=== PATIENT | male | born 1975 | race Caucasian/White ===

== ENCOUNTER → 2020-03-18 13:57 | Outpatient (CLI) | payer BC, SELFPAY ==
[2020-03-18 14:20] LABS: Basophils # 0.1 K/mm3 (0-0.2); Basophils % 0.8 % (0.1-2.0); Eosinophils # 0.2 K/mm3 (0.0-0.4); Hemoglobin 17.1 g/dL (14.1-18.0); Lymphocytes # 2.3 K/mm3 (0.7-4.5); Lymphocytes % 27.1 % (10-50); Mean Corpuscular HGB Conc 33.6 g/dL (31.8-35.4); Mean Corpuscular Hemoglobin 31.4 pg (27.0-31.2); Mean Corpuscular Volume 93.6 fl (80-94); Mean Platelet Volume 8.9 fl (7.4-10.4); Monocytes # 0.6 K/mm3 (0.1-1.0); Neutrophils # 5.3 K/mm3 (1.8-7.8); Platelet Count 337 K/mm3 (142-424); Red Blood Count 5.46 M/mm3 (4.60-6.20); White Blood Count 8.5 K/mm3 (4.8-10.8)
[2020-03-18 16:07] LABS: Alanine Aminotransferase 49 U/L (12-78); Albumin Level 4.6 g/dl (3.5-5.0); Alkaline Phosphatase 87 U/L (38-126); Anion Gap 9.6 mEq/L (5-15); Aspartate Amino Transferase 33 U/L (17-59); Bilirubin,Direct 0.3 mg/dl (0.0-0.4); Bilirubin,Total 0.3 mg/dl (0.2-1.3); Blood Urea Nitrogen 11 mg/dl (9-20); Calcium 10.4 mg/dl (8.4-10.2); Carbon Dioxide 28 mmol/L (22.0-30.0); Chloride 105 mmol/L (98-107); Estimated Glomerular Filt Rate 73 ml/min (>60); GFR (African American) 88 ML/MIN (>60); Glucose 82 mg/dl (74-100); HDL Cholesterol 38 mg/dl (40-60); Potassium 4.6 mmoL/L (3.5-5.1); Sodium 138 mmol/L (136-145); Total Protein,Serum 7.6 g/dl (6.3-8.2)
[2020-03-18 16:17] LABS: Chol/HDL Ratio 9.5 (1-3.5); Cholesterol 361 mg/dl (140-200); Direct LDL Cholesterol 225.44 mg/dL (100-129); Triglycerides 688 mg/dl (30-150)
[2020-03-18 16:25] LABS: Free T4 (Free Thyroxine) 1.03 ng/dl (0.78-2.19)
[2020-03-18 16:40] LABS: Thyroid Stimulating Hormone 0.62 uIU/mL (0.465-4.68)
== END ==
PROVIDERS: Visit Provider Urology
DX: R07.9 Chest pain, unspecified (principal); R06.00 Dyspnea, unspecified; R06.01 Orthopnea; R55 Syncope and collapse; R61 Generalized hyperhidrosis
CPT/HCPCS: 36415; 80048; 80061; 80076; 84439; 84443; 85025

== ENCOUNTER → 2020-04-04 06:18 | Outpatient (CLI) | payer BC, SELFPAY ==
--- NOTE | 2020-04-04 06:18 | NM_ITS ---
APPROVED REPORT Exam: Nuclear Stress Test Indication: HYPERLIPIDEMIA, TOB USE, FM HX, C.P., SOB, FATIGUE Patient Location: Outpatient Stress Tech: Natasha Lowe [place] Tech:Milady StephensFROYLAN RT(R)(N) Ht: 6 ft 1 in Wt: 245 lbs HR: 76 bpm BP: 126/81 mmHg BSA: 2.35 m2 BMI: 32.3 History: HYPERLIPIDEMIA, TOB USE, FM HX, C.P., SOB, FATIGUE Procedure: Patient received a 0.4 mg of intravenous Lexiscan, resting heart rate 76 bpm, resting blood pressure 126/81 mmHg, with Lexiscan maximum heart rate achived was 106 bpm which is Less than 85 % of the maximum predicted heart rate and blood pressure was 157/91 mmHg. Electrocardiogram Resting electrocardiogram showed sinus rhythm, with Lexiscan there is less than 1.[address] segment depression noted from the baseline EKG. The EKG portion of the Lexiscan is nondiagnostic. Cardiac Stress and Resting SPECT Images: Cardiac Stress and Resting SPECT images were obtained using technetium 99m Myoview 29.9 mCi stress and 10.32 mCi at rest. Gated SPECT for analysis of segmental wall motion and calculation of the ejection fraction also done. Prone images were also obtained. Cardiac stress and rest SPECT images show uniform myocardial activity without segmental perfusion abnormality, computer derived ejection fraction is 58% with no regional wall motion abnormality, right ventricle is normal size and contractility. Conclusion: 1. The EKG portion of Lexiscan is nondiagnostic. 2. No scintigraphic evidence of reversible ischemia seen, computer derived ejection fraction 58% with no regional wall motion abnormality, right ventricle is normal size and contractility. 3. Normal Lexiscan Myoview study. Electronically signed by : Kuldeep Diaz, 04/04/2020 11:18:50
--- NOTE | 2020-04-04 06:18 | CA_ITS ---
APPROVED REPORT Exam: Pharmacologic Technologist: Natasha Lowe Ht: 6 ft 1 in Wt: 244 lbs BSA: 2.34 m2 HR: 76 bpm BP: 126/81 mmHg Indications: Chest pain, Shortness of Breath Medical History Medications: Lorazepam,,,,, Gabapentin,,,,, Zolpidem,,,,, OxYCODONE,,,,, Fluoxetine,,,,, Cyclobenzaprine,,,,, Stress Test Details Test: LEXISCAN HR Resting HR: 83 bpm Max Heart Rate (APMHR): 177 bpm Max HR Achieved: 108 bpm Target HR (85% APMHR): 150 bpm % of APMHR: 61 Recovery HR: 88 bpm BP Resting BP: 126.0/81.0 mmHg Max BP: 157.0/91.0 mmHg Recovery BP: 130.0/89.0 mmHg ECG Resting ECG: NORMAL SINUS RHYTHM Clinical Exercise duration: 04:00 min Highest Stage Achieved: Exercise capacity: 1.0 METs Stress ECG Conclusion Symptoms: No chest pain Arrhythmias/Ectopy: None ST-T Changes: < 1.[address] segment changes Conclusion: Non-Diagnostic Electronically signed by : Kuldeep Diaz, 04/04/2020 11:04:05
--- NOTE | 2020-04-04 06:18 | CA_ITS ---
APPROVED REPORT EXAM: Comprehensive 2D, Doppler, and color-flow Echocardiogram Seat Nailer: Lizabeth Wright RT(R) Ht: 6 ft 1 in Wt: 244lbs BSA: 2.34 BP: 126/77 mmHg Indications: CP, SOB, orthopnea, near syncope, diaphoresis, obesity Echo Enhancing Agent Indication: Endocardial border delineation Agent(s) / Amount(s) Used: Definity 2 cc 2D Dimensions LVOT 2.16 cm (M/F) 1.5-2.5 M-Mode Dimensions RVDd 2.35 cm (0.9-2.6) LA Diam 2.85 cm (1.9-4.0) LVDd 4.10 cm (3.5-5.7) Ao Diam 2.98 cm (2.0-3.7) LVDs 3.04 cm (3.5-5.7) IVSd 0.80 cm (0.6-1.1) PWd 0.80 cm (0.6-1.1) EF (Teich) 51.20% FS 25.90% EDV (Teich) 74.20 mL ESV (Teich) 36.20 mL LV Diastology E Decel Time 220.00 (160-240 msec) E/A Ratio 1.3 MED E' 9.40 (< 7 cm/sec) E'/MED E' Ratio 7.67 (>14) LAT E' 11.00 (<10 cm/sec) E/LAT E' Ratio 6.55 (>14) Mitral Valve MV E Max Faizan. 72.00 (40-130 cm/s) MV A Velocity 57.00 (40-130 cm/s) E/A Ratio 1.26 MV Decel. Time 220.00 (160-240 ms) MV PHT 64.00 ms Left Ventricle Left atrium is normal size, left ventricle is normal size, there is no concentric left ventricular hypertrophy, visually estimated ejection fraction 55% with no regional wall motion abnormality. Diastolic parameters are within normal range. Right Ventricle Right atrium and right ventricle are normal size and contractility. Aortic Valve Aortic valve is grossly normal, there is no aortic stenosis or aortic insufficiency. Mitral Valve Mitral valve is grossly normal. There is trace mitral regurgitation. Tricuspid Valve Tricuspid valve is grossly normal, there is trace tricuspid regurgitation, tricuspid regurgitation jet velocity is inadequate for calculation of the right ventricular systolic pressure. Pulmonic Valve Pulmonic valve is poorly visualized. Great Vessels Aortic root is normal size. Pericardium No significant pericardial effusion noted. Conclusion 1. Normal left ventricular size, preserved left ventricular systolic function, visually estimated ejection fraction 55% with no regional wall motion abnormality, diastolic parameters are within normal range. 2. Trace mitral and tricuspid regurgitation. 3. No significant pericardial effusion noted. Electronically signed by : Kuldeep Diaz, 04/04/2020 10:32:21
== END ==
PROVIDERS: PCP Family Medicine; Visit Provider Urology
DX: R07.9 Chest pain, unspecified (principal); R06.00 Dyspnea, unspecified; R06.01 Orthopnea; R55 Syncope and collapse; R61 Generalized hyperhidrosis
CPT/HCPCS: 78452; 93017; 93306; A9502; J2785

== ENCOUNTER → 2020-05-06 12:27 | Outpatient (CLI) | payer BC, SELFPAY ==
[2020-05-06 13:02] LABS: Alanine Aminotransferase 49 U/L (12-78); Albumin Level 4.4 g/dl (3.5-5.0); Alkaline Phosphatase 85 U/L (38-126); Aspartate Amino Transferase 39 U/L (17-59); Bilirubin,Direct 0.2 mg/dl (0.0-0.4); Bilirubin,Indirect 0.3 mg/dL (0.0-0.9); Bilirubin,Total 0.5 mg/dl (0.2-1.3); Bilirubin,Unconjugated 0.3 mg/dL (0.0-1.1); Chol/HDL Ratio 5.2 (1-3.5); Cholesterol 193 mg/dl (140-200); HDL Cholesterol 37 mg/dl (40-60); Total Protein,Serum 7.3 g/dl (6.3-8.2); Triglycerides 193 mg/dl (30-150); VLDL Cholesterol 39 mg/dL (0-40)
[2020-05-06 13:13] LABS: Direct LDL Cholesterol 111.56 mg/dL (100-129)
== END ==
PROVIDERS: Visit Provider Physician Assistant
DX: I11.9 Hypertensive heart disease without heart failure (principal); E11.9 Type 2 diabetes mellitus without complications
CPT/HCPCS: 36415; 80061; 80076

== ENCOUNTER → 2022-09-28 10:25 | Outpatient (CLI) | payer MEDICARE, MEDICAID, SELFPAY ==
--- NOTE | 2022-09-28 10:26 | CT_ITS ---
FINAL REPORT TECHNIQUE: Pre- and postcontrast images of the abdomen were performed by computed tomography. This study was performed with techniques to keep radiation doses as low as reasonably achievable (ALARA). Individualized dose reduction techniques using automated exposure control or adjustment of mA and/or kV according to the patient's size were employed. CLINICAL HISTORY: Left flank pain FINDINGS: There is mild left base atelectasis or scar. Mild vascular calcification is identified. The liver is normal in size and attenuation. There is nonspecific gallbladder wall thickening. The spleen is unremarkable. The adrenals are normal. The pancreas is unremarkable. The kidneys enhance appropriately. The appendix is normal. There are multiple fluid-filled bowel loops in a nonspecific pattern. IMPRESSION: Mild nonspecific gallbladder wall thickening. No acute inflammatory process. Reviewed, Interpreted and Dictated by Aj Ferrell III, MD Transcribed by Dolores Kuo Authenticated and [facility]
== END ==
LOC: RAD 10:26
PROVIDERS: PCP Family Medicine; Visit Provider Family Medicine
DX: R19.8 Other specified symptoms and signs involving the digestive system and abdomen (principal); R10.9 Unspecified abdominal pain
CPT/HCPCS: 74170; Q9967

== ENCOUNTER 2023-04-13 18:38 | Outpatient (CLI) | payer MEDICARE, MEDICAID, SELFPAY ==
[2023-04-13 18:17] LABS: Basophils % 0.4 % (0.1-2.0); Eosinophils # 0.2 K/mm3 (0.0-0.4); Eosinophils % 2.2 % (0.1-12.0); Hematocrit 45.8 % (42.0-52.0); Hemoglobin 15.3 g/dL (14.1-18.0); Lymphocytes # 2.7 K/mm3 (0.7-4.5); Lymphocytes % 34.5 % (10-50); Mean Corpuscular HGB Conc 33.3 g/dL (31.8-35.4); Mean Corpuscular Hemoglobin 33.9 pg (27.0-31.2); Mean Corpuscular Volume 101.7 fl (80-94); Monocytes # 0.6 K/mm3 (0.1-1.0); Monocytes % 7.8 % (1.7-9.3); Neutrophils # 4.2 K/mm3 (1.8-7.8); Neutrophils % 55.1 % (37.0-80.0); Platelet Count 290 K/mm3 (142-424); Red Blood Count 4.51 M/mm3 (4.60-6.20); Red Cell Distribution Width 13.7 % (11.5-17.5); White Blood Count 7.7 K/mm3 (4.8-10.8)
[2023-04-13 19:01] LABS: Alanine Aminotransferase 46 U/L (12-78); Albumin Level 4.1 g/dl (3.5-5.0); Albumin/Globulin Ratio 1.6 (1.1-1.8); Alkaline Phosphatase 94 U/L (38-126); Anion Gap 11.5 mEq/L (5-15); Aspartate Amino Transferase 38 U/L (17-59); Bilirubin,Total 0.4 mg/dl (0.2-1.3); Blood Urea Nitrogen 15 mg/dl (9-20); Calcium 9.2 mg/dl (8.4-10.2); Carbon Dioxide 27 mmol/L (22.0-30.0); Chloride 105 mmol/L (98-107); Chol/HDL Ratio 6.7 (1-3.5); Cholesterol 214 mg/dl (140-200); Estimated Glomerular Filt Rate 72 ml/min (>60); GFR (African American) 87 ML/MIN (>60); Globulin 2.6 g/dL (1.3-3.2); Glucose 78 mg/dl (74-100); HDL Cholesterol 32 mg/dl (40-60); Potassium 4.5 mmoL/L (3.5-5.1); Sodium 139 mmol/L (136-145); Total Protein,Serum 6.7 g/dl (6.3-8.2); Triglycerides 351 mg/dl (30-150); VLDL Cholesterol 70 mg/dL (0-40)
[2023-04-13 19:12] LABS: Direct LDL Cholesterol 118.38 mg/dL (100-129)
== END 2023-04-13 23:59 ==
LOC: LAB.DROPOF 18:39
PROVIDERS: PCP Family Medicine; Visit Provider Family Medicine
DX: G47.00 Insomnia, unspecified (principal); E78.5 Hyperlipidemia, unspecified; Z83.438 Family history of other disorder of lipoprotein metabolism and other lipidemia; Z76.0 Encounter for issue of repeat prescription; Z79.899 Other long term (current) drug therapy
CPT/HCPCS: 80053; 80061; 85025

== ENCOUNTER 2023-07-12 07:49 | Outpatient (CLI) | payer MEDICARE, SELFPAY ==
--- NOTE | 2023-07-12 07:50 | US_ITS ---
FINAL REPORT CLINICAL HISTORY: ABDOM PAIN, GB THICKENING COMPARISON: None FINDINGS: Sonographic images of the right upper quadrant were obtained. The pancreas is mostly obscured. There is diffuse fatty infiltration of the liver. There is a hypoechoic focus present adjacent to the gallbladder fossa that may represent an area of focal fatty sparing. There is wall thickening of the gallbladder, and the gallbladder appears contracted. A small amount of sludge appears to be present. There is no evidence of biliary ductal dilatation.The common duct measures 3 mm. Limited images of the right kidney are unremarkable. IMPRESSION: Diffuse fatty infiltration of the liver, with a hypoechoic focus adjacent to the gallbladder fossa that may represent an area of focal fatty sparing. Wall thickening is present in the gallbladder, and the gallbladder appears contracted with a small amount of sludge. No biliary ductal dilatation is present. Reviewed, Interpreted and Dictated by Adi Lora MD Transcribed by Cheryl Almanza Authenticated and [facility]
== END 2023-07-12 23:59 | disposition home or self-care (01) ==
LOC: RAD 07:50
PROVIDERS: PCP Family Medicine; Visit Provider Family Medicine
DX: R10.9 Unspecified abdominal pain (principal)
CPT/HCPCS: 76705

== ENCOUNTER 2023-08-03 14:03 | Outpatient (CLI) | payer MEDICARE, SELFPAY ==
--- NOTE | 2023-08-03 14:04 | ECG_ITS ---
APPROVED REPORT Exam: Resting ECG HR:56 bpm ECG Measurements Heart Rate 56 AXES TN 187 P 20 QRSd 97 QRS 76 QT 394 T 30 QTc 385 Conclusion SINUS BRADYCARDIA LOW QRS VOLTAGE IN PRECORDIAL LEADS [QRS DEFLECTION < 1.0 mV IN CHEST LEADS] BORDERLINE ECG UNCONFIRMED REPORT Electronically signed by : Krzysztof Boucher MD 08/05/2023 10:29:18
[2023-08-03 14:43] LABS: Basophils # 0.1 K/mm3 (0-0.2); Basophils % 1.3 % (0.1-2.0); Eosinophils # 0.1 K/mm3 (0.0-0.4); Eosinophils % 2.2 % (0.1-12.0); Hematocrit 48.9 % (42.0-52.0); Hemoglobin 15.9 g/dL (14.1-18.0); Lymphocytes # 2.6 K/mm3 (0.7-4.5); Lymphocytes % 39.8 % (10-50); Mean Corpuscular HGB Conc 32.4 g/dL (31.8-35.4); Mean Corpuscular Hemoglobin 32.4 pg (27.0-31.2); Mean Corpuscular Volume 99.9 fl (80-94); Mean Platelet Volume 9.3 fl (7.4-10.4); Monocytes # 0.4 K/mm3 (0.1-1.0); Monocytes % 6.7 % (1.7-9.3); Neutrophils # 3.2 K/mm3 (1.8-7.8); Platelet Count 270 K/mm3 (142-424); Red Blood Count 4.89 M/mm3 (4.60-6.20); Red Cell Distribution Width 14.4 % (11.5-17.5); White Blood Count 6.5 K/mm3 (4.8-10.8)
[2023-08-03 15:23] LABS: Alanine Aminotransferase 44 U/L (12-78); Albumin Level 4.3 g/dl (3.5-5.0); Albumin/Globulin Ratio 1.5 (1.1-1.8); Alkaline Phosphatase 78 U/L (38-126); Anion Gap 13.5 mEq/L (5-15); Aspartate Amino Transferase 35 U/L (17-59); Bilirubin,Total 0.5 mg/dl (0.2-1.3); Blood Urea Nitrogen 17 mg/dl (9-20); Calcium 9.6 mg/dl (8.4-10.2); Carbon Dioxide 31 mmol/L (22.0-30.0); Chloride 100 mmol/L (98-107); Estimated Glomerular Filt Rate 59 ml/min (>60); GFR (African American) 72 ML/MIN (>60); Globulin 2.8 g/dL (1.3-3.2); Glucose 78 mg/dl (74-100); Potassium 4.5 mmoL/L (3.5-5.1); Sodium 140 mmol/L (136-145); Total Protein,Serum 7.1 g/dl (6.3-8.2)
== END 2023-08-03 23:59 | disposition home or self-care (01) ==
PROVIDERS: PCP Family Medicine; Visit Provider Surgery
DX: K92.1 Melena (principal)
CPT/HCPCS: 36415; 80053; 85025; 93005

== ENCOUNTER 2023-08-05 05:59 | Day surgery (SDC) | payer MEDICARE, SELFPAY ==
[2023-08-04 13:00] VITALS: BMI 32.3
[2023-08-05] VITALS (7 sets, daily range): BP systolic 92–139; BP diastolic 56–95; PULSE 54–61; RESP 18; TEMP 36.1–36.5; O2SAT 95–99; BMI 32.3
[2023-08-05] MEDS: LACTATED RINGERS 1000ML 1,000 ML 25 ML IV (06:33)
--- NOTE | 2023-08-05 06:52 | HMH.SCOPE ---
Procedure: Date: 08/05/23 Patient Date of :: 1975 Procedure Performed:: Esophagogastroduodenoscopy with biopsy Indications:: Melena Note: During recent discussion with regard to biliary disease the patient mentioned significant black stool recently . Performing Provider:: Nixon Mccall MD Referring Provider:: . Sedation:: Monitored anesthesia care Procedure:: After informed consent was obtained the patient was taken to the endoscopy suite. Sedation ensued after the patient was transferred to the left lateral decubitus position. Pulse, blood pressure, and oxygen saturation were monitored throughout the procedure. The endoscope was advanced beyond the duodenal bulb. Retroflexion within the gastric lumen was accomplished. The gastroscope was carefully removed and the patient was transferred to recovery in stable condition. Please see findings and specimens below for detail. Findings:: Gastroesophageal junction at 42 cm Mild patchy gastroduodenitis Specimens:: Antral biopsy Recommendations:: Follow-up pathology Continue with current plans with regard to laparoscopic cholecystectomy Complications:: No immediate Estimated blood obtained (mL): 1 Colonoscopy Component Colonoscopy Component Was a colonoscopy performed during today's procedure?: No
== END 2023-08-05 08:05 | disposition home or self-care (01) ==
PROVIDERS: PCP Family Medicine; Visit Provider Surgery
PROC: 0DJ08ZZ Inspection of Upper Intestinal Tract, Via Natural or Artificial Opening Endoscopic (ICD-10-PCS; CPT 43235; principal; 2023-08-05 07:00)
DX: K92.1 Melena (principal); K29.90 Gastroduodenitis, unspecified, without bleeding; K31.89 Other diseases of stomach and duodenum
CPT/HCPCS: 43239; J7120

== ENCOUNTER 2023-08-25 05:59 | Day surgery (SDC) | payer MEDICARE, SELFPAY ==
[2023-08-23 13:05] VITALS: BMI 31.4
[2023-08-23 13:25] VITALS: BMI 31.4
[2023-08-25] VITALS (13 sets, daily range): BP systolic 131–160; BP diastolic 77–102; PULSE 54–70; RESP 13–18; TEMP 36.2–43; O2SAT 94–98
[2023-08-25] MEDS: LACTATED RINGERS 1000ML 1,000 ML 25 ML IV (06:18)
--- NOTE | 2023-08-25 06:40 | P.PNANES_ITS ---
[facility] Disclaimer: The information contained in this section may have been updated after the patient was seen, as this information can be updated by other users. Medical History Abnormal EKG Sinus tachycardia Dyspnea Surgical History Hx of colonoscopy History of ankle surgery History of right hip replacement Family History Other Family history of cancer Family history of diabetes mellitus type II Social History (Updated 08/23/23 @ 13:16 by Marla Leiva RN) Smoking Status: Current every day smoker alcohol intake: never substance use type: denies use current occupational status: unemployed Travel in the last 8 weeks: None caffeine: Yes [facility] Anesthesia Checklist Patient Identification Patient Identification: Arm Band and Family Structural Data Admitted From: Home Planned Operative Procedure/s: Lap Ya Consent for Planned Operative Procedure(s) Verified: Yes Verified Documents: Surgical Consent and History and Physical NPO Status Verified Time NPO: 00:00 Additional verifications Patient : No Anesthesia Reactions: No Hx Blood Transfusions: No Blood Transfusion Reaction: No Cephalosporin Allergy: No Previous Colonoscopy: Yes Airway Assessment Mallampati Score:: Class II C-Spine Mobility Assessed: Yes TMJ Mobility Assessed: Yes Dentition: Edentulous Neurological Assessment Level of Consciousness: Awake, Alert, Appropriate and Follows Commands Hx Seizures: No Numbness or tingling in extremities: Yes Anesthesia Plan Anesthesia Risk discussed: Yes ASA Class: II Anesthesia Type: General Preoperative Comments Pre-Operative Comments: Hypertension...Metoprolol. Allergy to PCN..Rash. Anxiety. OA. Recent Stress Test.
[2023-08-25] MEDS: CLINDAMYCIN PHOSPHATE/D5W 900 MG/50 ML PIGGYBACK 100 MG IV (07:30)
[2023-08-25] MEDS: LIDOCAINE 1% 20ML MDV 20 ML (07:47)
--- NOTE | 2023-08-25 08:36 | EXP.OP.NOTE ---
Date of procedure: 08/25/23 Pre-op Diagnosis:: Chronic cholecystitis Post-op Diagnosis:: Same Procedure performed:: Laparoscopic cholecystectomy Surgeon:: Nixon Mccall MD CLINICAL ASSESSMENT MANAGER:: Gelacio Weller Anesthesia: GETRamses Estimated blood loss (mL): 15 Operative findings:: Fairly severe pericholecystic fat stranding Profound infundibular thickening Dome down approach utilized secondary to above findings Operative note:: After informed consent was obtained, the patient was taken to the operating room and placed in the supine position. General anesthesia was induced and the abdomen was prepped and draped in a sterile fashion. After infiltration with local anesthetic an supraumbilical incision was made. A Veress needle was placed in position. The abdomen was insufflated. A 5 mm optical trocar was placed in position. Under direct visualization, a 12 mm trocar was placed in the subxiphoid position and 2 additional 5 mm trocars were placed in the right upper quadrant. The gallbladder was elevated up and over the liver margin. Severe pericholecystic fat stranding confirmed. Careful blunt dissection was utilized to free the gallbladder from adhesions to the adjacent omentum, small bowel, and colon. The cystic artery was freed from surrounding tissue and controlled with clips prior to transection distally. Profound infundibular thickening was noted. Careful blunt dissection was utilized to create a window behind the gallbladder at the infundibulum. The decision was made to proceed with a dome down approach . Harmonic sunny were utilized to dissect the gallbladder away from the liver margin. Endoloops (x 2) were placed at the infundibulum. Transection distal to the Endoloops was completed with harmonic sunny. The gallbladder was placed in a retrieval bag and removed through the subxiphoid trocar site. The right upper quadrant was thoroughly irrigated. No active bleeding or bile leak was noted. Fascia at the subxiphoid trocar site was reapproximated utilizing the NeoClose device. The remaining trocars were removed. All wounds were irrigated and skin was closed with 4-0 Monocryl in a mattress fashion to facilitate hemostasis. The patient's anesthetic agents were reversed and extubation was completed prior to transfer to recovery in stable condition. Condition: stable Disposition: PACU Specimens:: Gallbladder and contents Complications:: No immediate
--- NOTE | 2023-08-25 08:46 | EXP.ANES.I ---
[facility] Anesthesia Record Part I Anesthesia Record I Intake, IV Amount: 1,000 Hydration: Adequate Estimated blood loss (mL): 15 Urine output (mL): 0 Blood Pressure: 135/85 SaO2: 94 Pulse Rate: 67 Airway Patency: Patent Respiratory Rate: 13 Temperature: 97.3 F Patient is:: Drowsy and Stable Stable to PACU at:: 08:45
[2023-08-25] MEDS: HYDROMORPHONE 2MG/ML SYRINGE 0.5 MG IV ×3 (09:05→09:15)
--- NOTE | 2023-08-25 10:01 | EXP.ANES.II ---
[facility] Anesthesia Record Part II Anesthesia Record Part II Discharge Time: 09:25 Destination: Surgical Day Care (OP Surgery) PACU nurse assessment reviewed?: Yes Patient Condition:: Good Anesthesia Complications:: None Swallowing reflex intact?: Yes Airway Patency: Patent Cyanosis?: No Blood Pressure: 159/100 SaO2: 94 Respiratory Rate: 18 Pulse Rate: 63 Temperature: 97.3 F Mental Status: Alert & Oriented Pain level:: 6 Nausea and/or vomitting:: None Intake, IV Amount: 0 Hydration: Adequate
--- NOTE | 2023-08-25 12:07 | EXP.ANES.II ---
[facility] Anesthesia Record Part II Anesthesia Record Part II Discharge Time: 09:25 Destination: Surgical Day Care (OP Surgery) PACU nurse assessment reviewed?: Yes Patient Condition:: Good Anesthesia Complications:: None Swallowing reflex intact?: Yes Airway Patency: Patent Cyanosis?: No Blood Pressure: 159/100 SaO2: 94 Respiratory Rate: 18 Pulse Rate: 63 Temperature: 97.3 F Mental Status: Alert & Oriented Pain level:: 6 Nausea and/or vomitting:: None Intake, IV Amount: 0 Hydration: Adequate
== END 2023-08-25 10:07 | disposition home or self-care (01) ==
PROVIDERS: PCP Family Medicine; Visit Provider Surgery
PROC: 0FT44ZZ Resection of Gallbladder, Percutaneous Endoscopic Approach (ICD-10-PCS; CPT 47562; principal; 2023-08-25 07:30)
DX: R10.11 Right upper quadrant pain (principal); R11.2 Nausea with vomiting, unspecified; K81.1 Chronic cholecystitis
CPT/HCPCS: 47562; 96374; J3490; J0131; J1100; J1170; J2250; J2405; J3010; J7120

== ENCOUNTER 2024-03-29 09:37 | Outpatient (CLI) | payer MEDICARE, SELFPAY ==
--- NOTE | 2024-03-29 09:57 | MR_ITS ---
PROCEDURE INFORMATION: Exam: MR Lumbar Spine Without and With Contrast Exam date and time: 03/29/2024 10:34 AM Age: 48 years old Clinical indication: Low back pain; Additional info: Ddd and injury due to trauma TECHNIQUE: Imaging protocol: Magnetic resonance imaging of the lumbar spine without and with contrast. Contrast material: PROHANCE; Contrast volume: 22 ml; Contrast route: IV; COMPARISON: CT ABDOMEN WO/W CON 09/28/2022 10:50 AM FINDINGS: alignment is grossly normal. signal intensity within the bone marrow is normal. conus terminates at the mid aspect of L1. Soft tissues are unremarkable. Partial lumbarization of the 1st sacral segment. Dural calcification posterior to the T12 and L1. Disc degeneration including decreased disc height, hydration and annular disk bulge/protrusion L5-S1 Facet arthropathy most pronounced L4-L5 The neural foramina are widely patent with perineural fat about the exiting nerve roots. No edema L2-L3: Central canal and neural foramina are normal. L3-L4: Central canal and neural foramina are normal. L4-L5: Central canal and neural foramina are normal. L5-S1: Broad-based annular disc bulge with a broad-based central and left paracentral disc protrusion the latter extending into the left anterolateral recess adjacent to the anterior S1 nerve root. Narrowing of the left neural foramina inferiorly. Paucity of fat about the exiting nerve root. IMPRESSION: No fracture. No marrow edema. Mild degenerative disc disease L5-S1. See above. Partial lumbarization of the 1st sacral segment.
[2024-03-29 10:09] LABS: Blood Urea Nitrogen 18 mg/dl (9-20); Estimated Glomerular Filt Rate 90 ml/min (>60); GFR (African American) 109 ML/MIN (>60)
[2024-03-29] MEDS: GADOTERIDOL INJ 20ML SYRINGE 20 ML IV (11:07)
[2024-03-29] MEDS: GADOTERIDOL INJ 10ML SYRINGE 2 ML IV (11:07)
[2024-03-29] MEDS: SODIUM CHLORIDE 0.9% 10ML SYR (RAD ONLY) 10 ML IV (11:07)
== END 2024-03-29 23:59 | disposition home or self-care (01) ==
PROVIDERS: PCP Family Medicine; Visit Provider Family Medicine
DX: G89.21 Chronic pain due to trauma (principal); M54.9 Dorsalgia, unspecified; G89.29 Other chronic pain; Z01.812 Encounter for preprocedural laboratory examination
CPT/HCPCS: 36415; 72158; 82565; 84520; A9576

== ENCOUNTER 2024-04-23 08:42 | Outpatient (POV) | payer MEDICARE, SELFPAY ==
--- NOTE | 2024-04-23 08:49 | A.OFFVIS_ITS ---
HPI Data of Consult Patient: new to practice Consult date: 04/23/24 Requesting Physician: Sonya Stewart APRN Primary Care Provider: Lamin Blank MD Consult Narrative Reason for consult: Low back pain History of present illness: Mr. Ram is a 48 year old male who presents today as a new patient. He is a referral from Dr. Blank. Today he rates his pain a 10 out of 10. Patient states that he has had back pain for years however does state about 10 years ago he had an accident where he fell out of a barn and it progressively has gotten worse. He states he has tried oral medications, heat and ice, topicals and chiropractor therapy however none of this seemed to help. He states that physical therapy makes his symptoms worse however he is currently in physical therapy. He states he has had epidurals in the past and that they did help however they would frequently only give temporary relief. Patient's complaint today is more prominent across his low back and states that it will feel like it radiates up. He states that he is not having any leg issues however states that occasionally he will have times where he has some numbness into his legs but it really varies when this occurs. He does state the pain is worse with with certain movements such as getting up out of bed or bending down. He states that even walking causes significant pain. He states that the cold rainy weather aggravates his pain as well. He states he has trouble keeping his house clean or cooking due to the worsening back pain. Patient does state that he is interested in any help that we may be able to provide. Patient states in the past he did see a surgeon who did state that he had significant findings however was not recommending surgical intervention at that time.Patient is currently managed with [place] 5 mg and gabapentin 600 mg from his PCP. His Cristóbal has been reviewed CC: Sonya Stewart APRN [facility] Disclaimer: The information contained in this section may have been updated after the patient was seen, as this information can be updated by other users. Medical History Abnormal EKG Sinus tachycardia Dyspnea Surgical History History of laparoscopic cholecystectomy Hx of colonoscopy History of ankle surgery History of right hip replacement Family History Other Family history of cancer Family history of diabetes mellitus type II Social History (Updated 04/23/24 @ 09:16 by Amanda Moser RN) Smoking Status: Current every day smoker second hand exposure: Yes alcohol intake: never substance use type: denies use current occupational status: unemployed Travel in the last 8 weeks: None caffeine: Yes Have you lived/traveled outside [place] in past 30 days?: No Contact w/someone who lives/traveled outside US past 30 days?: No Exposure to someone with infectious disease in past 14 days?: No Do you have a fever (greater than 100.4 F or 38 C)?: No Have you tested positive for COVID-19: No Exposed to someone with COVID-19 in past 14 days?: No Do you have a sore throat?: No Do you have a cough?: No Do you have any weakness?: No Are you experiencing any nausea/vomitting?: No Do you have any diarrhea?: No Are you experiencing any unusual bleeding?: No Do you have any muscle aches/pain?: No Do you have any abdominal pain?: No Are you experiencing loss of taste or smell?: No Review of Systems Review of Systems Review of systems:: pertinent systems reviewed and negative unless documented below Review of systems (narrative): Review of Systems: General: No recent weight changes, no fever, no sleep disturbances Respiratory: No cough, no shortness of air, no recurring pulmonary infections Cardiovascular/peripheral vascular: No chest pain, no palpitations, no edema, no shortness of breath Gastrointestinal: No new onset incontinence, normal bowel movements reported Genitourinary: No new onset incontinence Musculoskeletal: Low back pain Psychiatric: [Normal mood/affect] Neurological: [Denies weakness in extremities], [denies balance issues] Meds Home Medications and Allergies Home Medications ?Medication ?Instructions ?Recorded ?Confirmed ?Type blood pressure monitor #1 ea 05/06/20 04/02/24 Rx aspirin 81 mg tablet,delayed 81 mg PO DAILY #100 tabs 03/30/22 04/02/24 Rx release (Adult Low Dose Aspirin) hydroxyzine HCl 50 mg tablet 50 mg PO BID PRN anxiety #60 tabs 03/08/23 04/02/24 Rx amitriptyline 25 mg tablet See Rx Instructions PO HS #30 tabs 05/28/24 02/17/25 Rx albuterol sulfate 90 mcg/actuation 2 puff inhalation QID PRN 11/23/23 04/02/24 Rx aerosol inhaler shortness of breath or wheezing #8.5 grams atorvastatin 80 mg tablet See Rx Instructions .Route 11/23/23 04/02/24 Rx .COMPLEX #90 tabs clonidine HCl 0.2 mg tablet See Rx Instructions .Route 11/23/23 04/02/24 Rx .COMPLEX #90 tabs fluoxetine 20 mg capsule See Rx Instructions .Route 11/23/23 04/02/24 Rx .COMPLEX #90 caps gabapentin 600 mg tablet 600 mg PO TID #90 tabs 11/23/23 04/02/24 Rx metoprolol succinate 25 mg 25 mg PO DAILY #90 tabs 11/23/23 04/02/24 Rx tablet,extended release 24 hr (Toprol XL) zolpidem 10 mg tablet (Ambien) 10 mg PO QHS PRN insomnia #30 tabs 11/23/23 04/02/24 Rx tizanidine 4 mg tablet (Zanaflex) 4 mg PO HS #90 tabs 03/07/24 04/02/24 Rx cyclobenzaprine 10 mg tablet mg PO 03/22/24 04/02/24 History naproxen 500 mg tablet mg PO 03/22/24 04/02/24 History buspirone 15 mg tablet See Rx Instructions .Route 03/29/24 04/02/24 Rx .COMPLEX #30 tabs hydrocodone 5 mg-acetaminophen 325 1 tab PO BID #20 tabs 04/13/24 Rx mg tablet New Prescriptions to Start Prescriptions: Allergies Allergy/AdvReac Type Severity Reaction Status Date / Time Penicillins Allergy hives Verified 04/02/24 13:20 Objective Narrative: Physical Exam: General: Alert and oriented x3, no acute distress, pleasant and cooperative Lungs: Respirations even and unlabored, symmetrical chest expansion Eyes: PERRL Musculoskeletal: Flexion and extension of lumbar [spine] somewhat guarded secondary to pain, [antalgic gait noted] positive Kemps test point tenderness along roughly L3-L4 L4-L5 levels Neurological: Speech clear, no gross sensory deficit Additional findings Additional findings: FINDINGS: alignment is grossly normal. signal intensity within the bone marrow is normal. conus terminates at the mid aspect of L1. Soft tissues are unremarkable. Partial lumbarization of the 1st sacral segment. Dural calcification posterior to the T12 and L1. Disc degeneration including decreased disc height, hydration and annular disk bulge/protrusion L5-S1 Facet arthropathy most pronounced L4-L5 The neural foramina are widely patent with perineural fat about the exiting nerve roots. No edema L2-L3: Central canal and neural foramina are normal. L3-L4: Central canal and neural foramina are normal. L4-L5: Central canal and neural foramina are normal. L5-S1: Broad-based annular disc bulge with a broad-based central and left paracentral disc protrusion the latter extending into the left anterolateral recess adjacent to the anterior S1 nerve root. Narrowing of the left neural foramina inferiorly. Paucity of fat about the exiting nerve root. IMPRESSION: No fracture. No marrow edema. Mild degenerative disc disease L5-S1. See above. Partial lumbarization of the 1st sacral segment. Assessment and Plan *Assessment and plan (1) Degenerative disc disease: Status: Acute Category: Medical (2) Lumbar nerve root impingement: Status: Acute Category: Medical Code(s): M54.16 - Radiculopathy, lumbar region (3) Chronic back pain greater than 3 months duration: Status: Acute Category: Medical Code(s): M54.9 - Dorsalgia, unspecified; G89.29 - Other chronic pain (4) Lumbar facet arthropathy: Status: Acute Category: Medical Code(s): M47.816 - Spondylosis without myelopathy or radiculopathy, lumbar region Plan Patient is experiencing significant pain in his low back that is worse with bending, twisting or lifting. Patient did have limited range of motion of his lumbar spine with a positive Kemps test during today's visit. I did discuss with the patient that I do believe he would benefit from a lumbar medial branch block. Risk and benefits were discussed with the patient and [he] would like to proceed forward with this plan of care. Patient has tried and failed conservative therapy including oral medications, heat and ice, topicals, chiropractor therapy and physical therapy as well as has at home stretching exer cise for longer than 12 weeks. Patient is currently in physical therapy. Patient has been experiencing chronic low back pain for years. Patient was counseled that if he does get significant relief with his first lumbar medial branch block that we will plan on repeating it with the plan to progress forward to a lumbar RFA at a later date. Patient agrees with this plan of care. Patient will be scheduled for his first diagnostic lumbar medial branch block bilaterally L3-L4 L4-L5 under fluoroscopy. Patient has been instructed to contact the clinic with any concerns before the next appointment. Dr. Rondon has reviewed this note and agrees with this plan of care. This note was dictated using voice recognition software and make contain errors or omissions. All injections are used with Lidocaine, Bupivacaine and Depo Medrol. Occasionally urine drug screen is needed to verify patient's compliance with our office pain contract. This is ordered based off specific treatments related to chronic pain with the potential to abuse certain medications. Patient has been instructed to contact the clinic with any concerns before the next appointment. Dr. Rondon has reviewed this note and agrees with this plan of care. This note was dictated using voice recognition software and make contain errors or omissions. All injections are used with Lidocaine, Bupivacaine and Depo Medrol. Occasionally urine drug screen is needed to verify patient's compliance with our office pain contract. This is ordered based off specific treatments related to chronic pain with the potential to abuse certain medications.
[2024-04-23 09:15] VITALS: BP 92/67; PULSE 66; RESP 18; O2SAT 96; BMI 30.9
== END 2024-04-23 23:59 | disposition home or self-care (01) ==
LOC: SC.PAIN 08:43
PROVIDERS: PCP Family Medicine; Visit Provider Nurse Practitioner Family
DX: M51.16 Intervertebral disc disorders with radiculopathy, lumbar region (principal); M54.9 Dorsalgia, unspecified; G89.29 Other chronic pain; M47.26 Other spondylosis with radiculopathy, lumbar region; Z73.89 Other problems related to life management difficulty; Z96.641 Presence of right artificial hip joint; F17.210 Nicotine dependence, cigarettes, uncomplicated
CPT/HCPCS: 99202; G0463

== ENCOUNTER 2024-05-08 10:00 | Outpatient (RCR) | payer MEDICARE, SELFPAY ==
--- NOTE | 2024-04-23 12:04 | HMH.PTOPEV ---
PT Outpatient Evaluation Rehab PT Outpatient Evaluation Start: 04/23/24 10:59 Freq: Status: Active Protocol: Document 04/23/24 11:00 MICHELLEDesiree (Rec: 04/23/24 12:04 LALI [id number]) E-signed By Sonya Combs, PT Outpatient Therapy Subjective History Subjective History Pt is a 48 y/o male who reports chronic LBP with worsening of symptoms 10 years ago after falling out of a tobacco barn. Pt reports current left-sided low back pain that radiates up to the middle part of his back. Pt also reports intermittent numbness of bilateral legs and feet which mostly occurs with prolonged sitting. Pt reports left-sided low back pain is aggravated by laying in bed, riding in a vehicle, sitting, standing, walking, cold weather and bending forward. Pt had a lumbar spine MRI on 03/29/24 with impression of No fracture. No marrow edema. Mild degenerative disc disease L5-S1. See above. Partial lumbarization of the 1st sacral segment. Pt reports he is taking prescribed Hydrocodone mostly at night to assist with sleep; however, is still only sleeping 2-4 hours at a time due to pain. Pt reports he had an initial appointment with pain management earlier this date and was scheduled to get a steroid injection on 05/22/24. Pt reports history of having an epidural injection with only short-term improvement in symptoms. Medical History: Hypertension, Hyperlipidemia, hx R AVA 5-6 years ago, R ankle surgery 10 years New diagnosis of cancer in past 12 No months? Chief Complaint Pain Symptom Type Sharp,Numbness,Tingling Symptoms Relieved By Nothing Symptoms Aggravated By Supine,Sitting,Standing, Bending/Stooping,Physical Activity,Twisting,Walking, Lifting Current Functional Limitations Lifting,Housework,Sleeping, Standing,Sitting,Squatting, Walking,Stairs,Bending/ Stooping Symptom Description Constant but Variable Level of pain today (0-10) 10 Pain scale - at its best (0-10) 6 Lumbopelvic Eval Posture Lumbar Spine Posture Standing Position Flattened,Decreased Lordosis Assistive device Assistive Devices None / NA Gait Observation General Gait Pattern Observation Antalgic Gait,Decrease Weight Bear (R) Palapation tenderness bilateral lumbar spinal tenderness Yes: L1-L5, S1 paraspinal tenderness Yes: L thoracolumbar PS Lumbar/Sacral Palpation Overall Comment 4/4 TTP Accessory Movement L-spine Vertebrae Accessory Movements Central P/A Veyo that Elicit Symptoms L2 bilateral L3 bilateral L4 bilateral L5 bilateral S1 bilateral Range of Motion Lumbar Spine Active Flexion Range of 30 Motion (degrees) Lumbar Spine Active Extension Range of 5 Motion (degrees) Left Lumbar Spine Lateral Flexion Active 5 Range of Motion (degrees) Right Lumbar Spine Lateral Flexion 5 Active Range of Motion (degrees) Manual Muscle Test Bilateral Knee Extension Strength Grade 5 Normal Knee Flexion Strength Grade 5 Normal Hip Flexion Strength Grade 4- Good- Hip Abduction Strength Grade 4- Good- Hip Adduction Strength Grade 4- Good- Hip Extension Strength Grade 3+ Fair+ Ankle Dorsiflexion Strength Grade 5 Normal DTR Rt Patellar 1+ Lt Patellar 1+ Rt Gastroc/Soleus 1+ Lt Gastroc/Soleus 1+ Altered Sensation Bilateral LE Dermatome Level S1 Comment Decreased light touch left compared to right Special Tests Hip Delano (AVINASH) Test Positive Left Sciatic Nerve Tension Test Negative Left,Negative Right Unilateral Straight Leg Raise (Lasegue) Negative Left,Negative Right Test Oswestry Index Section 1 Pain Intensity The pain is severe and does not vary much Section 2 Personal Care (Washing,Dresing) unable to do some washing and dressing without help Section 3 Lifting I can only lift very light weights at most Section 4 Walking I cannot walk at all without increasing pain Section 5 Sitting Pain prevents me from sitting for more than 1/2 hour Section 6 Standing I cannot stand more than 1/2 hour without increasing pain Section 7 Sleeping Because of my pain, my normal night's sleep is less than 4 hours Section 8 Social Life I hardly have any social life because of pain Section 9 Traveling Pain restricts me to short necessary journeys under 30 minutes Section 10 Changing Degreee of Pain My pain is rapidly getting worse Score and Risk Level Oswestry Sc 42 Oswestry Risk Level Completely Disabled Outpatient Therapy Assessment Impairments Problems/Impairmments Palpation Tenderness,Impaired Range of Motion,Impaired Strength,Impaired Walking, Impaired Standing,Impaired Sitting,Impaired Lifting, Impaired Household Care, Impaired Stair Climbing, Impaired Squatting,Impaired Bending,Subjective C/O Pain, Impaired Self Care/Self Management Prognosis Rehab Potential Good Comment Barriers to progress include chronic pain Clinical Impression Consistent with Diagnosis Yes Short Term Goals Number of Weeks 3 Increase Range of Motion Yes: Improve lumbar AROM flex to 40, ext to 10 Improve Oswestry Score Yes: Improve score to 37 or less to improve overall QOL Decrease Subjective C/O Pain Yes: Improve pain at worst to 8/10 to improve overall QOL Improve Self Care/Self Management Yes Patient to be Ind w/ HEP Yes Detention Goals Number of Weeks 6 Decreased Palpation Tenderness Yes: 2/4 TTP of L thoracolumbar PS and L1-S1 Increase Range of Motion Yes: Improve lumbar AROM flex to 50-60, ext to 15 Increase Strength Yes: Improve BLE MMT to 4-4+/5 grossly to assist with function Improve Oswestry Score Yes: Improve score to 32 or less to improve overall QOL Decrease Subjective C/O Pain Yes: Improve pain at worst to 8/10 to improve overall QOL Outpatient Therapy Plan of Care Treatment Plan May Include Therapeutic Exercise Including Home Yes Exercise Program Manual Therapy Techniques Yes Neuromuscular Re-education Yes Therapeutic Activities to Return to Yes Previous Functional/Work Level ADL/Self Care Education Yes Mechanical Traction Yes Dry Needling Yes Thermal Modalities Yes Electrical Stimulation Yes Ultrasound/Phonophoresis Yes Iontophoresis Yes Massage Yes Group Therapy for Medicare Yes Eval/Re-Eval Yes Frequency Times per week 2 Duration Number of Weeks 4-6 Addendums This patient is a candidate for social No or vocational rehab? Patient/Guardian verbally acknowledges Yes understanding of treatment program and consents to further treatment? Patient/Guardian verbally acknowledges Yes understanding of diagnosis, prognosis and goals for treatment? Eval Complexity PT Charges 75687 - Low Complexity Shoulder/Elbow Eval Shoulder Objective Measurements Elbow Objective Measurements PHYSICIAN CERTIFICATION: I certify the specified therapy services for Dejuan Ram are required, authorized, and reviewed every 30 days.
== END 2024-05-08 23:59 | disposition home or self-care (01) ==
LOC: PT 10:00
PROVIDERS: Visit Provider Family Medicine
DX: M54.9 Dorsalgia, unspecified (principal)
CPT/HCPCS: 97014; 97110; 97163; G0283

== ENCOUNTER 2024-08-09 14:21 | Outpatient (POV) | payer MEDICARE, SELFPAY ==
--- OUTSIDE RECORDS SUMMARY | 2019-10-26 13:32 | XMS_ITS | Encounter Summary ---
Author Organization [place] [address] Care Team Providers Care Sewing Machine Operator Semiautomatic Name Role Phone Laimn Blank MD Primary Care Provider [phone] Encounter Details Date Type Department Care Team (Late st Contact Info) Description 10/26/2019 1:32 PM EDT Hospital Encounter [facility] Referral Lab 1 [place] [address] Nilo Spear MD [address] [place], [place] [id number] Effusion, right knee Social History Tobacco Use Types Packs/Day Years Used Date Smoking Tobacco: Every Day Cigarettes 1 34 Started: 08/25/1990 Smokeless Tobacco: Never Comments:Patient states, [...] 02/01/2022 11:34 AM Lizabeth Birch RN * [place] Suicide Severity Rating Scale (Q shift for [...] Lafleur CCMA Stay Tobacco Free Lifestyle No Uebel, Shannan Stephenie, CCMA documented as of this encounter Results * (ABNORMAL) SEDIMENTATION RATE AUTOMATED (10/31/2019 1:21 PM EDT) Sed Rate 41(H) 0 - 15 mm/hr 10/31/2019 4:50 PM EDT PREFERRED [employer] Blood Venipuncture / Unknown 10/31/2019 1:21 PM EDT 10/31/2019 1:22 PM EDT Nilo Spear MD HEMATOLOGY ORDERABLE S Final Result Performing Organization Address [facility] Co de Phone Number [employer] [address] [place] [address] , [place] [address] * (ABNORMAL) C-REACTIVE PROTEIN (10/31/2019 1:21 PM EDT) CRP 16.15(H) <=5.00 mg/L 10/31/2019 4:56 PM EDT [employer] Blood Venipuncture / Unknown 10/31/2019 1:21 PM EDT 10/31/2019 1:22 PM EDT Nilo Spear MD CHEMISTRY ORDERABLES Final Result Performing Organization Address [facility] Co de Phone Number [employer] [facility] [address] [facility] , [place] [address] documented in this encounter Visit Diagnoses Diagnosis Effusion, right knee documented in this encounter Care Teams Sewing Machine Operator Semiautomatic Relationship Specialty Start Date End Date Lamin Blank MD PCP - General 12/08/09 documented as of this encounter
--- OUTSIDE RECORDS SUMMARY | 2019-11-13 10:02 | XMS_ITS | Encounter Summary ---
Author Organization [place] [address] Care Team Providers Care Product Engineer Name Role Phone Lamin Blank MD Primary Care Provider [phone] Encounter Details Date Type Department Care Team (Late st Contact Info) Description 11/13/2019 10:02 AM EDT Hospital Encounter [facility] Ref[facility] 1 [place], [place] [id number] Nilo Spear MD [address] [place], [place] [id number] Pain in right hip Social History Tobacco [...] Author No Risk 02/01/2022 11:34 AM Lizabeth iBrch RN * [place] Suicide Severity Rating Scale (Q shift for [...] thigh documented in this encounter Care Teams Product Engineer Relationship Specialty Start Date End Date Lamin Blank MD PCP - General 12/08/09 documented as of this encounter
--- OUTSIDE RECORDS SUMMARY | 2020-01-14 10:52 | XMS_ITS | Encounter Summary ---
Author Organization [place] [address] Care Team Providers Care Director Security Management Name Role Phone Lamin Blank MD Primary Care Provider [phone] Encounter Details Date Type Department Care Team (Latest Contact Info) Description 01/14/2020 9:52 AM EST Hospital Encounter [facility] Referral Lab [address] [id number] Radha Landrum APRN Pain in right hip; [...] 02/01/2022 11:34 AM Lizabeth Birch RN * [place] Suicide Severity Rating Scale (Q shift for [...] mm/hr 02/18/2020 9:53 PM EST PREFERRED LAB [employer] Blood Venipuncture / Unknown 02/18/2020 1:31 PM EST 02/18/2020 1:31 PM EST Radha Landrum [employer] HEMATOLOGY ORDERABLES F inal Result Performing Organization Address [facility] Co de Phone Number [employer] [address] [place] [address] , [place] [address] * (ABNORMAL) C-REACTIVE PROTEIN (02/18/2020 1:31 PM EST) Pathologist [facility] CRP 12.98(H) <=5.00 mg/L 02/18/2020 11:30 PM EST PREFERRED [employer] Blood Venipuncture / Unknown 02/18/2020 1:31 PM EST 02/18/2020 1:31 PM EST us Radha Landrum [employer] CHEMISTRY ORDERABLES Fi nal Result Performing Organization Address [facility] Co de Phone Number [employer] [address] , [place] [address] documented in this encounter Visit Diagnoses Diagnosis Pain in right hip Pain in joint, pelvic region and thigh Presence of right artificial hip joint Hip joint replacement by other means documented in this encounter Care Teams Director Security Management Relationship Specialty Start Date End Date Lamin Blank MD PCP - General 12/08/09 documented as of this encounter
--- OUTSIDE RECORDS SUMMARY | 2024-08-09 14:26 | XMS_ITS | Data Portability ---
Author Organization [place] - [facility], [facility] Address [address] [place] [address] Care Team Providers Care Bilingual Manager Name Role Phone ANGELICA LAMIN Primary Care Provider [phone] Assessment No assessment recorded. Plan of Treatment Reminders Order Date Submit Date Provider Last Modified By Organization Details Last Modified Time Details Appointments None recorded. Lab CBC w/ auto diff 2022 023 HILARY Echols (Centralized Scheduling), [address], [place], [address], 3 11:42:20 C-reactive protein, quantitati ve, serum or plasma 2022 023 HILARY Echols (Centralized Scheduling), [address], [place], [address], 3 11:30:22 Referral interventi onal pain medicine specialist referral 2022 023 [email or web address] Not available 3 13:15:53 interventi onal pain medicine specialist referral 2022 023 [email or web address] Not available 12:42:23 Procedures None recorded. Surgeries None recorded. Imaging CT, abdomen + pelvis, w/wo contrast 2022 023 HILARY Echols (Centralized Scheduling), [place] [place], [address], 3 10:25:01 Medication Orders Linzess 145 mcg capsule 2022 023 [email or web address] Not available 3 14:50:41 Cipro 500 mg tablet 2022 023 [email or web address] Not available 3 09:53:05 Flagyl 500 mg tablet 2022 023 [email or web address] Not available 3 09:50:48 Patient TargetsNo targets recorded. Patient InstructionsNo instructions recorded. Reason for Referral Interventional Pain Medicine Specialist Referral for Myofascial trigger point Referring Physician: Chauncey Antoine, Gastroenterology, Encounter Date: 09/20/2022 Interventional Pain Medicine Specialist Referral for Myofascial trigger point Referring Physician: Chauncey Antoine, Gastroenterology, Encounter Date: 10/28/2022 Results Created Date Observation Date Name Description Value Unit Range Abnormal Flag Note LastModifiedBy Organization Detail LastModifiedTime 07/31/1907/30/2022 C-JO CTIVE PROTE IN note SEE NOTE Order ing Provi kat: Lenny ramirez MD Not Available [address] , [place], [address], 07/30/2022 11:30:21 07/31/19 23 07/30/2022 C-JO CTIVE PROTE IN C-reactive protein 5.5 mg/L 0.0-9. 0 normal Not Available [address] , [place], [address], 07/30/2022 11:30:21 07/31/19 23 07/30/2022 C-JO CTIVE PROTE IN performing lab SEE NOTE ML - [facility] R [address] [place] [id number] Not Available [address] , [place], [address], 07/30/2022 11:30:21 07/31/19 23 07/30/2022 CBC W/AUT O DIFFE RENTI AL note SEE NOTE Order ing Provi kat: Lenny ramirez MD Not Available [address] , [place], [address], 07/30/2022 11:42:20 07/31/19 23 07/30/2022 CBC W/AUT O DIFFE RENTI AL white blood cell 7.0 10e3/ uL 4.5-13 .0 normal Not Available [address] Maria Elena Gonzalez, [place], [address], 07/30/2022 11:42:20 07/31/19 23 07/30/2022 CBC W/AUT O DIFFE RENTI AL red blood cell 4.67 10e6/ uL 4.10-5 .70 normal Not Available [address] Maria Elena Gonzalez, [place], [address], 07/30/2022 11:42:20 07/31/19 23 07/30/2022 CBC W/AUT O DIFFE RENTI AL hemoglobin 14.7 g/dL 12.0-1 6.9 normal Not Available [address] Maria Elena Gonzalez, [place], [address], 07/30/2022 11:42:20 07/31/19 23 07/30/2022 CBC W/AUT O DIFFE RENTI AL hematocrit 43.9 % 36.0-4 9.0 normal Not Available [address] Maria Elena Gonzalez, [place], [address], 07/30/2022 11:42:20 07/31/19 23 07/30/2022 CBC W/AUT O DIFFE RENTI AL mean cell volume 94 fL 78.0-9 8.0 normal Not Available [address] Maria Elena Gonzalez, [place], [address], 07/30/2022 11:42:20 07/31/19 23 07/30/2022 CBC W/AUT O DIFFE RENTI AL mean cell HGB 31.5 pg 25.0-3 5.0 normal Not Available [address] Maria Elena Gonzalez, [place], [address], 07/30/2022 11:42:20 07/31/19 23 07/30/2022 CBC W/AUT O DIFFE RENTI AL mean cell HGB concentratio n 33.5 g/dL 31.0-3 6.0 normal Not Available [address] Maria Elena Gonzalez, [place], [address], 07/30/2022 11:42:20 07/31/19 23 07/30/2022 CBC W/AUT O DIFFE RENTI AL red cell distribution width 13.9 % 11.0-1 5.0 normal Not Available [address] , [place], [address], 07/30/2022 11:42:20 07/31/19 23 07/30/2022 CBC W/AUT O DIFFE RENTI AL platelet count 281 10e3/ uL 150-40 0 normal Not Available [address] Maria Elena Gonzalez, [place], [address], 07/30/2022 11:42:20 07/31/19 23 07/30/2022 CBC W/AUT O DIFFE RENTI AL immature granulocyte % 0 0-1 normal Not Available [address] Maria Elena Gonzalez, [place], [address], 07/30/2022 11:42:20 07/31/19 23 07/30/2022 CBC W/AUT O DIFFE RENTI AL neutrophil % 49 % 35-75 normal Not Available [address] Maria Elena Gonzalez, [place], [address], 07/30/2022 11:42:20 07/31/19 23 07/30/2022 CBC W/AUT O DIFFE RENTI AL lymphocyte % 38 % 10-50 normal Not Available [address] , [place], [address], 07/30/2022 11:42:20 07/31/19 23 07/30/2022 CBC W/AUT O DIFFE RENTI AL monocyte % 10 % 0-15 normal Not Available [address] Maria Elena Gonzalez, [place], [address], 07/30/2022 11:42:20 07/31/19 23 07/30/2022 CBC W/AUT O DIFFE RENTI AL eosinophil % 2 % 0-5 normal Not Available [address] , [place], [address], 07/30/2022 11:42:20 07/31/19 23 07/30/2022 CBC W/AUT O DIFFE RENTI AL basophil % 1 % 0-5 normal Not Available [address] Maria Elena Gonzalez, [place], [address], 07/30/2022 11:42:20 07/31/19 23 07/30/2022 CBC W/AUT O DIFFE RENTI AL immature granulocyte # 0.02 x1000 /uL 0-0.05 normal Not Available [address] Maria Elena Gonzalez, [place], [address], 07/30/2022 11:42:20 07/31/19 23 07/30/2022 CBC W/AUT O DIFFE RENTI AL neutrophil # 3.43 x1000 /uL 1.50-8 .00 normal Not Available [address] [place], [address], 07/30/2022 11:42:20 07/31/19 23 07/30/2022 CBC W/AUT O DIFFE RENTI AL lymphocyte # 2.66 x1000 /uL 1.20-5 .20 normal Not Available [address] Maria Elena Gonzalez, [place], [address], 07/30/2022 11:42:20 07/31/19 23 07/30/2022 CBC W/AUT O DIFFE RENTI AL monocyte # 0.68 x1000 /uL 0.30-0 .90 normal Not Available [address] , [place], [address], 07/30/2022 11:42:20 07/31/19 23 07/30/2022 CBC W/AUT O DIFFE RENTI AL eosinophil # 0.16 x1000 /uL 0.00-0 .50 normal Not Available [address] , [place], [address], 07/30/2022 11:42:20 07/31/19 23 07/30/2022 CBC W/AUT O DIFFE RENTI AL basophil # 0.06 x1000 /uL 0.00-0 .30 normal Not Available [address] , [place], [address], 07/30/2022 11:42:20 07/31/19 23 07/30/2022 CBC W/AUT O DIFFE RENTI AL NRBC automated 0.0 /100_ WBC Not Available [address] , [place], [address], 07/30/2022 11:42:20 07/31/19 23 07/30/2022 CBC W/AUT O DIFFE RENTI AL performing lab SEE NOTE ML - [facility] [address] [facility] [address] [facility] [address] Not Available [address] , [place], [address], 07/30/2022 11:42:20 07/31/19 23 07/07/2022 XR, kidne y + urete r + bladd er No observ ation record ed. [email or web address] [facility] - [address], [address], 07/30/2022 08:30:46 08/12/19 23 08/11/2022 CT, abdom en + pelvi s, w/wo contr ast [facility] Name: CHIP LINDA 989 Medica l MD-IT Phys: Elina KAY, Chauncey Cramer [place] [address] : 1975 Age: 47 Sex: M Acct: [id number] Loc: G.CT PHONE #: Exam Date: 2022 Status : REG CLI FAX #: Rad# [id number] Unit# [id number] Admit Date: 2022 EXAMS: CPT CODE: [id number] CT ABD/PE L WO/[place] [address] CLINIC AL INFORM ATION: Left lower quadra nt abdomi nal pain for 2 months . Histor y of consti pation . COMPAR PRAVEEN: No compar praveen availa ble. [address] studie s/nucl ear cardia c studie s, in the last 12 months . TECHNI QUE: Multis lice axial pre-an d postco ntrast imagin g of the abdome n was perfor med as well as enhanc ed imagin g of the pelvis , 2-D recons tructi ons in the ortiz l plane and delaye d imagin g throug h the kidney s. Enteri c contra st was admini stered , if ordere d/clin ically indica cuauhtemoc. Automa cuauhtemoc exposu re contro l was employ ed for dose reduct ion. FINDIN GS: Lower chest: Mild atelec tasis in the left lung base. Liver: No signif icant abnorm ality or biliar y ductal dilata tion. Gallbl adder: Grossl y unrema rkable . Adrena l glands : No signif icant abnorm ality . Spleen : No signif icant abnorm ality. Stomac h: Grossl y unrema rkable . Pancre as: No signif icant abnorm ality. Kidney s, ureter s, and bladde r: No signif icant abnorm ality. No eviden ce of obstru ctive uropat hy. Pelvic viscer a: No signif icant abnorm ality. Large and small bowel: Mild coloni c divert iculos is. Fecal loadin g genera lly within normal limits but there is a modera te amount of stool disten ding the rectal vault. Append ix and termin al ileum within normal limits . Lympha denopa thy: None signif icant Abdomi nal/pe lvic vascul ature: No signif icant abnorm alitie s. Body wall: Mild fatty dilata tion of the bilate ral inguin al rings withou t scarlett hernia . PAGE 1 Signed Report (RASHMI NUED) [facility] Name: CHIP LINDA [facility] Medica MD-IT Phys: Elina KAY, [place] [address] : 1975 Age: 47 Sex: M Acct: [id number] Loc: G.CT PHONE #: Exam Date: 2022 Status : REG CLI FAX #: [phone] Rad# [id number] Unit# [id number] Admit Date: 2022 EXAMS: CPT CODE: [id number] CT ABD/PE L WO/[place] [address] Skelet on: No signif icant osseou s abnorm alitie s. IMPRES LASHAUN: 1.No acute intra- abdomi nal/pe lvic abnorm ality. Commun icatio n: Per this writte n report . NOTE: Any incide ntally noted liver lesion s equal to or less than 5 mm, cystic lesion s in the kidney s less than 1 cm, and/or adrena l lesion s equal to or less than 1 cm, genera lly are consid ered highly likely to be benign and no additi onal evalua tion is recomm ended, unless specif ically mentio fernando in the impres lashaun. *Manag ement/ follow -up of any incid ental pulmo nary nodule s will be based on the Fleisc [employer]ner [employer] y criter ia. This report is genera cuauhtemoc using voice recogn ition comput er softwa re. Inadve rtent errors may have occurr ed while dictat ing report . Common sense approa ch is apprec iated and do not hesita te to call for clarif icatio n when necess harrison. Electr onical ly Signed by Jewell Neely on 2022 at 1001 Report ed and signed by: LEVY Neely M.D. CC: Lamin Blank MD; Chauncey Antoine Dictat ed Date/T ayala: 2022 (1001) Techno logist : DARRION MOROCHO, RT(R)( CT)(MR ) Transc ribed Date/T ayala: 2022 (1001) Transc riptio nist: DR.HAR KATIA Ram onic Signat ure Date/T ayala: 2022 (1001) Printe d Date/T ayala: 2022 (1023) BATCH NO: N/A PAGE 2 Signed Report CC'ed Logic: Orderi ng Provid er: ELINA TELLO Attend ing Provid er: ELINA TELLO Referr ing Provid er: ELINA TELLO Consul ting Provid er: ANGELICA ROSA [email or web address] [address], [place], [address], 08/11/2022 16:12:39 Result Notes Documentation Provider Name and Address Organization Details Recorded Time Ct, Abdomen + Pelvis, W/wo Contrast : [facility] Ce Name: DEJUAN QUINTERO [address] [place] [address] Phys: Elina KAY, [place] [address] : 1975 Age: 47 Sex: M Acct: [id number] Loc: G.CT PHONE #: Exam Date: 08/11/2022 Status: REG CLI FAX #: Rad# [id number] Unit# [id number] Admit Date: 08/11/2022 EXAMS: CPT CODE: [id number] CT ABD/PEL WO/W CONTRAST 93427 CLINICAL INFORMATION: Left lower quadrant abdominal pain for 2 months. History of constipation. COMPARISON: No comparison available. [address] studies/nuclear cardiac studies, in the last 12 months. TECHNIQUE: Multislice axial pre-and postcontrast imaging of the abdomen was performed as well as enhanced imaging of the pelvis, 2-D reconstructions in the coronal plane and delayed imaging through the kidneys. Enteric contrast was administered, if ordered/clinically indicated. Automated exposure control was employed for dose reduction. FINDINGS: Lower chest: Mild atelectasis in the left lung base. Liver: No significant abnormality or biliary ductal dilatation. Gallbladder: Grossly unremarkable. Adrenal glands: No significant abnormality . Spleen: No significant abnormality. Stomach: Grossly unremarkable. Pancreas: No significant abnormality. Kidneys, ureters, and bladder: No significant abnormality. No evidence of obstructive uropathy. Pelvic viscera: No significant abnormality. Large and small bowel: Mild colonic diverticulosis. Fecal loading generally within normal limits but there is a moderate amount of stool distending the rectal vault. Appendix and terminal ileum within normal limits. Lymphadenopathy: None significant Abdominal/pelvic vasculature: No significant abnormalities. Body wall: Mild fatty dilatation of the bilateral inguinal rings without scarlett hernia. PAGE 1 Signed Report (CONTINUED) [facility] Ce Name: DEJUAN QUINTERO [facility] Phys: [place] [address] : 1975 Age: 47 Sex: M Acct: [id number] Loc: Earl.CT PHONE #: Exam Date: 08/11/2022 Status: REG CLI FAX #: Rad# [id number] Unit# [id number] Admit Date: 08/11/2022 EXAMS: CPT CODE: [id number] CT ABD/PEL WO/W CONTRAST 11320 Skeleton: No significant osseous abnormalities. IMPRESSION: 1.No acute intra-abdominal/pelvic abnormality. Communication: Per this written report. NOTE: Any incidentally noted liver lesions equal to or less than 5 mm, cystic lesions in the kidneys less than 1 cm, and/or adrenal lesions equal to or less than 1 cm, generally are considered highly likely to be benign and no additional evaluation is recommended, unless specifically mentioned in the impression. *Management/follow-up of any incidental pulmonary nodules will be based on the Fleischner Society criteria. This report is generated using voice recognition computer software. Inadvertent errors may have occurred while dictating report. Common sense approach is appreciated and do not hesitate to call for clarification when necessary. at 1001 Reported and signed by: RONDA LOCKE M.D. CC: Lamin Blank MD; Chauncey Antoine Dictated Date/Time: 08/11/2022 (1001) Technologist: DARRION MOROCHO RT(R)(CT)(MR) Transcribed Date/Time: 08/11/2022 (1001) Control Operator: Electronic Signature Date/Time: 08/11/2022 (1001) Printed Date/Time: 08/11/2022 (1023) BATCH NO: N/A PAGE 2 Signed Report CC'ed Logic: Ordering Provider: ELINA TELLO Attending Provider: ELINA TELLO Referring Provider: ELINA TELLO Consulting Provider: ANGELICA Lr [facility] & [place] 08/11/2022 16:12:39 Problems Name Problem SNOMED Code Status Onset Date Resolution Date Notes Provider Name and Address Organization Details Recorded Time Left lower quadrant pain 523695815 Active 2022 Not Available [facility] 3 01:44:26 Myofascial trigger point 4873073228288 08 Active 2022 Chauncey Antoine MD [address] [place] [address],[address], [place], [address] , [facility] & [place] 3 16:01:13 Chronic constipati on 134040507 Active 2022 Chauncey Antoine MD [address] [place] [address],[address], [place], [address] , [facility] & [place] 3 16:04:34 Diverticul osis of colon 561063408 Active 2022 Chauncey Antoine MD [address] [place] [address],[address], [place], [address] , [facility] & [place] 3 16:04:55 Problem Notes None recorded. Procedures Surgical History Date Name Laterality Status Provider Name and Address Organization Details Recorded Time 2022 Colonoscopy completed Yennifer BREWER [facility] [place] 3 14:22:52 2018 Hip Surgery completed Yennifer BREWER [facility] [place] 3 14:17:45 2004 Joint Replacement completed Yennifer BREWER [facility] [place] 3 14:17:45 1999 Colonoscopy completed Yennifer BREWER [facility] [place] 3 14:17:45 operation on hip joint completed yanci BREWER [facility] [place] 3 08:41:46 arthroplasty of right ankle complete d alex BREWER [facility] [place] 3 08:42:14 esophagogastroduodenoscopy completed Adeline Rivas AGUILA BREWER [facility] & [place] 3 14:52:59 Imaging Results None recorded. Procedure Notes None recorded. Medical Equipment None Reported. Allergies Allergen ID Allergen Name Allergen Category Reaction Reaction Severity Criticality Documentation Date Start Date Code Code System Note Provider Name and Address Organization Details Recorded Time 59027 Product containin g penicilli n (product) medicatio n Not available Not available Not available 07/30/2022 16174 8001 SNOMED AGUILA mujica [facility] & [place] 3 08:35:43 Medications Name Sig Start Date Stop Date Status Note LastModified by Organization Details LastModified Time carisopro dol 350 mg tablet TAKE 1 TABLET BY MOUTH TWICE DAILY NEEDED FOR MUSCLE PAIN 07/30 completed Not Available Not Available Not Available cyclobenz aprine 10 mg tablet 09/20 completed Not Available Not Available Not Available atorvasta tin 80 mg tablet Take 1 tablet every day by oral route for 90 days. active Not Available Not Available No t Available gabapenti n 600 mg tablet Take 1 tablet 3 times a day by oral route for 30 days. active Not Available Not Available No t Available tizanidin e 4 mg tablet Take 1 tablet every day by oral route for 30 days. active Not Available Not Available No t Available metronida zole 500 mg tablet Take 1 tablet every 8 hours by oral route for 10 days. 09/20 completed Not Available Not Available Not Available hydroxyzi ne HCl 50 mg tablet Take 1 tablet twice a day by oral route as needed for 30 days. active Not Available Not Available No t Available ciproflox acin 500 mg tablet Take 1 tablet every 12 hours by oral route for 10 days. 09/20 completed Not Available Not Available Not Available sulfameth oxazole 800 mg-trimet hoprim 160 mg tablet 07/30 completed Not Available Not Available Not Available ondansetr on 8 mg disintegr ating tablet Place 1 tablet every 8 hours by oral route as needed for 10 days. active Not Available Not Available No t Available clonidine HCl 0.2 mg tablet Take 1 tablet every day by oral route as needed for 30 days. active Not Available Not Available No t Available methocarb brie 750 mg tablet 07/30 completed Not Available Not Available Not Available doxycycli ne monohydra te 100 mg capsule 07/30 completed Not Available Not Available Not Available diclofena c sodium 75 mg tablet,de layed release 07/30 completed Not Available Not Available Not Available metoprolo l succinate ER 25 mg tablet,ex tended release 24 hr Take 0.5 tablets every day by oral route for 90 days. active Not Available Not Available No t Available ibuprofen 600 mg tablet 07/30 completed Not Available Not Available Not Available zolpidem 10 mg tablet Take 1 tablet every day by oral route as needed for 30 days. active Not Available Not Available No t Available methylpre dnisolone 4 mg tablets in a dose pack 07/30 completed Not Available Not Available Not Available cefdinir 300 mg capsule 07/30 completed Not Available Not Available Not Available fluoxetin e 20 mg capsule Take 1 capsule every day by oral route for 90 days. active Not Available Not Available No t Available dicyclomi ne 10 mg capsule TAKE ONE CAPSULE BY MOUTH FOUR TIMES DAILY active Not Available Not Available No t Available Ventolin HFA 90 mcg/actua tion aerosol inhaler 07/30 completed Not Available Not Available Not Available buspirone 15 mg tablet 09/20 completed Not Available Not Available Not Available aspirin 81 mg qd active Not Available Not Sobeida ilable Not Available Golytely 236 gram-22.7 4 gram-6.74 gram-5.86 gram oral solution Take as directed in Dr Antoine's office 09/20 completed Not Available Not Available Not Available Gavilyte- C 240 gram-22.7 2 gram-6.72 gram-5.84 gram oral solution 09/20 completed Not Available Not Available Not Available Linzess 145 mcg capsule Take 1 capsule every day by oral route for 30 days. active patient is taking every other day to every two days Not Available Not Available Not Available Linzess 290 mcg capsule Take 1 capsule every day by oral route for 30 days. 10/28 completed Not Available Not Available Not Available baclofen 5 mg tablet 07/30 completed Not Available Not Available Not Available Vitals Date Recorded Body height Body mass index (BMI) Body weight Body temperature Heart rate Systolic blood pressure Diastolic blood pressure Provider Name and Address Organization Details Last Updated DateTime 3 185.42 cm 31.2 kg/m2 242435. 24 g 98.2 [degF] 57 /min 118 mm[Hg] 71 mm[Hg] alex peña [facility] [place] 3 08:35:09 Date Recorded Body height Body mass index (BMI) Body weight Heart rate Respiratory rate Systolic blood pressure Diastolic blood pressure Provider Name and Address Organization Details Last Updated DateTime 3 185.42 cm 30.8 kg/m2 048200. 74 g 58 /min 18 /min 128 mm[Hg] 84 mm[Hg] Yennifer Winter [facility] [place] 3 14:17:10 Date Recorded Body height Body mass index (BMI) Body weight Body temperature Oxygen saturation Oxygen saturation in Arterial blood by Pulse oximetry Heart rate Respiratory rate Systolic blood pressure Diastolic blood pressure Provider Name and Address Organization Details Last Updated DateTime 3 185.42 cm 31.2 kg/m2 880958. 95 g 98.1 [degF] 98 % 98 % 52 /min 16 /min 104 mm[Hg] 68 mm[Hg] Adeline Rivas [facility] [place] 3 14:49:05 Social History Question Answer Notes LastModified by [employer] Details LastModified Time Tobacco Smoking Status Current Every Day Smoker alex peña [facility], [place] - [facility] & [place] 07/30/2022 08:40:26 Do You Have An Advance Directive? No [email or web address] Information not available 09/20/2022 Are You Blind Or Do You Have Difficulty Seeing? No [email or web address] Information not available 09/20/2022 What Is Your Level Of Caffeine Consumption? Moderate [email or web address] Information not available 09/20/2022 What Type Of Diet Are You Following? REGULAR [email or web address] Information not available 09/20/2022 What Was The Date Of Your Most Recent Tobacco Screening? 09/20/2022 [email or web address] Information not available 09/20/2022 Are You Passively Exposed To Smoke? Yes [email or web address] Information not available 09/20/2022 How Much Tobacco Do You Smoke? 1 PPD [email or web address] Information not available 09/20/2022 How Many Years Have You Smoked Tobacco? 25 [email or web address] Information not available 09/20/2022 Sex: Unknown Functional Status Question Answer Note LastModified by [employer] Details LastModified Time Do you use any illicit or recreational drugs? No [email or web address] Information not available 07/29/2022 Do you or have you ever used any other forms of tobacco or nicotine? No [email or web address] Information not available 10/28/2022 What is your level of alcohol consumption? None [email or web address] Information not available 09/20/2022 Do you or have you ever used smokeless tobacco? Never used smokeless tobacco [email or web address] Information not available 10/28/2022 What is your exercise level? None [email or web address] Information not available 09/20/2022 Mental Status Question Answer Note LastModified by Organization D etails LastModified Time Do you feel stressed (tense, restless, nervous, or anxious, or unable to sleep at night)? [id number] [email or web address] Information not available 09/20/2022 Family History Relationship Description Onset Age of this Age Resolved Age Notes LastModified by Organization Details LastModified Time Father Chronic obstructive pulmonary disease pt. added direct ly (07/27) [email or web address] Not available 07/27/2022 15:40:55 Father Disorder of endocrine system pt. added direct ly (07/27) [email or web address] Not available 07/27/2022 15:41:09 Father Hearing loss pt. added direct ly (07/27) [email or web address] Not available 07/27/2022 15:41:22 Father Hypercholest erolemia pt. added direct ly (07/27) [email or web address] Not available 07/27/2022 15:41:48 Father Hypertensive disorder pt. added direct ly (07/27) [email or web address] Not available 07/27/2022 15:42:06 Father Rheumatoid arthritis pt. added direct ly (07/27) API-13 Not available 07/27/2022 15:42:26 Medical History Condition Response Coronary Artery Disease N Gout N None N Colon Cancer N Kidney Stones Y Hyperthyroidism N Depression Y COPD N Hypothyroidism N Diverticulitis/Diverticulosis Y Spine Problems Y Anxiety Disorder Y Vision or Eye Problems Y Arthritis Y Cancer N Stroke N High Cholesterol Y Liver Disease Y Kidney Disease N GI Problems Y Osteoporosis/Osteopenia N Colon Polyps Y Diabetes N Bleeding Disorder N Seizures/Epilepsy N Tuberculosis N Hyperlipidemia Y Back Problems Y Asthma N Sleep Apnea N GERD/Reflux Y Hepatitis N Cirrhosis N Heart Disease N Hypertension Y Past Encounters Encounter ID Performer Location Encounter Start Date Encounter Closed Date Diagnosis/Indication Diagnosis SNOMED-CT Code Diagnosis ICD10 Code Diagnosis Note [id number] Chauncey Antoine MD [facility] erology [address] [place] [phone] 07/30/2022 08:13:29 07/30/2022 09:38:40 Left lower quadrant pain 225384483 R10.32 Patient has rather significan t tenderness on examinatio n, and given the significan t symptoms, possibilit y of diverticul itis must be entertaine d. While would proceed with a CT scan to further evaluate begin the patient on ciprofloxa ofelia and Flagyl see below. The patient will have a repeat CBC in will check a C reactive protein at this time. The patient may come to need a colonoscop y, however this will need to wait until after imaging has been obtained. We also have contacted his referring provider to see what stool studies were done. [id number] Chauncey Antoine MD [facility] [address] [place] [address],[address] [phone] 09/20/2022 13:39:41 09/20/2022 16:09:34 Myofascial trigger point [id number] 23414 M79.18 the patient's examinatio n today demonstrat es reproducib le pain consistent with a myofascial trigger point involving the abdominal wall. Refer to pain clinic for considerat ion of injection. Chronic constipation [id number] K59.09 current Linzess dose resulting in some diarrhea, reduced dose from 290 mcg 245 mcg follow-up in 6 weeks. Diverticul osis of colon 128116533 K57.30 no evidence of diverticul itis, recommend ongoing fiber supplement ation. [id number] Chauncey Antoine MD [facility] [address] [place] [address],[address] [phone] 10/28/2022 14:34:42 10/28/2022 15:28:02 Chronic constipation [id number] K59.09 Linzess even lower dose continues results in diarrhea, at this time discontinu e Linzess, if Consta patient should recur patient is to call Left lower quadrant pain [id number] R10.32 Myofascial trigger point [id number] 87163 M79.18 the patient's examinatio n today Continues to demonstrat es reproducib le pain consistent with a myofascial trigger point involving the abdominal wall. Refer to pain clinic for considerat ion of injection, was made when we saw the patient last unfortunat fab this never was accomplish ed. A new referral is been ordered, my office staff has been made aware of this order in its importance . Diverticul osis of colon [id number] K57.30 no evidence of diverticul itis, recommend ongoing fiber supplement ation. Health Concerns Section Related Observation LastModified by Organization Detai ls LastModified Time None Recorded Concern Status LastModified by Organization Details LastModified Time None Recorded Advance Directives Directive N: Payers Insurance Date Sequence Insurance Name Policy Number Policy Duncan Covered Member ID Duncan Member ID Guarantor Name 09/20/2022 2 [place] [facility] [place]ICA[place] (HMO) [id number] Dejuan Quintero [id number] Dejuan Fowler Daveylinden 08/03/2022 1 [place] Dejuan Quintero [id number] Dejuan Fowler Daveylinden 12/25/[address] [facility] - DUAL ELIGIBLE (MEDICARE REPLACEMENT/A DVANTAGE - HMO) [id number] Dejuan Quintero [id number] Dejuan Fowler Daveylinden Notes Date Note Type Note Provider Name and Address Organization Details Recorded Time 07/30/2022 text/html this is a 47-year-old male who presents today referred for evaluation of left lower quadrant pain. Patient reports that this started in June, describes this as a deep severe pain, categorized as both sharp and crampy. It is worsened by certain movements but also by food intake. The patient's prior evaluation included a renal ultrasound that was unremarkable, a KUB that demonstrated moderate fecal stasis but otherwise unremarkable and the patient had lab work that included a comprehensive metabolic panel CBC, H pylori serologies, and celiac antibody panel that were unremarkable. Patient reports he did have stool studies there are non that accompany his records today. Amylase lipase were done were normal. Patient also had a urinalysis that was normal patient notes that his this continued somewhat worsening the patient notes his stools are regular, no change in stool caliber no melena or bright red blood per rectum the patient has a history of a colonoscopy probably 20 years ago that demonstrated right sided diverticulosis, as well as a hyperplastic polyp. Otherwise unremarkable. Chauncey Antoine MD [address] [place] [address],[address], [place], [address], [place] - [place] - [place] & [place] 07/30/2022 09:32:34 09/20/2022 text/html this 47-year-old male presents in follow-up. The patient was seen initially for left-sided abdominal pain, treated empirically for possible diverticular disease, CT scan demonstrated no specific pathology other than diverticular disease but no diverticulitis. Colonoscopy subsequently followed that demonstrated diverticulosis without evidence of diverticulitis, and several polyps. The patient presents back today after management of associated constipation reporting that he continues with the same pain. It is sharp in nature, and when asked to point to where the pain is he points to 1 spot in the abdominal wall. The patient has no specific precipitating or alleviating factors. No fevers or chills no melena or bright red blood per rectum. Chauncey Antoine MD [address] [place] [address],[address], [place], [address], [facility] & [place] 09/20/2022 16:13:28 10/28/2022 text/html This is a 47-year-old male who presents today in follow-up. The patient when seen last was felt to demonstrate myofascial trigger point, and was referred to Interventional pain specialist for injection. The patient reports that unfortunately he is never been scheduled for this. It is not clear at this time where the problem arose we will look into it the patient continues with pain in the left lower abdomen. Does note that the constipation he was having in the past is thing over the past, currently is actually having diarrhea, we cut his Linzess last time because of diarrhea, at this time he reports he is still having diarrhea when he takes it. He skips days. He denies any melena no bright red blood per rectum. Chauncey Antoine MD [address] [place] [address],[address], [place], [address], [place] - [facility] & [place] 10/28/2022 15:34:26
--- OUTSIDE RECORDS SUMMARY | 2024-08-09 14:26 | XMS_ITS | Data Portability ---
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 44-year-old male new patient referral for chronic low back and bilateral leg pain. After some questioning he finally reports that the pain has been present for about 20 years. He denies any type of specific injury. It started and has been slowly progressive over the years. He reports that he has seen numerous physicians for his back over the years. States that he has undergone all of the injections without relief. In fact they only have made his symptoms worse. States that he stopped going to these physicians because the only thing they ever want to do was injections and he does not want to do any further injections. States that he also had his right hip replaced last year. States that he was recently seen by [facility] and underwent x-ray. They did not recommend surgery. He is asking for pain medication so he was referred to our office for further evaluation management of his symptoms. CURRENT SYMPTOMS: He reports pain across low back with radiation down the back and sides of both legs into the feet. States the pain is a constant aching, burning, gnawing, stabbing, throbbing, sharp that is aggravated with activity including standing, bending, pushing, pulling, weightbearing, going from sitting standing, upstairs, downstairs. Pain is worse at night. He reports numbness weakness tingling bilateral lower extremities along with bilateral lower extremity swelling. States that he has to walk with a cane because of the pain and occasionally his legs will give out. Denies any bowel or bladder incontinence. PRIOR TREATMENTS: CONSERVATIVE: He reports prior failure to physical therapy though cannot be specific to wear and when he did this. INTERVENTIONAL: Reports that he has failed all the injections . SURGICAL: Right THR 09/26/19 Dr. Spear IMAGING/LABS: MRI LUMBAR SPINE WITHOUT CONTRAST, 10/03/2018 L1/L2: Unremarkable. L2/L3: Unremarkable. L3/L4: Unremarkable. L4/L5: Mild diffuse disc bulging with mild indentation of the thecal sac in the left paracentral location. Mild facet arthropathy and ligamentum flavum hypertrophy. Mild to moderate left and mild right L4 foraminal narrowing. L5/S1: Mild discogenic disease with mild to moderate narrowing of the right L5 neural foramen RISK FACTORS: Smoker: YES Employed: NO Diabetic: YES Anticoagulated: YES RX: Tramadol 50 mg 2 pills twice a day as needed for breakthrough pain. Gabapentin 600 mg 1 3 times a day SCREENING: SONIA/OARS/INSPECT was reviewed and is appropriate Preliminary UDS today is as expected I will send this for LCMS confirmation for a baseline since the patient is new to the practice. Based on above screening, co-morbidities, MED, and my clinical judgement: I consider this patient to be high risk for abuse/diversion. ORT: 2 PHQ-9:4 RED FLAGS: Drug-seeking behavior at today's appointment specifically asking for oxycodone. States that he has failed all the other medications. DISCUSSION: I reviewed imaging with the patient. Discussed with him that he has minimal findings on his MRI. He has multiple nonorganic signs on exam today with otherwise benign exam. I will not place him on long-term oxycodone for the minimal amount of pathology present on his MRI. Especially in the light that he is refusing interventional and other alternative measures of pain control. I will send him back for physical therapy. I am going to give him tramadol and gabapentin for symptom control. My prognosis for this patient been compliant with above treatment plan is very guarded. PLAN: 1. Medications as above. 2. Referral for physical therapy Discussed new orders/changes with patient. Patient expressed agreement and full understanding of above plan. All questions answered in full. Follow-up in 30 days. Much of this encounter is an electronic long term care phlebotomist/translati on of spoken language to printed text. The electronic translation of spoken language may permit erroneous or at times nonsensical words of phrases to be inadvertently transcribed; Although I have reviewed the note for such errors, some may still exist. [email or web address] Not available 05/12/2020 11:05:37 06/09/2020 06/09/2020 INYTERVAL HX: The patient is a 45-year-old male who comes for his first follow-up visit for chronic low back pain and bilateral leg pain. He continues to state bilateral paraspinal pain radiating down to the bilateral lower extremities laterally right > left. Overuse makes it worse. The pain and other symptoms are qualified as an aching burning type of pain with occasional weakness. He states to me that occasionally his legs give out on him. He does have trouble with most activities of daily living and uses a cane for support. He denies any bowel or bladder issues. I once again reviewed the MRI results lumbar spine without contrast 10/03/2018 with him. HX: Low back and bilateral leg pain Patient is a difficult historian. 44-year-old male new patient referral for chronic low back and bilateral leg pain. After some questioning he finally reports that the pain has been present for about 20 years. He denies any type of specific injury. It started and has been slowly progressive over the years. He reports that he has seen numerous physicians for his back over the years. States that he has undergone all of the injections without relief. In fact they only have made his symptoms worse. States that he stopped going to these physicians because the only thing they ever want to do was injections and he does not want to do any further injections. States that he also had his right hip replaced last year. States that he was recently [facility]. They did not recommend surgery. He is asking for pain medication so he was referred to our office for further evaluation management of his symptoms. PRIOR TREATMENTS: CONSERVATIVE: He reports prior failure to physical therapy though cannot be specific to wear and when he did this. INTERVENTIONAL: Reports that he has failed all the injections . SURGICAL: Right THR 09/26/19 Dr. Spear IMAGING/LABS: MRI LUMBAR SPINE WITHOUT CONTRAST, 10/03/2018 L1/L2: Unremarkable. L2/L3: Unremarkable. L3/L4: Unremarkable. L4/L5: Mild diffuse disc bulging with mild indentation of the thecal sac in the left paracentral location. Mild facet arthropathy and ligamentum flavum hypertrophy. Mild to moderate left and mild right L4 foraminal narrowing. L5/S1: Mild discogenic disease with mild to moderate narrowing of the right L5 neural foramen RISK FACTORS: Smoker: YES Employed: NO Diabetic: YES Anticoagulated: YES RX: Tramadol 50 mg 2 pills twice a day as needed for breakthrough pain. Gabapentin 600 mg 1 3 times a day SCREENING: SONIA/OARS/INSPECT was reviewed and is appropriate UDS was performed today was negative for all substances this is expected as we prescribe a synthetic opioid. This will be sent for confirmation Last confirmation 05/12 2020 was appropriate Based on above screening, co-morbidities, MED, and my clinical judgement: I consider this patient to be high risk for abuse/diversion. ORT: 2 PHQ-9:4 RED FLAGS: Drug-seeking behavior at today's appointment specifically asking for oxycodone. States that he has failed all the other medications. DISCUSSION: After reviewing imaging with the patient along with his physical examination I suggested to him the followin. Continue strengthening exercises through PT/HEP 2. Consider an interlaminar L4-L5 epidural injection. 3. If these were to fail then I would suggest consultation with neurosurgery for potential microdiscectomy. The patient is stating that the tramadol is not effective. Is asking for stronger narcotic medication. I have very politely told him that we are not going to do this. My prognosis for this patient been compliant with above treatment plan is very guarded. He states to me that if the tramadol continues to be ineffective then he will stop taking it and consider self discharge. PLAN: 1. Medications will continue with no change to dose or frequency 2. Continue formal PT/HEP 3. Consider interlaminar L4-L5 injection. 4. Consider neurosurgical consult. Discussed new orders/changes with patient. Patient expressed agreement and full understanding of above plan. All questions answered in full. Follow-up in 30 days. [email or web address] Not available 06/09/2020 10:51:27 Plan of Treatment Reminders Order Date Submit Date Provider Last Modified By Organization Details Last Modified Time Details Appointments None recorded. Lab drug screen, urine 2020 021 [email or web address] [place], [address], [address], [place], [address], 13:02:59 unlisted lab - confirm synthetic opioids 2020 [email or web address] 6 [facility], [facility], [address] [place] [address], [address], 09:32:36 drug screen, urine 2020 021 [email or web address] [place], [address], [address], [place], [address], 10:56:43 unlisted lab - confirm new patient 2020 [facility], [facility], [address] [place] [address], [address], 13:47:01 Referral physical therapist referral 2020 [facility], [address] [place] [address] , [place], [address], 12:28:40 Procedures None recorded. Surgeries None recorded. Imaging None recorded. Medication Orders tramadol 50 mg tablet 2020 HILARY Not available 10:36:41 tramadol 50 mg tablet 2020 HILARY Not available 10:56:49 gabapentin 600 mg tablet 2020 HILARY Not available 10:56:49 Patient TargetsNo targets recorded. Patient Instructions Encounter Date Encounter Id Patient Instructions Last Modified By Organization Details Last Modified Time 05/12/2020 [id number] medical record request* - ALL LUMBAR IMAGING [email or web address] Not available 05/12/2020 14:24:48 Reason for Referral Physical Therapist Referral for Degeneration of lumbar intervertebral disc Referring Physician: Benjamin Tesfaye, Pain Management, Encounter Date: 05/12/2020 Results Created Date Observation Date Name Description Value Unit Range Abnormal Flag Note LastModifiedBy Organization Detail LastModifiedTime 06/10/19 21 06/09/2020 drug scree n, urine THC: negati ve Not Available [place] [address], [place], [address], 06/09/2020 09:58:13 06/10/19 21 06/09/2020 drug scree n, urine Buprenorphin e: negati ve Not Available [place] [address], [place], [address], 06/09/2020 09:58:13 06/10/19 21 06/09/2020 drug scree n, urine TCA: positi ve Not Available [place] [address], [place], [address], 06/09/2020 09:58:13 06/10/19 21 06/09/2020 drug scree n, urine Barbiturates : negati ve Not Available [place] [address], [place], [address], 06/09/2020 09:58:13 06/10/19 21 06/09/2020 drug scree n, urine Benzodiazepi hali: negati ve Not Available [place] [address], [place], [address], 06/09/2020 09:58:13 06/10/19 21 06/09/2020 drug scree n, urine Methadone: negati ve Not Available [place] [address], [place], [address], 06/09/2020 09:58:13 06/10/19 21 06/09/2020 drug scree n, urine Amphetamines : negati ve Not Available [place] [address], [place], [address], 06/09/2020 09:58:13 06/10/19 21 06/09/2020 drug scree n, urine Morphine/Opi ates: negati ve Not Available [place] [address], [place], [address], 06/09/2020 09:58:13 06/10/19 21 06/09/2020 drug scree n, urine Oxycodone: negati ve Not Available [place] [address], [place], [address], 06/09/2020 09:58:13 06/10/19 21 06/09/2020 drug scree n, urine MDMA: negati ve Not Available [place] [address], [place], [address], 06/09/2020 09:58:13 06/10/19 21 06/09/2020 drug scree n, urine Cocaine: negati ve Not Available [place] [address], [place], [address], 06/09/2020 09:58:13 06/10/19 21 06/09/2020 drug scree n, urine Methamphetam ine: negati ve Not Available [place] [address], [place], [address], 06/09/2020 09:58:13 05/13/19 21 05/12/2020 drug scree n, urine THC: negati ve Not Available [place] [address], [place], [address], 05/12/2020 10:31:47 05/13/19 21 05/12/2020 drug scree n, urine Buprenorphin e: negati ve Not Available [place] [address], [place], [address], 05/12/2020 10:31:47 05/13/19 21 05/12/2020 drug scree n, urine TCA: negati ve Not Available [place] [address], [place], [address], 05/12/2020 10:31:47 05/13/19 21 05/12/2020 drug scree n, urine Barbiturates : negati ve Not Available [place] [address], [place], [address], 05/12/2020 10:31:47 05/13/19 21 05/12/2020 drug scree n, urine Benzodiazepi hali: negati ve Not Available [place] [address], [place], [address], 05/12/2020 10:31:47 05/13/19 21 05/12/2020 drug scree n, urine Methadone: negati ve Not Available [place] [address], [place], [address], 05/12/2020 10:31:47 05/13/19 21 05/12/2020 drug scree n, urine Amphetamines : negati ve Not Available [place] [address], [place], [address], 05/12/2020 10:31:47 05/13/19 21 05/12/2020 drug scree n, urine Morphine/Opi ates: negati ve Not Available [place] [address], [place], [address], 05/12/2020 10:31:47 05/13/19 21 05/12/2020 drug scree n, urine Oxycodone: negati ve Not Available [place] [address], [place], [address], 05/12/2020 10:31:47 05/13/19 21 05/12/2020 drug scree n, urine MDMA: negati ve Not Available [place] [address], [place], [address], 05/12/2020 10:31:47 05/13/19 21 05/12/2020 drug scree n, urine Cocaine: negati ve Not Available [place] [address], [place], [address], 05/12/2020 10:31:47 05/13/19 21 05/12/2020 drug scree n, urine Methamphetam ine: negati ve Not Available [place] [address], [place], [address], 05/12/2020 10:31:47 05/13/19 21 04/28/2020 medic al recor d reque st* No observ ation record ed. [email or web address] Not Available 2020 14:24:48 05/13/19 21 04/28/2020 MRI, hip, w/o contr ast No observ ation record ed. [email or web address] Not Available 2020 14:24:48 Result Notes None recorded. Problems Name Problem SNOMED Code Status Onset Date Resolution Date Notes Provider Name and Address Organization Details Recorded Time Degeneration of lumbar intervertebral disc 85953834 Active 2020 Lisadee HensonAGUILA roldan [facility] 10:45:55 Problem Notes None recorded. Procedures Surgical History Date Name Laterality Status Provider Name and Address Organization Details Recorded Time Foot/Ankle Surgery completed Lisadee Hensonyuan SHEEHAN [facility] 05/12/2020 10:24:05 Hip Surgery completed Lisa Hensonyuan SHEEHAN [facility] 05/12/2020 10:24:05 Imaging Results None recorded. Procedure Notes None recorded. Medical Equipment None Reported. Allergies Allergen ID Allergen Name Allergen Category Reaction Reaction Severity Criticality Documentation Date Start Date Code Code System Note Provider Name and Address Organization Details Recorded Time 275896 Product containin g penicilli n (product) medicatio n rash Not available Not available 05/12/2020 [id number] SNTANNER Lisa Nida mahajan [facility] 10:23:43 Medications Name Sig Start Date Stop Date Status Note LastModified by Organization Details LastModified Time cyclobenzap rine 10 mg tablet active Not Available Not Available Not Available atorvastati n 80 mg tablet active Not Available Not Available Not Available gabapentin 600 mg tablet TAKE 1 TABLET 3 TIMES A DAY BY ORAL ROUTE FOR 30 DAYS. DO NOT FILL UNTIL ON OR AFTER active Not Available Not Available No t Available ibuprofen 800 mg tablet active Not Available Not Available Not Available meloxicam 15 mg tablet 05/12 completed Not Available Not Available Not Available prednisone 20 mg tablet active Not Available Not Available Not Available clobetasol 0.05 % topical cream active Not Available Not Available Not Available tramadol 50 mg tablet Take 2 tablets twice a day by oral route for 30 days. 2020 active Not Available Not Available Not Avai lable doxycycline monohydrate 100 mg capsule TAKE 1 CAPSULE BY MOUTH TWICE DAILY 05/12 completed Not Available Not Available Not Available dexamethaso ne 4 mg tablet 05/12 completed Not Available Not Available Not Available buspirone 10 mg tablet 05/12 completed Not Available Not Available Not Available gabapentin 300 mg capsule 05/12 completed Not Available Not Available Not Available diclofenac sodium 75 mg tablet,angelo yed release 05/12 completed Not Available Not Available Not Available metoprolol succinate ER 25 mg tablet,exte nded release 24 hr active Not Available Not Available Not Available lorazepam 1 mg tablet active Not Available Not Available No t Available zolpidem 10 mg tablet active Not Available Not Available No t Available ondansetron 4 mg disintegrat ing tablet DISSOLVE 1 TABLET IN MOUTH THREE TIMES DAILY 05/12 completed Not Available Not Available Not Available fluoxetine 20 mg capsule active Not Available Not Available Not Available oxycodone 5 mg tablet 05/12 completed Not Available Not Available Not Available Adult Low Dose Aspirin 81 mg tablet,angelo yed release Take 1 tablet every day by oral route. active Not Available Not Available No t Available Vitals Date Recorded Body height Body mass index (BMI) Body weight Provider Name and Address Organization Details Last Updated DateTime 05/12/2020 185.42 cm 31.7 kg/m2 013391.17 g Lisa Alva [facility] 05/12/2020 10:23:34 Social History Question Answer Notes LastModified by Organizat ion Details LastModified Time Tobacco Smoking Status Current Every Day Smoker Lisa mahajan [facility] 05/12/2020 10:24:00 What Is Your Level Of Caffeine Consumption? Occasional [email or web address] Information not available 05/12/2020 How Much Tobacco Do You Chew? None [email or web address] Information not available 05/12/2020 Are You Deaf Or Do You Have Serious Difficulty Hearing? No [email or web address] Information not available 05/12/2020 Which Illicit Or Recreational Drugs Have You Used? DENIES [email or web address] Information not available 05/12/2020 Education 12 [email or web address] Information no t available 05/12/2020 Hard Of Hearing Or Deaf In One Or Both Ears? No [email or web address] Information not available 05/12/2020 Prescription Drug Abuse No [email or web address] Information not available 05/12/2020 Disability Yes [email or web address] Information no t available 05/12/2020 History Of Sexual Abuse No [email or web address] Information not available 05/12/2020 Marital Status Single [email or web address] Informatio n not available 05/12/2020 What Was The Date Of Your Most Recent Tobacco Screening? 06/09/2020 [email or web address] Information not available 06/09/2020 At What Age Did You Start Smoking Tobacco? 19 [email or web address] Information not available 05/12/2020 How Much Tobacco Do You Smoke? 1 PPD [email or web address] Information not available 05/12/2020 General Stress Level Medium [email or web address] Information not available 05/12/2020 On What Date Was Tobacco Cessation Counseling Provided? 06/09/2020 [email or web address] Information not available 06/09/2020 How Many Years Have You Smoked Tobacco? 25 [email or web address] Information not available 05/12/2020 Do You Have Difficulty Walking Or Climbing Stairs? Yes [email or web address] Information not available 05/12/2020 Sex: Unknown Functional Status Question Answer Note LastModified by Organizat ion Details LastModified Time What is your level of alcohol consumption? None [email or web address] Information not available 05/12/2020 Do you or have you ever used smokeless tobacco? Never used smokeless tobacco [email or web address] Information not available 05/12/2020 Are you able to walk? YESASSIST [email or web address] Information not available 05/12/2020 Do you have difficulty doing errands alone? 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 Yes [email or web address] Information not available 05/12/2020 Do you or have you ever used e-cigarettes or vape? Never used electronic cigarettes [email or web address] Information not available 05/12/2020 What is your exercise level? None [email or web address] Information not available 05/12/2020 Mental Status Question Answer Note LastModified by Organization D etails LastModified Time Do you have difficulty concentrating, remembering or making decisions? Yes [email or web address] Information no t available 05/12/2020 Family History Relationship Description Onset Age of this Age Resolved Age Notes LastModified by Organization Details LastModified Time Father Rheumatoid arthritis [email or web address] Not available 05/12 10:23:47 Father Diabetes mellitus [email or web address] Not available 05/12 10:23:47 Medical History Condition Response Bipolar Disease N Coronary Artery Disease N Gout N Seizure Disorder N Atrial Fibrillation N Thyroid Disease N Head Trauma/Injury N Hernia N Depression Y COPD N Anxiety Disorder Y Acid Reflux (GERD) N Cancer N Stroke N Skin Disorder N High Cholesterol Y Liver Disease N Rheumatoid Arthritis N Headaches N Fibromyalgia N Kidney Disease N Autoimmune Disease N Osteoarthritis Y Neurosurgery N DVT N Peptic Ulcer Disease N Anemia N Heart Attack (DC) N Diabetes N Cardiomyopathy N Bleeding Disorder N CHF N AIDS/HIV N Inflammatory Bowel Disease N Dementia N Asthma N Substance Abuse N Sleep Apnea N Hepatitis N Heart Disease N Pulmonary Embolism N Chronic Low Back Pain Y Hypertension Y Osteoporosis N Past Encounters Encounter ID Performer Location Encounter Start Date Encounter Closed Date Diagnosis/Indication Diagnosis SNOMED-CT Code Diagnosis ICD10 Code Diagnosis Note [id number] Benjamin Tesfaye MD [place] [address] [place] [address] 05/12/2020 10:19:44 05/12/2020 10:50:52 Long-term drug therapy [id number] Z79.899 The urine sample is being sent for quantitati ve LCMS analysis of illicit drugs (Cocaine, Methamphet amine, Heroin, Fentanyl, THC, Synthetic Cannabinoi ds, Kratom, MDMA, PCP, and Synthetic Stimulants , Opiates (Codeine, Hydrocodon e, Hydromorph one, and Morphine), Oxycodone, Oxymorphon e, Methadone, Synthetic Opioids (Tramadol, Tapentadol , and Buprenorph ine), Benzodiaze pines (Alprazola m, Clonazepam , Lorazepam, Diazepam, Nordazepam , Oxazepam, and Temazepam) , Gabapentin , Pregabalin , Muscle Relaxants (Carisopro dol, Cyclobenza juan m, and Meprobamat e), Ketamine, Nalaxone, and Amphetamin e, as this patient is being prescribed opioid medication s for the first time at this practice. The purpose of this analysis is to confirm the patients stated medication usage and to establish baseline medication and metabolite quantities , and to evaluate for use of medication s that are not prescribed or reported by the patient. Degenerati on of lumbar intervertebral disc 58831128 M51.36 [id number] Benjamin Tesfaye MD [place] [address] [place] [address] 06/09/2020 09:56:22 06/09/2020 10:45:29 Long-term drug therapy [id number] Z79.899 Send for LCMS confirmati on of Synthetic Opioids (Fentanyl, Tramadol, Tapentadol , Methadone, and Buprenorph ine) confirm the quantitati ve levels of these drugs as they will not be detected in [place] testing and the patient is currently prescribed a Synthetic Opioid.n Degenerati on of lumbar intervertebral disc 79064169 M51.36 Health Concerns Section Related Observation LastModified by Organization Detai ls LastModified Time None Recorded Concern Status LastModified by Organization Details LastModified Time None Recorded Advance Directives Directive None Recorded Payers Insurance Date Sequence Insurance Name Policy Number Policy Duncan Covered Member ID Duncan Member ID Guarantor Name 07/18/2020 1 [place] Dejuan Ram [id number] Dejuan Ram 07/26/2020 2 [place] [id number] Dejuan Ram [id number] Dejuan Ram Notes Date Note Type Note Provider Name and Address Organization Details Recorded Time 05/12/2020 text/html Low back painReported bypatient.Onset:jeannie e of onset: (15 YEARS AGO) Location:bilateral paraspinal; radiating down the bilateral lower extremities to the feet (LATERALLY. R>L) Context:overuse Quality:aching; burning; gnawing; stabbing; throbbing; sharp Severity:current pain level: 10/10; average pain level: 9/10; worst pain level: 10/10 Alleviating Factors:nothing helps Aggravating Factors:standing; bending/squatting; pushing/pulling; weightbearing; getting out of bed; going from sit to stand; upstairs; downstairs; nighttime Timing:constant; worse at nighttime Associated Symptoms:no pain radiating down lower extremities; no popping/clicking; no bowel incontinence; no urinary retention; no urinary incontinence; no perineal paresthesia/anesthe rene;weakness;numbne ss(VANESSA FEET);tingling(VANESSA FEET);swelling(VANESSA LEGS AND FEET) Prior Imaging:x-ray ([facility]) Previous Lumbar Surgery:none Previous Injections:lumbar ESIs: no relief Previous physical therapy:Facility: ([facility]); currently in PT:; completed all recommended PT visits; more than 6weeks of PT completed; dates: (2017); response to therapy: made pain/symptoms worse Daily Activities:Living independently.;Diff iculty bathing/grooming secondary to pain.;Difficulty completing top screw secondary to pain.;Significant difficulty walking secondary to pain, requires assistive device(s).(USES CANE);Unable to work secondary to chronic pain and or physical disability.;Unable to exercise on a regular basis secondary to pain.;Difficulty participating in recreation on a regular basis secondary to pain. Medications History:NSAIDs: (TYLENOL-NOT HELPFUL.); Muscle relaxants: (FLEXERIL-NOT HELPFUL.); Neuropathics: (GABAPENTIN-NOT HELPFUL.) Prior Pain Management:yes: Benjamin Tesfaye MD [address] [place] [address], [phone], [facility] 05/12/2020 11:05:57 06/09/2020 text/html Follow-up (meds & injections)Reported bypatient.Improveme nt:Pain is the same as compared to last visit.; Currently taking Prednisone due to Eczema flare Reports no relief with Tramadol and minimal relief with Gabapentin Currently attending PT at [facility] 3 to 4 visits . However, he has had to reschedule a few Current Analgesics:Opioids- tramadol; Other adjunct medications- gabapentin; Reported pain relief- 0% for hours; Tramadol and Gabapentin taken this morning Pain Scores:Average pain- 9/10; Current pain- 9/10; Worst pain- 10/10 Activities of Daily Living (ADL):Living independently.; Able to bathe/groom without assistance.; Able to complete top screw.; Walking without assistance.; Working.; Exercising. Adverse Reactions:No nausea.; No vomiting.; No constipation.; No itching.; No sedation.; No respiratory depression.; No sexual dysfunction. Physical Therapy:Currently attending- yes; Completed course in the past- Recent Injections:Pain relief from injections- % lasting for ; Improvement in ADLs-Low back painReported bypatient.Onset:jeannie e of onset: (15 YEARS AGO) Location:bilateral paraspinal; radiating down the bilateral lower extremities to the feet (LATERALLY. R>L) Context:overuse Quality:aching; burning; gnawing; stabbing; throbbing; sharp Severity:current pain level: 9/10; average pain level: 9/10; worst pain level: 10/10 Alleviating Factors:nothing helps Aggravating Factors:standing; bending/squatting; pushing/pulling; weightbearing; getting out of bed; going from sit to stand; upstairs; downstairs; nighttime Timing:constant; worse at nighttime Associated Symptoms:no pain radiating down lower extremities; no popping/clicking; no bowel incontinence; no urinary retention; no urinary incontinence; no perineal paresthesia/anesthe rene;weakness;numbne ss(VANESSA FEET);tingling(VANESSA FEET);swelling(VANESSA LEGS AND FEET) Prior Imaging:x-ray ([facility]) Previous Lumbar Surgery:none Previous Injections:lumbar ESIs: no relief Previous physical therapy:Facility: ([facility]); currently in PT:; completed all recommended PT visits; 2weeks of PT completed; dates: (2017,2020); response to therapy: made pain/symptoms worse Daily Activities:Living independently.;Diff iculty bathing/grooming secondary to pain.;Difficulty completing top screw secondary to pain.;Significant difficulty walking secondary to pain, requires assistive device(s).(USES CANE);Unable to work secondary to chronic pain and or physical disability.;Unable to exercise on a regular basis secondary to pain.;Difficulty participating in recreation on a regular basis secondary to pain. Medications History:NSAIDs: (TYLENOL-NOT HELPFUL.); Muscle relaxants: (FLEXERIL-NOT HELPFUL.); Neuropathics: (GABAPENTIN-NOT HELPFUL.) Prior Pain Management:yes: ALLI LOWE [address] [place] [address], [phone], [facility] 06/09/2020 13:03:03
--- OUTSIDE RECORDS SUMMARY | 2024-08-09 14:26 | XMS_ITS | Clinical Summary ---
Author Organization Healthcare Address [address] [place] [address] Care Team Providers Care Roll Operator Name Role Phone Lamin Blank MD Primary Care Provider [phone] Family History Medical History Relation Name Comments Suicide Attempts Cousin Alcohol abuse Father Osteoarthritis Father Diabetes Paternal Great-Grandmother 1 Other cancer Paternal Great-Grandmother 2 Relation Name Status Comments Cousin Father Paternal Great-Grandmother 1 Paternal Great-Grandmother 2 Social History Tobacco Use Types Packs/Day Years Used Date Smoking Tobacco: Every Day Sex and Gender Information Value Date Recorded Sex Assigned at Not on file Legal Sex Male 6:33 PM EDT Gender Identity Not on file Sexual Orientation Not on file Last Filed Vital Signs Vital Sign Reading Time Taken Comments Blood Pressure - - Pulse - - Temperature - - Respiratory Rate - - Oxygen Saturation - - Inhaled Oxygen Concentration - - Weight 90.3 kg (199 lb 0.2 oz) 02/25/2015 10:32 AM EST Height 185.4 cm (6' 1 ) 02/25/2015 10:32 AM EST Body Mass Index 26.26 02/25/2015 10:32 AM EST Plan of Treatment Not on file Care Teams Roll Operator Relationship Specialty Start Date End Date Lamin Blank MD PCP - General 06/27/20
--- OUTSIDE RECORDS SUMMARY | 2024-08-09 14:26 | XMS_ITS | Clinical Summary ---
Author Organization [facility] Address [address] [place] [address] Phone Care Team Providers Care Dolly Pusher Name Role Phone Jorge GARDUNO Mirna Christie [phone] Conditions or Problems Problem Name Problem Code Onset Date Status Entry Date Provider Comment Standard Description Annotate DDD [id number] (SNOMED CT) 03/06 Active 03/06 Cesilia Miranda MA Degeneration of intervertebral disc LUMBAR RADICULOPATHY [id number] (SNOMED CT) 03/06 Active 03/06 Cesilia Miranda MA Lumbar radiculopathy Medications Medication Instructions Start Date Stop Date Generic Name ND Provider METHOCARBAMOL 750 MG TABS Take 1 tablet by mouth three times a day 03/07 methocarbamol [id number] Cesilia Miranda MA BACLOFEN 5 MG TABS Take 1 tablet by mouth three times a day baclofen [id number] Mirna GARDUNO METHOCARBAMOL 750 MG TABS Take 1 tablet by mouth three times a day 03/07 methocarbamol 63033035125 Mirna GARDUNO CYCLOBENZAPRINE HCL 10 MG TABS cyclobenzaprine [id number] Joey Miranda MA FLUOXETINE HCL 20 MG CAPS fluoxetine 73026624492 Cesilia Miranda MA BUSPIRONE HCL 15 MG TABS buspirone 88581393888 Cesilia Miranda MA CARISOPRODOL 350 MG TABS TAKE 1 TABLET BY MOUTH TWICE DAILY NEEDED FOR MUSCLE PAIN carisoprodol 71543810080 Cesilia Miranda MA ZOLPIDEM TARTRATE 10 MG TABS zolpidem 17805285497 Cesilia Miranda MA METOPROLOL SUCCINATE ER 25 MG IC26G-SAC metoprolol succinate 90388789028 Cesilia Miranda MA ATORVASTATIN CALCIUM 80 MG TABS atorvastatin 49014697149 Cailin Miranda MA GABAPENTIN 600 MG TABS gabapentin 40092553560 Cesilia Miranda MA Medications Administered No information available. Allergies, Adverse Reactions, Alerts Allergy Name Reaction Description Start Date Severity Statu s Provider PENICILLIN Critical Cesilia aguirre MA Results No information available. Plan of Care Type Date Detail Referral Pain Management Referral Mikhail Jimenezroughs, [address] [place] [address], [phone] Pending order MRI Lumbar witho ut Contrast Pending order MRI Lumbar witho ut Contrast Procedures No information available. Vital Signs Date Name Value Unit Description BMI (Body Mass Index) 32.41 kg/m2 Bod y Mass Index (Ratio) Height 72 [in_us] height E&M Weight Measured 239 [lb_av] weight E& M Weight Measured 239 [lb_av] weight E& M Immunizations No information available. Advance Directives No information available.
--- OUTSIDE RECORDS SUMMARY | 2024-08-09 14:27 | XMS_ITS | Clinical Summary ---
Author Organization [facility] Address [address] [place] [address] Phone Care Team Providers Care Plumber'S Assistant Name Role Phone Lamin Blank MD Primary Care Provider Allergies Active Allergy Reactions Criticality Noted Date Comments Penicillins Hives,Itching,Rash High 12/22/2016 Medications gabapentin (NEURONTIN) 400 mg Oral CapsuleIndicati ons:ankle and back pain Take 400 mg by mouth 3 times daily. Active cyclobenzaprine (FLEXERIL) 10 mg Oral TabletIndicatio ns:rt ankle and low back pain Take 10 mg by mouth 2 times daily. Active naproxen (NAPROSYN) 500 mg Oral Tablet Take 1 Tab by mouth 2 times daily (with meals). 60 Tab 2 9 Active Additional Information Patient not taking.Reason: Pt electing to not take the medication, Reported on 09/14/2019 busPIRone (BUSPAR) 10 mg Oral Tablet Take by mouth 2 times daily. Active LORazepam (ATIVAN) 1 mg Oral Tablet Take 1 mg by mouth daily as needed for Anxiety. Active predniSONE (DELTASONE) 20 mg Oral Tablet Take by mouth daily. Active FLUoxetine (PROZAC) 20 mg Oral Capsule Take 20 mg by mouth daily. Active docusate sodium (COLACE) 100 mg Oral Capsule Take 1 Cap by mouth 2 times daily as needed for Constipation. 30 Cap 09/26/2019 2:26 PM EDT 0 Active oxyCODONE (ROXICODONE) 5 mg Oral Tablet Take 1-2 Tabs by mouth every 4 hours as needed for Major Surgery/Trauma (G89.18). 40 Tab 09/26/2019 2:26 PM EDT 0 Active Additional Information Patient not taking.Reason: Therapy Completed, Reported on 02/01/2022 baclofen (LIORESAL) 10 mg Oral Tablet Take by mouth 3 times daily. Active lidocaine (LIDODERM) 5 % Top Adhesive Patch, Medicated Place 1 Patch onto the skin daily. Apply for 12 hours, remove for 12 hours, then apply new patch 30 Patch 2 Active Active Problems Problem Noted Date Diagnosed Date Right hip impingement syndrome 03/02/2018 Right hip pain 02/16/2018 Right hip tendonitis 12/16/2017 Meralgia paresthetica of right side 12/16/2017 Entrapment of right iliohypogastric nerve 2017 Cellulitis of left leg 08/26/2017 Smoking greater than 20 pack years 08/26/2017 Surgical History Surgery Date Site/Laterality Comments FRACTURE SURGERY 10/08/2014 Right ankle DENTAL SURGERY COLONOSCOPY UPPER GASTROINTESTINAL ENDOSCOPY HIP ARTHROSCOPY 04/28/2018 Right right hip arthroscopy labral debridement, pincer and cam resection; Surgeon: Keyon Bill MD; Location: [facility]; Service: Orthopedics ANKLE SURGERY Medical History Medical History Date Comments Diverticulitis Degenerative disc disease, lumbar Borderline hypertension not on any medications MD is watching Sleep apnea lost weight and doesnt have anymore Pneumonia Depression Family History Medical History Relation Name Comments Arthritis Father Diabetes Father Heart Disease Father High Blood Pressure Father Arthritis Mother Anesth Problems Neg Hx Relation Name Status Comments Father Alive Mother Alive Social History Tobacco Use Types Packs/Day Years Used Date Smoking Tobacco: Every Day Cigarettes 1 34 Started: 08/25/1990 Smokeless Tobacco: Never Tobacco Cessation:Ready to Q uit: No Comments:Patient states, I did smoke 2 PPD [...] on file Sexual Orientation Not on file Obstetrics History Last Filed Vital Signs Vital Sign Reading Time Taken Comments Blood Pressure 134/74 02/01/2022 11:34 AM EST Pulse 65 02/01/2022 11:33 AM EST Temperature 36.6 C (97.8 F) 02/01/2022 11:36 AM EST Respiratory Rate 18 02/01/2022 11:33 AM EST Oxygen Saturation 100% 02/01/2022 11:36 AM EST Inhaled Oxygen Concentration - - Weight 104.3 kg (230 lb) 02/01/2022 11:36 AM EST Height 185.4 cm (6' 1 ) 07/01/2020 10:38 AM EDT Body Mass Index 30.34 07/01/2020 10:38 AM EDT Plan of Treatment Health Maintenance Due Date Last Done Comments Wellness Exam Medicare 05/14/1979 Hepatitis B Vaccine (1 of 3 - 19+ 3-dose series) 05/14/1995 Pneumococcal Vaccine 0-49 (1 of 2 - PCV) 05/14/1995 Cologuard 2021 Colon Cancer Screening 2021 Colonoscopy 2021 FIT 2021 Sigmoidoscopy 2021 Virtual Colonography 2021 COVID-19 Vaccine ( - 2023-2 5 season) 2023 11/18/2021, 12/24/2020 Influenza Vaccine (Season Ended) 2024 12/30/2021 DTaP/TDaP/Td (2 - Td or Tdap) 03/23/2028, 04/20/1996 Meningococcal B Vaccine Aged Out No l onger eligible based on patient's age to complete this topic Goals Goal Patient Goal Type Associated Problems Recent Progress Patient-Stated? Author Maintain a healthy diet, exercise regularly and maintain an ideal body weight General No Shannan Lafleur CCMA Stay Tobacco Free Lifestyle No Shannan Lafleur CCMA Medical Devices Implanted Type Area Plastic Worker Device Identifier Shelf Expiration Date Model / Serial / Lot Ankle Hardware R3 3 Hole Acet Shell 54mm - [id number] Implanted:Qty : 1 on 09/26/2019 by Nilo Spear MD at [facility] Right: Hip [employer] [id number] 04/25/2029 [id number] / / [id number] R3 0 Deg +4 Xlpe Acet Lnr 36mm X 54mm - [id number] Implanted:Qty : 1 on 09/26/2019 by Nilo Spear MD at [facility] Right: Hip [employer] [id number] 03/17/2029 [id number] / / [id number] Polarstem Collar Std. Ti/Ken 2 - [id number] Implanted:Qty : 1 on 09/26/2019 by Nilo Spear MD at [facility] Right: Hip [employer] [id number] 04/04/2026 [id number] / / [id number] Oxinium Fem Hd 01/27 36 Mm +0 - [id number] Implanted:Qty : 1 on 09/26/2019 by Nilo Spear MD at [facility] Right: Hip [employer] [id number] 07/10/2029 [id number] / / [id number] Insurance [facility] MEDICAID MEDICARE [place] PART A AND B [facility] MEDICAID Member Subscriber Plan / Payer (Ef fective 2019-Present) Name:Dejuan Ram Relation to Subscriber:Self Name:Dejuan Ram Payer ID:Not on file Type:Not on file Address: [address] [place] [id number] MEDICARE [place] PART A AND B [facility] MEDICAID Advance Directives For more information, please contact: [phone] * Full Code (Latest Code Status on File) Date Activated Date Inactivated Comments 08/25/2017 11:18 PM 08/29/2017 4:29 PM Care Teams Plumber'S Assistant Relationship Specialty Start Date End Date Lamin Blank MD PCP - General 12/08/09
--- OUTSIDE RECORDS SUMMARY | 2024-08-09 14:27 | XMS_ITS | Data Portability ---
Author Organization [facility] Address [address] [place] [address] Assessment No assessment recorded. Plan of Treatment Reminders Order Date Submit Date Provider Last Modified By Organization Details Last Modified Time Details Appointments None recorded. Lab vitamin D, 25-hydroxy, total, serum 2022 023 HILARY [facility], [address], [address], [place], [address], 3 16:36:56 thyroid panel, serum 2022 023 HILARY [facility], [address], [address], [place], [address], 3 16:36:54 celiac disease comprehensi ve panel, serum 2022 023 HILARY [facility], [address], [address], [place], [address], 3 16:36:51 gastrointes tinal pathogens panel, culture, stool 2022 023 [email or web address] [facility], [address], [address], [place], [address], 3 07:44:05 O&P (ova & parasites), stool 2022 023 [email or web address] [facility], [address], [address], [place], [address], 3 07:44:05 C diff toxin A+B, qual IA, stool 2022 023 [email or web address] [facility], [address], [address], [place], [address], 3 07:44:05 salmonella sp + shigella sp, culture, stool 2022 023 [email or web address] [facility], [address], [address], [place], [address], 3 07:44:06 giardia + cryptospori dium Ag, stool 2022 023 [email or web address] [facility], [address], [address], [place], [address], 3 07:44:06 CBC w/ auto diff 2022 023 HILARY [facility], [address], [address], [place], [address], 3 16:36:52 CMP, serum or plasma 2022 023 HILARY [facility], [address], [address], [place], [address], 3 16:36:53 amylase + lipase, serum 2022 023 HILARY [facility], [address], [address], [place], [address], 3 16:36:56 urinalysis, dipstick 2022 023 [facility], [address] [place], [address], 3 14:40:29 helicobacte r pylori Ab panel, serum 2022 023 HILARY [facility], [address], [address], [place], [address], 3 16:36:55 rapid strep group A, throat [address], [address] [place], [address], 3 15:48:02 rapid flu (A+B) [address], [address] [place], [address], 3 15:48:02 rapid SARS CoV + SARS CoV 2 Ag, QL IA, respiratory specimen [address], [address] [place], [address], 3 15:48:02 CMP, serum or plasma 2017 018 HILARY [facility], [address], [address], [place], [address], 8 08:47:38 CBC 2017 018 HILARY [facility], [address], [address], [place], [address], 8 08:47:39 vitamin B12 + folate, serum or blood 2017 018 HILARY [facility], [address], [address], [place], [address], 8 08:47:40 TSH, ultra-sensi tive, serum 2017 018 HILARY [facility], [address], [address], [place], [address], 8 08:47:40 magnesium, serum or plasma 2017 018 HILARY [facility], [address], [address], [place], [address], 8 08:47:42 vitamin D, 25-hydroxy, total, serum 2017 018 HILARY [facility], [address], [address], [place], [address], 8 08:47:41 urinalysis, dipstick [address], [address] [place], [address], 8 12:03:56 HbA1c (hemoglobin A1c), blood [address], [address] [place], [address], 8 12:03:56 glucose, fingerstick , blood [address], [address] [place], [address], 8 12:03:56 Referral gastroenter ologist referral - LQ pain constipatio n bowel changes has seen Dr. Antoine before 2022 023 HILARY Antoine MD, [address] [facility] , [place] [address], [place], [address], 3 07:54:16 neurologist referral 2017 018 [email or web address] [facility], [address] [place] [address], [place], [address], 9 11:40:39 Procedures None recorded. Surgeries None recorded. Imaging XR, kidney + ureter + bladder 2022 023 HILARY Echols (Centralized Scheduling), [address], [place], [address], 3 13:10:26 XR, abdomen, complete 2022 023 [email or web address] [facility] (Centralized Scheduling), [address], [place], [address], 3 07:44:53 US, kidney - LLQ pain 2022 023 [facility], [address] [place], [address], 3 15:47:49 US, thyroid 2022 023 HILARY Not available 3 11:07:46 XR, lumbosacral spine 2017 018 HILARY Echols (Centralized Scheduling), [facility] [address], [place], [address], 8 12:16:28 Medication Orders Miralax 17 gram/dose oral powder 2022 023 HILARY Not available 3 10:14:05 Lincocin 300 mg/mL injection solution 2022 023 [email or web address] Not available 3 14:00:06 Medrol (Fabien) 4 mg tablets in a dose pack 2022 023 [email or web address] Not available 3 13:59:54 doxycycline monohydrate 100 mg capsule 2022 023 HILARY Not available 3 16:32:51 ketorolac 60 mg/2 mL intramuscul ar solution 2017 018 [email or web address] Not available 3 14:00:11 Depo-Medrol 80 mg/mL suspension for injection 2017 018 [email or web address] Not available 3 13:59:36 Patient TargetsNo targets recorded. Patient Instructions Encounter Date Encounter Id Patient Instructions Last Modified By Organization Details Last Modified Time 11/17/2017 [id number] gentle stretchin g exercises, RTC prn Not available 11/17/2017 11:34:43 02/24/2022 [id number] chronic sinusitis: care instructions Not available 02/24/2022 15:59:16 keep well hydrated, take medication as prescribed, medications discussed with pt and side effects and adverse effects were discussed, RTC in one week for follow up and fasting labs prn Not available 02/24/2022 16:05:24 07/05/2022 [id number] gas and bloating : care instructions Not available 07/05/2022 14:40:29 abdominal pain: care instructions Not available 07/05/2022 14:40:29 awaiting lab results for further diagnostic decision making keep well hydrated, get 6 to 8 hours of sleep a night; eat healthy ; exercise, RTC prn Not available 07/05/2022 14:40:52 07/07/2022 [id number] constipation: care instructions Not available 07/07/2022 10:14:02 learning about healthy weight Not available 07/07/2022 10:01:13 body mass index: care instructions Not available 07/07/2022 10:01:13 abdominal pain: care instructions Not available 07/07/2022 09:55:25 Reason for Referral Neurologist Referral for Par esthesia of lower extremity Referring Physician: Cayt Galdamez [facility], Encounter Date: 11/17/2017 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 Antoine before Referring Physician: Caty Galdamez [facility], Encounter Date: 07/07/2022 Results Created Date Observation Date Name Description Value Unit Range Abnormal Flag Note LastModifiedBy Organization Detail LastModifiedTime 11/18/19 18 11/18/2017 CMP, serum or plasm a glucose 65 mg/dL 65-99 Not Available [facility] ([facility]) [address] [facility], [place], [address], 11/18/2017 08:47:38 11/18/19 18 11/18/2017 CMP, serum or plasm a BUN 10 mg/dL 6-24 Not Available [facility] ([facility]) [address] [place], [address], 11/18/2017 08:47:38 11/18/19 18 11/18/2017 CMP, serum or plasm a creatinine 0.98 mg/dL 0.76-1 .27 Not Available [facility] ([facility]) [address] [facility] [place], [address], 11/18/2017 08:47:38 11/18/19 18 11/18/2017 CMP, serum or plasm a eGFR if nonafricn AM 95 mL/mi n/1.7 3 >59 Not Available [facility] ([facility]) [address] [facility] [place], [address], 11/18/2017 08:47:38 11/18/19 18 11/18/2017 CMP, serum or plasm a eGFR if africn AM 110 mL/mi n/1.7 3 >59 Not Available [facility] ([facility]) [address] [facility] [place], [address], 11/18/2017 08:47:38 11/18/19 18 11/18/2017 CMP, serum or plasm a BUN/creatini ne ratio 10 9-20 Not Available [facility] ([facility]) [address] [facility] [place], [address], 11/18/2017 08:47:38 11/18/19 18 11/18/2017 CMP, serum or plasm a sodium 145 mmol/ L 134-14 4 above high normal Not Available [facility] ([facility]) [address] [facility] [place], [address], 11/18/2017 08:47:38 11/18/19 18 11/18/2017 CMP, serum or plasm a potassium 4.5 mmol/ L 3.5-5. 2 Not Available [facility] ([facility]) [address] [place], [address], 11/18/2017 08:47:38 11/18/19 18 11/18/2017 CMP, serum or plasm a chloride 104 mmol/ L 96-106 Not Available [facility] ([facility]) [address] [facility] [place], [address], 11/18/2017 08:47:38 11/18/19 18 11/18/2017 CMP, serum or plasm a carbon dioxide, total 22 mmol/ L 20-29 Not Available [facility] ([facility]) [address] [facility] [place], [address], 11/18/2017 08:47:38 11/18/19 18 11/18/2017 CMP, serum or plasm a calcium 9.8 mg/dL 8.7-10 .2 Not Available [facility] ([facility]) [address] [place], [address], 11/18/2017 08:47:38 11/18/19 18 11/18/2017 CMP, serum or plasm a protein, total 7.5 g/dL 6.0-8. 5 Not Available [facility] ([facility]) [address] [place], [address], 11/18/2017 08:47:38 11/18/19 18 11/18/2017 CMP, serum or plasm a albumin 4.4 g/dL 3.5-5. 5 Not Available [facility] ([facility]) [address] [place], [address], 11/18/2017 08:47:38 11/18/19 18 11/18/2017 CMP, serum or plasm a globulin, total 3.1 g/dL 1.5-4. 5 Not Available [facility] ([facility]) [address] [place] [address], [address], 11/18/2017 08:47:38 11/18/19 18 11/18/2017 CMP, serum or plasm a A/G ratio 1.4 1.2-2. 2 Not Available [facility] ([facility]) [address] [place], [address], 11/18/2017 08:47:38 11/18/19 18 11/18/2017 CMP, serum or plasm a bilirubin, total <0.2 mg/dL 0.0-1. 2 Not Available [facility] ([facility]) [address] [place], [address], 11/18/2017 08:47:38 11/18/19 18 11/18/2017 CMP, serum or plasm a alkaline phosphatase 69 IU/L 39-117 Not Available [facility] ([facility]) [address] [place], [address], 11/18/2017 08:47:38 11/18/19 18 11/18/2017 CMP, serum or plasm a AST (SGOT) 34 IU/L 0-40 Not Available [facility] ([facility]) [address] [place], [address], 11/18/2017 08:47:38 11/18/1911/18/2017 CMP, serum or plasm a ALT (SGPT) 53 IU/L 0-44 above high normal Not Available [facility] ([facility]) [address] [place], [address], 11/18/2017 08:47:38 11/18/19 18 11/18/2017 CBC WBC 7.3 x10e3 /uL 3.4-10 .8 Not Available [facility] ([facility] [address] [facility] [place], [address], 11/18/2017 08:47:39 11/18/1911/18/2017 CBC RBC 4.99 x10e6 /uL 4.14-5 .80 Not Available [facility] ([facility]) [address] [facility] [place], [address], 11/18/2017 08:47:39 11/18/19 11/18/2017 CBC hemoglobin 15.9 g/dL 13.0-1 7.7 Not Available [facility] ([facility]) [address] [facility], [place], [address], 11/18/2017 08:47:39 11/18/19 18 11/18/2017 CBC hematocrit 46.1 % 37.5-5 1.0 Not Available [facility] ([facility]) [address] [facility], [place], [address], 11/18/2017 08:47:39 11/18/19 18 11/18/2017 CBC MCV 92 fL 79-97 Not Available [facility] ([facility]) [address] [facility], [place], [address], 11/18/2017 08:47:39 11/18/19 18 11/18/2017 CBC MCH 31.9 pg 26.6-3 3.0 Not Available [facility] ([facility]) [address] [facility], [place], [address], 11/18/2017 08:47:39 11/18/19 18 11/18/2017 CBC MCHC 34.5 g/dL 31.5-3 5.7 Not Available [facility] ([facility]) [address] [facility], [place], [address], 11/18/2017 08:47:39 11/18/19 18 11/18/2017 CBC RDW 14.2 % 12.3-1 5.4 Not Available [facility] ([facility]) [address] [facility], [place], [address], 11/18/2017 08:47:39 11/18/19 18 11/18/2017 CBC platelets 289 x10e3 /uL 150-37 9 Not Available [facility] ([facility]) [address] [facility], [place], [address], 11/18/2017 08:47:39 11/18/19 18 11/18/2017 CBC NRBC EVENT PLANNER Not Available [facility] ([facility]) [address] [facility], [place], [address], 11/18/2017 08:47:39 11/18/19 18 11/18/2017 vitam in B12 + folat e, serum or blood vitamin B12 827 pg/mL 232-12 45 Not Available [facility] ([facility]) [address] [facility], [place], [address], 11/18/2017 08:47:40 11/18/19 18 11/18/2017 vitam in B12 + folat e, serum or blood folate (folic acid), serum 3.7 NG/mL >3.0 A serum folat e valarie ntrat ion of less than 3.1 ng/mL is consi dered to repre sent clini lisa defic iency . Not Available [facility] ([facility]) [address] [facility], [place], [address], 11/18/2017 08:47:40 11/18/19 18 11/18/2017 TSH, ultra -sens itive , serum TSH 1.850 uIU/m L 0.450- 4.500 Not Available [facility] ([facility]) [address] [facility], [place], [address], 11/18/2017 08:47:40 11/18/19 18 11/18/2017 vitam in D, 25-hy droxy , total , serum vitamin D, 25-hydroxy 18.4 NG/mL 30.0-1 00.0 below low normal Vitam in D defic iency has been defin ed by the Insti tute of Medic ine and an Endoc rine Socie ty pract ice guide line as a level of serum 25-OH vitam in D less than 20 ng/mL (1,2) . The Endoc rine Socie ty went on to furth er defin e vitam in D insuf ficie ncy as a level betwe en 21 and 29 ng/mL (2). 1. IOM (Inst itute of Medic ine). 2010. Dieta ry refer ence intak es for calci um and D. Washi ng[place]: The [facility] Press . 2. Roma naranjo MF, Althea moscoso [place], Adriana off-F errar i FISHMAN, et al. Evalu ation , treat ment, and preve ntion of vitam in D defic iency : an Endoc rine Socie ty clini lisa pract ice guide line. JCEM. 2010; 96(7) :1911 -30. Not Available [facility] ([facility]) [address] [facility], [place], [address], 11/18/2017 08:47:41 11/18/19 18 11/18/2017 magne sium, serum or plasm a magnesium 2.3 mg/dL 1.6-2. 3 Not Available [facility] ([facility]) [address] [facility], [place], [address], 11/18/2017 08:47:42 11/18/19 18 11/17/2017 gluco se, finge rstic k, blood Blood Glucose: mg/dl 88 Not Available [address] [place], [address], 11/17/2017 10:59:52 11/18/19 18 11/17/2017 HbA1c (hemo globi n A1c), blood HbA1c 5.5 Not Available [address] [place], [address], 11/17/2017 10:59:36 11/18/19 18 11/17/2017 urina lysis , dipst ick Leukocytes Negati ve Not Available [place] [address] [place], [address], 11/17/2017 10:58:08 11/18/19 18 11/17/2017 urina lysis , dipst ick Nitrite negati ve Not Available [address] [place], [address], 11/17/2017 10:58:08 11/18/19 18 11/17/2017 urina lysis , dipst ick Urobilinogen .2 Not Available [address] [place], [address], 11/17/2017 10:58:08 11/18/19 18 11/17/2017 urina lysis , dipst ick Protein Negati ve Not Available [address] [place], [address], 11/17/2017 10:58:08 11/18/19 18 11/17/2017 urina lysis , dipst ick pH 7.0 Not Available [address] [place], [address], 11/17/2017 10:58:08 11/18/19 18 11/17/2017 urina lysis , dipst ick Blood Negati ve Not Available [address] [place], [address], 11/17/2017 10:58:08 11/18/19 18 11/17/2017 urina lysis , dipst ick Specific Orbisonia 1.025 Not Available [address] [place], [address], 11/17/2017 10:58:08 11/18/19 18 11/17/2017 urina lysis , dipst ick Ketone Negati ve Not Available [address] [place], [address], 11/17/2017 10:58:08 11/18/19 18 11/17/2017 urina lysis , dipst ick Bilirubin Negati ve Not Available [address] [place], [address], 11/17/2017 10:58:08 11/18/19 18 11/17/2017 urina lysis , dipst ick Glucose Negati ve Not Available [address] [place], [address], 11/17/2017 10:58:08 02/24/19 23 02/24/2022 rapid flu (A+B) Flu negati ve Not Available [address] [place], [address], 02/24/2022 15:42:04 02/24/19 23 02/24/2022 rapid flu (A+B) Type B Not Available [address] [place], [address], 02/24/2022 15:42:04 02/24/19 23 02/24/2022 rapid strep group A, throa t Strep negati ve Not Available [address] [place], [address], 02/24/2022 15:37:31 02/24/19 23 02/24/2022 rapid SARS CoV + SARS CoV 2 Ag, QL IA, respi rator y speci men SARS CoV antigen Negati ve Not Available [address] [place], [address], 02/24/2022 15:42:15 07/06/19 23 07/06/2022 TANVIR C DISEA SE PANEL endomysial antibody IgA Negati ve negati ve Not Available [facility] ([facility]) [address] [facility], [place], [address], 07/06/2022 16:36:51 07/06/19 23 07/06/2022 TANVIR C DISEA SE PANEL T-transgluta minase (ttg) IgA <2 U/mL 0-3 Negat zoe 0 - 3 Weak Posit zoe 4 - 10 Posit zoe >10 Tissu e Trans gluta josette e (tTG) has been ident ified as the endom ysial antig en. Studi es have demon str- ated that endom ysial IgA antib odies have over 99% speci ficit y for glute n sensi tive enter opath y. Not Available [facility] ([facility]) [address] [facility], [place], [address], 07/06/2022 16:36:51 07/06/1907/06/2022 TANVIR C DISEA SE PANEL immunoglobul in A, qn, serum 213 mg/dL 90-386 Not Available [facility] ([facility]) [address] [place], [address], 07/06/2022 16:36:51 07/06/19 23 07/06/2022 CBC WITH DIFFE RENTI AL/PL ATELE T WBC 8.0 x10e3 /uL 3.4-10 .8 Not Available [facility] ([facility]) [address] [place], [address], 07/06/2022 16:36:52 07/06/19 23 07/06/2022 CBC WITH DIFFE RENTI AL/PL ATELE T RBC 4.86 x10e6 /uL 4.14-5 .80 Not Available [facility] ([facility]) [address] [place], [address], 07/06/2022 16:36:52 07/06/1907/06/2022 CBC WITH DIFFE RENTI AL/PL ATELE T hemoglobin 15.3 g/dL 13.0-1 7.7 Not Available [facility] ([facility]) [address] [place], [address], 07/06/2022 16:36:52 07/06/19 23 07/06/2022 CBC WITH DIFFE RENTI AL/PL ATELE T hematocrit 44.8 % 37.5-5 1.0 Not Available [facility] ([facility]) [address] [facility], [place], [address], 07/06/2022 16:36:52 07/06/19 23 07/06/2022 CBC WITH DIFFE RENTI AL/PL ATELE T MCV 92 fL 79-97 Not Available [facility] ([facility]) [address] [facility], [place], [address], 07/06/2022 16:36:52 07/06/1907/06/2022 CBC WITH DIFFE RENTI AL/PL ATELE T MCH 31.5 pg 26.6-3 3.0 Not Available [facility] ([facility]) [address] [facility], [place], [address], 07/06/2022 16:36:52 07/06/19 23 07/06/2022 CBC WITH DIFFE RENTI AL/PL ATELE T MCHC 34.2 g/dL 31.5-3 5.7 Not Available [facility] ([facility]) [address] [facility], [place], [address], 07/06/2022 16:36:52 07/06/19 23 07/06/2022 CBC WITH DIFFE RENTI AL/PL ATELE T RDW 13.0 % 11.6-1 5.4 Not Available [facility] ([facility]) [address] [place], [address], 07/06/2022 16:36:52 07/06/19 23 07/06/2022 CBC WITH DIFFE RENTI AL/PL ATELE T platelets 263 x10e3 /uL 150-45 0 Not Available [facility] ([facility]) [address] [place], [address], 07/06/2022 16:36:52 07/06/19 23 07/06/2022 CBC WITH DIFFE RENTI AL/PL ATELE T neutrophils 53 % not estab. Not Available [facility] ([facility]) [address] [facility], [place], [address], 07/06/2022 16:36:52 07/06/19 23 07/06/2022 CBC WITH DIFFE RENTI AL/PL ATELE T lymphs 34 % not estab. Not Available [facility] ([facility]) [address] [facility], [place], [address], 07/06/2022 16:36:52 07/06/19 23 07/06/2022 CBC WITH DIFFE RENTI AL/PL ATELE T monocytes 10 % not estab. Not Available [facility] ([facility]) [address] [facility], [place], [address], 07/06/2022 16:36:52 07/06/19 23 07/06/2022 CBC WITH DIFFE RENTI AL/PL ATELE T eos 2 % not estab. Not Available [facility] ([facility]) [address] [facility], [place], [address], 07/06/2022 16:36:52 07/06/19 23 07/06/2022 CBC WITH DIFFE RENTI AL/PL ATELE T basos 1 % not estab. Not Available [facility] ([facility]) [address] [facility], [place], [address], 07/06/2022 16:36:52 07/06/19 23 07/06/2022 CBC WITH DIFFE RENTI AL/PL ATELE T immature cells EVENT PLANNER Not Available [facility] ([facility]) [address] [place], [address], 07/06/2022 16:36:52 07/06/19 23 07/06/2022 CBC WITH DIFFE RENTI AL/PL ATELE T neutrophils (absolute) 4.2 x10e3 /uL 1.4-7. 0 Not Available [facility] ([facility]) [address] [facility], [place], [address], 07/06/2022 16:36:52 07/06/19 23 07/06/2022 CBC WITH DIFFE RENTI AL/PL ATELE T lymphs (absolute) 2.7 x10e3 /uL 0.7-3. 1 Not Available [facility] ([facility]) [address] [facility], [place], [address], 07/06/2022 16:36:52 07/06/19 23 07/06/2022 CBC WITH DIFFE RENTI AL/PL ATELE T monocytes(ab solute) 0.8 x10e3 /uL 0.1-0. 9 Not Available [facility] ([facility]) [address] [facility], [place], [address], 07/06/2022 16:36:52 07/06/19 23 07/06/2022 CBC WITH DIFFE RENTI AL/PL ATELE T eos (absolute) 0.2 x10e3 /uL 0.0-0. 4 Not Available [facility] ([facility]) [address] [facility], [place], [address], 07/06/2022 16:36:52 07/06/19 23 07/06/2022 CBC WITH DIFFE RENTI AL/PL ATELE T baso (absolute) 0.1 x10e3 /uL 0.0-0. 2 Not Available [facility] ([facility]) [address] [facility], [place], [address], 07/06/2022 16:36:52 07/06/19 23 07/06/2022 CBC WITH DIFFE RENTI AL/PL ATELE T immature granulocytes 0 % not estab. Not Available [facility] ([facility]) [address] [facility], [place], [address], 07/06/2022 16:36:52 07/06/19 23 07/06/2022 CBC WITH DIFFE RENTI AL/PL ATELE T immature grans (abs) 0.0 x10e3 /uL 0.0-0. 1 Not Available [facility] ([facility]) [address], [place], [address], 07/06/2022 16:36:52 07/06/19 23 07/06/2022 CBC WITH DIFFE RENTI AL/PL ATELE T NRBC EVENT PLANNER Not Available [facility] ([facility]) [address], [place], [address], 07/06/2022 16:36:52 07/06/19 23 07/06/2022 CBC WITH DIFFE RENTI AL/PL ATELE T hematology comments: EVENT PLANNER Not Available [facility] ([facility]) [address], [place], [address], 07/06/2022 16:36:52 07/06/19 23 07/06/2022 COMP. METAB OLIC PANEL (14) glucose 77 mg/dL 70-99 Not Available [facility] ([facility]) [address] [place], [address], 07/06/2022 16:36:53 07/06/19 23 07/06/2022 COMP. METAB OLIC PANEL (14) BUN 15 mg/dL 6-24 Not Available [facility] ([facility]) [address] [facility] [place], [address], 07/06/2022 16:36:53 07/06/19 23 07/06/2022 COMP. METAB OLIC PANEL (14) creatinine 1.27 mg/dL 0.76-1 .27 Not Available [facility] ([facility]) [address] [place], [address], 07/06/2022 16:36:53 07/06/19 23 07/06/2022 COMP. METAB OLIC PANEL (14) eGFR 71 mL/mi n/1.7 3 >59 Not Available [facility] ([facility]) [address] [place], [address], 07/06/2022 16:36:53 07/06/19 23 07/06/2022 COMP. METAB OLIC PANEL (14) BUN/creatini ne ratio 12 9-20 Not Available [facility] ([facility]) [address] [facility], [place], [address], 07/06/2022 16:36:53 07/06/19 23 07/06/2022 COMP. METAB OLIC PANEL (14) sodium 140 mmol/ L 134-14 4 Not Available [facility] ([facility]) [address] [facility] [place], [address], 07/06/2022 16:36:53 07/06/19 23 07/06/2022 COMP. METAB OLIC PANEL (14) potassium 4.9 mmol/ L 3.5-5. 2 Not Available [facility] ([facility]) [address] [facility], [place], [address], 07/06/2022 16:36:53 07/06/19 23 07/06/2022 COMP. METAB OLIC PANEL (14) chloride 102 mmol/ L 96-106 Not Available [facility] ([facility]) [address] [place], [address], 07/06/2022 16:36:53 07/06/19 23 07/06/2022 COMP. METAB OLIC PANEL (14) carbon dioxide, total 26 mmol/ L 20-29 Not Available [facility] ([facility]) [address] [place], [address], 07/06/2022 16:36:53 07/06/19 23 07/06/2022 COMP. METAB OLIC PANEL (14) calcium 9.9 mg/dL 8.7-10 .2 Not Available [facility] ([facility]) [address] [place], [address], 07/06/2022 16:36:53 07/06/19 23 07/06/2022 COMP. METAB OLIC PANEL (14) protein, total 6.7 g/dL 6.0-8. 5 Not Available [facility] [facility] [address] [place], [address], 07/06/2022 16:36:53 07/06/19 23 07/06/2022 COMP. METAB OLIC PANEL (14) albumin 4.5 g/dL 4.0-5. 0 Not Available [facility] ([facility]) [address] [place], [address], 07/06/2022 16:36:53 07/06/19 23 07/06/2022 COMP. METAB OLIC PANEL (14) globulin, total 2.2 g/dL 1.5-4. 5 Not Available [facility] ([facility]) [address] [place], [address], 07/06/2022 16:36:53 07/06/19 23 07/06/2022 COMP. METAB OLIC PANEL (14) A/G ratio 2.0 1.2-2. 2 Not Available [facility] ([facility]) [address] [place], [address], 07/06/2022 16:36:53 07/06/19 23 07/06/2022 COMP. METAB OLIC PANEL (14) bilirubin, total 0.3 mg/dL 0.0-1. 2 Not Available [facility] ([facility]) [address] [place], [address], 07/06/2022 16:36:53 07/06/19 23 07/06/2022 COMP. METAB OLIC PANEL (14) alkaline phosphatase 102 IU/L 44-121 Not Available [facility] [address] [place], [address], 07/06/2022 16:36:53 07/06/19 23 07/06/2022 COMP. METAB OLIC PANEL (14) AST (SGOT) 26 IU/L 0-40 Not Available [facility] ([facility]) [address] [facility] [place], [address], 07/06/2022 16:36:53 07/06/19 23 07/06/2022 COMP. METAB OLIC PANEL (14) ALT (SGPT) 33 IU/L 0-44 Not Available [facility] ([facility]) [address] [facility] [place], [address], 07/06/2022 16:36:53 07/06/19 23 07/06/2022 THYRO ID PANEL WITH TSH TSH 1.610 uIU/m L 0.450- 4.500 Not Available [facility] ([facility]) [address] [facility] [place], [address], 07/06/2022 16:36:54 07/06/19 23 07/06/2022 THYRO ID PANEL WITH TSH thyroxine (T4) 6.2 ug/dL 4.5-12 .0 Not Available [facility] ([facility]) [address] [place], [address], 07/06/2022 16:36:54 07/06/19 23 07/06/2022 THYRO ID PANEL WITH TSH T3 uptake 27 % 24-39 Not Available [facility] ([facility]) [address] [place], [address], 07/06/2022 16:36:54 07/06/19 23 07/06/2022 THYRO ID PANEL WITH TSH free thyroxine index 1.7 1.2-4. 9 Not Available [facility] ([facility]) [address] [place], [address], 07/06/2022 16:36:54 07/06/1907/06/2022 H PYLOR I, IGM, IGG, IGA AB H. pylori, IgG abs 0.08 index _valu e 0.00-0 .79 Negat zoe <0.80 Equiv ocal 0.80 - 0.89 Posit zoe >0.89 Not Available [facility] ([facility]) [address] [place], [address], 07/06/2022 16:36:55 07/06/19 23 07/06/2022 H PYLOR I, IGM, IGG, IGA AB H. pylori, IgA abs <9.0 units 0.0-8. 9 Negat zoe <9.0 Equiv ocal 9.0 - 11.0 Posit zoe >11.0 Not Available [facility] ([facility]) [address] [place], [address], 07/06/2022 16:36:55 07/06/19 23 07/06/2022 H PYLOR I, IGM, IGG, IGA AB H pylori, IgM abs <9.0 units 0.0-8. 9 Negat oze <9.0 Equiv ocal 9.0 - 11.0 Posit zoe >11.0 This test was uriel melvin and its perfo rmanc e ezekiel cteri stics deter mined by [facility]. It has not been clear ed or appro tulio by the Food and Drug Admin istra tion. Not Available [facility] ([facility]) [address] [place], [address], 07/06/2022 16:36:55 07/06/19 23 07/06/2022 GABRIELLA+L IPASE amylase 67 U/L 31-110 Not Available [facility] ([facility]) [address] [place], [address], 07/06/2022 16:36:56 07/06/19 23 07/06/2022 GABRIELLA+L IPASE lipase 45 U/L 13-78 Not Available [facility] ([facility]) [address] [place], [address], 07/06/2022 16:36:56 07/06/19 23 07/06/2022 VITAM IN D, 25-HY DROXY vitamin D, 25-hydroxy 18.1 NG/mL 30.0-1 00.0 below low normal Vitam in D defic iency has been defin ed by the Insti tute of Medic ine and an Endoc rine Socie ty pract ice guide line as a level of serum 25-OH vitam in D less than 20 ng/mL (1,2) . The Endoc rine Socie ty went on to fur er defin e vitam in D insuf ficie ncy as a level betwe en 21 and 29 ng/mL (2). 1. IOM (Inst itute of Medic ine). 2010. Dieta ry refer ence intak es for calci um and D. Rola farias [place]: [facility] . 2. Roma naranjo MF, Althea moscoso [place], Adriana off-F arnold i FISHMAN, et al. Evalu ation , treat ment, and preve ntion of vitam in D defic iency : an Endoc rine Socie ty clini lisa pract ice guide line. JCEM. 2010; 96(7) :1911 -30. Not Available [facility] ([facility]) [address] [facility], [place], [address], 07/06/2022 16:36:56 07/06/19 23 07/05/2022 urina lysis , dipst ick Leukocytes Negati ve Not Available [facility] [address] [place], [address], 07/05/2022 14:10:29 07/06/19 23 07/05/2022 urina lysis , dipst ick Nitrite negati ve Not Available [facility] [address] [place], [address], 07/05/2022 14:10:29 07/06/19 23 07/05/2022 urina lysis , dipst ick Urobilinogen 1 Not Available Counts include 234 beds at the [facility] [address] [place], [address], 07/05/2022 14:10:29 07/06/19 23 07/05/2022 urina lysis , dipst ick Protein Negati ve Not Available [address] [place], [address], 07/05/2022 14:10:29 07/06/19 23 07/05/2022 urina lysis , dipst ick pH 5.5 Not Available [address] [place], [address], 07/05/2022 14:10:29 07/06/19 23 07/05/2022 urina lysis , dipst ick Blood Negati ve Not Available [address] [place], [address], 07/05/2022 14:10:29 07/06/19 23 07/05/2022 urina lysis , dipst ick Specific Orb[place] 1.030 Not Available [address] [place], [address], 07/05/2022 14:10:29 07/06/19 23 07/05/2022 urina lysis , dipst ick Ketone Negati ve Not Available [address] [place], [address], 07/05/2022 14:10:29 07/06/19 23 07/05/2022 urina lysis , dipst ick Bilirubin Negati ve Not Available [address] [place], [address], 07/05/2022 14:10:29 07/06/19 23 07/05/2022 urina lysis , dipst ick Glucose Negati ve Not Available [address] [place], [address], 07/05/2022 14:10:29 07/06/19 23 07/05/2022 urina lysis , dipst ick Appearance Clear Not Available [facility] [address] [place], [address], 07/05/2022 14:10:29 07/06/19 23 07/05/2022 urina lysis , dipst ick Color Dark Yellow Not Available [facility] [address] [place], [address], 07/05/2022 14:10:29 07/07/19 23 07/08/2022 STOOL CULTU RE salmonella/s higella screen Final report Not Available [facility] ([facility]) [address] [place], [address], 07/13/2022 18:35:47 07/07/19 23 07/08/2022 STOOL CULTU RE result 1 COMMEN T No Salmo david or Shige lla recov ered. Not Available [facility] ([facility]) [address] [place], [address], 07/13/2022 18:35:47 07/07/19 23 07/08/2022 STOOL CULTU RE E coli shiga toxin EIA Negati ve negati ve Not Available [facility] ([facility]) [address] [place], [address], 07/13/2022 18:35:47 07/07/19 23 07/10/2022 STOOL CULTU RE campylobacte r culture Final report Not Available [facility] ([facility]) [address] [place], [address], 07/13/2022 18:35:47 07/07/19 23 07/10/2022 STOOL CULTU RE result 1 COMMEN T No Campy lobac ter speci es isola cuauhtemoc. Not Available [facility] ([facility]) [address] [place], [address], 07/13/2022 18:35:47 07/07/1907/07/2022 GIARD IA/CR YPTOS PORID IUM EIA giardia lamblia Ag, EIA Negati ve negati ve Not Available [facility] ([facility]) [address] [place], [address], 07/13/2022 18:35:48 07/07/19 23 07/07/2022 GIARD IA/CR YPTOS PORID IUM EIA cryptosporid ium EIA Negati ve negati ve Not Available [facility] ([facility]) [address] [place], [address], 07/13/2022 18:35:48 07/07/1907/07/2022 C DIFFI CILE TOXIN S A+B, EIA C difficile toxins A+B, EIA Negati ve negati ve Not Available [facility] ([facility]) [address] [place], [address], 07/13/2022 18:35:49 07/07/1907/13/2022 OVA + ELISABETH ITE EXAM ova + parasite exam Final report These resul ts were obtai fernando using wet prepa ratio n(s) and trich megan stain ed smear . This test does not inclu de testi ng for Crypt ospor idium parvu m, Cyclo spora , or Micro spori tamra. Not Available [facility] ([facility]) [address] [place], [address], 07/13/2022 18:35:50 07/07/1907/13/2022 OVA + ELISABETH ITE EXAM result 1 COMMEN T No ova, cysts , or elisabeth ites seen. One negat zoe speci men does not rule out the possi bilit y of a elisabeth itic infec tion. Not Available [facility] ([facility]) [address] [facility] [place], [address], 07/13/2022 18:35:50 11/18/19 18 11/17/2017 XR, lumbo sacra l spine No observ ation record ed. [facility] (Centralized Scheduling) [address] [place] [address] , [place], [address], 11/17/2017 12:25:04 02/16/19 19 02/16/2018 XR, hip + pelvi s, unila teral , 2 or 3 view No observ ation record ed. [address] , [place], [address], 02/20/2018 14:28:45 02/22/19 19 02/22/2018 MRI, hip, w/ contr ast No observ ation record ed. [address] , [place], [address], 02/28/2018 09:20:19 04/29/19 21 04/28/2020 MRI, hip, w/o contr ast No observ ation record ed. Not Available 2020 16:09:12 02/25/19 23 US, thyro id No observ ation record ed. [email or web address] Not Available 2022 11:57:34 07/06/19 23 US, kidne y No observ ation record ed. [facility] [address] [place], [address], 07/05/2022 15:50:00 07/08/19 23 07/07/2022 XR, kidne y + urete r + bladd er No observ ation record ed. [email or web address] [facility] ([facility] [address] [place] [address] [place], [address], 07/07/2022 15:28:24 Result Notes None recorded. Problems Name Problem SNOMED Code Status Onset Date Resolution Date Notes Provider Name and Address Organization Details Recorded Time Cellulitis 354751435 Active 2017 Nadege Dave null, [place] - [facility] 13:21:53 Asthma 721880828 Active 2015 Nadege Fitzpatrick RN [address], [place], [address], [place] - [facility] 8 14:22:57 Depressive disorder 27257381 Active 2015 Nadege Fitzpatrick RN [address], [place], [address], [place] - [facility] 8 14:22:56 Hyperlipidemia 71751650 Active 2015 Nadege Fitzpatrick RN [address], [place], [address], [place] - [facility] 8 14:22:56 Pain in limb 37188694 Active 2015 Nadege Fitzpatrick RN [address], [place], [address], [place] - [facility] 8 14:22:57 Low back pain 773219402 Active 2015 Nadege Fitzpatrick RN [address], [place], [address], [place] - [facility] 8 14:22:57 Narcolepsy 23474426 Active 2015 Nadege Fitzpatrick RN [address], [place], [address], [place] - [facility] 8 14:22:57 Osteoarthritis 281841891 Active 2015 Nadege Fitzpatrick RN [address], [place], [address], [place] - [facility] 8 14:22:56 Thyroid nodule 335983288 Active [address] [facility] [facility], [place] - [facility] 3 11:53:11 Problem Notes None recorded. Medical Equipment None Reported. Allergies Allergen ID Allergen Name Allergen Category Reaction Reaction Severity Criticality Documentation Date Start Date Code Code System Note Provider Name and Address Organization Details Recorded Time 353689 Keflex medicatio n Not available Not available Not available 09/06/201782142 7 RxNorm Mavis Gallenste in [place], [place] - [facility] 8 08:56:32 440487 Product containin g penicilli n (product) medicatio n hives mild low 07/07/2022 29505 8001 SNOMED Yana Mart null, [place] - [facility] 09:36:15 Medications Name Sig Start Date Stop Date Status Note LastModified by Organization Details LastModified Time carisopro dol 350 mg tablet TAKE 1 TABLET BY MOUTH TWICE DAILY NEEDED FOR MUSCLE PAIN active Not Available Not Available No t Available cyclobenz aprine 10 mg tablet Take 1 tablet 3 times a day by oral route as needed for 30 days. active Not Available Not Available No t Available amoxicill in 500 mg capsule take 1 capsule by oral route 3 times a day for 10 days 02/01 completed amoxicil urban 500 mg oral capsule; Recorded Status: Recorded on: 02/21/19 16 11:48AM; User: [email or web address] Not Available Not Available Not Available cefazolin 1 gram solution for injection Take 1 g by injectio n route. 09/12 completed Not Available Not Available Not Available Miralax 17 gram/dose oral powder take a dose bid until bowels start moving and then back down to once a say 2022 active Not Available Not Available Not Avai lable Augmentin 875 mg-125 mg tablet take 1 tablet by oral route 2 times a day for 10 days 12/02 completed Augmenti n 875-125 mg oral tablet;P rescribe Status: Prescrib ed on: 07/20/19 13 4:21PM;D iscontin ued Status: Disconti nued on: 12/03/19 13 8:51AM;U ser: neuss;Es t. Completi on: 07/30/19 13;Indic ation: Severe Pharyngi tis, Acute - (462);Ph armacyVe rified: 07/20/19 13 4:21PM Not Available Not Available Not Available promethaz ine-DM 6.25 mg-15 mg/5 mL oral syrup Take 5 mL every 4 hours by oral route as needed for 7 days. 07/05 completed Not Available Not Available Not Available atorvasta tin 80 mg tablet active Not Available Not Available Not Available gabapenti n 600 mg tablet active Not Available Not Available Not Available clindamyc in HCl 300 mg capsule 09/06 completed Not Available Not Available Not Available Drisdol 1,250 mcg (50,000 unit) capsule Take 1 capsule twice a week by oral route as directed for 30 days. 07/05 completed Not Available Not Available Not Available ibuprofen 800 mg tablet Take 1 tablet 3 times a day by oral route as directed for 30 days. 2017 active Not Available Not Available Not Avai lable tizanidin e 4 mg tablet active Not Available Not Available Not Available benzonata te 200 mg capsule Take 1 capsule 3 times a day by oral route as needed for 10 days. 2022 active Not Available Not Available Not Avai lable hydrocodo ne 5 mg-acetam inophen 325 mg tablet 08/24 completed Not Available Not Available Not Available Keflex 500 mg capsule take 1 capsule by oral route 3 times a day for 10 days 11/17 completed Not Available Not Available Not Available prednison e 20 mg tablet take 2 tablets by oral route QD x 7 days 06/14 completed Not Available Not Available Not Available gabapenti n 400 mg capsule Take 1 capsule twice a day by oral route. 2017 active Not Available Not Available Not Avai lable prednison e 5 mg tablet take 1 tablet by oral route QID x 2 days, then 1 tablet TID x 2 days, then 1 tablet BID x 2 days, then 1 tablet QD x 2 days 07/19 completed predniso ne 5 mg oral tablet;R ecorded Status: Recorded on: 02/22/19 13 11:58AM; Disconti nued Status: Disconti nued on: 07/20/19 13 2:47PM;U ser: kindlea; Printed: 02/22/19 13 Not Available Not Available Not Available Zithromax 250 mg tablet take 2 tablets (500 mg) by oral route once daily for 3 days 10/23 completed Zithroma x 250 mg oral tablet;R ecorded Status: Recorded on: 05/30/19 15 12:28PM; Disconti nued Status: Disconti nued on: 10/24/19 15 1:39PM;U ser: neuss;Es t. Completi on: 06/02/19 15;Indic ation: Symptoms Involvin g Respirat ory System And Chest - (786.9); Printed: 05/30/19 15 Not Available Not Available Not Available clindamyc in HCl 150 mg capsule take 1 capsule (150 mg) by oral route 2 times per day 12/02 completed clindamy ofelia HCl 150 mg oral capsule; Prescrib e Status: Prescrib ed on: 07/20/19 13 4:21PM;D iscontin ued Status: Disconti nued on: 12/03/19 13 8:51AM;U ser: neuss;Es t. Completi on: 08/29/19 13;Indic ation: Severe Pharyngi tis, Acute - (462);Ph armacyVe rified: 07/20/19 13 4:21PM Not Available Not Available Not Available promethaz ine 6.25 mg-codein e 10 mg/5 mL syrup take 5 millilit ers by oral route every 6 hours as needed, not to exceed 30 mL in 24 hours for 10 days 10/27 completed prometha zine-cod eine 6.25-10 mg/5 mL oral syrup;Re corded Status: Recorded on: 12/15/19 11 4:31PM;D iscontin ued Status: Disconti nued on: 10/28/19 12 1:00PM;U ser: bishopk; Est. Completi on: 12/25/19 11;Indic ation: Cough - (16.7862 00) Not Available Not Available Not Available Biaxin 500 mg tablet take 1 tablet (500 mg) by oral route 2 times per day for 10 days 12/14 completed Biaxin 500 mg oral tablet;R ecorded Status: Recorded on: 02/11/20 10 12:56PM; Disconti nued Status: Disconti nued on: 12/15/19 11 3:24PM;U ser: neuss;Es t. Completi on: 02/14/19 11 Not Available Not Available Not Available sulfameth oxazole 800 mg-trimet hoprim 160 mg tablet Take 1 tablet every 12 hours by oral route for 10 days. active Not Available Not Available No t Available tramadol 50 mg tablet one po qid prn for pain 07/23 completed tramadol 50 mg oral tablet;R ecorded Status: Recorded on: 03/27/19 14 9:37AM;D iscontin ued Status: Disconti nued on: 07/24/19 14 11:31AM; User: kelly;Kayla t. Completi on: 04/06/19 14 Not Available Not Available Not Available amoxicill in 500 mg tablet take 1 tablet (500 mg) by oral route 3 times per day for 10 days 03/27 completed amoxicil urban 500 mg oral tablet;P rescribe Status: Prescrib ed on: 12/22/19 13 3:02PM;D iscontin ued Status: Disconti nued on: 03/27/19 14 8:56AM;U ser: bakerc;E st. Completi on: 01/01/20 13;Pharm acyVerif ied: 12/22/19 13 3:02PM Not Available Not Available Not Available Lipitor 20 mg tablet take 1 tablet (20 mg) by oral route once daily for 30 days 10/23 completed Lipitor 20 mg oral tablet;R ecorded Status: Recorded on: 02/10/20 13 8:41PM;D iscontin ued Status: Disconti nued on: 10/24/19 15 1:39PM;U ser: neuss;Es t. Completi on: 08/09/19 14;Indic ation: Hypercho lesterol emia - (272) Not Available Not Available Not Available Depo-Medr ol 80 mg/mL suspensio n for injection give 80 mg depomedr ol IM please 07/05 completed Not Available Not Available Not Available Mobic 15 mg tablet take 1 tablet (15 mg) by oral route once daily for 30 days 10/23 completed Mobic 15 mg oral tablet;R ecorded Status: Recorded on: 07/24/19 14 11:31AM; Disconti nued Status: Disconti nued on: 10/24/19 15 1:39PM;U ser: neuss;Es t. Completi on: 11/21/19 14 Not Available Not Available Not Available oxycodone -acetamin ophen 5 mg-325 mg tablet take 1 tablet by oral route every 6 hours as needed for 10 days 02/21 completed oxycodon e-acetam inophen 5-325 mg oral tablet;R ecorded Status: Recorded on: 10/24/19 15 1:40PM;D iscontin ued Status: Disconti nued on: 02/21/19 16 5:02PM;U ser: neuss;In dication : Pain - (16.7809 00) Not Available Not Available Not Available clonidine HCl 0.2 mg tablet active Not Available Not Available No t Available methocarb brie 750 mg tablet active Not Available Not Available No t Available Questran 4 gram powder for susp in a packet dissolve as directed 1 packet and take by oral route 2 times a day as needed for 30 days 10/23 completed Questran 4 gram oral powder in packet;R ecorded Status: Recorded on: 08/22/19 14 10:22AM; Disconti nued Status: Disconti nued on: 10/24/19 15 1:39PM;U ser: neuss;Es t. Completi on: 12/20/19 14;Indic ation: Diarrhea - (787.91) ;Printed : 08/23/19 14 Not Available Not Available Not Available Flagyl 500 mg tablet take 1 tablet by oral route 2 times a day for 10 days 10/16 completed Flagyl 500 mg oral tablet;R ecorded Status: Recorded on: 08/22/19 14 10:29AM; Disconti nued Status: Disconti nued on: 10/17/19 14 4:47PM;U ser: neuss;Es t. Completi on: 09/01/19 14;Indic ation: Diarrhea - (787.91) ;Printed : 08/23/19 14 Not Available Not Available Not Available doxycycli ne monohydra te 100 mg capsule Take 1 capsule twice a day by oral route for 7 days. active Not Available Not Available No t Available hydrocodo ne 7.5 mg-acetam inophen 325 mg tablet take 1 tablet by oral route every 6 hours for 10 days 07/23 completed hydrocod one-acet aminophe n 7.5-325 mg oral tablet;R ecorded Status: Recorded on: 05/10/19 14 3:03PM;D iscontin ued Status: Disconti nued on: 07/24/19 14 11:31AM; User: neuss;Kayla madera. Completi on: 05/20/19 14 Not Available Not Available Not Available Cipro 500 mg tablet Take 1 tablet every 12 hours by oral route for 10 days. 03/16 completed Not Available Not Available Not Available Lincocin 300 mg/mL injection solution give 300 mg IM please 07/05 completed Not Available Not Available Not Available hydrocodo ne 7.5 mg-acetam inophen 750 mg tablet take 1 tablet by oral route Q12-24 PRN for 10 days 03/27 completed hydrocod one-acet aminophe n 7.5-750 mg oral tablet;R ecorded Status: Recorded on: 12/30/19 13 12:02PM; Disconti nued Status: Disconti nued on: 03/27/19 14 8:56AM;U ser: neuss;Es t. Completi on: 01/09/20 13;Indic ation: Pain - (16.7809 00) Not Available Not Available Not Available Syringe 3cc 22 gauge x 3/4 use as directed for 75 days 10/23 completed Syringe 3cc/22Gx 3/4 3 mL 22 gauge x 3/4 miscella neous syringe; Recorded Status: Recorded on: 08/22/19 14 10:23AM; Disconti nued Status: Disconti nued on: 10/24/19 15 1:39PM;U ser: neuss;Es t. Completi on: 01/19/20 14;Indic ation: Other testicul ar hypofunc tion - (257.2) Not Available Not Available Not Available indometha ofelia 50 mg capsule take 1 capsule by oral route 3 times a day as needed 02/09 completed indometh acin 50 mg oral capsule; Recorded Status: Recorded on: 12/05/19 13 1:36PM;D iscontin ued Status: Disconti nued on: 02/10/20 13 8:41PM;U ser: neuss;Es t. Completi on: 01/02/20 13 Not Available Not Available Not Available nicotine 21 mg/24 hr daily transderm al patch 09/06 completed Not Available Not Available Not Available ibuprofen 200 mg tablet take 1 tablet (200 mg) by oral route every 6 hours as needed with food 10/23 completed ibuprofe n 200 mg oral tablet;R ecorded Status: Recorded on: 12/05/19 13 1:36PM;D iscontin ued Status: Disconti nued on: 10/24/19 15 1:39PM;U ser: neuss;In dication : Pain - (16.7809 00) Not Available Not Available Not Available diclofena c sodium 75 mg tablet,de layed release active Not Available Not Available Not Available aspirin 81 mg tablet take 1 tablet (81 mg) by oral route once daily 01/12 completed aspirin 81 mg oral tablet;R ecorded Status: Recorded on: 12/14/19 09 2:58PM;U ser: bishopk; Est. Completi on: 01/13/20 09;Indic ation: Platelet Aggregat ion Inhibiti on - () Not Available Not Available Not Available Levaquin 500 mg tablet Take 1 tablet every 24 hours by oral route for 10 days. 11/17 completed Not Available Not Available Not Available metoprolo l succinate ER 25 mg tablet,ex tended release 24 hr active Not Available Not Available Not Available Viagra 100 mg tablet take 1 tablet (100 mg) by oral route once daily as needed approxim ately 1 hour before sexual activity for 30 days 12/14 completed Viagra 100 mg oral tablet;R ecorded Status: Recorded on: 10/16/19 09 4:30PM;D iscontin ued Status: Disconti nued on: 12/15/19 11 3:24PM;U ser: neuss;Es t. Completi on: 04/13/19 10;Indic ation: Erectile Dysfunct ion - (6078 40) Not Available Not Available Not Available Tylenol-C odeine #3 300 mg-30 mg tablet take 1 tablet by oral route every 6 hours as needed 11/17 completed Not Available Not Available Not Available testoster one cypionate 200 mg/mL intramusc ular oil inject 1 millilit er by intramus cular route every other week 10/23 completed testoste boyd cypionat e 200 mg/mL intramus cular oil;Fercho rded Status: Recorded on: 08/23/19 14 1:12PM;D iscontin ued Status: Disconti nued on: 10/24/19 15 1:39PM;U ser: neuss;Es t. Completi on: 01/20/20 14;Indic ation: Male Hypogona dism - (1752 ) Not Available Not Available Not Available ibuprofen 600 mg tablet 07/05 completed Not Available Not Available Not Available zolpidem 10 mg tablet take 1 tablet by oral route Q hs prn active Not Available Not Available No t Available methylpre dnisolone 4 mg tablets in a dose pack As directed 07/05 completed Not Available Not Available Not Available ketorolac 60 mg/2 mL intramusc ular solution give Toradol 60 mg IM 07/05 completed Not Available Not Available Not Available Naprosyn 500 mg tablet Take 1 tablet twice a day by oral route as needed. 11/17 completed Not Available Not Available Not Available Tussionex [place] ic ER 10 mg-8 mg/5 mL suspensio n,extende d release take 5 millilit ers by oral route every 12 hours for 6 days 10/27 completed Tussione x [place] tic ER 10-8 mg/5 mL oral suspensi on,exten ded rel 12 hr;Recor ded Status: Recorded on: 02/11/20 11 5:39PM;D iscontin ued Status: Disconti nued on: 10/28/19 12 1:00PM;U ser: bishopk; Est. Completi on: 02/16/19 12;Indic ation: Cough - (167046 ) Not Available Not Available Not Available cefdinir 300 mg capsule active Not Available Not Available Not Available fluoxetin e 20 mg capsule take 1 capsule (20 mg) by oral route once daily for 30 days active Not Available Not Available No t Available Augmentin 500 mg-125 mg tablet take 1 tablet by oral route every 12 hours for 10 days 2017 active Not Available Not Available Not Avai lable Ventolin HFA 90 mcg/actua tion aerosol inhaler inhale 2 puffs by inhalati on route every 4 hours as needed active Not Available Not Available No t Available buspirone 15 mg tablet active Not Available Not Available Not Available Skelaxin 800 mg tablet take 1 tablet (800 mg) by oral route 3-4 times daily as needed 07/22 completed Skelaxin 800 mg oral tablet;c omment: too expensiv e;Record ed Status: Recorded on: 07/23/19 11 7:01PM;D iscontin ued Status: Disconti nued on: 07/23/19 11 7:01PM;U ser: [email or web address]; Est. Completi on: 08/17/19 11;Indic ation: Muscle Spasm - (13.7288 50) Not Available Not Available Not Available cyclobenz aprine 5 mg tablet take 1 tablet (5 mg) by oral route 3 times per day for 30 days 02/01 completed cycloben zaprine 5 mg oral tablet;R ecorded Status: Recorded on: 10/24/19 15 1:40PM;U ser: [email or web address];In dication : Muscle Spasm - (13.7288 50) Not Available Not Available Not Available Saccharom yces boulardii 250 mg capsule 08/31 completed Not Available Not Available Not Available AndroGel 1 % 12.5 mg/1.25 gram per pump actuation transderm al gel apply 5 gram by topical route once daily to clean dry skin of shoulder and upper arm and/or abdomen 12/19 completed AndroGel 1.25 gram/ actuatio n (1 %) transder mal gel in metered- dose pump;Rec orded Status: Recorded on: 12/26/19 09 2:17PM;D iscontin ued Status: Disconti nued on: 12/20/19 10 9:03AM;U ser: [email or web address]; Est. Completi on: 03/25/19 10;Indic ation: Male Hypogona dism - () Not Available Not Available Not Available Cymbalta 30 mg capsule,d elayed release take one capsule daily 09/06 completed Cymbalta 30 mg oral capsule, delayed release( /EC);R ecorded Status: Recorded on: 07/16/19 11 3:56PM;D iscontin ued Status: Disconti nued on: 12/15/19 11 3:24PM;U ser: [email or web address];Es t. Completi on: 07/30/19 11 Not Available Not Available Not Available Zanaflex 4 mg capsule take 1 capsule (4 mg) by oral route 3 times per day prn for muscle spasms 07/23 completed Zanaflex 4 mg oral capsule; Prescrib e Status: Prescrib ed on: 03/27/19 14 9:39AM;D iscontin ued Status: Disconti nued on: 07/24/19 14 11:31AM; User: [email or web address];Es t. Completi on: 04/06/19 14;Pharm acyVerif ied: 03/27/19 14 9:39AM;P rinted: 03/27/19 14 Not Available Not Available Not Available doxycycli ne hyclate 100 mg tablet,de layed release take 1 tablet (100 mg) by oral route 2 times per day for 7 days 10/27 completed doxycycl ine hyclate 100 mg oral tablet,d elayed release (/EC); Recorded Status: Recorded on: 04/09/19 12 9:37AM;D iscontin ued Status: Disconti nued on: 10/28/19 12 1:00PM;U ser: [email or web address]; Est. Completi on: 04/16/19 12 Not Available Not Available Not Available promethaz ine-DM one tsp q 4 hrs prn 07/19 completed phenerga n exp. one tsp q 4 hrs prn;Fercho rded Status: Recorded on: 02/19/19 13 9:29PM;D iscontin ued Status: Disconti nued on: 07/20/19 13 2:47PM;U ser: [email or web address]; Est. Completi on: 02/26/19 13;Indic ation: cough - (-5) Not Available Not Available Not Available Diflucan one daily 03/27 completed diflucan 100 mg.;Fercho rded Status: Recorded on: 03/05/19 14 9:36AM;D iscontin ued Status: Disconti nued on: 03/27/19 14 8:56AM;U ser: [email or web address]; Est. Completi on: 03/09/19 14;Indic ation: mon - (-5) Not Available Not Available Not Available Lomotil one q 4 hrs prn 07/19 completed lomotile 2.5 mg;Recor ded Status: Recorded on: 02/19/19 13 9:29PM;D iscontin ued Status: Disconti nued on: 07/20/19 13 2:47PM;U ser: [email or web address]; Est. Completi on: 02/23/19 13;Indic ation: diarrhea - (-5) Not Available Not Available Not Available Neurontin one hs 10/23 completed neuronti n 300 mg.;Fercho rded Status: Recorded on: 01/22/20 13 8:20PM;D iscontin ued Status: Disconti nued on: 10/24/19 15 1:39PM;U ser: [email or web address]; Est. Completi on: 03/22/19 14;Indic ation: nerve - (-5) Not Available Not Available Not Available Zithromax Z-Fabien as directed 07/19 completed z-pkg. 250 mg.;Fercho rded Status: Recorded on: 10/28/19 12 1:40PM;D iscontin ued Status: Disconti nued on: 07/20/19 13 2:47PM;U ser: [email or web address]; Est. Completi on: 11/03/19 12;Indic ation: sinus - (-5) Not Available Not Available Not Available Dulera 200 mcg-5 mcg/actua tion HFA aerosol inhaler inhale 2 puffs by inhalati on route 2 times per day in the morning and evening for 30 days 10/23 completed Dulera 200-5 mcg/actu ation inhalati on HFA aerosol inhaler; Recorded Status: Recorded on: 12/30/19 13 11:56AM; Disconti nued Status: Disconti nued on: 10/24/19 15 1:39PM;U ser: [email or web address];Es t. Completi on: 06/28/19 14;Indic ation: Bronchia l Asthma - ([phone]) Not Available Not Available Not Available Aline-D one bid 07/19 completed aline d 12 hr.;Fercho rded Status: Recorded on: 10/28/19 12 1:40PM;D iscontin ued Status: Disconti nued on: 07/20/19 13 2:47PM;U ser: [email or web address]; Est. Completi on: 11/07/19 12;Indic ation: sinus - (-5) Not Available Not Available Not Available baclofen 5 mg tablet 07/05 completed Not Available Not Available Not Available Vitals Date Recorded Body height Body mass index (BMI) Body weight Body temperature Heart rate Oxygen saturation Oxygen saturation in Arterial blood by Pulse oximetry Systolic blood pressure Diastolic blood pressure Provider Name and Address Organization Details Last Updated DateTime 3 187.96 cm 31.3 kg/m2 863443. 54 g 98.3 [degF] 78 /min 98 % 98 % 130 mm[Hg] 80 mm[Hg] [facility] [place] - [facility] 3 15:38:12 Date Recorded Body height Body mass index (BMI) Body weight Heart rate Oxygen saturation Oxygen saturation in Arterial blood by Pulse oximetry Respiratory rate Systolic blood pressure Diastolic blood pressure Provider Name and Address Organization Details Last Updated DateTime 3 187.96 cm 30.4 kg/m2 599090. 39 g 90 /min 97 % 97 % 18 /min 138 mm[Hg] 80 mm[Hg] Nadege Amin [place] - [facility] 3 13:58:21 Date Recorded Body height Body mass index (BMI) Body weight Body temperature Heart rate Oxygen saturation Oxygen saturation in Arterial blood by Pulse oximetry Systolic blood pressure Diastolic blood pressure Provider Name and Address Organization Details Last Updated DateTime 3 187.96 cm 30.5 kg/m2 846351. 19 g 97.9 [degF] 76 /min 97 % 97 % 128 mm[Hg] 70 mm[Hg] Yana Mart [place] - [facility] 3 09:34:55 Date Recorded Body height Body mass index (BMI) Body weight Body temperature Respiratory rate Heart rate Oxygen saturation Oxygen saturation in Arterial blood by Pulse oximetry Systolic blood pressure Diastolic blood pressure Provider Name and Address Organization Details Last Updated DateTime 8 187.96 cm 29.3 kg/m2 918480. 06 g 98.2 [degF] 18 /min 86 /min 98 % 98 % 130 mm[Hg] 82 mm[Hg] Grace Romero [place] - [facility] 8 10:41:00 Social History Question Answer Notes LastModified by Organizat ion Details LastModified Time Tobacco Smoking Status Current Every Day Smoker Nadege mahajan [place] - [facility] 02/02/2016 13:09:34 Able To Swim? Yes Information not available 02/02/2016 Do You Wear A Helmet When Biking? No Information not available 02/02/2016 Are You Blind Or Do You Have Difficulty Seeing? No Information not available 02/02/2016 What Is Your Level Of Caffeine Consumption? Occasional Information not available 02/02/2016 How Much Tobacco Do You Chew? None Information not available 02/02/2016 Are You Deaf Or Do You Have Serious Difficulty Hearing? No Information not available 02/02/2016 Swimming/diving No Informati on not available 02/02/2016 Hard Of Hearing Or Deaf In One Or Both Ears? No Information not available 02/02/2016 Legally Blind In One Or Both Eyes? No Information no t available 02/02/2016 Live Alone Or With Others? With Others Information not available 11/17/2017 What Was The Date Of Your Most Recent Tobacco Screening? 07/07/2022 Information not available 07/07/2022 What Is Your Current Pack Years? 10-packyears [email or web address] Information not available 02/24/2022 What Is Your Relationship Status? Information not available 02/02/2016 Seat Belts Used Routinely No Information not available 02/02/2016 Are You Sexually Active? Yes Information not available 02/02/2016 At What Age Did You Start Smoking Tobacco? 19 [email or web address] Information not available 02/24/2022 How Much Tobacco Do You Smoke? 1 PPD [email or web address] Information not available 11/17/2017 Do You Use Sunscreen Routinely? No Information not available 02/02/2016 Has Tobacco Cessation Counseling Been Provided? Yes [email or web address] Information not available 02/24/2022 On What Date Was Tobacco Cessation Counseling Provided? 07/07/2022 [email or web address] Information not available 07/07/2022 Do You Have Difficulty Walking Or Climbing Stairs? No Information not available 02/02/2016 Sex: Male Functional Status Question Answer Note LastModified by Organizat ion Details LastModified Time What is your level of alcohol consumption? None former Information not available 02/02/2016 Do you have difficulty doing errands alone? No Information not available 02/02/2016 Are you able to care for yourself? Yes Information not available 02/02/2016 Do you have difficulty dressing or bathing? No Information not available 02/02/2016 What is your exercise level? Occasional Information not available 02/02/2016 Mental Status Question Answer Note LastModified by Organization D etails LastModified Time Do you have difficulty concentrating, remembering or making decisions? No Information no t available 02/02/2016 Family History Relationship Description Onset Age of this Age Resolved Age Notes LastModified by Organization Details LastModified Time Paternal Uncle Harmful pattern of use of alcohol Not available 2015 13:07:27 Paternal Uncle Malignant neoplastic disease Not available 2015 13:08:14 Paternal Grandmother Type 2 diabetes mellitus Not available 2015 13:07:42 Paternal Grandmother Malignant neoplastic disease Not available 2015 13:08:14 Paternal Aunt Malignant neoplastic disease Not available 2015 13:08:14 Paternal Grandfather Malignant neoplastic disease Not available 2015 13:08:14 Unspecified Relation Osteoarthrit is dads side Not available 02/02/2016 13:08:35 Unspecified Relation Suicide cousin , tried severa l times Not available 02/02/2016 13:09:25 Medical History Condition Response Osteoarthritis Y Sleep Apnea Y Lumbago Y Hyperlipidemia Y Depression Y Asthma Y Immunizations Vaccine Type Date Status Note Provider Nam e and Address Organization Details Recorded Time Influenza, split virus, quadrivalent, PF 2 completed Radha Mccarty, RAQUEL [address], [place], [address], [place] - [facility] 01/05/2022 23:08:41 COVID-19, mRNA, LNP-S, PF, 100 mcg/0.5mL dose or 50 mcg/0.25mL dose 1 completed Yana Mart null, [place] - [facility] 07/07/2022 09:35:28 COVID-19 vaccine, vector-nr, rS-Ad26, PF, 0.5 mL 1 completed Yana Mart null, [place] - [facility] 07/07/2022 09:35:28 COVID-19, mRNA, LNP-S, bivalent, PF, 30 mcg/0.3 mL dose 2 completed Yana Mart null, [place] - [facility] 07/07/2022 09:35:28 Tdap 9 completed Yana Mart null, [facility] 07/07/2022 09:35:28 Td (adult), 2 Lf tetanus toxoid, preservative free, adsorbed 7 completed Yana Mart null, [place] - [facility] 07/07/2022 09:35:28 Hep A, adult 9 completed Yana Mart null, [place] - [facility] 07/07/2022 09:35:28 Past Encounters Encounter ID Performer Location Encounter Start Date Encounter Closed Date Diagnosis/Indication Diagnosis SNOMED-CT Code Diagnosis ICD10 Code Diagnosis Note [id number] Caty Galdamez, SURGICAL SERVICES ASSISTANT Formerly [facility] [address] [place] [place] [address] 02/02/2016 12:54:16 02/02/2016 13:55:43 Otitis media 25805126 H66.92 Depressive disorder 3548 9007 F33.1 pt denies SI or HI, wants to be back on meds Increased frequency of urination 011684416 R35.0 [id number] Lamin Blank MD [address] [place] [address] 03/16/2017 16:12:57 03/17/2017 12:43:29 Pain in right foot 2251190160 43526 M79.671 Ankle pain 628410340 M25 .571 Depressive disorder 3548 9007 F33.1 Body mass index 25-29 - overweight 864440059 Z68.25 [id number] Lamin Blank MD [address] [place] [address] 06/14/2017 14:08:58 06/14/2017 15:40:58 Fatigue 55994461 R53.83 Body mass index 30+ - obesity 786630455 Z68.39 Ankle pain 929421368 M25 .142 [id number] Lamin Blank MD [address] [place] [address] 06/20/2017 12:39:23 06/20/2017 15:26:59 Upper respiratory infection 76946668 J06.9 Cough 59027445 R05 Otitis media 48734299 H6 6.93 [id number] Lamin Blank MD [address] [place] [address] 08/31/2017 12:59:22 08/31/2017 16:20:12 Deep venous thrombosis of lower extremity 135719225 I82.409 Cellulitis 589097331 L03 .90 [id number] Lamin Blank MD [address] [place] [address] 09/06/2017 07:54:34 09/06/2017 09:04:01 Cellulitis 205889813 L03.90 [id number] Lamin Blank MD [address] [place] [address] 09/13/2017 09:27:00 09/13/2017 11:26:54 Cellulitis 718021234 L03.90 Nicotine dependence 5629 4008 F17.428 [id number] Caty Galdamez [address] [place] [address] 11/17/2017 10:07:11 11/17/2017 11:30:52 Diabetes mellitus screening 385157476 Z13.1 Paresthesi a of lower extremity 256258111 R20.2 [id number] Radha L[address] [place] [address] 12/30/2021 10:43:30 12/30/2021 10:51:53 Influenza vaccine needed 4537569418 106 Z23 [id number] Caty Galdame[address] [place] [address] 4 02/24/2022 15:24:48 02/24/2022 16:01:26 Pharyngitis 804003538 J02.9 Disorder o f thyroid gland 58656842 E07.9 right lobe feels enlarged Sinusitis 96602591 J32.9 [id number] Caty Galdamez[address] [place] [address] 07/05/2022 13:45:05 07/05/2022 14:41:23 Left lower quadrant pain 228189865 R10.32 xray not available here todaypt didn't want to go to [place] today Flatulence symptom 07747 8004 R14.3 Lower abdominal pain 545 40719 R10.30 Vitamin D deficiency 347 17199 E55.9 Altered noah wel function 63801251 R19.4 [id number] Caty Galdamez [address] [place] [address] 07/07/2022 09:24:31 07/07/2022 10:17:51 Body mass index 30+ - obesity 994652657 Z68.30 Obesity 059666989 E66.9 Left lower quadrant pain 578283966 R10.32 xray not available here todaypt didn't want to go to [place] today Constipation 28036880 K5 9.00 Health Concerns Section Related Observation LastModified by Organization Detai ls LastModified Time None Recorded Concern Status LastModified by Organization Details LastModified Time None Recorded Advance Directives Directive None Recorded Payers Insurance Date Sequence Insurance Name Policy Number Policy Duncan Covered Member ID Duncan Member ID Guarantor Name 07/05/2022 [place] [facility] WRAP BILLING (MEDICAID) Dejuan Ram [id number] Dejuan Ram 02/24/2022 1 [facility] (MEDICAID O) Dejuan Ram [id number] Dejuan Ram 02/24/2022 1 [facility] [id number] Dejuan Ram [id number] Dejuan Ram 07/08/2022 [facility] (MEDICARE REPLACEMENT/A DVANTAGE - HMO) SOLONP Dejuan Ram [id number] Dejuan Ram 04/10/2016 1 UNSPECIFIED REMIT PAYOR Dejuan Ram 07/07/2022 1 [place] Dejuan Ram [id number] Dejuan Ram 02/24/2022 2 MEDICAID-[facility] HEALTH CHOICES - FFS/TRADITION AL Dejuan Ram [id number] Dejuan Ram 07/05/2022 [employer] [place] [facility] (MEDICARE) Dejuan Ram [id number] Dejuan Ram 07/05/2022 2 [place] [id number] Dejuan Ram [id number] Dejuan Ram 07/07/2022 1 [facility] - DUAL ELIGIBLE (MEDICARE REPLACEMENT/A DVANTAGE - HMO) [id number] Dejuan Ram [id number] Dejuan Ram Notes Date Note Type Note Provider Name and Address Organization Details Recorded Time 8 text/html leg pain (right) pt states burning pain started in his right thigh 2 days ago AGUILA Verdugo - [facility] 11/17/2017 11:37:37 3 text/html sore throatfatigueweakness AGUILA Verdugo - [facility] 02/24/2022 16:05:42 05/22/202 3 text/html pt c/o lower left side abdominal pain x 2 weeks and states that he is nauseousand has excessive flatulence that smells like slip cover sewer he has not tried any fiber or OTC medications for excessive gashis stool is not diarrhea he states but he is not constipatedhe drinks coffee or tea, coke but not much waterhe states nothing he does makes the pain bettereverything makes it worse, eating, movementstates he has had diverticulitis in the past and had a colonoscopy done with polyps removed previously by Dr. Antoine he states he has eaten some food from a restaurant that his friend had got some disease from and he is worried about that but he doesn't know what it washe states he just knows something is going on in his lower abdomin on left and he would like to figure out what it is AGUILA Verdugo [facility] 07/05/2022 14:41:08 3 text/html Patient presents to office with complaints of left side abdominal pain. Patient rates pain10/10, states pain radiates to lower back and is beginning to radiate to right abdomen. Patient states pain has been ongoing x2 weeks. Patient states bowel movements have been normal. Patient states he does have excessive flatulance with foul odor. Patient denies using any OTC medications AGUILA Verdugo 07/07/2022 10:14:35
--- NOTE | 2024-08-09 14:55 | EXP.PAIN.SOA ---
[facility] Disclaimer: The information contained in this section may have been updated after the patient was seen, as this information can be updated by other users. Medical History Abnormal EKG Sinus tachycardia Dyspnea Surgical History History of laparoscopic cholecystectomy Hx of colonoscopy History of ankle surgery History of right hip replacement Family History Other Family history of cancer Family history of diabetes mellitus type II Social History Smoking Status: Current every day smoker second hand exposure: Yes alcohol intake: never substance use type: denies use current occupational status: disabled Travel in the last 8 weeks?: None caffeine: Yes PM Subjective & Objective Subjective Subjective:: Patient is a pleasant 49-year-old male who presents today for follow-up.Patient does state it is still the same pain that he previously saw is for back in April. Patient was scheduled for a diagnostic lumbar medial branch block however was having some insurance issues and was unable to get this done. He does state today that he would like to see about getting back on her schedule for injections. He states the pain is just constant and does interfere with his ability to perform activities of daily living such as cooking and cleaning. Patient has continued conservative treatment including oral medications, heat and ice, topicals, chiropractor therapy and physical therapy. Patient states the pain is only in his back and that it is worse with certain movements such as bending, twisting or lifting. Patient has had all of this pain related to an injury where he fell out of a barn 10 years ago. Patient is prescribed [place] and gabapentin from an outside provider. Review of Systems: General: No recent weight changes, no fever, no sleep disturbances Respiratory: No cough, no shortness of air, no recurring pulmonary infections Cardiovascular/peripheral vascular: No chest pain, no palpitations, no edema, no shortness of breath Gastrointestinal: No new onset incontinence, normal bowel movements reported Genitourinary: No new onset incontinence Musculoskeletal: Chronic back pain Psychiatric: [Normal mood/affect] Neurological: [Denies weakness in extremities], [denies balance issues] Pain at rest (0-10 scale): 8 Objective Objective:: Physical Exam: General: Alert and oriented x3, no acute distress, pleasant and cooperative Lungs: Respirations even and unlabored, symmetrical chest expansion Eyes: PERRL Musculoskeletal: Flexion and extension of lumbar [spine] somewhat guarded secondary to pain, [antalgic gait noted] positive Kemps test Neurological: Speech clear, no gross sensory deficit Has patient had previous pain injection?: No Conservative treatment options previously tried: Home exercise plan Length of treatment: Longer than 12 weeks Meds Home Medications and Allergies Home Medications ?Medication ?Instructions ?Recorded ?Confirmed ?Type blood pressure monitor #1 ea 05/06/20 07/26/24 Rx aspirin 81 mg tablet,delayed 81 mg PO DAILY #100 tabs 03/30/22 07/26/24 Rx release (Adult Low Dose Aspirin) hydroxyzine HCl 50 mg tablet 50 mg PO BID PRN anxiety #60 tabs 03/08/23 07/26/24 Rx albuterol sulfate 90 mcg/actuation 2 puff inhalation QID PRN 11/23/23 07/26/24 Rx aerosol inhaler shortness of breath or wheezing #8.5 grams atorvastatin 80 mg tablet See Rx Instructions .Route 11/23/23 07/26/24 Rx .COMPLEX #90 tabs clonidine HCl 0.2 mg tablet See Rx Instructions .Route 11/23/23 07/26/24 Rx .COMPLEX #90 tabs fluoxetine 20 mg capsule See Rx Instructions .Route 11/23/23 07/26/24 Rx .COMPLEX #90 caps metoprolol succinate 25 mg 25 mg PO DAILY #90 tabs 11/23/23 07/26/24 Rx tablet,extended release 24 hr (Toprol XL) tizanidine 4 mg tablet (Zanaflex) 4 mg PO HS #90 tabs 03/07/24 07/26/24 Rx cyclobenzaprine 10 mg tablet 10 mg PO DIRECTED Pain 03/22/24 07/26/24 History naproxen 500 mg tablet 500 mg PO DIRECTED Pain 03/22/24 07/26/24 History buspirone 15 mg tablet See Rx Instructions .Route 03/29/24 07/26/24 Rx .COMPLEX #30 tabs hydrocodone 5 mg-acetaminophen 325 1 tab PO BID #20 tabs 04/13/24 07/26/24 Rx mg tablet zolpidem 10 mg tablet (Ambien) 10 mg PO QHS PRN insomnia #30 tabs 05/16/24 07/26/24 Rx gabapentin 600 mg tablet 600 mg PO TID #90 tabs 06/07/24 07/26/24 Rx amitriptyline 25 mg tablet See Rx Instructions PO HS #30 tabs 07/17/24 07/26/24 Rx New Prescriptions to Start Prescriptions: Allergies Allergy/AdvReac Type Severity Reaction Status Date / Time Penicillins Allergy hives Verified 07/26/24 13:11 Assessment and Plan *Assessment and plan (1) Lumbar facet arthropathy: Status: Acute Category: Medical Code(s): M47.816 - Spondylosis without myelopathy or radiculopathy, lumbar region (2) Degenerative disc disease: Status: Acute Category: Medical Plan Patient is experiencing significant pain in his low back that is worse with bending, twisting or lifting. Patient did have limited range of motion of his lumbar spine with a positive Kemps test during today's visit. I did discuss with the patient that I do believe he would benefit from a lumbar medial branch block. Risk and benefits were discussed with the patient and he would like to proceed forward with this plan of care. Patient has tried and failed conservative therapy including oral medications, heat and ice, topicals, chiropractor therapy and physical therapy as well as has at home stretching exercise for longer than 12 weeks. patient has been experiencing chronic low back pain for years. Patient was counseled that if he does get significant relief with his first lumbar medial branch block that we will plan on repeating it with the plan to progress forward to a lumbar RFA at a later date. Patient agrees with this plan of care. Patient will be scheduled for his first diagnostic lumbar medial branch block bilaterally L3-L4 L4-L5 under fluoroscopy. Patient has been instructed to contact the clinic with any concerns before the next appointment. Dr. Rondon has reviewed this note and agrees with this plan of care. This note was dictated using voice recognition software and make contain errors or omissions. All injections are used with Lidocaine, Bupivacaine and Depo Medrol. Occasionally urine drug screen is needed to verify patient's compliance with our office pain contract. This is ordered based off specific treatments related to chronic pain with the potential to abuse certain medications.
[2024-08-09 15:19] VITALS: BP 102/67; PULSE 67; RESP 18; O2SAT 96; BMI 30.3
== END 2024-08-09 23:59 | disposition home or self-care (01) ==
LOC: SC.PAIN 14:23
PROVIDERS: PCP Family Medicine; Visit Provider Nurse Practitioner Family
DX: M47.816 Spondylosis without myelopathy or radiculopathy, lumbar region (principal); Z79.899 Other long term (current) drug therapy; Z79.891 Long term (current) use of opiate analgesic
CPT/HCPCS: 99212; G0463

== ENCOUNTER 2024-09-04 10:18 | Day surgery (SDC) | payer MEDICARE, SELFPAY ==
[2024-09-04 10:22] VITALS: BP 126/74; PULSE 63; RESP 18; O2SAT 99; BMI 30.9
[2024-09-04 10:34] VITALS: BP 146/83; PULSE 61; RESP 18; O2SAT 98
[2024-09-04] MEDS: BUPIVACAINE 0.25% 10ML INJ 25 MG IJ (10:34)
[2024-09-04] MEDS: LIDOCAINE 1% 5ML PF VIAL 5 ML (10:34)
[2024-09-04 10:36] VITALS: BP 146/83; PULSE 61; RESP 18; O2SAT 98
--- NOTE | 2024-09-04 10:46 | EXP.PAIN.PRO ---
Procedure Date: 09/04/24 Time: 10:40 Anesthesiologist:: Delano Ordonez CRNA Complications:: None Pre-procedure Diagnosis:: Degenerative disc lumbar spine multilevels. Lumbar radiculopathy. Lumbar spondylosis. Multilevel lumbar facet arthropathy. Post-procedure Diagnosis:: Same. Indications for Procedure:: Patient is a very pleasant 49-year-old male that comes our clinic today for round 1 of diagnostic lumbar medial branch blocks/facet injections of the bilateral lumbar L3-4, L4-5 level. Patient describes low lumbar back pain is constant, dull, aching. Patient describes having difficulty with lumbar flexion, extension, left and right rotation. Difficulty with ambulation. Difficulty with sitting. He rates his pain 8/10. Procedure Details:: Informed consent was obtained and the risk and benefits of the procedure was explained to the patient. Patient was taken to the procedure room where noninvasive monitors were placed, including noninvasive blood pressure cuff as well as pulse oximeter. The area over the lumbar spine was cleansed using chlorhexidine as a cleansing solution. I anesthetized the skin and subcutaneous tissues with 1% Lidocaine. I placed 22-gauge spinal needles into the facet joint/ medial branches of L3-4, L4-5 bilaterally. Needle placement was confirmed with fluoroscopy. After confirmation of needle placement, each site was injected with 1 mL of 1% lidocaine and 0.25 % Marcaine 1 mL. Patient tolerated the procedure without difficulty. There were no complications. Plan and Disposition:: Patient was discharged without incident.
[2024-09-04 10:50] VITALS: BP 114/73; PULSE 61; RESP 18; O2SAT 99
== END 2024-09-04 10:50 | disposition home or self-care (01) ==
PROVIDERS: PCP Family Medicine; Visit Provider Nurse Anesthetist, Certified Registered
DX: M51.16 Intervertebral disc disorders with radiculopathy, lumbar region (principal); M47.26 Other spondylosis with radiculopathy, lumbar region; R00.0 Tachycardia, unspecified; F17.200 Nicotine dependence, unspecified, uncomplicated; Z88.0 Allergy status to penicillin; Z79.82 Long term (current) use of aspirin; Z79.899 Other long term (current) drug therapy
CPT/HCPCS: 64493; 64494; J0665; J2003

== ENCOUNTER 2024-09-19 13:07 | Outpatient (POV) | payer MEDICARE, SELFPAY ==
--- OUTSIDE RECORDS SUMMARY | 2019-10-26 13:32 | XMS_ITS | Encounter Summary ---
Author Organization [place] [address] Care Team Providers Care Heart Doctor Name Role Phone Lamin Blank MD Primary Care Provider [phone] Encounter Details Date Type Department Care Team (Late st Contact Info) Description 10/26/2019 1:32 PM EDT Hospital Encounter [facility] Referral Lab 1 [place], [place] [id number] Nilo Spear MD [address] [place] [address] Effusion, right knee Social History Tobacco Use Types Packs/Day Years Used Date Smoking Tobacco: Every Day Cigarettes 1 34.1 Started: 08/25/1990 Smokeless Tobacco: Never Comments:Patient states, [...] Answer Date of Assessment Author No Risk 02/01/2022 11:34 AM Lizabeth Birch RN * [place] Suicide Severity Rating Scale (Q shift for moderate and high) Question Answer Date of Assessment Author 1. In the past month, have you wished you were or wished you could go to sleep and not wake up? 0 02/01/2022 11:34 AM Sheila Birch RN 2. In the past month, have you actually had any thoughts of killing yourself? (If no, skip to question 6) 0 02/01/2022 11:34 AM Lizabeth Birch RN 6. Have you ever done anything, started to do anything, or prepared to do anything to end your life? 0 02/01/2022 11:34 AM Ira Birch RN documented as of this encounter Mental [...] 15 mm/hr 10/31/2019 4:50 PM EDT PREF[facility]ED [employer] Blood Venipuncture / Unknown 10/31/2019 1:21 PM EDT 10/31/2019 1:22 PM EDT Nilo Spear MD HEMATOLOGY ORDERABLE S Final Result Performing Organization Address [facility] Co de Phone Number [employer] [address] [facility] , [place] [address] * (ABNORMAL) C-REACTIVE PROTEIN (10/31/2019 1:21 PM EDT) Pathologist [facility] CRP 16.15(H) <=5.00 mg/L 10/31/2019 4:56 PM EDT [employer] Blood Venipuncture / Unknown 10/31/2019 1:21 PM EDT 10/31/2019 1:22 PM EDT Nilo Spear MD CHEMISTRY ORDERABLES Final Result Performing Organization Address [facility] Co de Phone Number [employer] [facility] [address] [facility] , [place] [address] documented in this encounter Visit Diagnoses Diagnosis Effusion, right knee documented in this encounter Care Teams Heart Doctor Relationship Specialty Start Date End Date Lamin Blank MD PCP - General 12/08/09 documented as of this encounter
--- OUTSIDE RECORDS SUMMARY | 2019-11-13 10:02 | XMS_ITS | Encounter Summary ---
Author Organization [place] [address] Care Team Providers Care Manager Recruiting Name Role Phone Lamin Blank MD Primary Care Provider [phone] Encounter Details Date Type Department Care Team (Late st Contact Info) Description 11/13/2019 10:02 AM EDT Hospital Encounter [facility] Referral [facility] 1 [place], [place] [id number] Nilo Spear MD [address] [place] [address] Pain in right hip Social History Tobacco [...] 02/01/2022 11:34 AM Lizabeth Birch RN * [place] Suicide Severity Rating Scale (Q shift for [...] thigh documented in this encounter Care Teams Manager Recruiting Relationship Specialty Start Date End Date Lamin Blank MD PCP - General 12/08/09 documented as of this encounter
--- OUTSIDE RECORDS SUMMARY | 2020-01-14 10:52 | XMS_ITS | Encounter Summary ---
Author Organization [place] [address] Care Team Providers Care Production Manufacturing Worker Name Role Phone Lamin Blank MD Primary Care Provider [phone] Encounter Details Date Type Department Care Team (Latest Contact Info) Description 01/14/2020 9:52 AM EST Hospital Encounter [facility] Referral Lab [address] [id number] Radha Landrum APRN Pain in right hip; [...] 02/01/2022 11:34 AM Lizabeth Birch RN * [place] Suicide Severity Rating Scale (Q shift for [...] mm/hr 02/18/2020 9:53 PM EST PREFERRED LAB [facility] Blood Venipuncture / Unknown 02/18/2020 1:31 PM EST 02/18/2020 1:31 PM EST us Radha Landrum FINANCIAL PLANNING ASSISTANT HEMATOLOGY ORDERABLES F inal Result Performing Organization Address [facility] Co de Phone Number [employer] [address] [place] [address] , [place] [address] * (ABNORMAL) C-REACTIVE PROTEIN (02/18/2020 1:31 PM EST) Pathologist [facility] CRP 12.98(H) <=5.00 mg/L 02/18/2020 11:30 PM EST [employer] Blood Venipuncture / Unknown 02/18/2020 1:31 PM EST 02/18/2020 1:31 PM EST us Radha Landrum FINANCIAL PLANNING ASSISTANT CHEMISTRY ORDERABLES Fi nal Result Performing Organization Address [facility] Co de Phone Number [employer] [address] , [place] [address] documented in this encounter Visit Diagnoses Diagnosis Pain in right hip Pain in joint, pelvic region and thigh Presence of right artificial hip joint Hip joint replacement by other means documented in this encounter Care Teams Production Manufacturing Worker Relationship Specialty Start Date End Date Lamin Blank MD PCP - General 12/08/09 documented as of this encounter
--- OUTSIDE RECORDS SUMMARY | 2024-09-19 13:09 | XMS_ITS | Clinical Summary ---
Author Organization [facility] Address [address] [place] [address] Phone Care Team Providers Care Resident Assistant Name Role Phone Lamin Blank MD Primary Care Provider [phone] Allergies Active Allergy Reactions Criticality Noted Date [...] cam resection; Surgeon: Keyon Bill MD; Location: [facility]; Service: Orthopedics ANKLE SURGERY Medical History [...] 1 34.1 Started: 08/25/1990 Smokeless Tobacco: Never Tobacco Cessation:Ready [...] Sigmoidoscopy 2021 Virtual Colonography 2021 COVID-19 Vaccine (3 - 2023-2 5 season) 2023 11/18/2021, 12/24/2020 Influenza Vaccine (#1) 2024 12/30/2021 DTaP/TDaP/Td (2 - Td or [...] [employer] Medical Devices Implanted Type Area Relationship Advisor Device Identifier Shelf Expiration Date Model / Serial / Lot Ankle Hardware R3 3 Hole Acet Shell 54mm - [id number] Implanted:Qty : 1 on 09/26/2019 by Nilo Spear MD at [facility] Right: Hip [employer]TH[employer] [id number] 04/25/2029 [id number] / / [id number] R3 0 Deg +4 Xlpe Acet Lnr 36mm X 54mm - [id number] Implanted:Qty : 1 on 09/26/2019 by Nilo Spear MD at [facility] Right: Hip [employer] [id number] 03/17/2029 [id number] / / [id number] Polarstem Collar Std. Ti/Ken 2 - [id number] Implanted:Qty : 1 on 09/26/2019 by Nilo Spear MD at [facility] Right: Hip [employer] [id number] 04/04/2026 [id number] / / [id number] Oxinium Fem Hd 01/27 36 Mm +0 - [id number] Implanted:Qty : 1 on 09/26/2019 by Nilo Spear MD at [facility] Right: Hip [employer] [id number] 07/10/2029 [id number] / / [id number] Insurance [facility] MEDICAID Member Subscriber Plan / Payer (Ef fective 2019-Present) Name:Dejuan Ram Relation to Subscriber:Self Name:Dejuan Ram Payer ID:Not on file Type:Not on file Address: [address] [address] [place] [address] [facility] MEDICAID [place] [address] [facility] MEDICAID Advance Directives For more information, please contact: [phone] * Full Code (Latest Code Status on File) Date Activated Date Inactivated Comments 08/25/2017 11:18 PM 08/29/2017 4:29 PM Care Teams Resident Assistant Relationship Specialty Start Date End Date Lamin Blank MD PCP - General 12/08/09
--- OUTSIDE RECORDS SUMMARY | 2024-09-19 13:09 | XMS_ITS | Clinical Summary ---
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 Name Role Phone Jorge GARDUNO Mirna Christie [phone] Conditions or Problems Problem Name Problem Code Onset Date Status Entry Date Provider Comment Standard Description Annotate DDD [id number] (SNOMED CT) 03/06 Active 03/06 Cesilia Miranda MA Degeneration of intervertebral disc LUMBAR RADICULOPATHY 843841284 (SNOMED CT) 03/06 Active 03/06 Cesilia Miranda MA Lumbar radiculopathy Medications Medication Instructions Start Date Stop Date Generic Name ND Provider METHOCARBAMOL 750 MG TABS Take 1 tablet by mouth three times a day 03/07 methocarbamol 05668821435 Cesilia Miranda MA BACLOFEN 5 MG TABS Take 1 tablet by mouth three times a day baclofen 91994187661 Mirna GARDUNO METHOCARBAMOL 750 MG TABS Take 1 tablet by mouth three times a day 03/07 methocarbamol 03715063775 Mirna GARDUNO CYCLOBENZAPRINE HCL 10 MG TABS cyclobenzaprine 71904553606 Joey Miranda MA FLUOXETINE HCL 20 MG CAPS fluoxetine 25550798532 Cesilia Miranda MA BUSPIRONE HCL 15 MG TABS buspirone 95518232577 Cesilia Miranda MA CARISOPRODOL 350 MG TABS TAKE 1 TABLET BY MOUTH TWICE DAILY NEEDED FOR MUSCLE PAIN carisoprodol 60030815635 Cesilia Miranda MA ZOLPIDEM TARTRATE 10 MG TABS zolpidem 24187182186 Cesilia Miranda MA METOPROLOL SUCCINATE ER 25 MG [id number] metoprolol succinate 18555041069 Cesilia Miranda MA ATORVASTATIN CALCIUM 80 MG TABS atorvastatin 32966416302 Cailin Miranda MA GABAPENTIN 600 MG TABS gabapentin 74285506895 Cesilia Miranda MA Medications Administered No information available. Allergies, Adverse Reactions, Alerts Allergy Name Reaction Description Start Date Severity Statu s Provider PENICILLIN Critical Cesilia aguirre MA Results No information available. Plan of Care Type Date Detail Referral Pain Management Referral Mikhail Jimenezroughs, [address] [place] [address], [phone] Pending order MRI Lumbar witho ut Contrast [...]
--- OUTSIDE RECORDS SUMMARY | 2024-09-19 13:09 | XMS_ITS | Clinical Summary ---
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
--- NOTE | 2024-09-19 13:17 | EXP.PAIN.SOA ---
[facility] Disclaimer: The information contained in this section may have been updated after the patient was seen, as this information can be updated by other users. Medical History Abnormal EKG Sinus tachycardia Dyspnea Surgical History History of laparoscopic cholecystectomy Hx of colonoscopy History of ankle surgery History of right hip replacement Family History Other Family history of cancer Family history of diabetes mellitus type II Social History Smoking Status: Current every day smoker second hand exposure: Yes alcohol intake: never substance use type: denies use current occupational status: disabled Travel in the last 8 weeks?: None caffeine: Yes PM Subjective & Objective Subjective Subjective:: Patient is a pleasant 49-year-old male who presents today for follow-up of his first diagnostic lumbar medial branch block bilaterally L3-L4 and L4-L5 on 09/04/2024. Today he rates his pain a 3 out of 10. He states that he had pretty much immediate relief and rating 95% improvement. He states the pain is still nothing like what it was and feels much more functional. Patient does state that he is able to sleep better even now. He denies any other changes. His Cristóbal has been reviewed and is appropriate. Review of Systems: General: No recent weight changes, no fever, no sleep disturbances Respiratory: No cough, no shortness of air, no recurring pulmonary infections Cardiovascular/peripheral vascular: No chest pain, no palpitations, no edema, no shortness of breath Gastrointestinal: No new onset incontinence, normal bowel movements reported Genitourinary: No new onset incontinence Musculoskeletal: Low back pain Psychiatric: [Normal mood/affect] Neurological: [Denies weakness in extremities], [denies balance issues] Pain at rest (0-10 scale): 3 Objective Objective:: Physical Exam: General: Alert and oriented x3, no acute distress, pleasant and cooperative Lungs: Respirations even and unlabored, symmetrical chest expansion Eyes: PERRL Musculoskeletal: Flexion and extension of lumbar [spine] somewhat guarded secondary to pain, [antalgic gait noted] Neurological: Speech clear, no gross sensory deficit Has patient had previous pain injection?: Yes Percent improvement in pain since last injection: 95% Conservative treatment options previously tried: Home exercise plan Length of treatment: Longer than 12 weeks Meds Home Medications and Allergies Home Medications ?Medication ?Instructions ?Recorded ?Confirmed ?Type blood pressure monitor #1 ea 05/06/20 09/04/24 Rx aspirin 81 mg tablet,delayed 81 mg PO DAILY #100 tabs 03/30/22 09/04/24 Rx release (Adult Low Dose Aspirin) hydroxyzine HCl 50 mg tablet 50 mg PO BID PRN anxiety #60 tabs 03/08/23 09/04/24 Rx albuterol sulfate 90 mcg/actuation 2 puff inhalation QID PRN 11/23/23 09/04/24 Rx aerosol inhaler shortness of breath or wheezing #8.5 grams atorvastatin 80 mg tablet See Rx Instructions .Route 11/23/23 09/04/24 Rx .COMPLEX #90 tabs clonidine HCl 0.2 mg tablet See Rx Instructions .Route 11/23/23 09/04/24 Rx .COMPLEX #90 tabs fluoxetine 20 mg capsule See Rx Instructions .Route 11/23/23 09/04/24 Rx .COMPLEX #90 caps metoprolol succinate 25 mg 25 mg PO DAILY #90 tabs 11/23/23 09/04/24 Rx tablet,extended release 24 hr (Toprol XL) tizanidine 4 mg tablet (Zanaflex) 4 mg PO HS #90 tabs 03/07/24 09/04/24 Rx cyclobenzaprine 10 mg tablet 10 mg PO DIRECTED Pain 03/22/24 09/04/24 History naproxen 500 mg tablet 500 mg PO DIRECTED Pain 03/22/24 09/04/24 History buspirone 15 mg tablet See Rx Instructions .Route 03/29/24 09/04/24 Rx .COMPLEX #30 tabs hydrocodone 5 mg-acetaminophen 325 1 tab PO BID #20 tabs 04/13/24 09/04/24 Rx mg tablet zolpidem 10 mg tablet (Ambien) 10 mg PO QHS PRN insomnia #30 tabs 05/16/24 09/04/24 Rx gabapentin 600 mg tablet 600 mg PO TID #90 tabs 06/07/24 09/04/24 Rx amitriptyline 25 mg tablet See Rx Instructions PO HS #30 tabs 07/17/24 09/04/24 Rx New Prescriptions to Start Prescriptions: Allergies Allergy/AdvReac Type Severity Reaction Status Date / Time Penicillins Allergy hives Verified 07/26/24 13:11 Assessment and Plan *Assessment and plan (1) Lumbar facet arthropathy: Status: Acute Category: Medical Code(s): M47.816 - Spondylosis without myelopathy or radiculopathy, lumbar region Plan Patient has had significant improvement following his lumbar medial branch block with 95% relief and still feels like it is providing additional improvement. He does not require any additional injections at this time. We will follow-up with him in 1 month. Patient has been instructed to contact the clinic with any concerns before the next appointment. Dr. Rondon has reviewed this note and agrees with this plan of care. This note was dictated using voice recognition software and make contain errors or omissions. All injections are used with Lidocaine, Bupivacaine and dexamethasone. Occasionally urine drug screen is needed to verify patient's compliance with our office pain contract. This is ordered based off specific treatments related to chronic pain with the potential to abuse certain medications.
[2024-09-19 13:18] VITALS: BP 105/66; PULSE 63; RESP 14; O2SAT 96; BMI 30.3
== END 2024-09-19 23:59 | disposition home or self-care (01) ==
LOC: SC.PAIN 13:08
PROVIDERS: PCP Family Medicine; Visit Provider Nurse Practitioner Family
DX: M47.816 Spondylosis without myelopathy or radiculopathy, lumbar region (principal)
CPT/HCPCS: 99212; G0463

== ENCOUNTER 2024-12-26 12:59 | Emergency (ER) | payer MEDICARE, SELFPAY ==
--- OUTSIDE RECORDS SUMMARY | 2019-10-26 12:32 | XMS_ITS | Encounter Summary ---
Author Organization [place] [address] Care Team Providers Care Survey Interviewer Name Role Phone Lamin Blank MD Primary Care Provider [phone] Encounter Details Date Type Department Care Team (Late st Contact Info) Description 10/26/2019 1:32 PM EDT Hospital Encounter [facility] Referral Lab 1 [place] [address] Nilo Spear MD [address] [place] [address] Effusion, right knee Social History Tobacco Use Types Packs/Day Years Used Date Smoking Tobacco: Every Day Cigarettes 1 34.3 Started: 08/25/1990 Smokeless Tobacco: Never Comments:Patient states, [...] 08/29/2017 11:23 AM Mary Muñoz RN * Suicide Severity Rating Answer Date of Assessment Author No Risk 12/24/2024 3:28 PM Janeth Ibarra RN * [place] Suicide Severity Rating Scale (Q shift for moderate and high) Question Answer Date of Assessment Author 1. In the past month, have y ou wished you were or wished you could go to sleep and not wake up? 0 12/24/2024 3:28 PM Marguerite Pace RN 2. In the past month, have y ou actually had any thoughts of killing yourself? (If no, skip to question 6) 0 12/24/2024 3:28 PM Marguerite Ibarra RN 6. Have you ever done anythi ng, started to do anything, or prepared to do anything to end your life? 0 12/24/2024 3:28 PM Marguerite Barahona RN documented as of this encounter Mental [...] and maintain an ideal body weight General No Shannan Lafleur CCMA Stay Tobacco Free Lifestyle No Shannan Lafleur CCMA documented as of this encounter Results * (ABNORMAL) SEDIMENTATION RATE AUTOMATED (10/31/2019 1:21 PM EDT) Sed Rate 41(H) 0 - 15 mm/hr 10/31/2019 4:50 PM EDT [employer] [employer] Blood Venipuncture / Unknown 10/31/2019 1:21 PM EDT 10/31/2019 1:22 PM EDT Nilo Spear MD HEMATOLOGY ORDERABLE S Final Result Performing Organization Address [facility] Co de Phone Number [employer] [address] [place] [address] , [place] [address] * (ABNORMAL) C-REACTIVE PROTEIN (10/31/2019 1:21 PM EDT) Pathologist [facility] CRP 16.15(H) <=5.00 mg/L 10/31/2019 4:56 PM EDT [employer] Blood Venipuncture / Unknown 10/31/2019 1:21 PM EDT 10/31/2019 1:22 PM EDT Nilo Spear MD CHEMISTRY ORDERABLES Final Result Performing Organization Address [facility] de Phone Number [facility] [address] [facility] , [place] [address] documented in this encounter Visit Diagnoses Diagnosis Effusion, right knee documented in this encounter Care Teams Survey Interviewer Relationship Specialty Start Date End Date Lamin Blank MD PCP - General 12/08/09 documented as of this encounter
--- OUTSIDE RECORDS SUMMARY | 2019-11-13 09:02 | XMS_ITS | Encounter Summary ---
Author Organization [place] [address] Care Team Providers Care Associate Curator Name Role Phone Lamin Blank MD Primary Care Provider [phone] Encounter Details Date Type Department Care Team (Late st Contact Info) Description 11/13/2019 10:02 AM EDT Hospital Encounter [facility] Ref[facility] 1 [place] [address] Nilo Spear MD [address] [place] [address] Pain in right hip Social [...] 12/24/2024 3:28 PM Janeth Ibarra RN * [place] Suicide Severity Rating Scale (Q shift for [...] Shannan Gimenez CCMA Stay Tobacco Free Lifestyle No Shannan Lafleur CCMA documented as of this encounter Visit Diagnoses Diagnosis Pain in right hip Pain in joint, pelvic region and thigh documented in this encounter Care Teams Associate Curator Relationship Specialty Start Date End Date Lamin Blank MD PCP - General 12/08/09 documented as of this encounter
--- OUTSIDE RECORDS SUMMARY | 2020-01-14 09:52 | XMS_ITS | Encounter Summary ---
Author Organization [place] [address] Care Team Providers Care Clinical Staff Anesthesiologist Name Role Phone Lamin Blank MD Primary Care Provider [phone] Encounter Details Date Type Department Care Team (Latest Contact Info) Description 01/14/2020 9:52 AM EST Hospital Encounter [facility] Referral Lab 1 [place] [id number] Radha Landrum APRN Pain in right hip; [...] Assessment Author No 08/29/2017 11:23 AM Mary Muñoz, CHRISTINA * Does this person have serious difficulty walking or climbing stairs? Answer Date of Assessment Author No 08/29/2017 11:23 AM Mary Muñoz RN * Does this person have difficulty dressing or bathing? Answer Date of Assessment Author No 08/29/2017 11:23 AM Mary Muñoz, CHRISTINA * Because of a physical, mental or emotional condition, does this person have difficulty doing errands alone such as visiting a doctor's office or shopping? Answer Date of Assessment Author No 08/29/2017 11:23 AM Mary Muñoz RN * Suicide Severity Rating Answer Date of Assessment Author No Risk 12/24/2024 3:28 PM Janeth Ibarra RN * [place] Suicide Severity Rating Scale (Q shift for [...] SEDIMENTATION RATE AUTOMATED (02/18/2020 1:31 PM EST) Sed Rate 36(H) 0 - 15 mm/hr 02/18/2020 9:53 PM EST PREFERRED LAB [employer] Blood Venipuncture / Unknown 02/18/2020 1:31 PM EST 02/18/2020 1:31 PM EST us Radha Landrum MANAGER EMS HEMATOLOGY ORDERABLES F inal Result Performing Organization Address [facility] Co de Phone Number [employer] [address] [place] [address] , [place] [address] * (ABNORMAL) C-REACTIVE PROTEIN (02/18/2020 1:31 PM EST) Pathologist [facility] CRP 12.98(H) <=5.00 mg/L 02/18/2020 11:30 PM EST PREFERRED [employer] Blood Venipuncture / Unknown 02/18/2020 1:31 PM EST 02/18/2020 1:31 PM EST us Radha Landrum MANAGER EMS CHEMISTRY ORDERABLES Fi nal Result Performing Organization Address [facility] Co de Phone Number [employer] [address] [place] [address] , [place] [address] documented in this encounter Visit Diagnoses Diagnosis Pain in right hip Pain in joint, pelvic region and thigh Presence of right artificial hip joint Hip joint replacement by other means documented in this encounter Care Teams Clinical Staff Anesthesiologist Relationship Specialty Start Date End Date Lamin Blank MD PCP - General 12/08/09 documented as of this encounter
--- OUTSIDE RECORDS SUMMARY | 2024-11-19 12:22 | XMS_ITS | Encounter Summary ---
Author Organization [facility] Address [facility] [place] [address] Care Team Providers Care Chain Hooker Name Role Phone Lamin Blank MD Primary Care Provider [phone] Source Comments This information has been disclosed [...] release of HIV test results or diagnoses. [id number] Health Encounter Details Date Type Department Care Team (Latest Contact Info) Description 11/19/2024 1:22 PM EDT - 11/19/2024 11:59 PM EDT Hospital Encounter [facility] Radiology at [facility] [address] [place] [address] Keyon Pearce MD [address] [facility] [address] [place] [address] Other closed intra-articular fracture of [...] hr tablet 10/16/2024 naloxone (NARCAN) 4 mg/actuation [place] Apply 1 spray in one nostril if [...] encounter documented in this encounter Care Teams Chain Hooker Relationship Specialty Start Date End Date Lamin Blank MD [address] [place] [address] PCP - General Family Medicine 11/12/24 documented as of this encounter
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
--- OUTSIDE RECORDS SUMMARY | 2024-12-05 08:32 | XMS_ITS | Encounter Summary ---
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 HISTORY: ORIF Left Wrist COMPARISON: November 19, 2024 FINDINGS : Fluoroscopy was carried out, without a radiologist in attendance, to provide patient care necessary for a specific diagnostic or therapeutic procedure performed by a nonradiologist. A report by the performing physician should be available in the medical record. 5 fluoroscopic spot images obtained of the left wrist. Fluoroscopy time: 1 minute 56 seconds Procedure Note Meme Funez MD - 12/05/2024 EXAM: FL FLUORO UP TO 1 HOUR EXAM: XR WRIST LEFT 2-VIEWS CLINICAL HISTORY: ORIF Left Wrist COMPARISON: November 19, 2024 FINDINGS : Fluoroscopy was carried out, without a radiologist in attendance, toprovide patient care necessary for a specific diagnostic or therapeuticprocedure performed by a nonradiologist. A report by the performingphysician should be available in the medical record. 5 fluoroscopic spot images obtained of the left wrist. Fluoroscopy time: 1 minute 56 seconds IMPRESSION: Fluoroscopic guidance provided during fracture fixation. For furtherdetails please refer to images and procedure report. Report Verified by: Meme Funez MD at 12/05/2024 4:45 PM EDT Keyon Pearce MD IMG DIAGNOSTIC IM AGING ORDERABLES Final Result * (ABNORMAL) POC Glucose Monitoring Device (12/05/2024 10:17 AM EDT) POC Glucose Monitoring Device 103(H) 70 - 100 mg/dL 12/05/2024 10:18 AM EDT [facility] Blood 12/05/2024 10:1 7 AM EDT 12/05/2024 10:17 AM EDT Keyon Pearce MD POINT OF CARE MARK T ORDERABLES Final Result Performing Organization Address City/State/[facility] Co de Phone Number [facility] [address] documented in this encounter Visit Diagnoses Diagnosis Other closed fracture of distal end of left radius, initial encounter documented in this encounter Administered Medications Inactive Administered Medications - up to 3 most recent administrations Medication Order MAR Action Action Date Dose Rate Site acetaminophen (TYLENOL) tablet 975 mg 975 mg, Oral, lace inspector to O.R., Give 1 hour pre-op, Starting on Tue12/05/24 at 0938, For 1 dose, Give 1 hour pre-op. Do NOT give if patient has received acetaminophen in the past 6 hours OR if this dose will cause the patient to exceed 4 grams acetaminophen in the past 24 hours. Do NOT give if patient consumes 3 or more alcoholic beverages per day., Pre-op Given 12/05/2024 10:48 AM EDT 975 mg dextrose 10%-water (D10W) IV soln 12.5 g, Intravenous, Every 15 min PRN, Low blood sugar, for glucose < 70 and alert but can not be corrected, orally or via feeding tube, Starting on Tue12/05/24 at 0938, Recheck blood sugar in 15 minutes and repeat treatment if glucose still < 70. For Smart Pump: Set volume to be infused; 125 ml for 12.5 grams or 250 mL for 25 grams., Pre-op dextrose 10%-water (D10W) IV soln 25 g, Intravenous, Every 15 min PRN, Low blood sugar, for glucose < 70 and not alert, Starting on Tue12/05/24 at 0938, Recheck glucose in 15 minutes and repeat treatment if glucose still < 70. For Smart Pump: Set volume to be infused; 125 ml for 12.5 grams or 250 mL for 25 grams., Pre-op famotidine (PF) (PEPCID) injection 20 mg 20 mg, Intravenous, Once, On Tue12/05/24 at 1000, For 1 dose Given 12/05/2024 10:23 AM EDT 20 mg fentaNYL (SUBLIMAZE) injection 12.5 mcg 12.5 mcg, Intravenous, Every 5 min PRN, moderate pain (NRS 4-6) or if patient is non-communicative (CPOT 3-5), and POSS score of 1 to 2, Starting on Tue12/05/24 at 1207, For 48 hours, If on IV and PO pain meds, use IV only if patient is unable to take oral medications. May alternate Fentanyl with HYDROmorphone or MORPHine (if ordered) as needed for uncontrolled pain. If POSS score is 4, call physician. May administer in PACU or prior to discharge. HIGH ALERT MEDICATION, PACU fentaNYL (SUBLIMAZE) injection 12.5 mcg 12.5 mcg, Intravenous, Every 5 min PRN, severe pain (NRS 7-10) or if patient is non-communicative (CPOT 6-8), and POSS score EQUAL to 3, Starting on Tue12/05/24 at 1207, For 48 hours, If on IV and PO pain meds, use IV only if patient is unable to take oral medications. May alternate Fentanyl with HYDROmorphone or MORPHine (if ordered) as needed for uncontrolled pain. If POSS score is 4, call physician. May administer in PACU or prior to discharge. HIGH ALERT MEDICATION, PACU fentaNYL (SUBLIMAZE) injection 25 mcg 25 mcg, Intravenous, Every 5 min PRN, severe pain (NRS 7-10) or if patient is non-communicative (CPOT 6-8), and POSS score 1 OR 2, Starting on Tue12/05/24 at 1207, For 48 hours, If on IV and PO pain meds, use IV only if patient is unable to take oral medications. May alternate Fentanyl with HYDROmorphone or MORPHine (if ordered) as needed for uncontrolled pain. If POSS score is 4, call physician. May administer in PACU or prior to discharge. HIGH ALERT MEDICATION, PACU gabapentin (NEURONTIN) capsule 600 mg 600 mg, Oral, lace inspector to O.R., give 1 hour pre-op, Starting on Tue12/05/24 at 0938, For 1 dose, Pre-op Given 12/05/2024 10:48 AM EDT 600 mg glucose chewable tablet 12 g 12 g, Oral, Every 15 min PRN, Low blood sugar, see admin instructions, Starting on Tue12/05/24 at 0938, TAKING PO: Patient has blood glucose between 50-70 mg/dL. o Give 15 grams of fast-acting carbohydrate (4 oz. fruit juice or 4 oz. non-diet soda or 3 glucose tablets). o Recheck blood sugar in 15 minutes and repeat if blood sugar is still between 50-70 mg/dL. Repeat as needed. Patient has blood glucose less than 50 mg/dL o Give 30 grams fast-acting carbohydrate (8 oz. fruit juice or 8 oz. of non-diet soda or 6 glucose tablets) on first attempt. o Recheck blood sugar in 15 minutes and repeat if blood sugar is still less than 50mg/dL. o If further attempts necessary, revert to 15 grams of carbohydrate. Repeat as needed. FEEDING TUBE: Patient has blood glucose between 50-70 mg/dL. o Give 15 grams of fast-acting carbohydrate (4 oz. fruit juice or 4 oz.non-diet soda). o Recheck blood sugar in 15 minutes and repeat if blood sugar is still between 50-70 mg/dL. Repeat as needed. Patient has blood glucose less than 50 mg/dL o Give 30 grams fast-acting carbohydrate (8 oz. fruit juice or 8 oz. of non-diet soda). o Recheck blood sugar in 15 minutes and repeat if blood sugar is still less than 50mg/dL. o If further attempts necessary, revert to 15 grams of carbohydrate. Repeat as needed. Labeled tablet strength may vary by wire coiner (may be expressed as grams of carbohydrates) per tablet. Each tablet = 4 grams of glucose. Do not give chewable tablets via feeding tube, Pre-op HYDROmorphone (DILAUDID) injection 0.2 mg 0.2 mg, Intravenous, Every 5 min PRN, moderate pain (NRS 4-6) or if patient is non-communicative (CPOT 3-5), and POSS score of 1 to 2, Starting on Tue12/05/24 at 1207, For 48 hours, If on IV and PO pain meds, use IV only if patient is unable to take oral medications. May alternate HYDROmorphone with Fentanyl (if ordered) as needed for uncontrolled pain. If POSS score is 4, call physician. May administer in PACU or prior to discharge., PACU HYDROmorphone (DILAUDID) injection 0.2 mg 0.2 mg, Intravenous, Every 5 min PRN, severe pain (NRS 7-10) or if patient is non-communicative (CPOT 6-8), and POSS score EQUAL to 3, Starting on Tue12/05/24 at 1207, For 48 hours, If on IV and PO pain meds, use IV only if patient is unable to take oral medications. May alternate HYDROmorphone with Fentanyl (if ordered) as needed for uncontrolled pain. If POSS score is 4, call physician. May administer in PACU or prior to discharge., PACU HYDROmorphone (DILAUDID) injection 0.5 mg 0.5 mg, Intravenous, Every 5 min PRN, severe pain (NRS 7-10) or if patient is non-communicative (CPOT 6-8), and POSS score 1 OR 2, Starting on Tue12/05/24 at 1207, For 48 hours, If on IV and PO pain meds, use IV only if patient is unable to take oral medications. May alternate HYDROmorphone with Fentanyl (if ordered) as needed for uncontrolled pain. If POSS score is 4, call physician. May administer in PACU or prior to discharge., PACU lactated Ringers IV infusion 20 mL/hr, Intravenous, Continuous, Starting on Tue12/05/24 at 1000, Pre-opIndications:Other closed fracture of distal end of left radius, initial encounter Restarted 12/05/2024 12:07 PM EDT New Bag 12/05/2024 10:24 AM EDT 20 mL/hr 20 mL/hr New Bag 12/05/2024 10:21 AM EDT 20 mL/hr 20 mL/hr ondansetron (ZOFRAN) injection 4 mg 4 mg, Intravenous, Once, On Tue12/05/24 at 1000, For 1 dose Given 12/05/2024 10:23 AM EDT 4 mg oxyCODONE (ROXICODONE) immediate release tablet 2.5 mg 2.5 mg, Oral, x 1 dose as needed, moderate pain (NRS 4-6) or if patient is non-communicative (CPOT 3-5), Starting on Tue12/05/24 at 1207, For 1 day, If on IV and PO pain meds, use IV only if patient is unable to take oral medications. For moderate pain (NRS 4-6). May administer in PACU or Prior to Discharge., PACU oxyCODONE (ROXICODONE) immediate release tablet 5 mg 5 mg, Oral, x 1 dose as needed, severe pain (NRS 7-10) or if patient is non-communicative (CPOT 6-8), Starting on Tue12/05/24 at 1207, For 1 day, If on IV and PO pain meds, use IV only if patient is unable to take oral medications. For severe pain (NRS 7-10). May administer in PACU or Prior to Discharge., PACU documented in this encounter Active and Recently Administered Medications Times are shown in EDT. Scheduled Medication Order 12/03/2024 12/04/2024 12/05/2024 famotidine (PF) (PEPCID) injection 20 mg (COMPLETED) 20 mg, Intravenous, Once, On Tue12/05/24 at 1000, For 1 dose 1023 (Given - Provid er: Stella Galaviz RN) ondansetron (ZOFRAN) injection 4 mg (COMPLETED) 4 mg, Intravenous, Once, On Tue12/05/24 at 1000, For 1 dose 1023 (Given - Provid er: Stella Galaviz RN) Continuous Medication Order 12/03/2024 12/04/2024 12/05/2024 lactated Ringers IV infusion 20 mL/hr, Intravenous, Continuous, Starting on Tue12/05/24 at 1000, Pre-op 1021 (New Bag - Prov ider: Marilee Calvo RN)1024 (New Bag - Provider: Stella Galaviz RN)1206 (Paused - Provider: Ca Montelongo RN - Comment: Switch to gravity)1207 (Restarted - Provider: Ca Montelongo RN)1405 (Stopped - Provider: Ca Montelongo RN) PRN Medication Order 12/03/2024 12/04/2024 12/05/2024 acetaminophen (TYLENOL) tablet 975 mg (COMPLETED) 975 mg, Oral, lace inspector to O.R., Give 1 hour pre-op, Starting on Tue12/05/24 at 0938, For 1 dose, Give 1 hour pre-op. Do NOT give if patient has received acetaminophen in the past 6 hours OR if this dose will cause the patient to exceed 4 grams acetaminophen in the past 24 hours. Do NOT give if patient consumes 3 or more alcoholic beverages per day., Pre-op 1048 (Given - Provid er: Stella Galaviz RN) ceFAZolin (ANCEF) 2 g in sodium chloride 0.9 % 100 mL [id number] (COMPLETED) Intravenous, at 200 mL/hr, lace inspector to O.R., lace inspector to O.R., Starting on Tue12/05/24 at 0938, For 1 dose, Begin infusion 20-60 minutes prior to incision. For Patient Weight Greater 81-119 kg Use [id number] Adapter - Mix Thoroughly Before Administration, Pre-op, Indication? Prophylaxis-Surgical, Site of diagnosed infections (select all that apply): Skin/Soft Tissue 1209 (New Bag - Prov ider: Ca Montelongo RN) dextrose 10%-water (D10W) IV soln(Linked Group 1) 12.5 g, Intravenous, Every 15 min PRN, Low blood sugar, for glucose < 70 and alert but can not be corrected, orally or via feeding tube, Starting on Tue12/05/24 at 0938, Recheck blood sugar in 15 minutes and repeat treatment if glucose still < 70. For Smart Pump: Set volume to be infused; 125 ml for 12.5 grams or 250 mL for 25 grams., Pre-op dextrose 10%-water (D10W) IV soln(Linked Group 1) 25 g, Intravenous, Every 15 min PRN, Low blood sugar, for glucose < 70 and not alert, Starting on Tue12/05/24 at 0938, Recheck glucose in 15 minutes and repeat treatment if glucose still < 70. For Smart Pump: Set volume to be infused; 125 ml for 12.5 grams or 250 mL for 25 grams., Pre-op fentaNYL (SUBLIMAZE) injection 12.5 mcg(Linked Group 2) 12.5 mcg, Intravenous, Every 5 min PRN, moderate pain (NRS 4-6) or if patient is non-communicative (CPOT 3-5), and POSS score of 1 to 2, Starting on Tue12/05/24 at 1207, For 48 hours, If on IV and PO pain meds, use IV only if patient is unable to take oral medications. May alternate Fentanyl with HYDROmorphone or MORPHine (if ordered) as needed for uncontrolled pain. If POSS score is 4, call physician. May administer in PACU or prior to discharge. HIGH ALERT MEDICATION, PACU fentaNYL (SUBLIMAZE) injection 12.5 mcg(Linked Group 2) 12.5 mcg, Intravenous, Every 5 min PRN, severe pain (NRS 7-10) or if patient is non-communicative (CPOT 6-8), and POSS score EQUAL to 3, Starting on Tue12/05/24 at 1207, For 48 hours, If on IV and PO pain meds, use IV only if patient is unable to take oral medications. May alternate Fentanyl with HYDROmorphone or MORPHine (if ordered) as needed for uncontrolled pain. If POSS score is 4, call physician. May administer in PACU or prior to discharge. HIGH ALERT MEDICATION, PACU fentaNYL (SUBLIMAZE) injection 25 mcg(Linked Group 2) 25 mcg, Intravenous, Every 5 min PRN, severe pain (NRS 7-10) or if patient is non-communicative (CPOT 6-8), and POSS score 1 OR 2, Starting on Tue12/05/24 at 1207, For 48 hours, If on IV and PO pain meds, use IV only if patient is unable to take oral medications. May alternate Fentanyl with HYDROmorphone or MORPHine (if ordered) as needed for uncontrolled pain. If POSS score is 4, call physician. May administer in PACU or prior to discharge. HIGH ALERT MEDICATION, PACU gabapentin (NEURONTIN) capsule 600 mg (COMPLETED) 600 mg, Oral, lace inspector to O.R., give 1 hour pre-op, Starting on Tue12/05/24 at 0938, For 1 dose, Pre-op 1048 (Given - Provid er: Stella Galaviz RN) glucose chewable tablet 12 g 12 g, Oral, Every 15 min PRN, Low blood sugar, see admin instructions, Starting on Tue12/05/24 at 0938, TAKING PO: Patient has blood glucose between 50-70 mg/dL. o Give 15 grams of fast-acting carbohydrate (4 oz. fruit juice or 4 oz. non-diet soda or 3 glucose tablets). o Recheck blood sugar in 15 minutes and repeat if blood sugar is still between 50-70 mg/dL. Repeat as needed. Patient has blood glucose less than 50 mg/dL o Give 30 grams fast-acting carbohydrate (8 oz. fruit juice or 8 oz. of non-diet soda or 6 glucose tablets) on first attempt. o Recheck blood sugar in 15 minutes and repeat if blood sugar is still less than 50mg/dL. o If further attempts necessary, revert to 15 grams of carbohydrate. Repeat as needed. FEEDING TUBE: Patient has blood glucose between 50-70 mg/dL. o Give 15 grams of fast-acting carbohydrate (4 oz. fruit juice or 4 oz.non-diet soda). o Recheck blood sugar in 15 minutes and repeat if blood sugar is still between 50-70 mg/dL. Repeat as needed. Patient has blood glucose less than 50 mg/dL o Give 30 grams fast-acting carbohydrate (8 oz. fruit juice or 8 oz. of non-diet soda). o Recheck blood sugar in 15 minutes and repeat if blood sugar is still less than 50mg/dL. o If further attempts necessary, revert to 15 grams of carbohydrate. Repeat as needed. Labeled tablet strength may vary by wire coiner (may be expressed as grams of carbohydrates) per tablet. Each tablet = 4 grams of glucose. Do not give chewable tablets via feeding tube, Pre-op HYDROmorphone (DILAUDID) injection 0.2 mg(Linked Group 3) 0.2 mg, Intravenous, Every 5 min PRN, moderate pain (NRS 4-6) or if patient is non-communicative (CPOT 3-5), and POSS score of 1 to 2, Starting on Tue12/05/24 at 1207, For 48 hours, If on IV and PO pain meds, use IV only if patient is unable to take oral medications. May alternate HYDROmorphone with Fentanyl (if ordered) as needed for uncontrolled pain. If POSS score is 4, call physician. May administer in PACU or prior to discharge., PACU HYDROmorphone (DILAUDID) injection 0.2 mg(Linked Group 3) 0.2 mg, Intravenous, Every 5 min PRN, severe pain (NRS 7-10) or if patient is non-communicative (CPOT 6-8), and POSS score EQUAL to 3, Starting on Tue12/05/24 at 1207, For 48 hours, If on IV and PO pain meds, use IV only if patient is unable to take oral medications. May alternate HYDROmorphone with Fentanyl (if ordered) as needed for uncontrolled pain. If POSS score is 4, call physician. May administer in PACU or prior to discharge., PACU HYDROmorphone (DILAUDID) injection 0.5 mg(Linked Group 3) 0.5 mg, Intravenous, Every 5 min PRN, severe pain (NRS 7-10) or if patient is non-communicative (CPOT 6-8), and POSS score 1 OR 2, Starting on Tue12/05/24 at 1207, For 48 hours, If on IV and PO pain meds, use IV only if patient is unable to take oral medications. May alternate HYDROmorphone with Fentanyl (if ordered) as needed for uncontrolled pain. If POSS score is 4, call physician. May administer in PACU or prior to discharge., PACU naloxone (NARCAN) injection 0.04 mg 0.04 mg, Intravenous, Every 15 min PRN, Opioid Reversal, Starting on Tue12/05/24 at 1207, for RR Less than 8/min or patient is unarousable. May administer in PACU or Prior to Discharge., PACU ondansetron (ZOFRAN) injection 4 mg 4 mg, Intravenous, Once as needed, Nausea and/or Vomiting, Starting on Tue12/05/24 at 1207, For 1 dose, May administer in PACU or Prior to Discharge., PACU oxyCODONE (ROXICODONE) immediate release tablet 2.5 mg(Linked Group 4) 2.5 mg, Oral, x 1 dose as needed, moderate pain (NRS 4-6) or if patient is non-communicative (CPOT 3-5), Starting on Tue12/05/24 at 1207, For 1 day, If on IV and PO pain meds, use IV only if patient is unable to take oral medications. For moderate pain (NRS 4-6). May administer in PACU or Prior to Discharge., PACU oxyCODONE (ROXICODONE) immediate release tablet 5 mg(Linked Group 4) 5 mg, Oral, x 1 dose as needed, severe pain (NRS 7-10) or if patient is non-communicative (CPOT 6-8), Starting on Tue12/05/24 at 1207, For 1 day, If on IV and PO pain meds, use IV only if patient is unable to take oral medications. For severe pain (NRS 7-10). May administer in PACU or Prior to Discharge., PACU proCHLORPERazine (COMPAZINE) injection 5 mg 5 mg, Intravenous, Once as needed, Nausea and/or Vomiting, Starting on Tue12/05/24 at 1207, For 1 dose, May administer in PACU or Prior to Discharge. , PACU sodium chloride 0.9 % irrigation (CANCELED) As needed, Starting on Tue12/05/24 at 1258, Intra-op 1258 (Given - Provid er: Keyon Pearce MD) Linked Groups Order Group 1: dextrose 10%-water (D10W) IV solnJump to med 12.5 g, Intravenous, Every 15 min PRN, Low blood sugar, for glucose < 70 and alert but can not be corrected, orally or via feeding tube, Starting on Tue12/05/24 at 0938, Recheck blood sugar in 15 minutes and repeat treatment if glucose still < 70. For Smart Pump: Set volume to be infused; 125 ml for 12.5 grams or 250 mL for 25 grams., Pre-op Or dextrose 10%-water (D10W) IV solnJump to med 25 g, Intravenous, Every 15 min PRN, Low blood sugar, for glucose < 70 and not alert, Starting on Tue12/05/24 at 0938, Recheck glucose in 15 minutes and repeat treatment if glucose still < 70. For Smart Pump: Set volume to be infused; 125 ml for 12.5 grams or 250 mL for 25 grams., Pre-op Group 2: fentaNYL (SUBLIMAZE) injection 12.5 mcgJump to med 12.5 mcg, Intravenous, Every 5 min PRN, moderate pain (NRS 4-6) or if patient is non-communicative (CPOT 3-5), and POSS score of 1 to 2, Starting on Tue12/05/24 at 1207, For 48 hours, If on IV and PO pain meds, use IV only if patient is unable to take oral medications. May alternate Fentanyl with HYDROmorphone or MORPHine (if ordered) as needed for uncontrolled pain. If POSS score is 4, call physician. May administer in PACU or prior to discharge. HIGH ALERT MEDICATION, PACU Or fentaNYL (SUBLIMAZE) injection 12.5 mcgJump to med 12.5 mcg, Intravenous, Every 5 min PRN, severe pain (NRS 7-10) or if patient is non-communicative (CPOT 6-8), and POSS score EQUAL to 3, Starting on Tue12/05/24 at 1207, For 48 hours, If on IV and PO pain meds, use IV only if patient is unable to take oral medications. May alternate Fentanyl with HYDROmorphone or MORPHine (if ordered) as needed for uncontrolled pain. If POSS score is 4, call physician. May administer in PACU or prior to discharge. HIGH ALERT MEDICATION, PACU Or fentaNYL (SUBLIMAZE) injection 25 mcgJump to med 25 mcg, Intravenous, Every 5 min PRN, severe pain (NRS 7-10) or if patient is non-communicative (CPOT 6-8), and POSS score 1 OR 2, Starting on Tue12/05/24 at 1207, For 48 hours, If on IV and PO pain meds, use IV only if patient is unable to take oral medications. May alternate Fentanyl with HYDROmorphone or MORPHine (if ordered) as needed for uncontrolled pain. If POSS score is 4, call physician. May administer in PACU or prior to discharge. HIGH ALERT MEDICATION, PACU Group 3: HYDROmorphone (DILAUDID) injection 0.2 mgJump to med 0.2 mg, Intravenous, Every 5 min PRN, moderate pain (NRS 4-6) or if patient is non-communicative (CPOT 3-5), and POSS score of 1 to 2, Starting on Tue12/05/24 at 1207, For 48 hours, If on IV and PO pain meds, use IV only if patient is unable to take oral medications. May alternate HYDROmorphone with Fentanyl (if ordered) as needed for uncontrolled pain. If POSS score is 4, call physician. May administer in PACU or prior to discharge., PACU Or HYDROmorphone (DILAUDID) injection 0.2 mgJump to med 0.2 mg, Intravenous, Every 5 min PRN, severe pain (NRS 7-10) or if patient is non-communicative (CPOT 6-8), and POSS score EQUAL to 3, Starting on Tue12/05/24 at 1207, For 48 hours, If on IV and PO pain meds, use IV only if patient is unable to take oral medications. May alternate HYDROmorphone with Fentanyl (if ordered) as needed for uncontrolled pain. If POSS score is 4, call physician. May administer in PACU or prior to discharge., PACU Or HYDROmorphone (DILAUDID) injection 0.5 mgJump to med 0.5 mg, Intravenous, Every 5 min PRN, severe pain (NRS 7-10) or if patient is non-communicative (CPOT 6-8), and POSS score 1 OR 2, Starting on Tue12/05/24 at 1207, For 48 hours, If on IV and PO pain meds, use IV only if patient is unable to take oral medications. May alternate HYDROmorphone with Fentanyl (if ordered) as needed for uncontrolled pain. If POSS score is 4, call physician. May administer in PACU or prior to discharge., PACU Group 4: oxyCODONE (ROXICODONE) immediate release tablet 2.5 mgJump to med 2.5 mg, Oral, x 1 dose as needed, moderate pain (NRS 4-6) or if patient is non-communicative (CPOT 3-5), Starting on Tue12/05/24 at 1207, For 1 day, If on IV and PO pain meds, use IV only if patient is unable to take oral medications. For moderate pain (NRS 4-6). May administer in PACU or Prior to Discharge., PACU Or oxyCODONE (ROXICODONE) immediate release tablet 5 mgJump to med 5 mg, Oral, x 1 dose as needed, severe pain (NRS 7-10) or if patient is non-communicative (CPOT 6-8), Starting on Tue12/05/24 at 1207, For 1 day, If on IV and PO pain meds, use IV only if patient is unable to take oral medications. For severe pain (NRS 7-10). May administer in PACU or Prior to Discharge., PACU documented in this encounter Care Teams Coach Relationship Specialty Start Date End Date Lamin Blank MD [address] [place] [address] PCP - General Family Medicine 11/12/24 documented as of this encounter
--- OUTSIDE RECORDS SUMMARY | 2024-12-05 11:00 | XMS_ITS | Encounter Summary ---
Author Organization [facility] Address [address] [place] [address] Care Team Providers Care Floor Broker Name Role Phone Lamin Blank MD Primary Care Provider [phone] Source Comments This information has been disclosed [...] release of HIV test results or diagnoses. [id number] Health Reason for Visit * Auth/Cert (Routine) Specialty Diagnoses / Procedures Referred By Soraida t Referred To Contact Diagnoses Other fractures of lower end of left radius, initial encounter for closed fracture Other closed fracture of distal end of left radius, initial encounter [S52.592A] Procedures [place] OPTX DSTL RDL X-ARTIC FX/EPIPHYSL SEPARATION LEFT DISTAL RADIUS OPEN REDUCTION AND INTERNAL FIXATION [facility] [address] [place] [address] Phone: tel: Referral ID Status Reason Start Date Expiration Date Visits Re quested Visits Authorized [id number] 1 1 Encounter Details Date Type Department Care Team (Late st Contact Info) Description 12/05/2024 12:00 PM EDT - 12/05/2024 2:30 PM EDT Surgery [facility] [address] [place] [address] Keyon Pearce MD [address] [place] [address] [phone] LEFT DISTAL RADIUS OPEN REDUCTION AND INTERNAL FIXATION Surgery Details Date/Time Status Location OR Service Patient Class Case Class Case Type Trauma Case? 12/05/2024 12:00 PM Posted [facility] ASC 29 Orthopedics Hosp OP Surg/Ambula tory Non Trauma Panel 1 Procedure LRB Anes Op Region Wound Class Comments LEFT DISTAL RADIUS OPEN REDU CTION AND INTERNAL FIXATION Left Regional Clean Surgeon Surgeon Role Service Panel Keyon Pearce MD Primary Orthoped ics 1 Special Needs SUPINE, HAND TABLE, ACUMED DISTAL RADIUS--NOTIFIED BRAXTON W/ACUMED 11/27 GM--SPD; ACUMED IMPLANT SET WILL BE BROUGHT IN documented in this encounter Social History Tobacco Use Types Packs/Day [...] Sign Reading Time Taken Comments Blood Pressure 139/99 12/05/2024 2:20 PM EDT Pulse 62 12/05/2024 2:20 PM EDT Temperature 35.9 C (96.6 F) 12/05/2024 2:12 PM EDT Respiratory Rate 18 12/05/2024 2:20 PM EDT Oxygen Saturation 98% 12/05/2024 2:20 PM EDT Inhaled Oxygen Concentration 98% 12/05/2024 2 :20 PM EDT Weight 108.4 kg (239 lb) [...] as directed for post-operative pain control. Take umxj-gdz-yjneksf Senna, 17.2 mg by mouth before sleep [...] visit or contact office for assistance at [phone]. Our fax number is [phone]. SCAR: Please DO NOT apply any lotions [...] stress relief exercise can be found at: [email or web address] (Note that it is .co , [employer] .com .) CONCERNS: If your discomfort or swelling increases, after initially getting better in the first few days, infection may be a concern. Normal time for infection is the fourth or fifth day. If you experience symptoms that you are concerned about, please contact our office at [phone]. You may need to be seen by Dr. Pearce or another provider. For after hour EMERGENCIES please call [phone] and ask for the Orthopaedic Physician cushion former. FOLLOW-UP APPOINTMENT: Your follow up appointment is [...] hr tablet 10/16/2024 naloxone (NARCAN) 4 mg/actuation [place] Apply 1 spray in one nostril if [...] Time Verified (1100) Surgery Location Verified Yes ([facility]) Remind patient to bring picture ID and insurance card Yes Medical History Reviewed Yes NPO Status Reinforced Yes Ride and Caregiver Arranged Yes Ride Caregiver Provider bruna Brenner Phone Number for Ride/Caregiver [phone] Reviewed Pre-Op instructions with patient. No hx [...] fracture, 3 or more articular fragments (CPT 18016) SURGEONS: Keyon Pearce MD STAFF: Android Ios Developer: Melonie Petersen RN Relief Android Ios Developer: Tan You RN; Melonie Petersen RN Relief [...] A regional block was administered by the Inspector Shells. The patient was taken to the operating [...] Keyon Pearce MD, MS, FRCS(C) Hand Surgeon Tie Carrier Department of Orthopaedic Surgery and Sports Medicine Please note that some or all of this record was generated using voice recognition software.If thereare any questions about the content of this document, please contact me as some errors in forestry fire aid may have occurred. documented in this encounter [...] OF CARE MARK T ORDERABLES Final Result [facility] [address] [id number], [facility] * Fluoro up to 1 hour [...] MD at 12/05/2024 4:45 PM EDT Keyon Pearec MD IMG DIAGNOSTIC IM AGING ORDERABLES Final Result * (ABNORMAL) POC Glucose Monitoring Device (12/05/2024 10:17 AM EDT) POC Glucose Monitoring Device 103(H) 70 - 100 mg/dL 12/05/2024 10:18 AM EDT Fwd: Power LAB Blood 12/05/2024 10:1 7 AM EDT 12/05/2024 10:17 AM EDT Keyon Pearce MD POINT OF CARE MARK T ORDERABLES Final Result [facility] [address] documented in this encounter Visit Diagnoses Diagnosis Other closed fracture of distal end of left radius, initial encounter Other closed fracture of distal end of left radius, initial encounter documented in this encounter Administered Medications Inactive Administered Medications - up to 3 most recent administrations Medication Order MAR Action Action Date Dose Rate Site acetaminophen (TYLENOL) tablet 975 mg 975 mg, Oral, call center agent to O.R., Give 1 hour pre-op, Starting [...] (NEURONTIN) capsule 600 mg 600 mg, Oral, call center agent to O.R., give 1 hour pre-op, Starting [...] needed. Labeled tablet strength may vary by trapper bird (may be expressed as grams of carbohydrates) [...] in PACU or Prior to Discharge., PACU sodium chloride 0.9 % irrigation As needed, Starting on Tue12/05/24 at 1258, Intra-op Given 12/05/2024 12:58 PM EDT 1,000 mLs documented in this encounter Active and Recently Administered Medications Times are shown in EDT. Scheduled Medication Order 12/03/2024 12/04/2024 12/05/2024 famotidine (PF) (PEPCID) injection 20 mg (COMPLETED) 20 mg, Intravenous, Once, On Tue12/05/24 at 1000, For 1 dose 1023 (Given - Provid er: Stella Galaviz, CHRISTINA) ondansetron (ZOFRAN) injection 4 mg (COMPLETED) 4 [...] Switch to gravity)1207 (Restarted - Provider: Ca Montelongo, RN)1405 (Stopped - Provider: Ca Montelongo RN) PRN Medication Order 12/03/2024 12/04/2024 12/05/2024 acetaminophen (TYLENOL) tablet 975 mg (COMPLETED) 975 mg, Oral, call center agent to O.R., Give 1 hour pre-op, Starting [...] in sodium chloride 0.9 % 100 mL [id number] (COMPLETED) Intravenous, at 200 mL/hr, call center agent to O.R., call center agent to O.R., Starting on Tue12/05/24 at 0938, For 1 dose, Begin infusion 20-60 minutes prior to incision. For Patient Weight Greater 81-119 kg Use [id number] Adapter - Mix Thoroughly Before Administration, Pre-op, [...] capsule 600 mg (COMPLETED) 600 mg, Oral, call center agent to O.R., give 1 hour pre-op, Starting [...] needed. Labeled tablet strength may vary by trapper bird (may be expressed as grams of carbohydrates) [...] PACU documented in this encounter Care Teams Floor Broker Relationship Specialty Start Date End Date Lamin Blank MD [address] [place] [address] PCP - General Family Medicine 11/12/24 documented as of this encounter
--- OUTSIDE RECORDS SUMMARY | 2024-12-05 11:07 | XMS_ITS | Encounter Summary ---
Author Organization [facility] Address [address] [place] [address] Care Team Providers Care Horse Farm Manager Name Role Phone Lamin Blank MD Primary Care Provider [phone] Source Comments This information has been disclosed [...] release of HIV test results or diagnoses. [id number] Health Reason for Visit * Auth/Cert (Routine) Specialty Diagnoses / Procedures Referred By Soraida t Referred To Contact Diagnoses Other fractures of lower end of left radius, initial encounter for closed fracture Other closed fracture of distal end of left radius, initial encounter [S52.592A] Procedures [place] OPTX DSTL RDL X-ARTIC FX/EPIPHYSL SEPARATION LEFT DISTAL RADIUS OPEN REDUCTION AND INTERNAL FIXATION [facility] [address] [place] [address] Phone: tel: Referral ID Status Reason Start Date Expiration Date Visits Re quested Visits Authorized [id number] 1 1 Encounter Details Date Type Department Care Team (Late st Contact Info) Description 12/05/2024 12:07 PM EDT Anesthesia Event [facility] [address] [place] [phone] Kris Willard MD [address] [place] [address] [place] [phone] (work) Anesthesia Record Procedure Summary Procedure [...] in sodium chloride 0.9 % 100 mL [id number] 2 g phenylephrine (ANETA-SYNEPHRINE) injection 10 mg/ml [...] Torres MD - 12/05/2024 9:54 AM EDT [facility] DEPARTMENT OF ANESTHESIOLOGY PRE-PROCEDURAL EVALUATION Dejuan Ram [...] pre-operative evaluation. Cardiovascular: Hypertension is. (-) past CT, CAD, CABG/stent, angina, CHF. Neuro/Muscoloskeletal/Psych: (+) anxiety. [...] than a month naloxone (NARCAN) 4 mg/actuation [place] Apply 1 spray in one nostril if [...] detail. Questions answered. Plan discussed with attending, INSPECTOR WIRE PRODUCTS and resident. [1] Allergies Allergen Reactions Penicillins [...] M.D. Department of Anesthesiology & Pain Medicine [facility] documented in this encounter Plan of Treatment Not on file documented as of this encounter Procedures Procedure Name Priority Date/Time Associated Diagnosis Comments [place] ANESTHESIA ULTRASOUND Routine 12/05/2024 10:30 AM EDT [place] ANESTHESIA BLOCK PROCEDURE Routine 12/05/2024 10:30 AM EDT documented in this encounter Results * [place] ANESTHESIA BLOCK PROCEDURE, [place] ANESTHESIA ULTRASOUND (12/05/2024 10:30 AM EDT) Narrative [...] 100% Complications: No notable events documented. Date 12/04/24 07 - 12/05/24 0659(Not Admitted) 12/05/24 0700 - 12/06/24 0659 Shift [id number] 2846-7166 [id number] 24 Hour Total [id number] 4520-9651 1089-6075 24 Hour Total INTAKE I.V.(mL/kg) 750(6.9) 750(6.9) Volume (mL) (lactated Ringers IV infusion) 750 750 IV Piggyback 100 100 Volume (mL) (ceFAZolin (ANCEF) 2 g in sodium chloride 0.9 % 100 mL [id number]) 100 100 Shift Total(mL/kg) 850(7.8) 850(7.8) OUTPUT [...] in sodium chloride 0.9 % 100 mL [id number] Intravenous, at 200 mL/hr, call center support consultant to O.R., call center support consultant to O.R., Starting on Tue12/05/24 at 0938, For 1 dose, Begin infusion 20-60 minutes prior to incision. For Patient Weight Greater 81-119 kg Use [id number] Adapter - Mix Thoroughly Before Administration, Pre-op, [...] mL/hr documented in this encounter Care Teams Horse Farm Manager Relationship Specialty Start Date End Date Lamin Blank MD [address] [place] [address] PCP - General Family Medicine 11/12/24 documented as of this encounter
--- OUTSIDE RECORDS SUMMARY | 2024-12-17 12:47 | XMS_ITS | Encounter Summary ---
Author Organization [facility] Address [address] [place] [address] Care Team Providers Care Fine Patcher Name Role Phone Lamin Blank MD Primary Care Provider [phone] Source Comments This information has been disclosed [...] release of HIV test results or diagnoses. [id number] Reason for Visit * Auth/Cert (Routine) Specialty Diagnoses / Procedures Referred By Soraida madera Referred To Contact Orthopedic Surgery [facility] Sports Medicine at [facility] [address] [address] Phone: tel: fax: Referral ID Status Reason Start Date Expiration Date Visits Re quested Visits Authorized [id number] 1 1 Encounter Details Date Type Department Care Team (Latest Contact Info) Description 12/17/2024 12:47 PM EST - 12/17/2024 11:59 PM EST Hospital Encounter [facility] Radiology at [facility] [address] [place] [address] Keyon Pearce MD [address] [facility] [address] [place] [address] Other closed intra-articular fracture of distal end of left radius with routine healing, subsequent encounter Discharge Disposition: Home or Self Care WITHOUT Home Care Services Social History Tobacco Use Types Packs/Day Years Used Date Smoking Tobacco: Every Day Cigarettes 1 30 Smokeless Tobacco: Never Alcohol Use Standard Drinks/Week Comments Never 0 (1 standard drink = 0.6 oz [...] hr tablet 10/16/2024 naloxone (NARCAN) 4 mg/actuation [place] Apply 1 spray in one nostril if [...] 5 MG immediate release tabletIndication s:Other closed intra-articular fracture of distal end of left radius with routine healing, subsequent encounter Take 1 tablet (5 mg total) by mouth every 6 hours as needed for Pain for up to 7 days. 20 tablet 12/17/2024 5 documented as of this encounter Plan of Treatment Not on file documented as of this encounter Procedures Procedure Name Priority Date/Time Associated Diagnosis Comments XR WRIST LEFT MINIMUM 3-VIEWS Routine 12/17/2024 12:56 PM EST Other closed intra-articular fracture of distal end of left radius with routine healing, subsequent encounter documented in this encounter Results * X-ray Wrist Left min 3-views (12/17/2024 12:56 PM EST) Anatomical Region Laterality Modality Forearm, Wrist, Hand Radiographi c Imaging 12/17/2024 12:5 6 PM EST Impressions 12/20/2024 7:39 AM EST IMPRESSION: ORIF distal left radial fracture without hardware complications or acute findings. Report Verified by: Bassem Abarca MD at 12/20/2024 7:39 AM EST Narrative 12/20/2024 7:39 AM EST EXAM: XR WRIST LEFT MINIMUM 3-VIEWS INDICATION: Other closed intra-articular fracture of distal end of left radius with routine healing, subsequent encounter COMPARISON: 11/19/2024. TECHNIQUE: 3 views left wrist. FINDINGS: Postsurgical changes ORIF intra-articular distal left radial fracture. Ossific density adjacent the ulnar styloid is unchanged. Soft tissue swelling persists. No hardware complications. Procedure Note Bassem Abarca MD - 12/20/2024 EXAM: XR WRIST LEFT MINIMUM 3-VIEWS INDICATION: Other closed intra-articular fracture of distal end of leftradius with routine healing, subsequent encounter COMPARISON: 11/19/2024. TECHNIQUE: 3 views left wrist. FINDINGS: Postsurgical changes ORIF intra-articular distal left radial fracture.Ossific density adjacent the ulnar styloid is unchanged. Soft tissueswelling persists. No hardware complications. IMPRESSION: ORIF distal left radial fracture without hardware complications or acutefindings. Report Verified by: Bassem Abarca MD at 12/20/2024 7:39 AM EST us Keyon Pearce MD IMG DIAGNOSTIC IM AGING ORDERABLES Final Result documented in this encounter Visit Diagnoses Diagnosis Other closed intra-articular fracture of distal end of left radius with routine healing, subsequent encounter documented in this encounter Care Teams Fine Patcher Relationship Specialty Start Date End Date Lamin Blank MD [address] [place] [address] PCP - General Family Medicine 11/12/24 documented as of this encounter
--- OUTSIDE RECORDS SUMMARY | 2024-12-17 13:30 | XMS_ITS | Encounter Summary ---
Author Organization [facility] Address [address] [place] [address] Care Team Providers Care Outreach Team Member Name Role Phone Lamin Blank MD Primary Care Provider [phone] Source Comments This information has been disclosed [...] release of HIV test results or diagnoses. [id number] Reason for Visit * Reason Comments Post-op Evaluation LEFT DISTAL RADIUS O RIF * Auth/Cert (Routine) Specialty Diagnoses / Procedures Referred By Soraida madera Referred To Contact Orthopedic Surgery [facility] Sports [facility] [address] [address] Phone: tel: fax: Referral ID Status Reason Start Date Expiration Date Visits Re quested Visits Authorized [id number] 1 1 Encounter Details Date Type Department Care Team (Late st Contact Info) Description 12/17/2024 1:30 PM EST Office Visit [facility] Sports Medicine [facility] [address] [address] Keyon Pearce MD [address] [address] Other closed intra-articular fracture of [...] I also discussed the importance of doing mwctj-vq-zdffti exercises, particularly for the fingers, to prevent [...] Keyon Pearce MD, MS, FR(C) Hand Surgeon Vp Care Management Department of Orthopaedic Surgery and Sports Medicine Please note that some or all of this record was generated using voice recognition and artificial intelligence software. If there are any questions about the content of this document, please contact me as some errors in ceramic engineering professor may have occurred. documented in this encounter [...] encounter documented in this encounter Care Teams Outreach Team Member Relationship Specialty Start Date End Date Lamin Blank MD [address] [place] [address] PCP - General Family Medicine 11/12/24 documented as of this encounter
--- OUTSIDE RECORDS SUMMARY | 2024-12-24 15:27 | XMS_ITS | Encounter Summary ---
Author Organization [place] [address] Care Team Providers Care Medical Massage Therapist Name Role Phone Lamin Blank MD Primary Care Provider [phone] Reason for Visit * Reason Comments Chest Pain Chest pain on and of f for the past month, SOB, and hypertension. CPTA- 243 aspirin Encounter Details Date Type Department Care Team (Late Contact Info) Description 12/24/2024 3:27 PM EST - 12/24/2024 5:59 PM EST Emergency [facility] Emergency [address] [place] [address] Karolina Castellon MD [address] [place] [id number] Atypical chest pain (Primary Dx) Discharge [...] 12/24/2024 3:28 PM Janeth Ibarra RN * Sac Suicide Severity Rating Scale (Q shift for [...] Entry Date Author No 08/29/2017 11:23 AM EDT Mary Vo RN documented in this encounter Discharge Instructions * Discharge Instructions* Maty John PA-C - 12/24/2024 5:46 PM EST At onset of pain, try acid systems security analyst such as Tums or Pepcid. Follow-up with [...] Creatinine 0.88 0.67 - 1.30 mg/dL eGFR (CKD-EPIcr 2021) 106 >=60 mL/min/1.73 m2 TROPONIN-T HIGH SENSITIVITY BASELINE W/ REFLEX Result Value Ref Range oi-rAladwhub-G 9 <22 ng/L Narrative Ingestion of lin [...] Gran% 0.1 % Lymph Percent 34.6 % Braxton Percent 6.9 % Eos Percent 1.7 % Baso Percent 0.9 % Neut # 4.2 1.6 - 6.1 x10(3)/mcL IMMGRAN# 0.0 0.0 - 0.1 x10(3)/mcL Lymph # 2.6 1.2 - 3.9 x10(3)/mcL Braxton # 0.5 0.3 - 0.9 x10(3)/mcL Eos# 0.1 0.0 - 0.5 x10(3)/mcL Baso # 0.1 0.0 - 0.1 x10(3)/mcL EK EKG 12 LEAD Narrative NOTICE: Preliminary tracing available for review; Final Interpretation by physician to follow. Impression [place] [facility] Test Date: 2024-12-24 Pat Name: DEJUAN QUINTERO Department: DEPID Room: [facility] Gender: Male 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: [employer] : 1975 Requested By: [facility] Order Number: [id number] Reading MD: Measurements Intervals Deering Rate: 70 P: 12 UT: 150 QRS: 80 QRSD: 81 T: 39 QT: 370 QTc: 399 Interpretive Statements SINUS RHYTHM Scoring Tools: HEART Score Row Name 12/24/24 1719 History Slightly suspicious ECG Normal Age 45-64 [...] from the patient. Medical records reviewed via [employer]. This is a 49 y.o. male who [...] Housing Stability: High Risk (11/02/2023) Received from [facility] SDOH Screening What is your living situation today?: I have a place to live today, but i am worried about losing it in the future [4] Past Surgical History: Procedure Laterality Date ANKLE SURGERY COLONOSCOPY DENTAL SURGERY FRACTURE SURGERY 10/08/2014 Right ankle HIP ARTHROSCOPY Right 04/28/2018 right hip arthroscopy labral debridement, pincer and cam resection; Surgeon: Keyon Bill MD; Location: [facility]; Service: Orthopedics UPPER GASTROINTESTINAL ENDOSCOPY [5] [...] Gimenez CCMA documented as of this encounter Procedures [...] chest using iodinated IVcontrast as recorded in EPIC. 2-D multiplanar reconstructions and 3-D MIPreconstructions reviewed. [...] of the ordering clinician. Maty John PA-C [facility] ORDERABLES Final Result * CBC WITH DIFF (12/24/2024 3:59 PM EST) WBC 7.5 3.7 - 10.3 x10(3)/mcL 12/24/2024 4:04 PM EST [facility] RBC 4.96 4.60 - 6.10 x10(6)/mcL 12/24/2024 4:04 PM EST [facility] Hgb 16.3 13.7 - 17.5 g/dL 12/24/2024 4:04 PM EST [facility] Hct 47.1 40.0 - 51.0 % 12/24/2024 4:04 PM EST [facility] MCV 95.0 80.0 - 100.0 fL 12/24/2024 4:04 PM [facility] MCH 32.9 26.0 - 34.0 pg 12/24/2024 4:04 PM [facility] MCHC 34.6 30.7 - 35.5 g/dL 12/24/2024 4:04 PM [facility] RDW 13.4 <=14.9 % 12/24/2024 4:04 PM [facility] Platelet 297 155 - 369 x10(3)/mcL 12/24/2024 4:04 PM [facility] MPV 10.3 8.8 - 12.5 fL 12/24/2024 4:04 PM [facility] Neut Percent 55.8 % 12/24/2024 4:04 PM [facility] Comment:Neutrophils equals s egs plus bands Imm Gran% 0.1 % 12/24/2024 4:04 PM [facility] Comment:Automated count of m etamyelocytes, myelocytes and promyelocytes. Lymph Percent 34.6 % 12/24/2024 4:04 PM [facility] Braxton Percent 6.9 % 12/24/2024 4:04 PM [facility] Eos Percent 1.7 % 12/24/2024 4:04 PM [facility] Baso Percent 0.9 % 12/24/2024 4:04 PM [facility] Neut # 4.2 1.6 - 6.1 x10(3)/mcL 12/24/2024 4:04 PM [facility] Comment:Neutrophils equals s egs plus bands IMMGRAN# 0.0 0.0 - 0.1 x10(3)/mcL 12/24/2024 4:04 PM [facility] Comment:Automated count of m etamyelocytes, myelocytes and promyelocytes. An absolute IG <0.1 is reported as 0.0. Lymph # 2.6 1.2 - 3.9 x10(3)/mcL 12/24/2024 4:04 PM [facility] Braxton # 0.5 0.3 - 0.9 x10(3)/mcL 12/24/2024 4:04 PM EST [facility] Eos# 0.1 0.0 - 0.5 x10(3)/mcL 12/24/2024 4:04 PM EST [facility] Baso # 0.1 0.0 - 0.1 x10(3)/mcL 12/24/2024 4:04 PM EST [facility] Blood VENOUS BLOOD / Unknown Venipuncture / Unknown 12/24/2024 3:59 PM EST 12/24/2024 4:02 PM EST us Maty John PA-C HEMATOLOGY ORDERABLES Final Re sult Performing Organization Address [facility] Co de Phone Number [facility] [address] [place] [address] * (ABNORMAL) D-DIMER (12/24/2024 3:59 PM EST) Pathologist [facility] D-Dimer 552(H) <=500 ng/mL FEU 12/24/2024 4:13 PM EST [facility] Comment:D dimer may be eleva [...] ORDERABLES Final Re sult Performing Organization Address [facility] Co de Phone Number [facility] [address] [place] [address] * TROPONIN-T HIGH SENSITIVITY BASELINE W/ REFLEX (12/24/2024 3:59 PM EST) Pathologist [facility] [id number]-P 9 <22 ng/L 12/24/2024 4:18 PM EST [facility] Blood VENOUS BLOOD / Unknown Venipuncture / Unknown 12/24/2024 3:59 PM EST 12/24/2024 4:01 PM EST Narrative [facility] - 12/24/2024 4:18 PM EST Ingestion of lin doses of biotin (>5 mg/day) taken within 8 hours of drawing blood sample can interfere with this immunoassay test. us Maty John PA-C CHEMISTRY ORDERABLES Final Res ult [facility] [address] [facility] [place] [address] * (ABNORMAL) BASIC METABOLIC PANEL (12/24/2024 3:59 PM EST) Sodium 140 136 - 145 mmol/L 12/24/2024 4:18 PM EST [facility] Potassium 4.1 3.5 - 5.0 mmol/L 12/24/2024 4:18 PM EST [facility] Chloride 102 98 - 107 mmol/L 12/24/2024 4:18 PM EST [facility] Total CO2 26 22 - 29 mmol/L 12/24/2024 4:18 PM EST [facility] Anion Gap 12 7 - 16 mmol/L 12/24/2024 4:18 PM EST [facility] Calcium 9.5 8.6 - 10.4 mg/dL 12/24/2024 4:18 PM EST [facility] Glucose Lvl 120(H) 70 - 99 mg/dL 12/24/2024 4:18 PM EST [facility] BUN 12 6 - 20 mg/dL 12/24/2024 4:18 PM [facility] Creatinine 0.88 0.67 - 1.30 mg/dL 12/24/2024 4:18 PM [facility] eGFR (CKD-EPIcr 2020) 106 >=60 mL/min/1.7 3 m2 12/24/2024 4:18 PM EST [facility] Comment:Estimated GFR was ca lculated using the CKD-EPIcr (2020) equation refit without race. The equation is recommended by the National Kid[employer] - [place] [employer] Neph[employer] Task Force. Blood VENOUS BLOOD / Unknown Venipuncture / Unknown 12/24/2024 3:59 PM EST 12/24/2024 4:01 PM EST us Maty John PA-C CHEMISTRY ORDERABLES Final Res ult [facility] [address] [place] [address] * EK EKG 12 LEAD (12/24/2024 3:29 PM EST) Anatomical Region Laterality Modality Electrocardiogra phy 12/24/2024 3:34 PM EST Impressions 12/25/2024 8:04 AM EST [place] 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: [facility] : 1975 Requested By: [facility] Order Number: [id number] Reading MD: Jack Neumann MD Measurements Intervals Deering Rate: 70 P: 12 UT: 150 QRS: 80 QRSD: 81 T: 39 QT: 370 QTc: 399 Interpretive Statements SINUS RHYTHM Electronically Signed On 12-25-2024 08:04:15 EST by Jack Neumann MD Narrative Procedure Note Jack Neumann MD - 12/25/2024 [facility]: [facility]24-[facility]24 Pat Name: DEJUAN DONOVANLAMBERT Department: DEPID Room: [facility] Gender: Male [employer]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: [facility] : 1975 Requested By: [facility] Order Number: [id number] Reading : Jack Neumann MD Measurements Intervals Deering Rate: 70 P: 12 UT: 150 QRS: 80 QRSD: 81 T: 39 [...] Radiography/Imaging, Radiology Procedure, VESICANT , CT (Contrasts) 1657 (Given - Provid er: Benjamin Whalen, RT) [...] hours, and after IV medication, CT (Contrasts) 1657 (Given - Provid er: Benjamin Whalen, RT) documented in this encounter Orders Medications Ordered That Aryan ht Not Have Been Administered Count Last Ordered Date First Ordered Date sodium chloride 0.9% IV line flush 50 mL 12/24/2024 sodium chloride 0.9% syringe 5 mL 025 Nursing Count Last Ordered Date First Orde red Date CARDIAC MONITORING 12/24/2024 NURSING COMMUNICATION 1 12/24/2024 IV Count Last Ordered Date First Orde red Date SALINE LOCK IV 1 12/24/2024 documented in this encounter Care Teams Medical Massage Therapist Relationship Specialty Start Date End Date Lamin Blank MD PCP - General 12/08/09 documented as of this encounter
[2024-12-26 13:15] VITALS: BP 130/77; PULSE 75; RESP 18; TEMP 36.6; O2SAT 98; BMI 33.9
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
[2024-12-26 13:35] VITALS: PULSE 75
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
[2024-12-26 13:46] LABS: Coronavirus 19, PCR Not Detected (NotDetected); Influenza A, PCR Not Detected (NotDetected); Influenza B, PCR Not Detected (NotDetected)
--- OUTSIDE RECORDS SUMMARY | 2024-12-26 13:52 | XMS_ITS | Clinical Summary ---
Author Organization Healthcare Address [address] [place] [address] Care Team Providers Care Environmental Associate Name Role Phone Lamin Blank MD Primary Care Provider Family History Medical History Relation Name Comments [...] of Treatment Not on file Care Teams Environmental Associate Relationship Specialty Start Date End Date Lamin Blank MD PCP - General 06/27/20
--- OUTSIDE RECORDS SUMMARY | 2024-12-26 13:52 | XMS_ITS | Encounter Summary ---
Author Organization [facility] Address [address] [place] [address] Care Team Providers Care Animal Care Provider Name Role Phone Lamin Blank MD Primary Care Provider [phone] Source Comments This information has been disclosed [...] release of HIV test results or diagnoses. [id number] Reason for Referral * Support Services (Routine) - No Authorization Required Specialty Diagnoses / Procedures Referred By Contact Referred To Contact Pre-Admission Testing Diagnoses Other closed fracture of distal end of left radius, initial encounter Keyon Pearce MD [address] [place] [address] [address] [place] [address] Phone: tel: fax: [facility] at [address] [address] Phone: tel: fax: Referral ID Status Reason Start Date Expiration Date Visits Requested Visits Authorized [id number] No Authorization Required 11/20/2024 05/19/2025 1 1 * Surgical (Routine) - Pending Review Specialty Diagnoses / Procedures Referred By Contac t Referred To Contact Surgery Diagnoses Other closed fracture of distal end of left radius, initial encounter Procedures Case request operating room: LEFT DISTAL RADIUS OPEN REDUCTION AND INTERNAL FIXATION Keyon Pearce MD [address] [place] [phone] Phone: tel: fax: Referral ID Status Reason Start Date Expiration Date V isits Requested Visits Authorized [id number] Pending Review 11/20/2024 05/19/2025 1 1 Encounter Details Date Type Department Care Team (Late st Contact Info) Description 11/20/2024 Orders Only [facility] [address] [facility] [address] [place] [id number] Keyon Pearce MD [address] [facility] [address] [place] [phone] Other closed fracture of distal end of left radius, initial encounter (Primary Dx) Social History Tobacco Use Types Packs/Day Years Used Date Smoking Tobacco: Never Assessed Sex and Gender Information Value Date Recorded Sex Assigned at Not on file Legal Sex Male 3:19 PM EDT Gender Identity Not on file Sexual Orientation Not on file documented as of this encounter Plan of Treatment Scheduled Referrals Name Type Priority Associated Diagnoses Orde r Schedule [facility] Phone Screen Outpatient Referral Routine Other closed fracture of distal end of left radius, initial encounter Ordered: 11/20/2024 documented as of this encounter Visit Diagnoses Diagnosis Other closed fracture of distal end of left radius, initial encounter- Primary documented in this encounter Care Teams Animal Care Provider Relationship Specialty Start Date End Date Lamin Blank MD [address] [place] [id number] PCP - General Family Medicine 11/12/24 documented as of this encounter
--- OUTSIDE RECORDS SUMMARY | 2024-12-26 13:52 | XMS_ITS | Encounter Summary ---
Author Organization [facility] [place] [address] Care Team Providers Care Check Processor Name Role Phone Lamin Blank MD Primary Care Provider [phone] Encounter Details Date Type Department Care Team (Latest Contact Info) Description 12/24/2024 Travel Social History Tobacco Use Types Packs/Day Years [...] 12/24/2024 3:28 PM Janeth Ibarra RN * [place] Suicide Severity Rating Scale (Q shift for [...] documented as of this encounter Visit Diagnoses Not on filedocumented in this encounter Care Teams Check Processor Relationship Specialty Start Date End Date Lamin Blank MD PCP - General 12/08/09 documented as of this encounter
--- OUTSIDE RECORDS SUMMARY | 2024-12-26 13:52 | XMS_ITS | Clinical Summary ---
Author Organization [facility] Address [address] [place] [address] Phone Care Team Providers Care Cable Television Program Director Name Role Phone Jorge GARDUNO Mirna Christie Conditions or Problems Problem Name Problem Code Onset Date Status Entry Date Provider Comment Standard Description Annotate DDD 59336880 (SNOMED CT) 03/06 Active 03/06 Cesilia Miranda MA Degeneration of intervertebral disc LUMBAR RADICULOPATHY 583489680 (SNOMED CT) 03/06 Active 03/06 Cesilia Miranda MA Lumbar radiculopathy Medications Medication Instructions Start Date Stop Date Generic Name ND Provider METHOCARBAMOL 750 MG TABS Take 1 tablet by mouth three times a day 03/07 methocarbamol 11990834175 Cesilia Miranda MA BACLOFEN 5 MG TABS Take 1 tablet by mouth three times a day baclofen [id number] Mirna GARDUNO METHOCARBAMOL 750 MG TABS Take 1 tablet by mouth three times a day 03/07 methocarbamol [id number] Mirna GARDUNO CYCLOBENZAPRINE HCL 10 MG TABS cyclobenzaprine [id number] Joey Miranda MA FLUOXETINE HCL 20 MG CAPS fluoxetine 80684349205 Cesilia Miranda MA BUSPIRONE HCL 15 MG TABS buspirone 44834469450 Cesilia Miranda MA CARISOPRODOL 350 MG TABS TAKE 1 TABLET BY MOUTH TWICE DAILY NEEDED FOR MUSCLE PAIN carisoprodol 07660899649 Cesilia Miranda MA ZOLPIDEM TARTRATE 10 MG TABS zolpidem 20147049450 Cesilia Miranda MA METOPROLOL SUCCINATE ER 25 MG [id number] metoprolol succinate 12396408686 Cesilia Miranda MA ATORVASTATIN CALCIUM 80 MG TABS atorvastatin 01373813587 Cailin Miranda MA GABAPENTIN 600 MG TABS gabapentin 94085966461 Cesilia Miranda MA Medications Administered No information available. Allergies, Adverse Reactions, Alerts Allergy Name Reaction Description Start Date Severity Statu s Provider PENICILLIN Critical Cesilia aguirre MA Results No information available. Plan of Care Type Date Detail Referral Pain Management Referral Mikhail Jimenezroughs, [address] [place] [address], [phone] Pending order MRI Lumbar witho ut Contrast [...]
--- OUTSIDE RECORDS SUMMARY | 2024-12-26 13:52 | XMS_ITS | Clinical Summary ---
Author Organization [facility] Address [address] [place] [address] Phone Care Team Providers Care It Applications Developer Name Role Phone Lamin Blank MD Primary Care Provider [phone] Allergies Active Allergy Reactions Criticality Noted Date [...] Smoking greater than 20 pack years 08/26/2017 Encounters Date Type Department Care Team Description 12/24/2024 3:27 PM EST - 12/24/2024 5:59 PM EST Emergency [facility] Emergency [address] [place] [address] Karolina Castellon MD Atypical chest pain (Primary Dx) Discharge Disposition: Home or Self Care 12/24/2024 Travel from Last 3 Months Surgical History Surgery Date Site/Laterality Comments FRACTURE SURGERY 10/08/2014 Right ankle DENTAL SURGERY COLONOSCOPY UPPER GASTROINTESTINAL ENDOSCOPY HIP ARTHROSCOPY 04/28/2018 Right right hip arthroscopy labral debridement, pincer and cam resection; Surgeon: Keyon Bill MD; Location: [facility]; Service: Orthopedics ANKLE SURGERY Medical History [...] 1 34.3 Started: 08/25/1990 Smokeless Tobacco: Never Tobacco Cessation:Ready [...] Virtual Colonography 2021 COVID-19 Vaccine (3 - 2024-2 6 season) 2024 11/18/2021, 12/24/2020 Influenza Vaccine (#1) 2024 , 12/31/2022, 12/30/2021 DTaP/TDaP/Td (2 - Td or Tdap) [...] [employer] Medical Devices Implanted Type Area Health Promotion Specialist Device Identifier Shelf Expiration Date Model / Serial / Lot Ankle Hardware R3 3 Hole Acet Shell 54mm - [id number] Implanted:Qty : 1 on 09/26/2019 by Nilo Spear MD at [facility] Right: Hip [employer] [id number] 04/25/2029 [id number] / / [id number] R3 0 Deg +4 Xlpe Acet Lnr 36mm X 54mm - [id number] Implanted:Qty : 1 on 09/26/2019 by Nilo Spear MD at [facility] Right: Hip [employer] [id number] 03/17/2029 [id number] / / [id number] Polarstem Collar Std. Ti/Ken 2 - [id number] Implanted:Qty : 1 on 09/26/2019 by Nilo Spear MD at [facility] Right: Hip [employer] [id number] 04/04/2026 [id number] / / [id number] Oxinium Fem Hd 01/27 36 Mm +0 - [id number] Implanted:Qty : 1 on 09/26/2019 by iNlo Spear MD at [facility] Right: Hip [employer] [id number] 07/10/2029 [id number] / / [id number] Procedures Procedure Name Priority Date/Time Associated Diagnosis Comments SCANNED EKG 12/25/2024 9:[address] ANGIOGRAM PULMONARY W CONTRAST STAT 12/24/2024 4:58 PM EST CBC WITH DIFF STAT 12/24/2024 3:59 PM EST D-DIMER STAT 12/24/2024 3:59 PM EST TROPONIN-T HIGH SENSITIVITY BASELINE W/ REFLEX STAT 12/24/2024 3:59 PM EST BASIC METABOLIC PANEL STAT 12/24/2024 3:59 PM EST SALINE LOCK IV STAT 12/24/2024 3:57 PM EST EK EKG 12 LEAD STAT 12/24/2024 3:29 PM EST from Last 3 Months Results * SCANNED EKG (12/25/2024 9:13 AM [...] of the ordering clinician. Maty John PA-C IMG CT ORDERABLES Final Result * TROPONIN-T HIGH SENSITIVITY BASELINE W/ REFLEX (12/24/2024 3:59 PM EST) Pathologist [facility] tv-hZfeiemli-J 9 <22 ng/L 12/24/2024 4:18 PM EST [facility] Blood VENOUS BLOOD / Unknown Venipuncture / Unknown 12/24/2024 3:59 PM EST 12/24/2024 4:01 PM EST Narrative [facility] - 12/24/2024 4:18 PM EST Ingestion of lin doses of biotin (>5 mg/day) taken within 8 hours of drawing blood sample can interfere with this immunoassay test. Maty John PA-C CHEMISTRY ORDERABLES Final Res ult [facility] [address] [place] [address] * (ABNORMAL) D-DIMER (12/24/2024 3:59 PM EST) Pathologist [facility] D-Dimer 552(H) <=500 ng/mL FEU 12/24/2024 4:13 PM EST [facility] Comment:D dimer may be eleva cuauhtemoc [...] John PA-C HEMATOLOGY ORDERABLES Final Re sult [facility] [address] [place] [address] * CBC WITH DIFF (12/24/2024 3:59 PM EST) WBC 7.5 3.7 - 10.3 x10(3)/mcL 12/24/2024 4:04 PM EST [facility] RBC 4.96 4.60 - 6.10 x10(6)/mcL 12/24/2024 4:04 PM EST [facility] Hgb 16.3 13.7 - 17.5 g/dL 12/24/2024 4:04 PM EST [facility] Hct 47.1 40.0 - 51.0 % 12/24/2024 4:04 PM EST [facility] MCV 95.0 80.0 - 100.0 fL 12/24/2024 4:04 PM EST [facility] MCH 32.9 26.0 - 34.0 pg 12/24/2024 4:04 PM EST [facility] MCHC 34.6 30.7 - 35.5 g/dL 12/24/2024 4:04 PM EST [facility] RDW 13.4 <=14.9 % 12/24/2024 4:04 PM EST [facility] Platelet 297 155 - 369 x10(3)/mcL 12/24/2024 4:04 PM EST [facility] MPV 10.3 8.8 - 12.5 fL 12/24/2024 4:04 PM EST [facility] Neut Percent 55.8 % 12/24/2024 4:04 PM EST [facility] Comment:Neutrophils equals s egs plus bands Imm Gran% 0.1 % 12/24/2024 4:04 PM EST [facility] Comment:Automated count of m etamyelocytes, myelocytes and promyelocytes. Lymph Percent 34.6 % 12/24/2024 4:04 PM EST [facility] Stearns Percent 6.9 % 12/24/2024 4:04 PM EST [facility] Eos Percent 1.7 % 12/24/2024 4:04 PM EST [facility] Baso Percent 0.9 % 12/24/2024 4:04 PM EST [facility] Neut # 4.2 1.6 - 6.1 x10(3)/mcL 12/24/2024 4:04 PM EST [facility] Comment:Neutrophils equals s egs plus bands IMMGRAN# 0.0 0.0 - 0.1 x10(3)/mcL 12/24/2024 4:04 PM EST [facility] Comment:Automated count of m etamyelocytes, myelocytes and promyelocytes. An absolute IG <0.1 is reported as 0.0. Lymph # 2.6 1.2 - 3.9 x10(3)/mcL 12/24/2024 4:04 PM EST [facility] Stearns # 0.5 0.3 - 0.9 x10(3)/mcL 12/24/2024 4:04 PM EST [facility] Eos# 0.1 0.0 - 0.5 x10(3)/mcL 12/24/2024 4:04 PM EST [facility] Baso # 0.1 0.0 - 0.1 x10(3)/mcL 12/24/2024 4:04 PM EST [facility] Blood VENOUS BLOOD / Unknown Venipuncture / Unknown 12/24/2024 3:59 PM EST 12/24/2024 4:02 PM EST us Maty John PA-C HEMATOLOGY ORDERABLES Final Re sult [facility] [address] [facility] [place] [address] * (ABNORMAL) BASIC METABOLIC PANEL (12/24/2024 3:59 PM EST) Sodium 140 136 - 145 mmol/L 12/24/2024 4:18 PM EST [facility] Potassium 4.1 3.5 - 5.0 mmol/L 12/24/2024 4:18 PM EST [facility] Chloride 102 98 - 107 mmol/L 12/24/2024 4:18 PM EST [facility] Total CO2 26 22 - 29 mmol/L 12/24/2024 4:18 PM EST [facility] Anion Gap 12 7 - 16 mmol/L 12/24/2024 4:18 PM EST [facility] Calcium 9.5 8.6 - 10.4 mg/dL 12/24/2024 4:18 PM EST [facility] Glucose Lvl 120(H) 70 - 99 mg/dL 12/24/2024 4:18 PM EST [facility] BUN 12 6 - 20 mg/dL 12/24/2024 4:18 PM EST [facility] Creatinine 0.88 0.67 - 1.30 mg/dL 12/24/2024 4:18 PM EST [facility] eGFR (CKD-EPIcr 2020) 106 >=60 mL/min/1.7 3 m2 12/24/2024 4:18 PM EST [facility] Comment:Estimated GFR was ca lculated using the CKD-EPIcr (2020) equation refit without race. The equation is recommended by the National Kid[employer] - [place] [employer] Neph[employer] Task Force. Blood VENOUS BLOOD / Unknown Venipuncture / Unknown 12/24/2024 3:59 PM EST 12/24/2024 4:01 PM EST us Maty John PA-C CHEMISTRY ORDERABLES Final Res ult [facility] [address] [facility] [address] [place] [address] * EK EKG 12 LEAD (12/24/2024 3:29 PM EST) Anatomical Region Laterality Modality Electrocardiogra phy 12/24/2024 3:34 PM EST Impressions 12/25/2024 8:[address] 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1975 Requested By: [facility] Order Number: [id number] Reading MD: Jack Neumann MD Measurements Intervals [place] Rate: 70 P: 12 OR: 150 QRS: 80 QRSD: 81 T: 39 QT: 370 QTc: 399 Interpretive Statements SINUS RHYTHM Electronically Signed On 12-25-2024 08:04:15 EST by Jack Neumann MD Narrative Procedure Note Jack Neumann MD - 12/25/2024 [facility]: 2024-12-24 Pat Name: DEJUAN QUINTERO Department: DEPID Room: [facility] 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1975 Requested By: [facility] Order Number: [id number] Reading MD: Jack Neumann MD Measurements Intervals [place] Rate: 70 P: 12 OR: 150 QRS: 80 QRSD: 81 T: 39 QT: 370 QTc: 399 Interpretive Statements SINUS RHYTHM Electronically Signed On 12-25-2024 08:04:15 EST by Jack Neumann MD Karolina Castellon MD IMG ECG ORDERABLES Final Result from Last 3 Months Insurance * Guarantor: Dejuan Quintero Account Type Relation to Patient Date of Phone Billing Address Personal/Family Self 1975 [address] [place] [address] [employer] MED[employer]ARE PPO REPLACE MR Advance Directives For more information, please contact: [phone] * Full Code (Latest Code Status on File) Date Activated Date Inactivated Comments 08/25/2017 11:18 PM 08/29/2017 4:29 PM Care Teams It Applications Developer Relationship Specialty Start Date End Date Lamin Blank MD PCP - General 12/08/09
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
--- OUTSIDE RECORDS SUMMARY | 2024-12-26 13:54 | XMS_ITS | Encounter Summary ---
Author Organization [facility] Address [address] [place] [address] Care Team Providers Care Orthotic And Prosthetic Technician Name Role Phone Lamin Blank MD Primary Care Provider [phone] Source Comments This information has been disclosed [...] release of HIV test results or diagnoses. [id number] Health Encounter Details Date Type Department Care Team (Late st Contact Info) Description 12/04/2024 Telephone [facility] at [facility] [address] [address] Elaina [facility] [place] Social History Tobacco Use Types Packs/Day Years [...] on filedocumented in this encounter Care Teams Orthotic And Prosthetic Technician Relationship Specialty Start Date End Date Lamin Blank MD [address] [place] [address] PCP - General Family Medicine 11/12/24 documented as of this encounter
--- NOTE | 2024-12-26 14:03 | ECG_ITS ---
APPROVED REPORT Exam: Resting ECG HR:72 bpm ECG Measurements Heart Rate 72 AXES HI 142 P 31 QRSd 81 QRS 93 QT 369 T 46 QTc 393 Conclusion SINUS RHYTHM BORDERLINE RIGHT AXIS DEVIATION [QRS AXIS > 90] BORDERLINE ECG UNCONFIRMED REPORT Electronically signed by : Francisco J Gilmore, 12/26/2024 16:51:49
[2024-12-26] MEDS: MAGNESIUM SULFATE IN WATER 2 GM/50 ML PIGGYBACK IV (14:08)
[2024-12-26] MEDS: 0.9 % SODIUM CHLORIDE 1000ML 1,000 ML 999 ML IV (14:09)
[2024-12-26] MEDS: ASPIRIN 325MG TABLET 325 MG PO (14:09)
[2024-12-26] MEDS: DEXAMETHASONE 4MG/ML 1ML VIAL 8 MG IV (14:09)
[2024-12-26 14:10] LABS: Hematocrit 45.7 % (42.0-52.0); Hemoglobin 15.5 g/dL (14.1-18.0); Immature Granulocytes % 0.1 %; Mean Corpuscular HGB Conc 33.9 g/dL (31.8-35.4); Mean Corpuscular Hemoglobin 32.8 pg (27.0-31.2); Mean Corpuscular Volume 96.8 fl (80-94); Nucleated Red Blood Cells % 0 %; Platelet Count 328 K/mm3 (142-424); Red Blood Count 4.72 M/mm3 (4.60-6.20); Red Cell Distribution Width-SD 47.8 fL; White Blood Count 8.0 K/mm3 (4.8-10.8)
[2024-12-26 14:14] VITALS: BP 130/76; PULSE 76; RESP 14; O2SAT 95
[2024-12-26 14:24] LABS: Activated Partial Thrombo Time 24.3 seconds (22.8-30.6); INR 0.96 (0.9-1.1); Prothrombin Time 10.7 seconds (10.1-12.5)
[2024-12-26 14:27] LABS: Alanine Aminotransferase 97 U/L (12-78); Albumin Level 4.5 g/dl (3.5-5.0); Albumin/Globulin Ratio 1.5 (1.1-1.8); Alkaline Phosphatase 100 U/L (38-126); Anion Gap 10.0 mEq/L (5-15); Aspartate Amino Transferase 60 U/L (17-59); Bilirubin,Total 0.4 mg/dl (0.2-1.3); Blood Urea Nitrogen 13 mg/dl (9-20); Calcium 9.9 mg/dl (8.4-10.2); Carbon Dioxide 30 mmol/L (22.0-30.0); Chloride 100 mmol/L (98-107); Creatinine Clearance Estimated 145 mL/min (50-200); Creatinine,Serum 1.00 mg/dl (0.66-1.25); Estimated Glomerular Filt Rate 80 ml/min (>60); GFR (African American) 97 ML/MIN (>60); Globulin 3.0 g/dL (1.3-3.2); Glucose 142 mg/dl (74-100); Lipase 143 U/L (23-300); Magnesium 2.2 mg/dl (1.6-2.3); Potassium 4.0 mmoL/L (3.5-5.1); Sodium 136 mmol/L (136-145); Total Protein,Serum 7.5 g/dl (6.3-8.2)
[2024-12-26 14:30] VITALS: BP 136/79; PULSE 72; RESP 25; O2SAT 95
[2024-12-26 14:31] LABS: D-Dimer 0.76 ug/mL (0.0-0.5)
[2024-12-26 14:39] LABS: NT Pro Brain Natriuretic Pep. < 20.0 pg/mL (0-125)
[2024-12-26 15:00] VITALS: BP 125/78; PULSE 70; RESP 24; O2SAT 96
[2024-12-26 15:01] LABS: Troponin I < 0.01 ng/ml (0.00-0.034)
[2024-12-26 16:02] VITALS: BP 125/78; PULSE 70; RESP 24; TEMP 36.6; O2SAT 96
[2024-12-26 16:30] LABS: Hepatitis C Ab Qual. W/ RFX NEGATIVE (Negative)
== END 2024-12-26 16:03 | disposition home or self-care (01) ==
PROVIDERS: Nurse Practitioner; Emergency Provider Emergency Medicine; PCP Family Medicine
DX: R07.89 Other chest pain (principal); E78.5 Hyperlipidemia, unspecified
CPT/HCPCS: 71045; 80053; 83690; 83735; 83880; 84484; 85025; 85378; 85610; 85730; 86803; 87389; 87636; 93005; 96365; 96375; 99285; J1100; J3475; J7030

== ENCOUNTER 2025-01-07 14:20 | Outpatient (CLI) | payer MEDICARE, SELFPAY ==
--- OUTSIDE RECORDS SUMMARY | 2019-10-26 12:32 | XMS_ITS | Encounter Summary ---
Author Organization [place] [address] Care Team Providers Care Programmer Analyst Name Role Phone Lamin Blank MD Primary Care Provider [phone] Encounter Details Date Type Department Care Team (Late st Contact Info) Description 10/26/2019 1:32 PM EDT Hospital Encounter [facility] Referral Lab 1 [place] [address] Nilo Spear MD [address] [place] [address] Effusion, right knee Social History Tobacco Use Types Packs/Day Years Used Date Smoking Tobacco: Every Day Cigarettes 1 34.4 Started: 08/25/1990 Smokeless Tobacco: Never Comments:Patient states, I did smoke 2 PPD but now I am down to a few cigarettes a week, I am vaping now. Alcohol Use Standard Drinks/Week Comments No 0 (1 standard drink = 0.6 oz pur e alcohol) Sex and Gender Information Value Date Recorded Sex Assigned at Not on file Legal Sex Male 12:35 AM EDT Gender Identity Not on file Sexual Orientation Not on file COVID-19 Exposure Response Date Recorded In the last 10 days, have yo u been in contact with someone who was confirmed or suspected to have Coronavirus/COVID-19? No / Unsure 02/01/2022 11:26 AM EST documented as of this encounter Functional Status * Is the person deaf or does he/she have serious difficulty hearing? Answer Date of Assessment Author No 08/29/2017 11:23 AM Mary Muñoz RN * Is the person blind or does he/she have serious difficulty seeing even when wearing glasses? Answer Date of Assessment Author No 08/29/2017 11:23 AM Mary Muñoz RN * Does this person have serious difficulty walking or climbing stairs? Answer Date of Assessment Author No 08/29/2017 11:23 AM Mary Muñoz RN * Does this person have difficulty dressing or bathing? Answer Date of Assessment Author No 08/29/2017 11:23 AM Mary Muñoz RN * Because of a physical, mental or emotional condition, does this person have difficulty doing errands alone such as visiting a doctor's office or shopping? Answer Date of Assessment Author No 08/29/2017 11:23 AM Mary Muñoz RN documented as of this encounter Mental Status * Because of a physical, mental or emotional condition, does this person have serious difficulty concentrating, remembering or making decisions? Answer Entry Date Author No 08/29/2017 11:23 AM Mary Muñoz RN documented in this encounter Plan of Treatment Not on file documented as of this encounter Goals Goal Patient Goal Type Associated Problems Recent Progress Patient-Stated? Author Maintain a healthy diet, exercise regularly and maintain an ideal body weight General Shannan Gimenez CCMA Stay Tobacco Free Lifestyle Shannan Gimenez CCMA documented as of this encounter Results * (ABNORMAL) SEDIMENTATION RATE AUTOMATED (10/31/2019 1:21 PM EDT) [facility] Sed Rate 41(H) 0 - 15 mm/hr 10/31/2019 4:50 PM EDT [facility] [employer] Blood Venipuncture / Unknown 10/31/2019 1:21 PM EDT 10/31/2019 1:22 PM EDT us Nilo Spear MD HEMATOLOGY ORDERABLE S Final Result [employer] 1 [facility] , [place] [address] * (ABNORMAL) C-REACTIVE PROTEIN (10/31/2019 1:21 PM EDT) CRP 16.15(H) <=5.00 mg/L 10/31/2019 4:56 PM EDT [employer] Blood Venipuncture / Unknown 10/31/2019 1:21 PM EDT 10/31/2019 1:22 PM EDT us Nilo Spear MD CHEMISTRY ORDERABLES Final Result [facility] [employer] 1 [facility] , [place] [address] documented in this encounter Visit Diagnoses Diagnosis Effusion, right knee documented in this encounter Care Teams Programmer Analyst Relationship Specialty Start Date End Date Lamin Blank MD PCP - General 12/08/09 documented as of this encounter
--- OUTSIDE RECORDS SUMMARY | 2019-11-13 09:02 | XMS_ITS | Encounter Summary ---
Author Organization [place] [address] Care Team Providers Care Model Artists' Name Role Phone Lamin Blank MD Primary Care Provider [phone] Encounter Details Date Type Department Care Team (Late st Contact Info) Description 11/13/2019 10:02 AM EDT Hospital Encounter [facility] Referral Lab 1 [place] [address] Nilo Spear MD [address] [place] [address] Pain in right hip Social History Tobacco Use Types Packs/Day Years [...] documented in this encounter Plan of Treatment Scheduled Orders Name Type Priority Associated Diagnoses Orde r Schedule JOINT FLUID CELL COUNT Lab Routine Pain in right hip ONCE for 1 Occurrences starting 11/13/2019 until 12/18/2019 JOINT FLUID CRYSTALS Lab Routine Pain in right hip ONCE for 1 Occurrences starting 11/13/2019 until 12/18/2019 ANAEROBIC CULTURE (NO STAIN) Microbiology Routine Pain in right hip ONCE for 1 Occurrences starting 11/13/2019 until 12/18/2019 WOUND CULTURE (STAIN INCLUDED) Microbiology Routine Pain in right hip ONCE for 1 Occurrences starting 11/13/2019 until 12/18/2019 FUNGUS CULTURE (NO STAIN) Microbiology Routine Pain in right hip ONCE for 1 Occurrences starting 11/13/2019 until 12/18/2019 documented as of this encounter Goals Goal Patient Goal Type Associated Problems Recent Progress Patient-Stated? Author Maintain a healthy diet, exercise regularly and maintain an ideal body weight General No Shannan Lafleur CCMA Stay Tobacco Free Lifestyle Shannan Gimenez CCMA documented as of this encounter Visit Diagnoses Diagnosis Pain in right hip Pain in joint, pelvic region and thigh documented in this encounter Care Teams Model Artists' Relationship Specialty Start Date End Date Lamin Blank MD PCP - General 12/08/09 documented as of this encounter
--- OUTSIDE RECORDS SUMMARY | 2020-01-14 09:52 | XMS_ITS | Encounter Summary ---
Author Organization [place] [address] Care Team Providers Care Bearing Inspector Name Role Phone Lamin Blank MD Primary Care Provider [phone] Encounter Details Date Type Department Care Team (Latest Contact Info) Description 01/14/2020 9:52 AM EST Hospital Encounter [facility] Referral Lab 1 [place] [id number] Radha Landrum APRN Pain in right hip; [...] RATE AUTOMATED (02/18/2020 1:31 PM EST) Pathologist [facility] Sed Rate 36(H) 0 - 15 mm/hr 02/18/2020 9:53 PM EST [employer] Blood Venipuncture / Unknown 02/18/2020 1:31 PM EST 02/18/2020 1:31 PM EST Radha Landrum SOLUTION MAKER HEMATOLOGY ORDERABLES F inal Result [employer] [address] [facility] , [place] [address] * (ABNORMAL) C-REACTIVE PROTEIN (02/18/2020 1:31 PM EST) [facility] CRP 12.98(H) <=5.00 mg/L 02/18/2020 11:30 PM EST PREFERRED [employer] Blood Venipuncture / Unknown 02/18/2020 1:31 PM EST 02/18/2020 1:31 PM EST us Radha Landrum SOLUTION MAKER CHEMISTRY ORDERABLES Fi nal Result [employer] [address] [facility] , [place] [address] documented in this encounter Visit Diagnoses Diagnosis Pain in right hip Pain in joint, pelvic region and thigh Presence of right artificial hip joint Hip joint replacement by other means documented in this encounter Care Teams Bearing Inspector Relationship Specialty Start Date End Date Lamin Blank MD PCP - General 12/08/09 documented as of this encounter
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
--- OUTSIDE RECORDS SUMMARY | 2024-12-05 08:32 | XMS_ITS | Encounter Summary ---
Author Organization [facility] Address [address] [place] [address] Care Team Providers Care Electrician Telephone Name Role Phone Lamin Blank MD Primary Care Provider [phone] Source Comments This information has been disclosed [...] release of HIV test results or diagnoses. [id number] Health Reason for Visit * Auth/Cert (Routine) Specialty Diagnoses / Procedures Referred By Soraida t Referred To Contact Diagnoses Other fractures of lower end of left radius, initial encounter for closed fracture Other closed fracture of distal end of left radius, initial encounter [S52.592A] Procedures [place] OPTX DSTL RDL X-ARTIC FX/EPIPHYSL SEPARATION LEFT DISTAL RADIUS OPEN REDUCTION AND INTERNAL FIXATION [facility] [address] [place] [address] Phone: tel: Referral ID Status Reason Start Date Expiration Date Visits Re quested Visits Authorized [id number] 1 1 Encounter Details Date Type Department Care Team (Latest Contact Info) Description 12/05/2024 9:32 AM EDT - 12/05/2024 3:11 PM EDT Hospital Encounter [facility] [address] [place] [address] Keyon Pearce MD [address] [place] [address] [phone] Other closed fracture of distal end of [...] 2:25 PM EDT documented in this encounter Functional Status * Peripheral Vascular Question Answer Date of Assessment Author Compression boots No 12/05/2024 2:12 PM EDT Stella Galaviz RN Peripheral Vascular (WDL) X 12/05/2024 2:12 PM EDT Stella Galaviz RN documented as of this encounter Discharge Instructions * Discharge Instructions* Alton Jaime MD - 12/05/2024 2:14 PM EDT Images from the original note were not included. ORTHOPAEDICS AND SPORTS MEDICINE HAND SURGERY - Keyon Pearce MD POST-OPERATIVE DISCHARGE INSTRUCTIONS PRESCRIPTIONS: You have been given a prescription to be taken as directed for post-operative pain control. Take zdiu-jje-adrifrd Senna, 17.2 mg by mouth before sleep [...] visit or contact office for assistance at [phone]. Our fax number is [phone]. SCAR: Please DO NOT apply any lotions [...] stress relief exercise can be found at: [email or web address] (Note that it is .[employer] , not .com .) CONCERNS: If your discomfort or swelling increases, after initially getting better in the first few days, infection may be a concern. Normal time for infection is the fourth or fifth day. If you experience symptoms that you are concerned about, please contact our office at [phone]. You may need to be seen by Dr. Pearce or another provider. For after hour EMERGENCIES please call [phone] and ask for the Orthopaedic Physician relationship advisor. FOLLOW-UP APPOINTMENT: Your follow up appointment is [...] hr tablet 10/16/2024 naloxone (NARCAN) 4 mg/actuation [place] Apply 1 spray in one nostril if [...] sister awaitingthem at discharge hospitality. * Stella Gaalviz RN - 12/05/2024 11:29 AM EDT Site marking complete, waiting for updated H and P. * Stella Galaviz RN - 12/05/2024 10:50 AM EDT RN tasks complete, waiting for site marking. * Vanessa Yoon RN - 11/27/2024 2:25 PM EDT 11/20/24 0003 Pre-op Phone Call Surgery Time Verified Yes Arrival Time Verified (1100) Surgery Location Verified Yes ([facility]) Remind patient to bring picture ID and insurance card Yes Medical History Reviewed Yes NPO Status Reinforced Yes Ride and Caregiver Arranged Yes Ride Caregiver Provider bruna Brenner Phone Number for Ride/Caregiver [phone] Reviewed Pre-Op instructions with patient. No hx [...] in this encounter H&P Notes * Alton Jaime MD - 12/05/2024 12:00 PM EDT UPDATED BRIEF H&P Patient seen in pre-operative area No changes from prior H&P Patient denies any changes in medical status Site marked and consent obtained/verified Plans discussed and questions answered To OR when ready See previous EPIC notes for full details ALTON JAIME MD, MD Orthopedic Surgery Resident 12/05/2024 12:00 PM Cosigned by Keyon Pearce MD at 12/05/2024 2:59 PM EDT Associated attestation - Keyon Pearce MD - 12/05/2024 2:59 PM EDT I [...] fracture, 3 or more articular fragments (CPT 82112) SURGEONS: Keyon Pearce MD STAFF: Lab Assistant: Melonie Petersen RN Relief Lab Assistant: Tan You RN; Melonie Petersen RN Relief Scrub: Derian Fox Scrub Person: Adeel Ulloa Resident: Alton Jaime MD ANESTHESIA: Regional ESTIMATED BLOOD LOSS: 10 [...] A regional block was administered by the Division Plant Engineer. The patient was taken to the operating [...] Keyon Pearce MD, MS, FRCS(C) Hand Surgeon Cabin Furnishings Installer Department of Orthopaedic Surgery and Sports Medicine Please note that some or all of this record was generated using voice recognition software.If thereare any questions about the content of this document, please contact me as some errors in wood heel flap trimmer may have occurred. documented in this encounter [...] OF CARE MARK T ORDERABLES Final Result [facility] [address] [id number], [facility] * Fluoro up to 1 hour (12/05/2024 [...] - 100 mg/dL 12/05/2024 10:18 AM EDT [facility] Blood 12/05/2024 10:1 7 AM EDT 12/05/2024 10:17 AM EDT Keyon Pearce MD POINT OF CARE MARK T ORDERABLES Final Result [facility] [address] documented in this encounter Visit Diagnoses Diagnosis Other closed fracture of distal end of left radius, initial encounter documented in this encounter Administered Medications Inactive Administered Medications - up to 3 most recent administrations Medication Order MAR Action Action Date Dose Rate Site acetaminophen (TYLENOL) tablet 975 mg 975 mg, Oral, square dance caller to O.R., Give 1 hour pre-op, Starting [...] (NEURONTIN) capsule 600 mg 600 mg, Oral, square dance caller to O.R., give 1 hour pre-op, Starting [...] needed. Labeled tablet strength may vary by machine shop supervisor (may be expressed as grams of carbohydrates) [...] tablet 975 mg (COMPLETED) 975 mg, Oral, square dance caller to O.R., Give 1 hour pre-op, Starting [...] in sodium chloride 0.9 % 100 mL [id number] (COMPLETED) Intravenous, at 200 mL/hr, square dance caller to O.R., square dance caller to O.R., Starting on Tue12/05/24 at 0938, For 1 dose, Begin infusion 20-60 minutes prior to incision. For Patient Weight Greater 81-119 kg Use [id number] Adapter - Mix Thoroughly Before Administration, Pre-op, [...] capsule 600 mg (COMPLETED) 600 mg, Oral, square dance caller to O.R., give 1 hour pre-op, Starting [...] needed. Labeled tablet strength may vary by machine shop supervisor (may be expressed as grams of carbohydrates) [...] PACU documented in this encounter Care Teams Electrician Telephone Relationship Specialty Start Date End Date Lamin Blank MD [address] [place] [address] PCP - General Family Medicine 11/12/24 documented as of this encounter
--- OUTSIDE RECORDS SUMMARY | 2024-12-05 11:00 | XMS_ITS | Encounter Summary ---
Author Organization [facility] Address [address] [place] [address] Care Team Providers Care Superintendent Job Name Role Phone Lamin Blank MD Primary Care Provider [phone] Source Comments This information has been disclosed [...] release of HIV test results or diagnoses. [id number] Health Reason for Visit * Auth/Cert (Routine) Specialty Diagnoses / Procedures Referred By Soraida madera Referred To Contact Diagnoses Other fractures of lower end of left radius, initial encounter for closed fracture Other closed fracture of distal end of left radius, initial encounter [S52.592A] Procedures [place] OPTX DSTL RDL X-ARTIC FX/EPIPHYSL SEPARATION LEFT DISTAL RADIUS OPEN REDUCTION AND INTERNAL FIXATION [facility] [address] [place] [address] Phone: tel: Referral ID Status Reason Start Date Expiration Date Visits Re quested Visits Authorized [id number] 1 1 Encounter Details Date Type Department Care Team (Late st Contact Info) Description 12/05/2024 12:00 PM EDT - 12/05/2024 2:30 PM EDT Surgery [facility] [address] [place] [address] Keyon Pearce MD [address] [place] [phone] LEFT DISTAL RADIUS OPEN REDUCTION AND INTERNAL FIXATION Surgery Details Date/Time Status Location OR Service Patient Class Case Class Case Type Trauma Case? 12/05/2024 12:00 PM Posted [facility] ASC 29 Orthopedics Hosp OP Surg/Ambula [...] as directed for post-operative pain control. Take etrt-acw-repdxwr Senna, 17.2 mg by mouth before sleep [...] visit or contact office for assistance at [phone]. Our fax number is [phone]. SCAR: Please DO NOT apply any lotions [...] stress relief exercise can be found at: [email or web address] (Note that it is .[employer] , [employer] .com .) CONCERNS: If your discomfort or swelling increases, after initially getting better in the first few days, infection may be a concern. Normal time for infection is the fourth or fifth day. If you experience symptoms that you are concerned about, please contact our office at [phone]. You may need to be seen by Dr. Pearce or another provider. For after hour EMERGENCIES please call [phone] and ask for the Orthopaedic Physician carton forming machine adjuster. FOLLOW-UP APPOINTMENT: Your follow up appointment is [...] hr tablet 10/16/2024 naloxone (NARCAN) 4 mg/actuation [place] Apply 1 spray in one nostril if [...] Time Verified (1100) Surgery Location Verified Yes ([facility]) Remind patient to bring picture ID and insurance card Yes Medical History Reviewed Yes NPO Status Reinforced Yes Ride and Caregiver Arranged Yes Ride Caregiver Provider bruna Brenner Phone Number for Ride/Caregiver [phone] Reviewed Pre-Op instructions with patient. No hx [...] distal end of left radius, initial encounter [S52.525P] POST-OPERATIVE DIAGNOSIS: Same PROCEDURES: Open reduction and internal fixation of left intra-articular distal radius fracture, 3 or more articular fragments (CPT 57588) SURGEONS: Keyon Pearce MD STAFF: Fastener Sewing Machine Operator: Melonie Petersen RN Relief Fastener Sewing Machine Operator: Tan You RN; Melonie Petersen RN Relief [...] A regional block was administered by the Flavorings Compounder. The patient was taken to the operating [...] Keyon Pearce MD, MS, FRCS(C) Hand Surgeon Ship'S Engineer Department of Orthopaedic Surgery and Sports Medicine Please note that some or all of this record was generated using voice recognition software.If thereare any questions about the content of this document, please contact me as some errors in tool storage attendant may have occurred. documented in this encounter [...] HAND TABLE, ACUMED DISTAL RADIUS--NOTIFIED BRAXTON W/ACUMED 11/27--SPD; ACUMED IMPLANT SET WILL BE BROUGHT IN [...] OF CARE MARK T ORDERABLES Final Result [facility] [address] [place] [address], [facility] * Fluoro up to 1 hour [...] - 100 mg/dL 12/05/2024 10:18 AM EDT [facility] Blood 12/05/2024 10:1 7 AM EDT 12/05/2024 10:17 AM EDT Keyon Pearce MD POINT OF CARE MARK T ORDERABLES Final Result [facility] [address] [place] [address], [facility] documented in this encounter Visit Diagnoses Diagnosis Other closed fracture of distal end of left radius, initial encounter Other closed fracture of distal end of left radius, initial encounter documented in this encounter Administered Medications Inactive Administered Medications - up to 3 most recent administrations Medication Order MAR Action Action Date Dose Rate Site acetaminophen (TYLENOL) tablet 975 mg 975 mg, Oral, airborne operations superintendent to O.R., Give 1 hour pre-op, Starting [...] (NEURONTIN) capsule 600 mg 600 mg, Oral, airborne operations superintendent to O.R., give 1 hour pre-op, Starting [...] needed. Labeled tablet strength may vary by thermoforming operator (may be expressed as grams of carbohydrates) [...] to gravity)1207 (Restarted - Provider: Ca Montelongo, CHRISTINA)1405 (Stopped - Provider: Ca Montelongo RN) PRN Medication Order 12/03/2024 12/04/2024 12/05/2024 acetaminophen (TYLENOL) tablet 975 mg (COMPLETED) 975 mg, Oral, airborne operations superintendent to O.R., Give 1 hour pre-op, Starting [...] Pre-op 1048 (Given - Provid er: Stella Hodapp, RN) ceFAZolin (ANCEF) 2 g in sodium chloride 0.9 % 100 mL [id number] (COMPLETED) Intravenous, at 200 mL/hr, airborne operations superintendent to O.R., airborne operations superintendent to O.R., Starting on Tue12/05/24 at 0938, For 1 dose, Begin infusion 20-60 minutes prior to incision. For Patient Weight Greater 81-119 kg Use Rxbx0Sfv Adapter - Mix Thoroughly Before Administration, Pre-op, [...] capsule 600 mg (COMPLETED) 600 mg, Oral, airborne operations superintendent to O.R., give 1 hour pre-op, Starting [...] needed. Labeled tablet strength may vary by thermoforming operator (may be expressed as grams of carbohydrates) [...] PACU documented in this encounter Care Teams Superintendent Job Relationship Specialty Start Date End Date Lamin Blank MD [address] [place] [address] PCP - General Family Medicine 11/12/24 documented as of this encounter
--- OUTSIDE RECORDS SUMMARY | 2024-12-05 11:07 | XMS_ITS | Encounter Summary ---
Author Organization [facility] Address [address] [place] [address] Care Team Providers Care Manager Intermediate Name Role Phone Lamin Blank MD Primary Care Provider [phone] Source Comments This information has been disclosed [...] release of HIV test results or diagnoses. [id number] Health Reason for Visit * Auth/Cert (Routine) Specialty Diagnoses / Procedures Referred By Soraida t Referred To Contact Diagnoses Other fractures of lower end of left radius, initial encounter for closed fracture Other closed fracture of distal end of left radius, initial encounter [S52.592A] Procedures [place] OPTX DSTL RDL X-ARTIC FX/EPIPHYSL SEPARATION LEFT DISTAL RADIUS OPEN REDUCTION AND INTERNAL FIXATION [facility] [address] [place] [address] Phone: tel: Referral ID Status Reason Start Date Expiration Date Visits Re quested Visits Authorized [id number] 1 1 Encounter Details Date Type Department Care Team (Late st Contact Info) Description 12/05/2024 12:07 PM EDT Anesthesia Event [facility] [address] [place] [phone] Kris Willard MD [address] [place] [address] [place] [phone] (work) Anesthesia Record Procedure Summary Procedure Name Responsible Anesthesiologist Anesthesia Start Time Anesthesia Stop Time LEFT DISTAL RADIUS OPEN REDUCTION AND INTERNAL FIXATION (Left) Kris Willard MD 12/05/24 1207 12/05/24 1412 Events Date Time Event Comment 12/05/2024 1207 An Start 1207 An Start Data 1209 An Induction 1218 Time Out 1222 An Tourn Inflated 1344 An Tourn Deflated 1355 An Emergence 1404 Remove Airway Device 1404 an stop data 1412 An Stop Meds Name Total lidocaine (XYLOCAINE) 20 mg/mL (2%) inje ction 100 mg propofol (DIPRIVAN) 10 mg/ml infusion - 20ML VIAL SIZE 861.78 mg bupivacaine (PF)(SENSORCAINE/MARCAINE) 0 .5% injection 30 mL midazolam (VERSED) injection 1 mg/ml 2 m g ceFAZolin (ANCEF) 2 g in sodium chloride 0.9 % 100 mL [id number] 2 g phenylephrine (ANETA-SYNEPHRINE) injection 10 mg/ml 50 mcg lactated Ringers IV infusion 750 mL * Agents Name N2O Auxiliary O2 O2 N2O Air * Blood No blood administrations on file. Lines, Drains, and Airways Type Details Placement Removal Incision 12/05/24; 1402; Arm; Left; DSD, PLASTER SPLINT, MANUEL WRAP, SLING 12/05/24 1402 by Melonie Petersen RN Anesthesia Airway Device 12/05/24; 1017; Nasal Cannula [place]; 12/05/24; 1404 12/05/24 1017 by Ca Montelongo RN 12/05/24 1404 by Ca Montelongo RN Peripheral IV 12/05/24; 1020; 20 G ; Left, Posterior; Hand; None; Standard; Tolerated well 12/05/24 1020 by Marilee Calvo RN 12/05/24 1445 by Stella Galaviz RN documented in this encounter Social History Tobacco Use Types Packs/Day Years Used Date Smoking Tobacco: Every Day Cigarettes Smokeless Tobacco: Never Alcohol Use Standard Drinks/Week Comments Not Currently 0 (1 standard drink = 0.6 oz pur e alcohol) Sex and Gender Information Value Date Recorded Sex Assigned at Not on file Legal Sex Male 3:19 PM EDT Gender Identity Not on file Sexual Orientation Not on file documented as of this encounter Functional Status * Peripheral Vascular Question Answer Date of Assessment Author Compression boots No 12/05/2024 2:12 PM EDT Stella Galaviz RN Peripheral Vascular (WDL) X 12/05/2024 2:12 PM EDT Stella Galaviz, CHRISTINA documented as of this encounter Progress Notes * Kris Willard MD - 12/05/2024 3:20 PM EDT Anesthesia Post Note Patient: Dejuan Ram Procedure(s) Performed: Procedure(s): LEFT DISTAL RADIUS OPEN REDUCTION AND INTERNAL FIXATION Anesthesia type: regional Patient location: Same Day Surgery Airway: Patent Post pain: Adequate analgesia Nausea / Vomiting: Absent Post-operative Hydration Status: Adequate Post assessment: no apparent anesthetic complications Last Vitals: Vitals: 12/05/24 1412 12/05/24 1416 12/05/24 1420 12/05/24 1435 BP: (!) 131/95 (!) 128/93 (!) 139/99 124/86 BP Location: Right upper arm Right upper arm Right upper arm Right upper arm Patient Position: Sitting Sitting Sitting Sitting BP Cuff Size: Regular Regular Regular Regular Pulse: 66 61 62 69 Resp: 11 16 18 30 Temp: 96.6 ??F (35.9 ??C) 96.6 ??F (35.9 ??C) TempSrc: Axillary Axillary SpO2: 100% 98% 98% 98% Weight: Height: Last Temperature: 96.6 ??F (35.9 ??C) (12/05/2024 2:35 PM) Post vital signs: stable Level of consciousness: awake and alert Complications: There were no known notable events for this encounter. documented in this encounter H&P Notes * Ambrosio Torres MD - 12/05/2024 9:54 AM EDT [facility] DEPARTMENT OF ANESTHESIOLOGY PRE-PROCEDURAL EVALUATION Dejuan Ram is a 49 y.o. year old male presenting for: Procedure(s): LEFT DISTAL RADIUS OPEN REDUCTION AND INTERNAL FIXATION Surgeon: Keyon Pearce MD Chief Complaint Other closed fracture of distal end of left radius, initial encounter [S52* Review of Systems Anesthesia Evaluation Patient summary reviewed. All other systems reviewed and are negative. No history of anesthetic complications I have reviewed the History and Physical Exam, any relevant changes are noted in the anesthesia pre-operative evaluation. Cardiovascular: Hypertension is. (-) past NE, CAD, CABG/stent, angina, CHF. Neuro/Muscoloskeletal/Psych: (+) anxiety. (-) seizures, neuromuscular disease, TIA. Pulmonary: (+) asthma. (-) no pneumonia, COPD, shortness of breath. GI/Hepatic/Renal: (-) no hiatal hernia, GERD, liver disease, renal disease. Endo/Other: (-) diabetes mellitus, no anemia, no DVT, no clotting disorder. Past Medical History Past Medical History: Diagnosis Date Hypertension Past Surgical History Past Surgical History: Procedure Laterality Date ANKLE SURGERY CHOLECYSTECTOMY JOINT REPLACEMENT HIP Family History History reviewed. No pertinent family history. Social History Social History Socioeconomic History Marital status: Spouse name: Not on file Number of children: Not on file Years of education: Not on file Highest education level: Not on file Occupational History Not on file Tobacco Use Smoking status: Every Day Types: Cigarettes Smokeless tobacco: Never Vaping Use Vaping status: Never Used Substance and Sexual Activity Alcohol use: Not Currently Drug use: Never Sexual activity: Not on file Other Topics Concern Not on file Social Drivers of Health Financial Resource Strain: Not on file Food Insecurity: Not on file Transportation Needs: Not on file Physical Activity: Not on file Stress: Not on file Social Connections: Not on file Intimate Partner Violence: Not on file Medications Allergies: Allergies[1] Home Meds: Home Medications Medication Sig Taking? Last Dose amitriptyline (ELAVIL) 25 MG tablet Yes 11/26/2024 aspirin 81 MG EC tablet Take 1 tablet (81 mg total) by mouth daily. Yes 11/27/2024 atorvastatin (LIPITOR) 80 MG tablet Yes 11/27/2024 baclofen (LIORESAL) 10 MG tablet Take 1 tablet (10 mg total) by mouth 3 times a day. Yes 11/26/2024 busPIRone (BUSPAR) 10 MG tablet Take by mouth. Yes Past Month cloNIDine HCL (CATAPRES) 0.2 MG tablet Yes 11/26/2024 FLUoxetine (PROZAC) 20 MG capsule Take 1 capsule (20 mg total) by mouth daily. Yes 11/27/2024 gabapentin (NEURONTIN) 600 MG tablet 3 times a day. Yes 11/27/2024 metoprolol succinate (TOPROL-XL) 25 MG 24 hr tablet Yes 11/27/2024 oxyCODONE-acetaminophen (PERCOCET) 10-325 mg per tablet TAKE ONE (1) TABLET BY MOUTH EVERY EIGHT (8) HOURS NEEDED FOR PAIN FROM TRAUMATIC INJURY Yes 11/27/2024 zolpidem (AMBIEN) 10 mg tablet Yes 11/26/2024 albuterol 90 mcg/actuation Inhl inhaler More than a month naloxone (NARCAN) 4 mg/actuation [place] Apply 1 spray in one nostril if needed. Call 911. May repeat dose in other nostril if no response in 3 minutes. Inpatient Meds: Scheduled: famotidine (PF) 20 mg Intravenous Once ondansetron 4 mg Intravenous Once Continuous: lactated Ringers PRN: acetaminophen, ceFAZolin (ANCEF) IVPB, dextrose 10% in water OR dextrose 10% in water, gabapentin, glucose Vital Signs Wt Readings from Last 3 Encounters: 11/27/24 (!) 239 lb (108.4 kg) Ht Readings from Last 3 Encounters: 11/27/24 6' 1 (1.854 m) Temp Readings from Last 3 Encounters: 11/12/24 98.7 ??F (37.1 ??C) (Oral) BP Readings from Last 3 Encounters: 11/12/24 (!) 140/91 Pulse Readings from Last 3 Encounters: 11/12/24 67 SpO2 Readings from Last 3 Encounters: 11/12/24 99% Physical Exam Airway: Mallampati: III Mouth Opening: >2 FB TM distance: > = 3 FB Dental: (+) edentulous Pulmonary: - normal exam Breathing: unlabored Cardiovascular: - normal exam Rhythm: regular Rate: normal Neuro/Musculoskeletal/Psych: - normal neurological exam. Mental status: alert and oriented to person, place and time. Abdominal: Obese. Current OB Status: Other Findings: Laboratory Data Lab Results Component Value Date WBC 8.8 11/12/2024 HGB 15.8 11/12/2024 HCT 45.3 11/12/2024 MCV 96.1 11/12/2024 PLT 246 11/12/2024 No results found for: ABORH Lab Results Component Value Date GLUCOSE 122 (H) 11/12/2024 BUN 11 11/12/2024 CO2 26 11/12/2024 CREATININE 0.82 11/12/2024 K 4.5 11/12/2024 NA 136 11/12/2024 CL 103 11/12/2024 CALCIUM 8.5 (L) 11/12/2024 ALBUMIN 4.4 11/12/2024 PROT 6.8 11/12/2024 ALKPHOS 70 11/12/2024 ALT 58 (H) 11/12/2024 AST 46 (H) 11/12/2024 BILITOT 0.3 11/12/2024 No results found for: PTT , INR No results found for: PREGTESTUR , PREGSERUM , HCG , HCGQUANT Anesthesia Plan ASA 2 Anesthesia Type: regional. Induction: Intravenous induction. Anesthetic plan and risks discussed with patient. Plan, alternatives, and risks of anesthesia, including , have been explained to and discussed with the patient/legal guardian. By my assessment, the patient/legal guardian understands and agrees. Scenario presented in detail. Questions answered. Plan discussed with attending, PUBLICITY WRITER and resident. [1] Allergies Allergen Reactions Penicillins Hives documented in this encounter Procedure Notes * Ambrosio Torres MD - 12/05/2024 10:00 AM EDTAssociated Order(s): Block/Epidural Regional Block Block Type -Upper Extremity: brachial plexus, supraclavicular Laterality: left Medications Administered: Pre Sedation / Block Medications bupivacaine (PF)(SENSORCAINE/MARCAINE) 0.5% injection - PERINEURAL 30 mL - 12/05/2024 10:30:00 AM midazolam (VERSED) injection 1 mg/ml - Intravenous 2 mg - 12/05/2024 10:30:00 AM Medication administered at: 12/05/2024 10:30 AM Preanesthetic Checklist Completed: patient identified, IV checked, risks and benefits discussed, pre-op evaluation, timeoutperformed, anesthesia consent, hand hygiene performed, patient being monitored, patient agrees, verbalizes understanding, and wants to proceed and questions answered / anesthesia plan accepted Block Reason: primary anesthetic Diagnosis: pain management Patient Location during procedure: pre-op holding (SDS) Block Timing: preoperatively Timeout verification: correct patient, correct procedure, correct site, allergies reviewed and anticoagulant precautions reviewed PROCEDURE: Block Start Time: 12/05/2024 10:30 AM Patient Position: sitting Prep: Chloraprep Needle: Block needle 21 G 4 in Injection Technique: single shot Continuous ultrasound guidance was utilized for the procedure. Tissue planes, vascular and nerve structures were identified. Relevant anatomy for the intention of the block was noted. Ultrasound image was interpreted, captured, and stored. Complications: blood not aspirated, no injection resistance, no paresthesia and no other event See EMR for periprocedural vitals signs. Stable thoroughout unless otherwise documented Block End Time: 12/05/2024 10:42 AM Staffing: Anesthesiologist: Kris Willard MD Resident/Fellow: Ambrosio Torres MD Performed by: Resident/Fellow Cosigned by Kris Willard MD at 12/05/2024 11:35 AM EDT Associated attestation - Kris Willard MD - 12/05/2024 11:35 AM EDT I saw and discussed the risks and benefits of the procedure with the patient. I was present for theentire procedure. I reviewed the procedure note as entered by the resident and confirm that the note accurately reflects the procedure performed. Kris Willard M.D. Department of Anesthesiology & Pain Medicine [facility] documented in this encounter Plan of Treatment Not on file documented as of this encounter Procedures Procedure Name Priority Date/Time Associated Diagnosis Comments IL ANESTHESIA ULTRASOUND Routine 12/05/2024 10:30 AM EDT IL ANESTHESIA BLOCK PROCEDURE Routine 12/05/2024 10:30 AM EDT documented in this encounter Results * IL ANESTHESIA BLOCK PROCEDURE, IL ANESTHESIA ULTRASOUND (12/05/2024 10:30 AM EDT) Narrative Kris Willard MD - 12/05/2024 10:30 AM EDT Kris Willard MD 12/05/2024 11:35 AM Regional Block Block Type -Upper Extremity: brachial plexus, supraclavicular Laterality: left Medications Administered: Pre Sedation / Block Medications bupivacaine (PF)(SENSORCAINE/MARCAINE) 0.5% injection - PERINEURAL 30 mL - 12/05/2024 10:30:00 AM midazolam (VERSED) injection 1 mg/ml - Intravenous 2 mg - 12/05/2024 10:30:00 AM Medication administered at: 12/05/2024 10:30 AM Preanesthetic Checklist Completed: patient identified, IV checked, risks and benefits discussed, pre-op evaluation, timeout performed, anesthesia consent, hand hygiene performed, patient being monitored, patient agrees, verbalizes understanding, and wants to proceed and questions answered / anesthesia plan accepted Block Reason: primary anesthetic Diagnosis: pain management Patient Location during procedure: pre-op holding (SDS) Block Timing: preoperatively Timeout verification: correct patient, correct procedure, correct site, allergies reviewed and anticoagulant precautions reviewed PROCEDURE: Block Start Time: 12/05/2024 10:30 AM Patient Position: sitting Prep: Chloraprep Needle: Block needle 21 G 4 in Injection Technique: single shot Continuous ultrasound guidance was utilized for the procedure. Tissue planes, vascular and nerve structures were identified. Relevant anatomy for the intention of the block was noted. Ultrasound image was interpreted, captured, and stored. Complications: blood not aspirated, no injection resistance, no paresthesia and no other event See EMR for periprocedural vitals signs. Stable thoroughout unless otherwise documented Block End Time: 12/05/2024 10:42 AM Staffing: Anesthesiologist: Kris Willard MD Resident/Fellow: Ambrosio Torres MD Performed by: Resident/Fellow us Kris Willard MD PROCEDURE/MINOR SURGICAL ORDERAB LES Final Result documented in this encounter Visit Diagnoses * Transfer of Care - Ca Montelongo RN - 12/05/2024 2:12 PM EDT Anesthesia Transfer of Care Note Patient: Dejuan Ram Procedure(s) Performed: Procedure(s): LEFT DISTAL RADIUS OPEN REDUCTION AND INTERNAL FIXATION Patient location: Same Day Surgery Anesthesia type: regional Airway Device on Arrival to PACU/ICU: Nasal Cannula IV Access: Peripheral Monitors Recommended to be Used During PACU/ICU: Standard Monitors Outstanding Issues to Address: None Level of Consciousness: awake and alert Post vital signs: Vitals: 12/05/24 1410 BP: 131/95 Pulse: 68 Resp: 21 Temp: SpO2: 100% Complications: No notable events documented. Date 12/04/24699 - 12/05/24658(Not Admitted) 12/05/24 07 - 12/06/24 0659 Shift 0136-7889 5199-9266 1118-8785 24 Hour Total 4832-0661 3623-4207 2777-8957 24 Hour Total INTAKE I.V.(mL/kg) 750(6.9) 750(6.9) Volume (mL) (lactated Ringers IV infusion) 750 750 IV Piggyback 100 100 Volume (mL) (ceFAZolin (ANCEF) 2 g in sodium chloride 0.9 % 100 mL [id number]) 100 100 Shift Total(mL/kg) 850(7.8) 850(7.8) OUTPUT Shift Total(mL/kg) Weight (kg) 108.4 108.4 108.4 108.4 108.4 108.4 108.4 108.4 documented in this encounter Administered Medications Inactive Administered Medications - up to 3 most recent administrations Medication Order MAR Action Action Date Dose Rate Site bupivacaine (PF)(SENSORCAINE/MARCAINE) 0.5% injection PERINEURAL, Once as needed, Starting on Tue12/05/24 at 1030, For 1 dose, Anesthesia Intra-op Given 12/05/2024 10:30 AM EDT 30 mLs ceFAZolin (ANCEF) 2 g in sodium chloride 0.9 % 100 mL [id number] Intravenous, at 200 mL/hr, ornamental ironworker helper to O.R., ornamental ironworker helper to O.R., Starting on Tue12/05/24 at 0938, For 1 dose, Begin infusion 20-60 minutes prior to incision. For Patient Weight Greater 81-119 kg Use [id number] Adapter - Mix Thoroughly Before Administration, Pre-op, Indication? Prophylaxis-Surgical, Site of diagnosed infections (select all that apply): Skin/Soft TissueIndications:Other closed fracture of distal end of left radius, initial encounter New Bag 12/05/2024 12:09 PM EDT 2 g lactated Ringers IV infusion 20 mL/hr, Intravenous, Continuous, Starting on Tue12/05/24 at 1000, Pre-opIndications:Other closed fracture of distal end of left radius, initial encounter Restarted 12/05/2024 12:07 PM EDT New Bag 12/05/2024 10:24 AM EDT 20 mL/hr 20 mL/hr New Bag 12/05/2024 10:21 AM EDT 20 mL/hr 20 mL/hr lidocaine (PF) 20 mg/mL (2 %) Soln Intravenous, PRN - One Step Medication Only, Starting on Tue12/05/24 at 1209, Anesthesia Intra-op Given 12/05/2024 12:09 PM EDT 100 mg midazolam (PF) (VERSED) injection Intravenous, Once as needed, Starting on Tue12/05/24 at 1030, For 1 dose, Anesthesia Intra-op Given 12/05/2024 10:30 AM EDT 2 mg phenylephrine (ANETA-SYNEPHRINE) injection Intravenous, PRN - One Step Medication Only, Starting on Tue12/05/24 at 1245, Anesthesia Intra-op Given 12/05/2024 12:45 PM EDT 50 mcg propofol 10 mg/ml, 20mL vial (DIPRIVAN) INFUSION Intravenous, Continuous - One Step Medications Only, Starting on Tue12/05/24 at 1209, Anesthesia Intra-op Rate/Dose Change 12/05/2024 1:50 PM EDT 20 mcg/kg/min 13.008 mL/hr Rate/Dose Change 12/05/2024 1:42 PM EDT 60 mcg/kg/min 39.0 24 mL/hr Rate/Dose Change 12/05/2024 1:24 PM EDT 65 mcg/kg/min 42.2 76 mL/hr documented in this encounter Care Teams Manager Intermediate Relationship Specialty Start Date End Date Lamin Blank MD [address] [place] [address] PCP - General Family Medicine 11/12/24 documented as of this encounter
--- OUTSIDE RECORDS SUMMARY | 2024-12-17 12:47 | XMS_ITS | Encounter Summary ---
Author Organization [facility] Address [address] [place] [id number] Care Team Providers Care Supervisor Chemical Name Role Phone Lamin Blank MD Primary Care Provider [phone] Source Comments This information has been disclosed [...] release of HIV test results or diagnoses. [id number] Reason for Visit * Auth/Cert (Routine) Specialty Diagnoses / Procedures Referred By Soraida madera Referred To Contact Orthopedic Surgery [facility] Sports Medicine at [facility] [address] [address] Phone: tel: fax: Referral ID Status Reason Start Date Expiration Date Visits Re quested Visits Authorized [id number] 1 1 Encounter Details Date Type Department Care Team (Latest Contact Info) Description 12/17/2024 12:47 PM EST - 12/17/2024 11:59 PM EST Hospital Encounter [facility] Radiology at [facility] [address] [place] [address] Keyon Pearce MD [address] [facility] [address] [place] [address] Other closed intra-articular fracture of [...] hr tablet 10/16/2024 naloxone (NARCAN) 4 mg/actuation [place] Apply 1 spray in one nostril if [...] encounter documented in this encounter Care Teams Supervisor Chemical Relationship Specialty Start Date End Date Lamin Blank MD [address] [place] [address] [address] PCP - General Family Medicine 11/12/24 documented as of this encounter
--- OUTSIDE RECORDS SUMMARY | 2024-12-17 13:30 | XMS_ITS | Encounter Summary ---
Author Organization [facility] Address [address] [place] [address] Care Team Providers Care Blown Film Extrusion Operator Name Role Phone Lamin Blank MD Primary Care Provider [phone] Source Comments This information has been disclosed [...] release of HIV test results or diagnoses. [id number] Reason for Visit * Reason Comments Post-op Evaluation LEFT DISTAL RADIUS O RIF * Auth/Cert (Routine) Specialty Diagnoses / Procedures Referred By Soraida madera Referred To Contact Orthopedic Surgery [facility] Sports [facility] [address] [address] Phone: tel: fax: Referral ID Status Reason Start Date Expiration Date Visits Re quested Visits Authorized [id number] 1 1 Encounter Details Date Type Department Care Team (Late st Contact Info) Description 12/17/2024 1:30 PM EST Office Visit [facility] Sports Medicine [facility] [address] [address] Keyon Pearce MD [address] [address] Other closed intra-articular fracture of distal end of left radius with routine healing, subsequent encounter (Primary Dx) Social History Tobacco Use Types Packs/Day Years Used Date Smoking Tobacco: Every Day Cigarettes 1 30 Smokeless Tobacco: Never Tobacco Cessation:Ready to Q uit: Yes; Counseling Given: Not Answered Alcohol Use Standard Drinks/Week Comments Never 0 [...] - Inhaled Oxygen Concentration - - Weight 108.4 kg (239 lb) 12/17/2024 12:48 PM EST Height 185.4 cm (6' 1 ) 12/17/2024 12:48 PM EST Body Mass Index 31.53 12/17/2024 12:48 PM EST documented in this encounter Progress Notes * Keyon Pearce MD - 12/17/2024 1:30 PM EST Images from the original note were not included. Orthopaedics and Sports Medicine Hand and Upper Extremity Surgery Keyon Pearce MD, MS, FRCS(C) Dejuan Ram 12/17/2024 The patient is seen at the request of Referral, Self. CHIEF COMPLAINT Dejuan Ram is a 49 y.o. male seen in follow-up regarding a left distal radius open reduction internal fixation that he underwent on 12/05/24 Chief Complaint Patient presents with Post-op Evaluation LEFT DISTAL RADIUS ORIF History of Present Illness History of Present Illness Dejuan Ram experiences severe shooting pain and swelling in his right hand. Elevating the handprovides some relief, but he is not able to do this all of the time. The pain is more intense than previous surgeries, including right ankle reconstruction and right hip replacement. He uses a warm compress for temporary relief, but the pain returns shortly after. He is currently taking prescribed pain medication post-surgery, along with Tylenol and Advil. He isconcerned about the effects of ibuprofen on his kidneys. He reports difficulty sleeping due to the pain. Home Medications Current Outpatient Medications Medication Sig albuterol amitriptyline aspirin Take 1 tablet (81 mg total) by mouth daily. atorvastatin baclofen Take 1 tablet (10 mg total) by mouth 3 times a day. busPIRone Take by mouth. cloNIDine HCL FLUoxetine Take 1 capsule (20 mg total) by mouth daily. gabapentin 3 times a day. metoprolol succinate naloxone Apply 1 spray in one nostril if needed. Call 911. May repeat dose in other nostril if no response in 3 minutes. oxyCODONE-acetaminophen TAKE ONE (1) TABLET BY MOUTH EVERY EIGHT (8) HOURS NEEDED FOR PAIN FROM TRAUMATIC INJURY zolpidem No current facility-administered medications for this visit. Physical Exam Vital Signs: Ht 6' 1 (1.854 m) Wt (!) 239 lb (108.4 kg) BMI 31.53 kg/m?? BMI: Body mass index is 31.53 kg/m??. General appearance: healthy, alert, no distress, appropriate [...] affect normal and appropriate Upper Extremity Exam On examination of the left upper extremity, the surgical incision is well healed. There is a considerable amount of swelling around the wrist, hand, and fingers. He has a lot of discomfort and hyperalgesia to palpation, even light touch around the wrist. He is reluctant to do any range of motion, but he is able to flex his fingers about 25-50% and can extend them fully. The thumb is also quite stiff. He tolerates minimal range of motion of the wrist today. Other Findings: Skin: Normal appearance and texture, [...] Imaging X-rays of the left wrist dated today were reviewed independently and discussed with the patient. The films revealed: Maintain postoperative alignment without any sign of early complication Assessment Dejuan Ram is a 49 y.o. male with a left distal radius fracture that is well aligned 2 weeks after ORIF. He is having quite severe pain, which is somewhat more severe than expected. Plan Diagnosis, prognosis, and treatment options for this acute, complicated injury were reviewed along with their risks and benefits. The fracture is healing properly with good alignment as shown on X-rays. He experiences more pain than usual, but the healing process appears to have been normal so far.I provided reassurance and explained that typically pain will improve considerably over the next few weeks. I also discussed the importance of doing izfhl-yr-kkondf exercises, particularly for the fingers, to prevent stiffness. Full motion may take up to a year to regain, with substantial improvement in the first three months. Continue wearing the brace for four weeks, especially when out of the h ouse. Avoid lifting, pushing, or pulling for four weeks. Encourage finger movement to regain motionand prevent stiffness. Reassess in four weeks. I have provided a refill of oxycodone today, but explained that this would be the last refill of narcotic medication. He can continue taking Tylenol andAdvil as needed. All questions were answered in the office today. Keyon Pearce MD, MS, FR(C) Hand Surgeon Junior Programmer Department of Orthopaedic Surgery and Sports Medicine Please note that some or all of this record was generated using voice recognition and artificial intelligence software. If there are any questions about the content of this document, please contact me as some errors in brim edge trimmer may have occurred. documented in this encounter Plan of Treatment Not on file documented as of this encounter Results * [...] Abarca MD at 12/20/2024 7:39 AM EST Keyon Pearce MD IMG DIAGNOSTIC IM AGING ORDERABLES Final Result documented in this encounter Visit Diagnoses Diagnosis Other closed intra-articular fracture of distal end of left radius with routine healing, subsequent encounter- Primary Other closed intra-articular fracture of distal end of left radius with routine healing, subsequent encounter documented in this encounter Care Teams Blown Film Extrusion Operator Relationship Specialty Start Date End Date Lamin Blank MD [address] [place] [address] PCP - General Family Medicine 11/12/24 documented as of this encounter
--- OUTSIDE RECORDS SUMMARY | 2024-12-24 15:27 | XMS_ITS | Encounter Summary ---
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 saline pre/post IVP, and 5 mL prior to IVPB or blood product administration. Protocol for PERIPHERAL IV saline lock maintenance, flush with 3-5 mL saline syringe every 8 hours., Flush peripheral lines every 12 hours, central lines every 8 hours, and after IV medication sodium chloride 0.9% syringe Intravenous, ONCE PRN, 1 dose, Starting on Tue12/24/24 at 1654, Until Tue12/24/24 at 1658, Line Care, Flush peripheral lines every 12 hours, central lines every 8 hours, and after IV medication, CT (Contrasts) Given 12/24/2024 4:58 PM EST documented in this encounter Active and Recently Administered Medications Times are shown in EST. PRN Medication Order 12/22/2024 12/23/2024 12/24/2024 iopamidoL (ISOVUE-370) 370 mg iodine /mL (76 %) injection (LOW) 75 mL (COMPLETED) 75 mL, Intravenous, ONCE PRN, 1 dose, Starting on Tue12/24/24 at 1654, Until Tue12/24/24 at 1658, Radiography/Imaging, Radiology Procedure, VESICANT , CT (Contrasts) 1658 (Given - Provid er: Benjamin Whalen, RT) sodium chloride 0.9% IV line flush 50 mL 50 mL, Intravenous, at 150-600 mL/hr, PRN, Starting on Tue12/24/24 at 1555, Until Tue12/24/24 at 2204, Line Care, Flush with a minimum of 20 mL after IVPB to insure complete administration of the dose. May use the saline infusion to back flush IVPB tubing as needed., Use this order to document priming and flushing IV line after medication administration. sodium chloride 0.9% syringe 5 mL 5 mL, Intravenous, PRN, Starting on Tue12/24/24 at 1555, Until Tue12/24/24 at 2204, Line Care, Flush with 5 mL saline pre/post IVP, and 5 mL prior to IVPB or blood product administration. Protocol for PERIPHERAL IV saline lock maintenance, flush with 3-5 mL saline syringe every 8 hours., Flush peripheral lines every 12 hours, central lines every 8 hours, and after IV medication sodium chloride 0.9% syringe (COMPLETED) Intravenous, ONCE PRN, 1 dose, Starting on Tue12/24/24 at 1654, Until Tue12/24/24 at 1658, Line Care, Flush peripheral lines every 12 hours, central lines every 8 hours, and after IV medication, CT (Contrasts) 1658 (Given - Provid er: Benjamin Whalen, RT) documented in this encounter Orders Medications Ordered That Aryan ht Not Have Been Administered Count Last Ordered Date First Ordered Date sodium chloride 0.9% IV line flush 50 mL 1 12/24/2024 sodium chloride 0.9% syringe 5 mL 1 025 Nursing Count Last Ordered Date First Orde red Date CARDIAC MONITORING 1 12/24/2024 NURSING COMMUNICATION 1 12/24/2024 IV Count Last Ordered Date First Orde red Date SALINE LOCK IV 1 12/24/2024 documented in this encounter Care Teams Experienced Truck Driver Relationship Specialty Start Date End Date Lamin Blank MD PCP - General 12/08/09 documented as of this encounter
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
--- OUTSIDE RECORDS SUMMARY | 2025-01-07 14:29 | XMS_ITS | Encounter Summary ---
Author Organization [facility] [place] [address] Care Team Providers Care Gluer Machine Setup Operator Name Role Phone Lamin Blank MD Primary Care Provider [phone] Encounter Details Date Type Department Care Team [...] on filedocumented in this encounter Care Teams Gluer Machine Setup Operator Relationship Specialty Start Date End Date Lamin Blank MD PCP - General 12/08/09 documented as of this encounter
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
--- OUTSIDE RECORDS SUMMARY | 2025-01-07 14:29 | XMS_ITS | Clinical Summary ---
Author Organization [facility] Address [address] [place] [address] Care Team Providers Care Assembler Garment Form Name Role Phone Lamin Blank MD Primary Care Provider [phone] Family History Medical History Relation Name Comments [...] of Treatment Not on file Care Teams Assembler Garment Form Relationship Specialty Start Date End Date Lamin Blank MD PCP - General 06/27/20
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
--- OUTSIDE RECORDS SUMMARY | 2025-01-07 14:30 | XMS_ITS | Encounter Summary ---
Author Organization [facility] Address [address] [place] [address] Care Team Providers Care Body Team Member Name Role Phone Lamin Blank [...] release of HIV test results or diagnoses. [id number] Health Encounter Details Date Type Department Care Team (Late st Contact Info) Description 12/04/2024 Telephone [facility] Sports Medicine at [facility] [address] [address] Elaina [facility] [place] Social History Tobacco Use Types Packs/Day Years [...] on filedocumented in this encounter Care Teams Body Team Member Relationship Specialty Start Date End Date Lamin Blank MD [address] [place] [address] PCP - General Family Medicine 11/12/24 documented as of this encounter
--- OUTSIDE RECORDS SUMMARY | 2025-01-07 14:30 | XMS_ITS | Encounter Summary ---
Author Organization [facility] Address [address] [place] [address] Care Team Providers Care Premium Note Interest Calculator Clerk Name Role Phone Lamin Blank MD Primary Care Provider [phone] Source Comments This information has been disclosed [...] release of HIV test results or diagnoses. [id number] Health Encounter Details Date Type Department Care Team (Late st Contact Info) Description 12/04/2024 Telephone [facility] Orthopaedics at [facility] [address] [facility] [address] [place] [address] Marychuy Delaney MA Social History [...] am with Dr. Pearce on 12/05 at [facility]. Patient confirmed documented in this encounter Plan of Treatment Not on file documented as of this encounter Visit Diagnoses Not on filedocumented in this encounter Care Teams Premium Note Interest Calculator Clerk Relationship Specialty Start Date End Date Lamin Blank MD [address] [place] [address] PCP - General Family Medicine 11/12/24 documented as of this encounter
[2025-01-07 15:14] LABS: Hematocrit 46.3 % (42.0-52.0); Hemoglobin 15.2 g/dL (14.1-18.0); Immature Granulocytes % 0.3 %; Mean Corpuscular HGB Conc 32.8 g/dL (31.8-35.4); Mean Corpuscular Hemoglobin 32.0 pg (27.0-31.2); Mean Corpuscular Volume 97.5 fl (80-94); Nucleated Red Blood Cells % 0 %; Platelet Count 259 K/mm3 (142-424); Red Blood Count 4.75 M/mm3 (4.60-6.20); Red Cell Distribution Width-SD 47.8 fL; White Blood Count 9.9 K/mm3 (4.8-10.8)
[2025-01-07 15:54] LABS: Alanine Aminotransferase 89 U/L (12-78); Albumin Level 4.6 g/dl (3.5-5.0); Alkaline Phosphatase 98 U/L (38-126); Anion Gap 10.6 mEq/L (5-15); Aspartate Amino Transferase 72 U/L (17-59); Bilirubin,Direct 0.2 mg/dl (0.0-0.4); Bilirubin,Indirect 0.3 mg/dL (0.0-0.9); Bilirubin,Total 0.5 mg/dl (0.2-1.3); Bilirubin,Unconjugated 0.3 mg/dL (0.0-1.1); Blood Urea Nitrogen 14 mg/dl (9-20); Calcium 10.0 mg/dl (8.4-10.2); Carbon Dioxide 28 mmol/L (22.0-30.0); Chloride 101 mmol/L (98-107); Cholesterol 189 mg/dl (140-200); Creatinine,Serum 0.90 mg/dl (0.66-1.25); Estimated Glomerular Filt Rate 90 ml/min (>60); GFR (African American) 109 ML/MIN (>60); Glucose 119 mg/dl (74-100); HDL Cholesterol 36 mg/dl (40-60); Magnesium 2.2 mg/dl (1.6-2.3); Potassium 4.6 mmoL/L (3.5-5.1); Sodium 135 mmol/L (136-145); Total Protein,Serum 7.3 g/dl (6.3-8.2); Triglycerides 295 mg/dl (30-150)
[2025-01-07 16:09] LABS: Free T4 (Free Thyroxine) 1.07 ng/dl (0.78-2.19)
[2025-01-07 16:25] LABS: Thyroid Stimulating Hormone 0.80 uIU/mL (0.465-4.68)
== END 2025-01-07 23:59 | disposition home or self-care (01) ==
LOC: LAB 14:21
PROVIDERS: PCP Family Medicine; Visit Provider Nurse Practitioner Family
DX: E78.2 Mixed hyperlipidemia (principal); I10 Essential (primary) hypertension
CPT/HCPCS: 36415; 80048; 80061; 80076; 83735; 84439; 84443; 85025

== ENCOUNTER 2025-01-14 06:00 | Outpatient (CLI) | payer MEDICARE, SELFPAY ==
--- NOTE | 2025-01-14 | CA_ITS ---
APPROVED REPORT Exam: Pharmacologic Technologist: Priti Condon Ht: 6 ft 1 in Wt: 234 lbs BSA: 2.30 m2 HR: 67 bpm BP: 116/84 mmHg Rhythm: Sinus rhythm Indications: Chest pain Medical History Cardiac Risk Factors: HTN, Hyperlipidemia, FHX of CAD, Smoking Stress Test Details HR Resting HR: 67 bpm Max Heart Rate (APMHR): 172.982204 bpm Target HR (85% APMHR): 146.630641 bpm Recovery HR: 82 bpm BP Resting BP: 116.0/84.0 mmHg Recovery BP: 134.0/84.0 mmHg ECG Resting ECG: Sinus rhythm Stress ECG Conclusion During lexiscan pt experinced no symptoms. No arrhytmias noted. Less than 0.5mm upsloping ST segment changes. Electronically signed by : Kalyn Naranjo MD 01/14/2025 22:12:35
--- OUTSIDE RECORDS SUMMARY | 2025-01-14 06:05 | XMS_ITS | Data Portability ---
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 The electronic translation of spoken language may permit erroneous or at times nonsensical words of phrases to be inadvertently transcribed; Although I have reviewed the note for such errors, some may still exist. [email or web address] Not available 05/12/2020 11:05:37 06/09/2020 06/09/2020 INYTERVAL [...] Lab drug screen, urine 2020 021 [email or web address] Not available 13:02:59 unlisted lab - confirm synthetic opioids 2020 [email or web address] [facility], [facility], [address] [place] [address], [address], 09:32:36 drug screen, urine 2020 [email or web address] Not available 10:56:43 unlisted lab - confirm new patient 2020 HILARY [facility], [facility], [address] [place] [address], [address], 13:47:01 [facility]erral [facility] [address] [place] [address], [address], 12:28:40 Procedures None recorded. Surgeries None recorded. Imaging None recorded. Medication Orders tramadol 50 mg tablet 2020 HILARY Not available 10:36:41 tramadol 50 mg tablet 2020 HILARY Not available 10:56:49 gabapentin 600 mg tablet 2020 HILARY Not available 10:56:49 Patient TargetsNo targets recorded. Patient Instructions Encounter Date Encounter Id Patient Instructions Last Modified By Organization Details Last Modified Time 05/12/2020 [id number] medical record request* - ALL LUMBAR IMAGING [email or web address] Not available 05/12/2020 14:24:48 Reason for Referral Physical Therapist Referral for Degeneration of lumbar intervertebral disc Referring Physician: Benjamin Tesfaye, Pain Management, Encounter Date: 05/12/2020 Results Created Date Observation Date Name Description Value Unit Range Abnormal Flag Note LastModifiedBy Organization Detail LastModifiedTime 06/10/19 21 06/09/2020 drug scree n, urine THC: negati ve Not Available [place] [address] [place] , [place], [address], 06/09/2020 09:58:13 06/10/19 21 06/09/2020 drug scree n, urine Buprenorphin e: negati ve Not Available [place] [address], [place], [address], 06/09/2020 09:58:13 06/10/19 21 06/09/2020 drug scree n, urine TCA: positi ve Not Available [place] [address], [place], [address], 06/09/2020 09:58:13 06/10/19 21 06/09/2020 drug scree n, urine Barbiturates : negati ve Not Available [place] [address], [place], [address], 06/09/2020 09:58:13 06/10/19 21 06/09/2020 drug scree n, urine Benzodiazepi hali: negati ve Not Available [place] [address], [place], [address], 06/09/2020 09:58:13 06/10/19 21 06/09/2020 drug scree n, urine Methadone: negati ve Not Available [place] [address], [place], [address], 06/09/2020 09:58:13 06/10/19 21 06/09/2020 drug scree n, urine Amphetamines : negati ve Not Available [place] [address], [place], [address], 06/09/2020 09:58:13 06/10/19 21 06/09/2020 drug scree n, urine Morphine/Opi ates: negati ve Not Available [place] [address], [place], [address], 06/09/2020 09:58:13 06/10/19 21 06/09/2020 drug scree n, urine Oxycodone: negati ve Not Available [place] [address], [place], [address], 06/09/2020 09:58:13 06/10/19 21 06/09/2020 drug scree n, urine MDMA: negati ve Not Available [place] [address], [place], [address], 06/09/2020 09:58:13 06/10/19 21 06/09/2020 drug scree n, urine Cocaine: negati ve Not Available [place] [address], [place], [address], 06/09/2020 09:58:13 06/10/19 21 06/09/2020 drug scree n, urine Methamphetam ine: negati ve Not Available [place] [address], [place], [address], 06/09/2020 09:58:13 05/13/19 21 05/12/2020 drug scree n, urine THC: negati ve Not Available [place] [address], [place], [address], 05/12/2020 10:31:47 05/13/19 21 05/12/2020 drug scree n, urine Buprenorphin e: negati ve Not Available [place] [address], [place], [address], 05/12/2020 10:31:47 05/13/19 21 05/12/2020 drug scree n, urine TCA: negati ve Not Available [place] [address], [place], [address], 05/12/2020 10:31:47 05/13/19 21 05/12/2020 drug scree n, urine Barbiturates : negati ve Not Available [place] [address], [place], [address], 05/12/2020 10:31:47 05/13/19 21 05/12/2020 drug scree n, urine Benzodiazepi hali: negati ve Not Available [place] [address], [place], [address], 05/12/2020 10:31:47 05/13/19 21 05/12/2020 drug scree n, urine Methadone: negati ve Not Available [place] [address], [place], [address], 05/12/2020 10:31:47 05/13/19 21 05/12/2020 drug scree n, urine Amphetamines : negati ve Not Available [place] [address], [place], [address], 05/12/2020 10:31:47 05/13/19 21 05/12/2020 drug scree n, urine Morphine/Opi ates: negati ve Not Available [place] [address], [place], [address], 05/12/2020 10:31:47 05/13/19 21 05/12/2020 drug scree n, urine Oxycodone: negati ve Not Available [place] [address], [place], [address], 05/12/2020 10:31:47 05/13/19 21 05/12/2020 drug scree n, urine MDMA: negati ve Not Available [place] [address], [place], [address], 05/12/2020 10:31:47 05/13/19 21 05/12/2020 drug scree n, urine Cocaine: negati ve Not Available [place] [address], [place], [address], 05/12/2020 10:31:47 05/13/19 21 05/12/2020 drug scree n, urine Methamphetam ine: negati ve Not Available [place] [address], [place], [address], 05/12/2020 10:31:47 05/13/19 21 04/28/2020 medic al [...] Recorded Time Degeneration of lumbar intervertebral disc 22352413 Active 2020 Lisadee mahajan [facility] 10:45:55 Problem Notes None recorded. Procedures Surgical History Date Name Laterality Status Provider Name and Address Organization Details Recorded Time Foot/Ankle Surgery completed [facility] 05/12/2020 10:24:05 Hip Surgery completed [facility] 05/12/2020 10:24:05 Imaging Results None recorded. Procedure Notes None recorded. Medical Equipment None Reported. Allergies Allergen ID Allergen Name Allergen Category Reaction Reaction Severity Criticality Documentation Date Start Date Code Code System Note Provider Name and Address Organization Details Recorded Time 678891 Product containin g penicilli n (product) medicatio n rash Not available Not available 05/12/2020 35141 8001 SNOMED [place] Alva keyshawn [facility], [facility] Pain [facility] 10:23:43 Medications Name Sig Start Date Stop [...] height Body mass index (BMI) Body weight Pain severity - 0-10 verbal numeric rating [Score] - Reported Provider Name and Address Organization Details Last Updated DateTime 05/12/2020 185.42 cm 31.7 kg/m2 561437.17 g 10 Lisa SEHEHAN [facility] 05/12/2020 10:23:39 Social History Question Answer Notes LastModified by Organizat ion Details LastModified Time Tobacco Smoking Status Current Every Day Smoker AGUIL[facility] 05/12/2020 10:24:00 What Is Your Level Of Caffeine Consumption? Occasional [email or web address] Information not available 05/12/2020 How Much Tobacco Do You Chew? None [email or web address] Information not available 05/12/2020 Are You Deaf Or Do You Have Serious Difficulty Hearing? No [email or web address] Information not available 05/12/2020 Which Illicit Or Recreational Drugs Have You Used? DENIES [email or web address] Information not available 05/12/2020 Education 12 [email or web address] Information no t available 05/12/2020 Hard Of Hearing Or Deaf In One Or Both Ears? No [email or web address] Information not available 05/12/2020 Prescription Drug Abuse No [email or web address] Information not available 05/12/2020 Disability Yes [email or web address] Information no t available 05/12/2020 History Of Sexual Abuse No Information not available 05/12/2020 Marital Status Single [email or web address] Informatio n not available 05/12/2020 What Was The Date Of Your Most Recent Tobacco Screening? 06/09/2020 [email or web address] Information not available 06/09/2020 At What Age Did You Start Smoking Tobacco? 19 [email or web address] Information not available 05/12/2020 How Much Tobacco Do You Smoke? 1 PPD [email or web address] Information not available 05/12/2020 General Stress Level Medium [email or web address] Information not available 05/12/2020 On What Date Was Tobacco Cessation Counseling Provided? 06/09/2020 [email or web address] Information not available 06/09/2020 How Many Years Have You Smoked Tobacco? 25 Information not available 05/12/2020 Do You Have Difficulty Walking Or Climbing Stairs? Yes [email or web address] Information not available 05/12/2020 Sex: Unknown Functional Status Question Answer Note LastModified by Organizat ion Details LastModified Time What is your level of alcohol consumption? None [email or web address] Information not available 05/12/2020 Do you or have you ever used smokeless tobacco? Never used smokeless tobacco Information not available 05/12/2020 Are you able to walk independently without assistance or assistive devices? YESASSIST [email or web address] Information not available 05/12/2020 Do you have difficulty doing errands alone? 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 Yes [email or web address] Information not available 05/12/2020 Do you or have you ever used e-cigarettes or vape? Never used electronic cigarettes [email or web address] Information not available 05/12/2020 What is your exercise level? None Information not available 05/12/2020 Mental Status Question Answer Note LastModified by Organization D etails LastModified Time Do you have difficulty concentrating, remembering or making decisions? Yes [email or web address] Information no t available 05/12/2020 Family History Relationship Description Onset Age of this Age Resolved Age Notes LastModified by Organization Details LastModified Time Father Rheumatoid arthritis [email or web address] Not available 05/12 10:23:47 Father Diabetes mellitus Not available 05/12 10:23:47 Medical History Condition Response Bipolar Disease N Coronary Artery Disease N Gout N Atrial Fibrillation N Head Trauma/Injury N Depression Y COPD N Anxiety Disorder Y Acid Reflux (GERD) N Cancer N Stroke N Rheumatoid Arthritis N Headaches N Fibromyalgia N Kidney Disease N DVT N Peptic Ulcer Disease N Bleeding Disorder N CHF N AIDS/HIV N Asthma N Substance Abuse N Hepatitis N Pulmonary Embolism N Chronic Low Back Pain Y Seizure Disorder N Thyroid Disease N Hernia N Skin Disorder N High Cholesterol Y Liver Disease N Autoimmune Disease N Osteoarthritis Y Neurosurgery N Anemia N Heart Attack ([place]) N Diabetes N Cardiomyopathy N Inflammatory Bowel Disease N Dementia N Sleep Apnea N Heart Disease N Hypertension Y Osteoporosis N Past Encounters Encounter ID Performer Location Encounter Start Date Encounter Closed Date Diagnosis/Indication Diagnosis SNOMED-CT Code Diagnosis ICD10 Code Diagnosis IMO Codes Diagnosis Note [id number] Benjamin Tesfaye MD [place] [address] [place] [address] 05/12/2020 10:19:44 05/12/2020 10:50:52 Long-term drug therapy 785046584 Z79.899 The urine sample is being sent [...] patient. Degenerati on of lumbar intervertebral disc 31463930 M51.36 [id number] Benjamin Tesfaye MD [address],[facility] [address] [place] [address] 06/09/2020 09:56:22 06/09/2020 10:45:29 Long-term drug therapy 179624775 Z79.899 Send for LCMS confirmati on of Synthetic Opioids (Fentanyl, Tramadol, Tapentadol , Methadone, and Buprenorph ine) confirm the quantitati ve levels of these drugs as they will not be detected in [place] testing and the patient is currently prescribed a Synthetic Opioid.n Degenerati on of lumbar intervertebral disc 99343763 M51.36 Health Concerns Section Related Observation LastModified by Organization Detai ls LastModified Time None Recorded Concern Status LastModified by Organization Details LastModified Time None Recorded Advance Directives Directive None Recorded Payers Insurance Date Sequence Insurance Name Policy Number Policy Duncan Covered Member ID Duncan Member ID Guarantor Name 07/18/2020 1 [place] Dejuan Ram [id number] Dejuan Ram 07/26/2020 2 [place] [id number] Dejuan Ram [id number] Dejuan Ram Notes Date Note Type Note Provider Name and Address Organization Details Recorded Time 1 text/html Low back painReported by PatientHPIFor associated symptoms, patient reportsweakness,numbness (adelfo feet),tingling (adelfo feet), andswelling (adelfo legs and feet)but reportsno popping/clicking,no bowel incontinence,no urinary retention,no urinary incontinence, andno perineal paresthesia/anesthesia. 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 (uses cane),unable to work secondary to chronic pain and or physical disability.,unable to exercise on a regular basis secondary to pain., anddifficulty participating in recreation on a regular basis secondary to pain.but reportsliving independently.. For onset, patient reportsdate of onset: (15 years ago). For location, patient reportsbuttock: __. For duration, patient reportsworse at nighttime. For context, patient reportsoveruse. For quality, patient reportsaching,burning,gnaw ing,stabbing,throbbing, andsharp. For pain intensity, patient reportscurrent pain level: 10/10,average pain level: 9/10, andworst pain level: 10/10. For alleviating factors, patient reportsnothing helps. For aggravating factors, patient reportsstanding,bending/sq uatting,pushing/pulling,ge tting out of bed,standing from a seated position,upstairs, anddownstairs. For prior imaging, patient reportsx-ray (ortho cincy). For lumbar surgery, patient reportsnone. For interventional treatment history, patient reportslumbar esis: no relief. For physical therapy, patient reportscurrently in pt: __,completed all recommended pt visits,facility: ([facility]),complete more than 6weeks,dates: (2017), andresponse to therapy: made pain/symptoms worse. For medications history, patient reportsnsaids: (tylenol-not helpful.),muscle relaxants: (flexeril-not helpful.), andneuropathics: (gabapentin-not helpful.). For prior pain management, patient reportsyes:. Benjamin Tesfaye MD [address] [place] [address], [address], [facility] 05/12/2020 11:05:57 1 text/html Follow-up (meds & injections)Reported by PatientHPIFor improvement, patient reportspain is the same as compared to last visit.(currently taking prednisone due to eczema flarereports no relief with tramadol and minimal relief with gabapentincurrently attending pt at [facility] . however, he has had to reschedule a few). For pain scores, patient reportsaverage pain- 9/10,current pain- 9/10, andworst pain- 10/10. For recent injections, patient reportspain relief from injections- __% lasting for __ __andimprovement in adls-. For current analgesics, patient reportsopioids- tramadol,other adjunct medications- gabapentin, andreported pain relief- 0% for __ hours(tramadol and gabapentin taken this morning). For adverse reactions, patient reportsno nausea.,no vomiting.,no constipation.,no itching.,no sedation.,no respiratory depression., andno sexual dysfunction.. 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 For physical therapy, patient reportscurrently attendingandcompleted course in the past. Low back painReported by PatientHPIFor associated symptoms, patient reportsweakness,numbness (adelfo feet),tingling (adelfo feet), andswelling (adelfo legs and feet)but reportsno popping/clicking,no bowel incontinence,no urinary retention,no urinary incontinence, andno perineal paresthesia/anesthesia. 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 (uses cane),unable to work secondary to chronic pain and or physical disability.,unable to exercise on a regular basis secondary to pain., anddifficulty participating in recreation on a regular basis secondary to pain.but reportsliving independently.. For onset, patient reportsdate of onset: (15 years ago). For location, patient reportsbuttock: __. For duration, patient reportsworse at nighttime. For context, patient reportsoveruse. For quality, patient reportsaching,burning,gnaw ing,stabbing,throbbing, andsharp. For pain intensity, patient reportscurrent pain level: 9/10,average pain level: 9/10, andworst pain level: 10/10. For alleviating factors, patient reportsnothing helps. For aggravating factors, patient reportsstanding,bending/sq uatting,pushing/pulling,ge tting out of bed,standing from a seated position,upstairs, anddownstairs. For prior imaging, patient reportsx-ray (ortho cincy). For lumbar surgery, patient reportsnone. For interventional treatment history, patient reportslumbar esis: no relief. For physical therapy, patient reportscurrently in pt: __,completed all recommended pt visits,facility: ([facility]),complete 2weeks,dates: (2017,2020), andresponse to therapy: made pain/symptoms worse. For medications history, patient reportsnsaids: (tylenol-not helpful.),muscle relaxants: (flexeril-not helpful.), andneuropathics: (gabapentin-not helpful.). For prior pain management, patient reportsyes:. ALLI LOWE [address] [place] [address], [address], [facility] 06/09/2020 13:03:03
--- OUTSIDE RECORDS SUMMARY | 2025-01-14 06:05 | XMS_ITS | Clinical Summary ---
Author Organization [facility] Address [address] [place] [address] Phone Care Team Providers Care Liaison Engineer Name Role Phone Jorge GARDUNO Mirna Christie [phone] Conditions or Problems Problem Name Problem Code Onset Date Status Entry Date Provider Comment Standard Description Annotate DDD 67029666 (SNOMED CT) 03/06 Active 03/06 Cesilia Miranda MA Degeneration of intervertebral disc LUMBAR RADICULOPATHY 707489402 (SNOMED CT) 03/06 Active 03/06 Cesilia Miranda MA Lumbar radiculopathy Medications Medication Instructions Start Date Stop Date Generic Name ND Provider METHOCARBAMOL 750 MG TABS Take 1 tablet by mouth three times a day 03/07 methocarbamol 18828794524 Cesilia Miranda MA BACLOFEN 5 MG TABS Take 1 tablet by mouth three times a day baclofen 95325112574 Mirna GARDUNO METHOCARBAMOL 750 MG TABS Take 1 tablet by mouth three times a day 03/07 methocarbamol 88730821449 Mirna GARDUNO CYCLOBENZAPRINE HCL 10 MG TABS cyclobenzaprine 63091294575 Joey Miranda MA FLUOXETINE HCL 20 MG CAPS fluoxetine 82359093080 Cesilia Miranda MA BUSPIRONE HCL 15 MG TABS buspirone 42605800240 Cesilia Miranda MA CARISOPRODOL 350 MG TABS TAKE 1 TABLET BY MOUTH TWICE DAILY NEEDED FOR MUSCLE PAIN carisoprodol 57141405326 Cesilia Miranda MA ZOLPIDEM TARTRATE 10 MG TABS zolpidem 17808911770 Cesilia Miranda MA METOPROLOL SUCCINATE ER 25 MG [id number] metoprolol succinate 70339001250 Cesilia Miranda MA ATORVASTATIN CALCIUM 80 MG TABS atorvastatin 24559110167 Cailin Miranda MA GABAPENTIN 600 MG TABS gabapentin 60861181189 Cesilia Miranda MA Medications Administered No information available. Allergies, Adverse Reactions, Alerts Allergy Name Reaction Description Start Date Severity Statu s Provider PENICILLIN Critical Cesilia aguirre MA Results No information available. Plan of Care Type Date Detail Referral Pain Management Referral Mikhail Jimenezroughs, [address] [place] [address], [phone] Pending order MRI Lumbar witho ut Contrast [...]
--- OUTSIDE RECORDS SUMMARY | 2025-01-14 06:05 | XMS_ITS | Data Portability ---
Author Organization [facility] Address [address] [place] [address] Assessment No assessment recorded. Plan of Treatment Reminders Order Date Submit Date Provider Last Modified By Organization Details Last Modified Time Details Appointments None recorded. Lab vitamin D, 25-hydroxy, total, serum 2022 023 HILARY [facility], [address], [address], [place], [address], 3 16:36:56 thyroid panel, serum 2022 023 HILARY [facility], [address], [address], [place], [address], 3 16:36:54 celiac disease comprehensi ve panel, serum 2022 023 HILARY [facility], [address], [address], [place], [address], 3 16:36:51 gastrointes tinal pathogens panel, culture, stool 2022 023 [email or web address] [facility], [address], [address], [place], [address], 3 07:44:05 O&P (ova & parasites), stool 2022 023 [email or web address] [facility], [address], [address], [place], [address], 3 07:44:05 C diff toxin A+B, qual IA, stool 2022 023 [email or web address] [facility], [address], [address], [place], [address], 3 07:44:05 salmonella sp + shigella sp, culture, stool 2022 023 [email or web address] [facility], [address], [address] [address], [place], [address], 3 07:44:06 giardia + cryptospori dium Ag, stool 2022 023 [email or web address] [facility], [address], [address], [place], [address], 3 07:44:06 CBC w/ auto diff 2022 023 HILARY [facility], [address], [address], [place], [address], 3 16:36:52 CMP, serum or plasma 2022 023 HILARY [facility], [address], [address] [address], [place], [address], 3 16:36:53 amylase + lipase, serum 2022 023 HILARY [facility], [address], [address] [address], [place], [address], 3 16:36:56 urinalysis, dipstick 2022 023 [facility], [address] [place], [address], 3 14:40:29 helicobacte r pylori Ab panel, serum 2022 023 HILARY [facility], [address], [address], [place], [address], 3 16:36:55 rapid strep group A, throat [address], [address] [place], [address], 3 15:48:02 rapid flu (A+B) [address], [address] [place], [address], 3 15:48:02 rapid SARS CoV + SARS CoV 2 Ag, QL IA, respiratory specimen [address], [address] [place], [address], 3 15:48:02 CMP, serum or plasma 2017 018 HILARY [facility], [address], [address], [place], [address], 8 08:47:38 CBC 2017 018 HILARY [facility], [address], [address], [place], [address], 8 08:47:39 vitamin B12 + folate, serum or blood 2017 018 HILARY [facility], [address], [address], [place], [address], 8 08:47:40 TSH, ultra-sensi tive, serum 2017 018 HILARY [facility], [address], [address], [place], [address], 8 08:47:40 magnesium, serum or plasma 2017 018 HILARY [facility], [address], [address], [place], [address], 8 08:47:42 vitamin D, 25-hydroxy, total, serum 2017 018 HILARY [facility], [address], [address], [place], [address], 8 08:47:41 urinalysis, dipstick [address], [address] [facility] [address] [place], [address], 8 12:03:56 HbA1c (hemoglobin A1c), blood [address], [address] [facility] [address] [place], [address], 8 12:03:56 glucose, fingerstick , blood [address], [address] [facility] [address] [place], [address], 8 12:03:56 Referral gastroenter ologist referral - LQ pain constipatio n bowel changes has seen Dr. Antoine before 2022 023 HILARY Antoine MD, [address] [facility] , [place] [address], [place], [address], 3 07:54:16 neurologist referral 2017 018 [facility], [address] [place] [address], [place], [address], 9 11:40:39 Procedures None recorded. Surgeries None recorded. Imaging XR, kidney + ureter + bladder 2022 023 HILARY [facility] (Centralized Scheduling), [address], [place], [address], 3 13:10:26 XR, abdomen, complete 2022 023 [email or web address] [place] (Centralized Scheduling), [address], [place], [address], 3 07:44:53 US, kidney - LLQ pain 2022 023 [facility], [address] [place], [address], 3 15:47:49 US, thyroid 2022 023 HILARY Not available 3 11:07:46 XR, lumbosacral spine 2017 018 HILARY [facility] (Centralized Scheduling), [facility] [address], [place], [address], 8 12:16:28 Medication Orders Miralax 17 gram/dose [...] By Organization Details Last Modified Time 11/17/2017 [id number] gentle stretchin g exercises, RTC prn Not available 11/17/2017 11:34:43 02/24/2022 [id number] chronic sinusitis: care instructions Not available 02/24/2022 15:59:16 keep well hydrated, take medication as prescribed, medications discussed with pt and side effects and adverse effects were discussed, RTC in one week for follow up and fasting labs prn Not available 02/24/2022 16:05:24 07/05/2022 [id number] gas and bloating : care instructions Not available 07/05/2022 14:40:29 abdominal pain: care instructions Not available 07/05/2022 14:40:29 awaiting lab results for further diagnostic decision making keep well hydrated, get 6 to 8 hours of sleep a night; eat healthy ; exercise, RTC prn Not available 07/05/2022 14:40:52 07/07/2022 [id number] constipation: care instructions Not available 07/07/2022 10:14:02 learning about healthy weight Not available 07/07/2022 10:01:13 body mass index: care instructions Not available 07/07/2022 10:01:13 abdominal pain: care instructions Not available 07/07/2022 09:55:25 Reason for Referral Neurologist Referral for Par esthesia of lower extremity Referring Physician: Caty Galdamez [facility], Encounter Date: 11/17/2017 [employer]ist 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 Antoine before Referring Physician: Caty Galdamez [facility], Encounter Date: 07/07/2022 Results Created Date Observation Date Name Description Value Unit Range Abnormal Flag Note LastModifiedBy Organization Detail LastModifiedTime 11/18/19 18 11/18/2017 CMP, serum or plasm a glucose 65 mg/dL 65-99 Not Available [facility] ([facility]) [address] [facility], [place], [address], 11/18/2017 08:47:38 11/18/19 18 11/18/2017 CMP, serum or plasm a BUN 10 mg/dL 6-24 Not Available [facility] ([facility]) [address] [place], [address], 11/18/2017 08:47:38 11/18/19 18 11/18/2017 CMP, serum or plasm a creatinine 0.98 mg/dL 0.76-1 .27 Not Available [facility] ([facility]) [address] [facility] [place], [address], 11/18/2017 08:47:38 11/18/19 18 11/18/2017 CMP, serum or plasm a eGFR if nonafricn AM 95 mL/mi n/1.7 3 >59 Not Available [facility] ([facility]) [address] [facility] [place], [address], 11/18/2017 08:47:38 11/18/19 18 11/18/2017 CMP, serum or plasm a eGFR if africn AM 110 mL/mi n/1.7 3 >59 Not Available [facility] ([facility]) [address] [facility] [place], [address], 11/18/2017 08:47:38 11/18/19 18 11/18/2017 CMP, serum or plasm a BUN/creatini ne ratio 10 9-20 Not Available [facility] ([facility]) [address] [facility] [place], [address], 11/18/2017 08:47:38 11/18/19 18 11/18/2017 CMP, serum or plasm a sodium 145 mmol/ L 134-14 4 above high normal Not Available [facility] ([facility]) [address] [facility] [place], [address], 11/18/2017 08:47:38 11/18/19 18 11/18/2017 CMP, serum or plasm a potassium 4.5 mmol/ L 3.5-5. 2 Not Available [facility] ([place]) [address] [facility] [place], [address], 11/18/2017 08:47:38 11/18/19 18 11/18/2017 CMP, serum or plasm a chloride 104 mmol/ L 96-106 Not Available [facility] ([facility]) [address] [facility], [address], 11/18/2017 08:47:38 11/18/19 18 11/18/2017 CMP, serum or plasm a carbon dioxide, total 22 mmol/ L 20-29 Not Available [facility] ([facility]) [address] [facility], [address], 11/18/2017 08:47:38 11/18/19 18 11/18/2017 CMP, serum or plasm a calcium 9.8 mg/dL 8.7-10 .2 Not Available [facility] ([facility]) [address] [place], [address], 11/18/2017 08:47:38 11/18/19 18 11/18/2017 CMP, serum or plasm a protein, total 7.5 g/dL 6.0-8. 5 Not Available [facility] ([facility]) [address] [place], [address], 11/18/2017 08:47:38 11/18/19 18 11/18/2017 CMP, serum or plasm a albumin 4.4 g/dL 3.5-5. 5 Not Available [facility] ([facility]) [address] [place], [address], 11/18/2017 08:47:38 11/18/19 18 11/18/2017 CMP, serum or plasm a globulin, total 3.1 g/dL 1.5-4. 5 Not Available [facility] ([facility]) [address] [place] [address], [address], 11/18/2017 08:47:38 11/18/19 18 11/18/2017 CMP, serum or plasm a A/G ratio 1.4 1.2-2. 2 Not Available [facility] ([facility]) [address] [place], [address], 11/18/2017 08:47:38 11/18/19 18 11/18/2017 CMP, serum or plasm a bilirubin, total <0.2 mg/dL 0.0-1. 2 Not Available [facility] ([facility]) [address] [place], [address], 11/18/2017 08:47:38 11/18/19 18 11/18/2017 CMP, serum or plasm a alkaline phosphatase 69 IU/L 39-117 Not Available [facility] ([facility]) [address] [place], [address], 11/18/2017 08:47:38 11/18/19 18 11/18/2017 CMP, serum or plasm a AST (SGOT) 34 IU/L 0-40 Not Available [facility] ([facility]) [address] [place], [address], 11/18/2017 08:47:38 11/18/1911/18/2017 CMP, serum or plasm a ALT (SGPT) 53 IU/L 0-44 above high normal Not Available [facility] ([facility]) [address] [place], [address], 11/18/2017 08:47:38 11/18/19 18 11/18/2017 CBC WBC 7.3 x10e3 /uL 3.4-10 .8 Not Available [facility] ([facility]) [address] [facility] [place], [address], 11/18/2017 08:47:39 11/18/1911/18/2017 CBC RBC 4.99 x10e6 /uL 4.14-5 .80 Not Available [facility] ([facility]) [address] [facility] [place], [address], 11/18/2017 08:47:39 11/18/19 11/18/2017 CBC hemoglobin 15.9 g/dL 13.0-1 7.7 Not Available [facility] ([facility]) [address] [facility], [place], [address], 11/18/2017 08:47:39 11/18/19 18 11/18/2017 CBC hematocrit 46.1 % 37.5-5 1.0 Not Available [facility] ([facility]) [address] [facility], [place], [address], 11/18/2017 08:47:39 11/18/19 18 11/18/2017 CBC MCV 92 fL 79-97 Not Available [facility] ([facility]) [address] [facility], [place], [address], 11/18/2017 08:47:39 11/18/19 18 11/18/2017 CBC MCH 31.9 pg 26.6-3 3.0 Not Available [facility] ([facility]) [address] [facility], [place], [address], 11/18/2017 08:47:39 11/18/19 18 11/18/2017 CBC MCHC 34.5 g/dL 31.5-3 5.7 Not Available [facility] ([facility]) [address] [facility], [place], [address], 11/18/2017 08:47:39 11/18/19 18 11/18/2017 CBC RDW 14.2 % 12.3-1 5.4 Not Available [facility] ([facility]) [address] [facility], [place], [address], 11/18/2017 08:47:39 11/18/19 18 11/18/2017 CBC platelets 289 x10e3 /uL 150-37 9 Not Available [facility] ([facility]) [address] [facility], [place], [address], 11/18/2017 08:47:39 11/18/19 18 11/18/2017 CBC NRBC [employer] Not Available [facility] ([facility]) [address] [facility], [place], [address], 11/18/2017 08:47:39 11/18/19 18 11/18/2017 vitam in B12 + folat e, serum or blood vitamin B12 827 pg/mL 232-12 45 Not Available [facility] ([facility]) [address] [facility], [place], [address], 11/18/2017 08:47:40 11/18/19 18 11/18/2017 vitam in B12 + folat e, serum or blood folate (folic acid), serum 3.7 NG/mL >3.0 A serum folat e valarie ntrat ion of less than 3.1 ng/mL is consi dered to repre sent clini lisa defic iency . Not Available [facility] ([facility]) [address] [facility], [place], [address], 11/18/2017 08:47:40 11/18/19 18 11/18/2017 TSH, ultra -sens itive , serum TSH 1.850 uIU/m L 0.450- 4.500 Not Available [facility] ([facility]) [address] [facility], [place], [address], 11/18/2017 08:47:40 11/18/19 18 11/18/2017 vitam in [...] um and D. Washi [place]: [employer] . 2. Roma naranjo MF, Althea moscoso [place], Adriana off-F errar i FISHMAN, et al. Evalu ation , treat ment, and preve ntion of vitam in D defic iency : an Endoc rine Socie ty clini lisa pract ice guide line. JCEM. 2010; 96(7) :1911 -30. Not Available [facility] ([facility]) [address] [facility], [place], [address], 11/18/2017 08:47:41 11/18/19 18 11/18/2017 magne sium, serum or plasm a magnesium 2.3 mg/dL 1.6-2. 3 Not Available [facility] ([facility]) [address] [facility], [place], [address], 11/18/2017 08:47:42 11/18/19 18 11/17/2017 gluco se, finge rstic k, blood Blood Glucose: mg/dl 88 Not Available [address] [place], [address], 11/17/2017 10:59:52 11/18/19 18 11/17/2017 HbA1c (hemo globi n A1c), blood HbA1c 5.5 Not Available [address] [place], [address], 11/17/2017 10:59:36 11/18/19 18 11/17/2017 urina lysis , dipst ick Leukocytes Negati ve Not Available [address] [place], [address], 11/17/2017 10:58:08 11/18/19 18 11/17/2017 urina lysis , dipst ick Nitrite negati ve Not Available [address] [place], [address], 11/17/2017 10:58:08 11/18/19 18 11/17/2017 urina lysis , dipst ick Urobilinogen .2 Not Available [address] [place], [address], 11/17/2017 10:58:08 11/18/19 18 11/17/2017 urina lysis , dipst ick Protein Negati ve Not Available [address] [place], [address], 11/17/2017 10:58:08 11/18/19 18 11/17/2017 urina lysis , dipst ick pH 7.0 Not Available [address] [place], [address], 11/17/2017 10:58:08 11/18/19 18 11/17/2017 urina lysis , dipst ick Blood Negati ve Not Available [address] [place], [address], 11/17/2017 10:58:08 11/18/19 18 11/17/2017 urina lysis , dipst ick Specific [place] 1.025 Not Available [address] [place], [address], 11/17/2017 10:58:08 11/18/19 18 11/17/2017 urina lysis , dipst ick Ketone Negati ve Not Available [address] [place], [address], 11/17/2017 10:58:08 11/18/19 18 11/17/2017 urina lysis , dipst ick Bilirubin Negati ve Not Available [address] [place], [address], 11/17/2017 10:58:08 11/18/19 18 11/17/2017 urina lysis , dipst ick Glucose Negati ve Not Available [address] [place], [address], 11/17/2017 10:58:08 02/24/19 23 02/24/2022 rapid flu (A+B) Flu negati ve Not Available [address] [place], [address], 02/24/2022 15:42:04 02/24/19 23 02/24/2022 rapid flu (A+B) Type B Not Available [address] [place], [address], 02/24/2022 15:42:04 02/24/19 23 02/24/2022 rapid strep group A, throa t Strep negati ve Not Available [address] [place], [address], 02/24/2022 15:37:31 02/24/19 23 02/24/2022 rapid SARS CoV + SARS CoV 2 Ag, QL IA, respi rator y speci men SARS CoV antigen Negati ve Not Available [address] [place], [address], 02/24/2022 15:42:15 07/06/19 23 07/06/2022 TANVIR C DISEA SE PANEL endomysial antibody IgA Negati ve negati ve Not Available [facility] ([facility]) [address] [facility], [place], [address], 07/06/2022 16:36:51 07/06/19 23 07/06/2022 TANVIR C DISEA SE PANEL T-transgluta minase (ttg) IgA <2 U/mL 0-3 Negat zoe 0 - 3 Weak Posit zoe 4 - 10 Posit zoe >10 Tissu e Trans gluta jostete e (tTG) has been ident ified as the endom ysial antig en. Studi es have demon str- ated that endom ysial IgA antib odies have over 99% speci ficit y for glute n sensi tive enter opath y. Not Available [facility] ([facility]) [address] [facility], [place], [address], 07/06/2022 16:36:51 07/06/1907/06/2022 TANVIR C DISEA SE PANEL immunoglobul in A, qn, serum 213 mg/dL 90-386 Not Available [facility] ([facility]) [address] [place], [address], 07/06/2022 16:36:51 07/06/19 23 07/06/2022 CBC WITH DIFFE RENTI AL/PL ATELE T WBC 8.0 x10e3 /uL 3.4-10 .8 Not Available [facility] ([facility]) [address] [place], [address], 07/06/2022 16:36:52 07/06/19 23 07/06/2022 CBC WITH DIFFE RENTI AL/PL ATELE T RBC 4.86 x10e6 /uL 4.14-5 .80 Not Available [facility] ([facility]) [address] [place], [address], 07/06/2022 16:36:52 07/06/1907/06/2022 CBC WITH DIFFE RENTI AL/PL ATELE T hemoglobin 15.3 g/dL 13.0-1 7.7 Not Available [facility] ([facility]) [address] [place], [address], 07/06/2022 16:36:52 07/06/19 23 07/06/2022 CBC WITH DIFFE RENTI AL/PL ATELE T hematocrit 44.8 % 37.5-5 1.0 Not Available [facility] ([facility]) [address] [facility], [place], [address], 07/06/2022 16:36:52 07/06/19 23 07/06/2022 CBC WITH DIFFE RENTI AL/PL ATELE T MCV 92 fL 79-97 Not Available [facility] ([facility]) [address] [facility], [place], [address], 07/06/2022 16:36:52 07/06/1907/06/2022 CBC WITH DIFFE RENTI AL/PL ATELE T MCH 31.5 pg 26.6-3 3.0 Not Available [facility] ([facility]) [address] [facility], [place], [address], 07/06/2022 16:36:52 07/06/19 23 07/06/2022 CBC WITH DIFFE RENTI AL/PL ATELE T MCHC 34.2 g/dL 31.5-3 5.7 Not Available [facility] ([facility]) [address] [facility], [place], [address], 07/06/2022 16:36:52 07/06/19 23 07/06/2022 CBC WITH DIFFE RENTI AL/PL ATELE T RDW 13.0 % 11.6-1 5.4 Not Available [facility] ([facility]) [address] [place], [address], 07/06/2022 16:36:52 07/06/19 23 07/06/2022 CBC WITH DIFFE RENTI AL/PL ATELE T platelets 263 x10e3 /uL 150-45 0 Not Available [facility] ([facility]) [address] [place], [address], 07/06/2022 16:36:52 07/06/19 23 07/06/2022 CBC WITH DIFFE RENTI AL/PL ATELE T neutrophils 53 % not estab. Not Available [facility] ([facility]) [address] [facility], [place], [address], 07/06/2022 16:36:52 07/06/19 23 07/06/2022 CBC WITH DIFFE RENTI AL/PL ATELE T lymphs 34 % not estab. Not Available [facility] ([facility]) [address] [facility], [place], [address], 07/06/2022 16:36:52 07/06/19 23 07/06/2022 CBC WITH DIFFE RENTI AL/PL ATELE T monocytes 10 % not estab. Not Available [facility] ([facility]) [address] [facility], [place], [address], 07/06/2022 16:36:52 07/06/19 23 07/06/2022 CBC WITH DIFFE RENTI AL/PL ATELE T eos 2 % not estab. Not Available [facility] ([facility]) [address] [facility], [place], [address], 07/06/2022 16:36:52 07/06/19 23 07/06/2022 CBC WITH DIFFE RENTI AL/PL ATELE T basos 1 % not estab. Not Available [facility] ([facility]) [address] [facility], [place], [address], 07/06/2022 16:36:52 07/06/19 23 07/06/2022 CBC WITH DIFFE RENTI AL/PL ATELE T immature cells [employer] Not Available [facility] ([facility]) [address] [place], [address], 07/06/2022 16:36:52 07/06/19 23 07/06/2022 CBC WITH DIFFE RENTI AL/PL ATELE T neutrophils (absolute) 4.2 x10e3 /uL 1.4-7. 0 Not Available [facility] ([facility]) [address] [facility], [place], [address], 07/06/2022 16:36:52 07/06/19 23 07/06/2022 CBC WITH DIFFE RENTI AL/PL ATELE T lymphs (absolute) 2.7 x10e3 /uL 0.7-3. 1 Not Available [facility] ([facility]) [address] [facility], [place], [address], 07/06/2022 16:36:52 07/06/19 23 07/06/2022 CBC WITH DIFFE RENTI AL/PL ATELE T monocytes(ab solute) 0.8 x10e3 /uL 0.1-0. 9 Not Available [facility] ([facility]) [address] [facility], [place], [address], 07/06/2022 16:36:52 07/06/19 23 07/06/2022 CBC WITH DIFFE RENTI AL/PL ATELE T eos (absolute) 0.2 x10e3 /uL 0.0-0. 4 Not Available [facility] ([facility]) [address] [facility], [place], [address], 07/06/2022 16:36:52 07/06/19 23 07/06/2022 CBC WITH DIFFE RENTI AL/PL ATELE T baso (absolute) 0.1 x10e3 /uL 0.0-0. 2 Not Available [facility] ([facility]) [address] [facility], [place], [address], 07/06/2022 16:36:52 07/06/19 23 07/06/2022 CBC WITH DIFFE RENTI AL/PL ATELE T immature granulocytes 0 % not estab. Not Available [facility] ([facility]) [address] [facility], [place], [address], 07/06/2022 16:36:52 07/06/19 23 07/06/2022 CBC WITH DIFFE RENTI AL/PL ATELE T immature grans (abs) 0.0 x10e3 /uL 0.0-0. 1 Not Available [facility] ([facility]) [address], [place], [address], 07/06/2022 16:36:52 07/06/19 23 07/06/2022 CBC WITH DIFFE RENTI AL/PL ATELE T NRBC [employer] Not Available [facility] ([facility]) [address], [place], [address], 07/06/2022 16:36:52 07/06/19 23 07/06/2022 CBC WITH DIFFE RENTI AL/PL ATELE T hematology comments: [employer] Not Available [facility] ([facility]) [address], [place], [address], 07/06/2022 16:36:52 07/06/19 23 07/06/2022 COMP. METAB OLIC PANEL (14) glucose 77 mg/dL 70-99 Not Available [facility] ([facility]) [address] [place], [address], 07/06/2022 16:36:53 07/06/19 23 07/06/2022 COMP. METAB OLIC PANEL (14) BUN 15 mg/dL 6-24 Not Available [facility] ([facility]) [address] [facility] [place], [address], 07/06/2022 16:36:53 07/06/19 23 07/06/2022 COMP. METAB OLIC PANEL (14) creatinine 1.27 mg/dL 0.76-1 .27 Not Available [facility] ([facility]) [address] [place], [address], 07/06/2022 16:36:53 07/06/19 23 07/06/2022 COMP. METAB OLIC PANEL (14) eGFR 71 mL/mi n/1.7 3 >59 Not Available [facility] ([facility]) [address] [place], [address], 07/06/2022 16:36:53 07/06/19 23 07/06/2022 COMP. METAB OLIC PANEL (14) BUN/creatini ne ratio 12 9-20 Not Available [facility] ([facility]) [address] [facility], [place], [address], 07/06/2022 16:36:53 07/06/19 23 07/06/2022 COMP. METAB OLIC PANEL (14) sodium 140 mmol/ L 134-14 4 Not Available [facility] ([facility]) [address] [facility] [place], [address], 07/06/2022 16:36:53 07/06/19 23 07/06/2022 COMP. METAB OLIC PANEL (14) potassium 4.9 mmol/ L 3.5-5. 2 Not Available [facility] ([facility]) [address] [facility], [place], [address], 07/06/2022 16:36:53 07/06/19 23 07/06/2022 COMP. METAB OLIC PANEL (14) chloride 102 mmol/ L 96-106 Not Available [facility] ([facility]) [address] [place], [address], 07/06/2022 16:36:53 07/06/19 23 07/06/2022 COMP. METAB OLIC PANEL (14) carbon dioxide, total 26 mmol/ L 20-29 Not Available [facility] ([facility]) [address] [place], [address], 07/06/2022 16:36:53 07/06/19 23 07/06/2022 COMP. METAB OLIC PANEL (14) calcium 9.9 mg/dL 8.7-10 .2 Not Available [facility] ([facility]) [address] [place], [address], 07/06/2022 16:36:53 07/06/19 23 07/06/2022 COMP. METAB OLIC PANEL (14) protein, total 6.7 g/dL 6.0-8. 5 Not Available [facility] ([facility]) [address] [place], [address], 07/06/2022 16:36:53 07/06/19 23 07/06/2022 COMP. METAB OLIC PANEL (14) albumin 4.5 g/dL 4.0-5. 0 Not Available [facility] ([facility]) [address] [place], [address], 07/06/2022 16:36:53 07/06/19 23 07/06/2022 COMP. METAB OLIC PANEL (14) globulin, total 2.2 g/dL 1.5-4. 5 Not Available [facility] ([facility]) [address] [place], [address], 07/06/2022 16:36:53 07/06/19 23 07/06/2022 COMP. METAB OLIC PANEL (14) A/G ratio 2.0 1.2-2. 2 Not Available [facility] ([facility]) [address] [place], [address], 07/06/2022 16:36:53 07/06/19 23 07/06/2022 COMP. METAB OLIC PANEL (14) bilirubin, total 0.3 mg/dL 0.0-1. 2 Not Available [facility] ([facility]) [address] [place], [address], 07/06/2022 16:36:53 07/06/19 23 07/06/2022 COMP. METAB OLIC PANEL (14) alkaline phosphatase 102 IU/L 44-121 Not Available [facility] ([facility]) [address] [place], [address], 07/06/2022 16:36:53 07/06/19 23 07/06/2022 COMP. METAB OLIC PANEL (14) AST (SGOT) 26 IU/L 0-40 Not Available [facility] ([facility]) [address] [facility] [place], [address], 07/06/2022 16:36:53 07/06/19 23 07/06/2022 COMP. METAB OLIC PANEL (14) ALT (SGPT) 33 IU/L 0-44 Not Available [facility] ([facility]) [address] [facility] [place], [address], 07/06/2022 16:36:53 07/06/19 23 07/06/2022 THYRO ID PANEL WITH TSH TSH 1.610 uIU/m L 0.450- 4.500 Not Available [facility] ([facility]) [address] [facility] [place], [address], 07/06/2022 16:36:54 07/06/19 23 07/06/2022 THYRO ID PANEL WITH TSH thyroxine (T4) 6.2 ug/dL 4.5-12 .0 Not Available [facility] ([facility]) [address] [place], [address], 07/06/2022 16:36:54 07/06/19 23 07/06/2022 THYRO ID PANEL WITH TSH T3 uptake 27 % 24-39 Not Available [facility] ([facility]) [address] [place], [address], 07/06/2022 16:36:54 07/06/19 23 07/06/2022 THYRO ID PANEL WITH TSH free thyroxine index 1.7 1.2-4. 9 Not Available [facility] ([facility]) [address] [place], [address], 07/06/2022 16:36:54 07/06/1907/06/2022 H PYLOR I, IGM, IGG, IGA AB H. pylori, IgG abs 0.08 index _valu e 0.00-0 .79 Negat zoe <0.80 Equiv ocal 0.80 - 0.89 Posit zoe >0.89 Not Available [facility] ([facility]) [address] [place], [address], 07/06/2022 16:36:55 07/06/19 23 07/06/2022 H PYLOR I, IGM, IGG, IGA AB H. pylori, IgA abs <9.0 units 0.0-8. 9 Negat zoe <9.0 Equiv ocal 9.0 - 11.0 Posit zoe >11.0 Not Available [facility] ([facility]) [address] [place], [address], 07/06/2022 16:36:55 07/06/19 23 07/06/2022 H PYLOR I, IGM, IGG, IGA AB H pylori, IgM abs <9.0 units 0.0-8. 9 Negat zoe <9.0 Equiv ocal 9.0 - 11.0 Posit zoe >11.0 This test was uriel melvin and its perfo rmanc e ezekiel cteri stics deter mined by [facility]. It has not been clear ed or appro tulio by the Food and Drug Admin istra tion. Not Available [facility] ([facility]) [address] [place], [address], 07/06/2022 16:36:55 07/06/19 23 07/06/2022 GABRIELLA+L IPASE amylase 67 U/L 31-110 Not Available [facility] ([facility]) [address] [place], [address], 07/06/2022 16:36:56 07/06/19 23 07/06/2022 GABRIELLA+L IPASE lipase 45 U/L 13-78 Not Available [facility] ([facility]) [address] [place], [address], 07/06/2022 16:36:56 07/06/19 23 07/06/2022 VITAM IN [...] um and D. Rola farias [place]: [facility] Press . 2. Roma naranjo MF, Althea moscoso [place], Adriana off-F arnold i FISHMAN, et al. Evalu ation , treat ment, and preve ntion of vitam in D defic iency : an Endoc rine Socie ty clini lisa pract ice guide line. JCEM. 2010; 96(7) :1911 -30. Not Available [facility] ([facility]) [address] [facility], [place], [address], 07/06/2022 16:36:56 07/06/19 23 07/05/2022 urina lysis , dipst ick Leukocytes Negati ve Not Available [facility] [address] [place], [address], 07/05/2022 14:10:29 07/06/19 23 07/05/2022 urina lysis , dipst ick Nitrite negati ve Not Available [facility] [address] [place], [address], 07/05/2022 14:10:29 07/06/19 23 07/05/2022 urina lysis , dipst ick Urobilinogen 1 Not Available [facility] [address] [place], [address], 07/05/2022 14:10:29 07/06/19 23 07/05/2022 urina lysis , dipst ick Protein Negati ve Not Available [address] [place], [address], 07/05/2022 14:10:29 07/06/19 23 07/05/2022 urina lysis , dipst ick pH 5.5 Not Available [address] [place], [address], 07/05/2022 14:10:29 07/06/19 23 07/05/2022 urina lysis , dipst ick Blood Negati ve Not Available [address] [place], [address], 07/05/2022 14:10:29 07/06/19 23 07/05/2022 urina lysis , dipst ick Specific [place] 1.030 Not Available [address] [place], [address], 07/05/2022 14:10:29 07/06/19 23 07/05/2022 urina lysis , dipst ick Ketone Negati ve Not Available [address] [place], [address], 07/05/2022 14:10:29 07/06/19 23 07/05/2022 urina lysis , dipst ick Bilirubin Negati ve Not Available [address] [place], [address], 07/05/2022 14:10:29 07/06/19 23 07/05/2022 urina lysis , dipst ick Glucose Negati ve Not Available [address] [place], [address], 07/05/2022 14:10:29 07/06/19 23 07/05/2022 urina lysis , dipst ick Appearance Clear Not Available [facility] [address] [place], [address], 07/05/2022 14:10:29 07/06/19 23 07/05/2022 urina lysis , dipst ick Color Dark Yellow Not Available [facility] [address] [place], [address], 07/05/2022 14:10:29 07/07/19 23 07/08/2022 STOOL CULTU RE salmonella/s higella screen Final report Not Available [facility] ([facility]) [address] [place], [address], 07/13/2022 18:35:47 07/07/19 23 07/08/2022 STOOL CULTU RE result 1 COMMEN T No Salmo david or Shige lla recov ered. Not Available [facility] ([facility]) [address] [place], [address], 07/13/2022 18:35:47 07/07/19 23 07/08/2022 STOOL CULTU RE E coli shiga toxin EIA Negati ve negati ve Not Available [facility] ([facility]) [address] [place], [address], 07/13/2022 18:35:47 07/07/19 23 07/10/2022 STOOL CULTU RE campylobacte r culture Final report Not Available [facility] ([facility]) [address] [place], [address], 07/13/2022 18:35:47 07/07/19 23 07/10/2022 STOOL CULTU RE result 1 COMMEN T No Campy lobac ter speci es isola cuauhtemoc. Not Available [facility] ([facility]) [address] [place], [address], 07/13/2022 18:35:47 07/07/1907/07/2022 GIARD IA/CR YPTOS PORID IUM EIA giardia lamblia Ag, EIA Negati ve negati ve Not Available [facility] ([facility]) [address] [place], [address], 07/13/2022 18:35:48 07/07/19 23 07/07/2022 GIARD IA/CR YPTOS PORID IUM EIA cryptosporid ium EIA Negati ve negati ve Not Available [facility] ([facility]) [address] [place], [address], 07/13/2022 18:35:48 07/07/1907/07/2022 C DIFFI CILE TOXIN S A+B, EIA C difficile toxins A+B, EIA Negati ve negati ve Not Available [facility] ([facility]) [address] [place], [address], 07/13/2022 18:35:49 07/07/1907/13/2022 OVA + ELISABETH ITE EXAM ova + parasite exam Final report These resul ts were obtai fernando using wet prepa ratio n(s) and trich megan stain ed smear . This test does not inclu de testi ng for Crypt ospor idium parvu m, Cyclo spora , or Micro spori tamra. Not Available [facility] ([facility]) [address] [place], [address], 07/13/2022 18:35:50 07/07/1907/13/2022 OVA + ELISABETH ITE EXAM result 1 COMMEN T No ova, cysts , or elisabeth ites seen. One negat zoe speci men does not rule out the possi bilit y of a elisabeth itic infec tion. Not Available [facility] ([facility]) [address] [facility], [address], 07/13/2022 18:35:50 11/18/19 18 11/17/2017 XR, lumbo sacra l spine No observ ation record ed. [place] (Centralized Scheduling) [address] [place] [address] , [place], [address], 11/17/2017 12:25:04 02/16/19 19 02/16/2018 XR, hip + pelvi s, unila teral , 2 or 3 view No observ ation record ed. [address] , [place], [address], 02/20/2018 14:28:45 02/22/19 19 02/22/2018 MRI, hip, w/ contr ast No observ ation record ed. [address] , [place], [address], 02/28/2018 09:20:19 04/29/19 21 04/28/2020 MRI, hip, w/o contr ast No observ ation record ed. Not Available 2020 16:09:12 02/25/19 23 US, thyro id No observ ation record ed. [email or web address] Not Available 2022 11:57:34 07/06/19 23 US, kidne y No observ ation record ed. [facility] [address] [place], [address], 07/05/2022 15:50:00 07/08/19 23 07/07/2022 XR, kidne y + urete r + bladd er No observ ation record ed. [email or web address] [facility] (Centralized Scheduling) [address] [place] [address] Maria Elena [place], [address], 07/07/2022 15:28:24 Result Notes None recorded. Problems Name Problem SNOMED Code Status Onset Date Resolution Date Notes Provider Name and Address Organization Details Recorded Time Asthma 607717752 Active 2015 Nadege Fitzpatrick RN [address], [place], [address], [place] - [facility] 8 14:22:57 Depressive disorder 34609055 Active 2015 Nadege Fitzpatrick RN [address], [place], [address], [place] - [facility] 8 14:22:56 Hyperlipidemia 05014896 Active 2015 Nadege Fitzpatrick RN [address], [place], [address], [place] [facility] 8 14:22:56 Pain in limb 97599701 Active 2015 Nadege Fitzpatrick RN [address], [place], [address], [place] [facility] 8 14:22:57 Low back pain 864169252 Active 2015 Nadege Fitzpatrick RN [address], [place], [address], [place] [facility] 8 14:22:57 Narcolepsy 68831752 Active 2015 Nadege Fitzpatrick RN [address], [place], [address], [place] [facility] 8 14:22:57 Osteoarthritis 140149855 Active 2015 Nadege Fitzpatrick RN [address], [place], [address], [place] [facility] 8 14:22:56 Cellulitis 056022124 Active 2017 Crystal Tenzin [facility], [place] - [facility] 8 13:21:53 Thyroid nodule 246764299 Active 2022 Caty Galdamez [place], [place] - [facility] 3 11:53:11 Problem Notes None recorded. Medical Equipment None Reported. Allergies Allergen ID Allergen Name Allergen Category Reaction Reaction Severity Criticality Documentation Date Start Date Code Code System Note Provider Name and Address Organization Details Recorded Time 834985 Keflex medicatio n Not available Not available Not available 09/06/201701841 7 RxNorm Mavis Gallenste in [facility] [place] - [facility] 8 08:56:32 960882 Product containin g penicilli n (product) medicatio n hives mild low 07/07/2022 69398 8001 SNOMED Yana Mart null, [place] - [...] 01/20/20 14;Indic ation: Male Hypogona dism - (2999 ) Not Available Not Available Not Available [...] Completi on: 02/16/19 12;Indic ation: Cough - (165322 ) Not Available Not Available Not Available [...] weight Body temperature Heart rate Oxygen saturation Systolic And Diastolic Provider Name and Address Organization Details Last Updated DateTime 3 187.96 cm 31.3 kg/m2 625266. 54 g 98.3 [degF] 78 /min 98 % 130/80 mm[Hg] [facility] [place] - [facility] 3 15:38:12 Date Recorded Body height Body mass index (BMI) Body weight Heart rate Oxygen saturation Respiratory rate Pain severity - 0-10 verbal numeric rating [Score] - Reported Systolic And Diastolic Provider Name and Address Organization Details Last Updated DateTime 3 187.96 cm 30.4 kg/m2 220224. 39 g 90 /min 97 % 18 /min 3 138/80 mm[Hg] Nadege Amin [place] - [facility] 3 13:58:21 Date Recorded Body height Body mass index (BMI) Body weight Body temperature Heart rate Oxygen saturation Pain severity - 0-10 verbal numeric rating [Score] - Reported Systolic And Diastolic Provider Name and Address Organization Details Last Updated DateTime 3 187.96 cm 30.5 kg/m2 956997. 19 g 97.9 [degF] 76 /min 97 % 10 128/70 mm[Hg] Yana Mart [place] - [facility] 3 09:34:55 Date Recorded Body height Body mass index (BMI) Body weight Body temperature Respiratory rate Heart rate Oxygen saturation Systolic And Diastolic Provider Name and Address Organization Details Last Updated DateTime 8 187.96 cm 29.3 kg/m2 410805. 06 g 98.2 [degF] 18 /min 86 /min 98 % 130/82 mm[Hg] Grace Romero [place] - [facility] 8 10:41:00 Social History Question Answer Notes LastModified by FeZoat ion Details LastModified Time Tobacco Smoking Status Current Every Day Smoker Nadege Tenzinradha mahajan [place] - [facility] 02/02/2016 13:09:34 Able [...] Live Alone Or With Others? With Others [email or web address] Information not available 11/17/2017 What Was The Date Of Your Most Recent Tobacco Screening? 07/07/2022 [email or web address] Information not available 07/07/2022 What Is Your Current Pack Years? 10-packyears [email or web address] Information not available 02/24/2022 What Is Your Relationship Status? Information not available 02/02/2016 Seat Belts Used Routinely No Information not available 02/02/2016 Are You Sexually Active? Yes Information not available 02/02/2016 At What Age Did You Start Smoking Tobacco? 19 [email or web address] Information not available 02/24/2022 How Much Tobacco Do You Smoke? 1 PPD Information not available 11/17/2017 Do You Use Sunscreen Routinely? No Information not available 02/02/2016 Has Tobacco Cessation Counseling Been Provided? Yes [email or web address] Information not available 02/24/2022 On What Date Was Tobacco Cessation Counseling Provided? 07/07/2022 Information not available 07/07/2022 Do You Have Difficulty Walking Or Climbing Stairs? No Information not available 02/02/2016 Sex: Male Functional Status Question Answer Note LastModified by Organizat ion Details LastModified Time What is your level of alcohol consumption? None former Information not available 02/02/2016 Do you have difficulty doing errands alone? No Information not available 02/02/2016 Are you able to care for yourself independently? Yes Information not available 02/02/2016 Do you have difficulty dressing, bathing, grooming, or toileting? No Information not available 02/02/2016 What is [...] available 02/02/2016 13:09:25 Medical History Condition Response Depression Y Asthma Y Osteoarthritis Y Lumbago Y Hyperlipidemia Y Sleep Apnea Y Immunizations Vaccine Type Date Status Note Provider Nam e and Address Organization Details Recorded Time Influenza, split virus, quadrivalent, PF 2 completed Radha Mccarty APRN [address], [place], [address], [place] - [facility] 01/05/2022 23:08:41 COVID-19, mRNA, LNP-S, PF, 100 mcg/0.5mL dose or 50 mcg/0.25mL dose 1 completed Yana Mrat null, [place] - [facility] 07/07/2022 09:35:28 COVID-19 vaccine, vector-nr, rS-Ad26, PF, 0.5 mL 1 completed Yana Mart [place] [facility] 07/07/2022 09:35:28 COVID-19, mRNA, LNP-S, bivalent, PF, 30 mcg/0.3 mL dose 2 completed Yana Mart [place], [place] [facility] 07/07/2022 09:35:28 Tdap 9 completed Yana Mart [place] [facility] 07/07/2022 09:35:28 Td (adult), 2 Lf tetanus toxoid, preservative free, adsorbed 7 completed Yana Mart [place], [place] - [facility] 07/07/2022 09:35:28 Hep A, adult 9 completed Yana Mart [place], [place] - [facility] 07/07/2022 09:35:28 Past Encounters Encounter ID Performer Location Encounter Start Date Encounter Closed Date Diagnosis/Indication Diagnosis SNOMED-CT Code Diagnosis ICD10 Code Diagnosis IMO Codes Diagnosis Note [id number] Caty Galdamez APRN [facility] [address] [place] [address] 02/02/2016 12:54:16 02/02/2016 13:55:43 Otitis media 29591397 H66.92 Depressive disorder 3548 9007 F33.1 pt denies SI or HI, wants to be back on meds Increased frequency of urination 779943138 R35.0 [id number] Lamin Blank MD [address] [place] [address] 03/16/2017 16:12:57 03/17/2017 12:43:29 Pain in right foot 4560254220 61042 M79.671 Ankle pain 630729624 M25 .571 Depressive disorder 3548 9007 F33.1 Body mass index 25-29 - overweight 961536139 Z68.25 [id number] Lamin Blank MD [address] [place] [address] 06/14/2017 14:08:58 06/14/2017 15:40:58 Fatigue 07307792 R53.83 Body mass index 30+ - obesity 565051441 Z68.39 Ankle pain 762117046 M25 .744 [id number] Lamin Blank MD [address] [place] [address] 06/20/2017 12:39:23 06/20/2017 15:26:59 Upper respiratory infection 52972776 J06.9 Cough 27007944 R05 Otitis media 97655383 H6 6.93 [id number] Lamin Blank MD [address] [place] [address] 08/31/2017 12:59:22 08/31/2017 16:20:12 Deep venous thrombosis of lower extremity 666874078 I82.409 Cellulitis 210717775 L03 .90 [id number] Lamin Blank MD [address] [address] 09/06/2017 07:54:34 09/06/2017 09:04:01 Cellulitis 025197409 L03.90 [id number] Lamin Blank MD [address] [place] [address] 09/13/2017 09:27:00 09/13/2017 11:26:54 Cellulitis 021158901 L03.90 Nicotine dependence 5629 4008 F17.662 [id number] Caty [place] [place] [address] 11/17/2017 10:07:11 11/17/2017 11:30:52 Diabetes mellitus screening 854005707 Z13.1 Paresthesi a of lower extremity 370712375 R20.2 [id number] Radha Mccarty[address] [place] [address] 12/30/2021 10:43:30 12/30/2021 10:51:53 Influenza vaccine needed 3299755900 106 Z23 [id number] Caty Galdamez[address] [place] [address] 02/24/2022 15:24:48 02/24/2022 16:01:26 Pharyngitis 826975404 J02.9 Disorder o f thyroid gland 05825524 E07.9 right lobe feels enlarged Sinusitis 13155538 J32.9 [id number] Caty Galdame[address] [place] [address] 07/05/2022 13:45:05 07/05/2022 14:41:23 Left lower quadrant pain 998334008 R10.32 xray not available here todaypt didn't want to go to [place] today Flatulence symptom 61209 8004 R14.3 Lower abdominal pain 545 79246 R10.30 Vitamin D deficiency 347 72873 E55.9 Altered noah wel function 65280908 R19.4 [id number] Caty [address] [place] [address] 07/07/2022 09:24:31 07/07/2022 10:17:51 Body mass index 30+ - obesity 284893655 Z68.30 Obesity 452820955 E66.9 Left lower quadrant pain 900010419 R10.32 xray not available here todaypt didn't want to go to [place] today Constipation 59183846 K5 9.00 Health Concerns Section Related Observation LastModified by Organization Detai ls LastModified Time None Recorded Concern Status LastModified by Organization Details LastModified Time None Recorded Advance Directives Directive None Recorded Payers Insurance Date Sequence Insurance Name Policy Number Policy Duncan Covered Member ID Duncan Member ID Guarantor Name 07/05/2022 [place]ID[place] Dejuan Ram [id number] Dejuan Ram 02/24/2022 1 [employer] [facility] (MEDICAID HMO) Dejuan Ram [id number] Dejuan Ram 02/24/2022 1 [facility] [id number] Dejuan Ram [id number] Dejuan Ram 07/08/2022 [facility] (MEDICARE REPLACEMENT/A DVANTAGE - HMO) [id number] Dejuan Ram [id number] Dejuan aRm 04/10/2016 1 UNSPECIFIED REMIT PAYOR Dejuan Ram 07/07/2022 1 [place] Dejuan Ram [id number] Dejuan Ram 02/24/2022 2 MEDICAID-[facility] - FFS/[place]ADITION [place] Dejuan Ram [id number] Dejuan Ram 07/05/2022 [employer] NATIONAL [place] Dejuan Ram [id number] Dejuan Ram 07/05/2022 2 [place] [id number] Dejuan Ram [id number] Dejuan Ram 07/07/2022 1 [facility] - DUAL ELIGIBLE (MEDICARE REPLACEMENT/A DVANTAGE - HMO) [id number] Dejuan Ram [id number] Dejuan Ram Notes Date Note Type Note Provider Name and Address Organization Details Recorded Time 8 text/html ROS as noted in the HPI leg pain (right) pt states burning pain started in his right thigh 2 days ago AGUILA Verdugo - [facility] 11/17/2017 11:37:37 3 text/html ROS as noted in the HPI sore throatfatigueweakness AGUILA Verdugo - [facility] 02/24/2022 16:05:42 3 text/html Abdominal PainReported by PatientROS as noted in the HPI pt c/o lower left side abdominal pain x 2 weeks and states that he is nauseousand has excessive flatulence 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
--- NOTE | 2025-01-14 06:30 | NM_ITS ---
APPROVED REPORT Exam: Nuclear Stress Test Indication: Chest pain, HTN, High cholesterol, Tobacco use, Family history Patient Location: Outpatient Stress Tech: Priti Condon NURYS Tech:Mirna Proctor, ARRT, RT (R)(N) Ht: 6 ft 1 in Wt: 238 lbs HR: 66 bpm BP: 116/84 mmHg BSA: 2.32 m2 TID: 1.08 BMI: 31.3 History: Chest pain, HTN, High cholesterol, Tobacco use, Family history Procedure: Patient received 0.4 mg of intravenous Lexiscan, resting heart rate 66 bpm, resting blood pressure 116/84 mmHg, with Lexiscan maximum heart rate achieved was 95 bpm which is % of the maximum predicted heart rate and blood pressure was 157/98 mmHg. With Lexiscan, patient denied any complaint of chest pain. Cardiac Stress and Resting SPECT Images: Cardiac Stress and Resting SPECT images were obtained using technetium 99m Myoview 20.7 mCi stress and 7.51 mCi at rest. Resting and stress imaging in supine and prone positions demonstrate no evidence of fixed or reversible perfusion defects. Gated imaging demonstrates normal global LV systolic function. LVEF is calculated at 61%. Conclusion: No evidence of fixed or reversible perfusion defects. Gated imaging demonstrates normal global LV systolic function. LVEF is calculated at 61%. Electronically signed by : Kalyn Naranjo MD 01/14/2025 22:12:13
[2025-01-14 08:15] VITALS: BP 116/84; PULSE 67; RESP 16
[2025-01-14] MEDS: ISOTOPE MYOVIEW (PER STUDY) 1 DOSE IV (08:32)
[2025-01-14] MEDS: SODIUM CHLORIDE 0.9% 10ML SYR (RAD ONLY) 10 ML IV ×2 (08:32)
--- NOTE | 2025-01-14 08:45 | CA_ITS ---
APPROVED REPORT EXAM: Comprehensive 2D, Doppler, and color-flow Echocardiogram Arbitrator: Sabra Rajan CRT Ht: 6 ft 1 in Wt: 234lbs BSA: 2.30 BP: 144/88 mmHg Indications: Chest Pain, Shortness of Breath, Hyperlipidemia, Pleural Effusion, Hypertension/HDD, smoker 2D Dimensions LA Volume 9.40 mL LA Volume Index 4.00 mL/m2 (M/F) 16-34 M-Mode Dimensions RVDd 2.36 cm (0.9-2.6) LA Diam 2.73 cm (1.9-4.0) LVDd 4.42 cm (3.5-5.7) LVDs 2.63 cm (3.5-5.7) IVSd 1.29 cm (0.6-1.1) PWd 0.84 cm (0.6-1.1) EF (Teich) 71.40% FS 40.50% EDV (Teich) 88.60 mL TAPSE 1.87 (<1.7) ESV (Teich) 25.30 mL LV Diastology E Decel Time 213 (160-240 msec) E/A Ratio 1.21 MED A' 11.00 cm/s LAT A' 6.50 cm/s Aortic Valve AO Peak GR. 5.30 mmHg Mitral Valve MV E Max Faizan. 62.0 (40-130 cm/s) MV A Velocity 51.0 (40-130 cm/s) E/A Ratio 1.21 MV PHT 62.0 ms Pulmonary Valve PV Peak Velocity 83.0 (50-150 cm/s) Tricuspid Valve TR P. Velocity 204.00 cm/s RAP Estimate 10.00 mmHg RVSP 26.70 mmHg Left Ventricle The left ventricle is normal size. Left ventricular systolic function is normal. The left ventricular ejection fraction is within the normal range. There is normal left ventricular wall thickness. There is normal LV segmental wall motion. The left ventricular diastolic function is normal. LVEF is 55% Right Ventricle The right ventricle is normal size. The right ventricular systolic function is normal. Atria The left atrium size is normal. The right atrium size is normal. There is no color Doppler evidence of interatrial shunt. Aortic Valve The aortic valve opens well. There is no hemodynamically significant aortic valvular stenosis. No aortic regurgitation is present. Mitral Valve The mitral valve is normal in structure. No evidence of mitral valve stenosis. Trace mitral regurgitation is present. Tricuspid Valve The tricuspid valve leaflets are thin and pliable. Trace tricuspid regurgitation. There is insufficient TR jet to estimate RVSP. Pulmonic Valve The pulmonary valve is grossly normal in structure. Trace pulmonic valve regurgitation is present. Great Vessels The aortic root is normal in size. IVC is normal in size and collapses >50% with inspiration. Pericardium There is no pericardial effusion. Other Information Study Quality: Fair Conclusion Normal biventricular systolic function. No significant valvular stenosis or regurgitation. Electronically signed by : Kalyn Naranjo MD 01/25/2025 17:14:04
== END 2025-01-14 23:59 | disposition home or self-care (01) ==
LOC: RAD 06:01
PROVIDERS: PCP Family Medicine; Visit Provider Nurse Practitioner Family
DX: J90 Pleural effusion, not elsewhere classified (principal); I10 Essential (primary) hypertension; F17.200 Nicotine dependence, unspecified, uncomplicated; E78.00 Pure hypercholesterolemia, unspecified; Z82.49 Family history of ischemic heart disease and other diseases of the circulatory system
CPT/HCPCS: 78452; 93017; 93018; 93306; A9502; J2785

== ENCOUNTER 2025-02-04 10:12 | Outpatient (CLI) | payer MEDICARE, SELFPAY ==
--- OUTSIDE RECORDS SUMMARY | 2019-10-26 12:32 | XMS_ITS | Encounter Summary ---
Author Organization [place] [address] Care Team Providers Care Agronomy Internship Name Role Phone Lamin Blank MD Primary Care Provider [phone] Encounter Details Date Type Department Care Team (Late st Contact Info) Description 10/26/2019 1:32 PM EDT Hospital Encounter [facility] Referral Lab 1 [place] [address] Nilo Spear MD [address] [place] [address] Effusion, right knee Social History [...] SEDIMENTATION RATE AUTOMATED (10/31/2019 1:21 PM EDT) [facility] Sed Rate 41(H) 0 - 15 mm/hr 10/31/2019 4:50 PM EDT PREFERRED [employer] Blood Venipuncture / Unknown 10/31/2019 1:21 PM EDT 10/31/2019 1:22 PM EDT us Nilo Spear MD HEMATOLOGY ORDERABLE S Final Result [employer] [address] [facility] , [place] [address] * (ABNORMAL) C-REACTIVE PROTEIN (10/31/2019 1:21 PM EDT) CRP 16.15(H) <=5.00 mg/L 10/31/2019 4:56 PM EDT [employer] Blood Venipuncture / Unknown 10/31/2019 1:21 PM EDT 10/31/2019 1:22 PM EDT us Nilo Spear MD CHEMISTRY ORDERABLES Final Result [facility] [employer] [address] [facility] , [place] [address] documented in this encounter Visit Diagnoses Diagnosis Effusion, right knee documented in this encounter Care Teams Agronomy Internship Relationship Specialty Start Date End Date Lamin Blank MD PCP - General 12/08/09 documented as of this encounter
--- OUTSIDE RECORDS SUMMARY | 2019-11-13 09:02 | XMS_ITS | Encounter Summary ---
Author Organization [place] [address] Care Team Providers Care Service Control Operator Name Role Phone Lamin Blank MD Primary Care Provider [phone] Encounter Details Date Type Department Care Team (Late st Contact Info) Description 11/13/2019 10:02 AM EDT Hospital Encounter [facility] Referral Lab 1 [place] [address] Nilo Spear MD [address] [place] [address] Pain in right hip Social [...] thigh documented in this encounter Care Teams Service Control Operator Relationship Specialty Start Date End Date Lamin Blank MD PCP - General 12/08/09 documented as of this encounter
--- OUTSIDE RECORDS SUMMARY | 2020-01-14 09:52 | XMS_ITS | Encounter Summary ---
Author Organization [place] [address] Care Team Providers Care Brokerage Manager Name Role Phone Lamin Blank MD Primary Care Provider [phone] Encounter Details Date Type Department Care Team (Latest Contact Info) Description 01/14/2020 9:52 AM EST Hospital Encounter [facility] Referral Lab 1 [place] [id number] Radha Landrum APRN Pain in right hip; Presence of right artificial hip joint Social History Tobacco Use Types Packs/Day Years [...] of Assessment Author No 08/29/2017 11:23 AM EDT Mary Vo RN * Is the person blind or [...] encounter Results * (ABNORMAL) SEDIMENTATION RATE AUTOMATED (02/18/2020 1:31 PM EST) Pathologist [facility] Sed Rate 36(H) 0 - 15 mm/hr 02/18/2020 9:53 PM EST [employer] Blood Venipuncture / Unknown 02/18/2020 1:31 PM EST 02/18/2020 1:31 PM EST Radha Landrum ORGAN TEACHER HEMATOLOGY ORDERABLES F inal Result [employer] [address] [facility] , [place] [address] * (ABNORMAL) C-REACTIVE PROTEIN (02/18/2020 1:31 PM EST) [facility] CRP 12.98(H) <=5.00 mg/L 02/18/2020 11:30 PM EST [facility]ED [employer] Blood Venipuncture / Unknown 02/18/2020 1:31 PM EST 02/18/2020 1:31 PM EST us Radha Landrum ORGAN TEACHER CHEMISTRY ORDERABLES Fi nal Result [facility] [address] [facility] , [place] [address] documented in this encounter Visit Diagnoses Diagnosis Pain in right hip Pain in joint, pelvic region and thigh Presence of right artificial hip joint Hip joint replacement by other means documented in this encounter Care Teams Brokerage Manager Relationship Specialty Start Date End Date Lamin Blank MD PCP - General 12/08/09 documented as of this encounter
--- OUTSIDE RECORDS SUMMARY | 2024-12-24 15:27 | XMS_ITS | Encounter Summary ---
Author Organization [employer] [place] [address] Care Team Providers Care Family And Consumer Science Professor Name Role Phone Lamin Blank MD Primary Care Provider [phone] Reason for Visit * Reason Comments Chest Pain Chest pain on and of f for the past month, SOB, and hypertension. CPTA- 243 aspirin Encounter Details Date Type Department Care Team (Late Contact Info) Description 12/24/2024 3:27 PM EST - 12/24/2024 5:59 PM EST Emergency [facility] Emergency [address] [place] [address] Karolina Castellon MD [address] [place] [id number] Atypical chest pain (Primary Dx) Discharge [...] encounter Discharge Instructions * Discharge Instructions* Maty oJhn PA-C - 12/24/2024 5:46 PM EST At onset of pain, try acid web interface developer such as Tums or Pepcid. Follow-up with [...] Means Destination Comment s Home or Self Prison documented in this encounter ED Notes * [...] 0.88 0.67 - 1.30 mg/dL eGFR ([facility] 2020) 106 >=60 mL/min/1.73 m2 TROPONIN-T HIGH SENSITIVITY BASELINE W/ REFLEX Result Value Ref Range [id number] 9 <22 ng/L Narrative Ingestion of lin [...] Gran% 0.1 % Lymph Percent 34.6 % [place] Percent 6.9 % Eos Percent 1.7 % Baso Percent 0.9 % Neut # 4.2 1.6 - 6.1 x10(3)/mcL IMMGRAN# 0.0 0.0 - 0.1 x10(3)/mcL Lymph # 2.6 1.2 - 3.9 x10(3)/mcL [place] # 0.5 0.3 - 0.9 x10(3)/mcL Eos# 0.1 0.0 - 0.5 x10(3)/mcL Baso # 0.1 0.0 - 0.1 x10(3)/mcL EK EKG 12 LEAD Narrative NOTICE: Preliminary tracing available for review; Final Interpretation by physician to follow. 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 Medical records reviewed via [employer]. This is a 49 y.o. male who [...] Housing Stability: High Risk (11/02/2023) Received from [facility] SDOH Screening What is your living situation today?: I have a place to live today, but i am worried about losing it in the future [4] Past Surgical History: Procedure Laterality Date ANKLE SURGERY COLONOSCOPY DENTAL SURGERY FRACTURE SURGERY 10/08/2014 Right ankle HIP ARTHROSCOPY Right 04/28/2018 right hip arthroscopy labral debridement, pincer and cam resection; Surgeon: Keyon Bill MD; Location: [facility]; Service: Orthopedics UPPER GASTROINTESTINAL ENDOSCOPY [5] No [...] using iodinated IV contrast as recorded in [employer]. 2-D multiplanar reconstructions and 3-D MIP reconstructions [...] chest using iodinated IVcontrast as recorded in [employer]. 2-D multiplanar reconstructions and 3-D MIPreconstructions reviewed. [...] - 10.3 x10(3)/mcL 12/24/2024 4:04 PM EST [facility] RBC 4.96 4.60 - 6.10 x10(6)/mcL 12/24/2024 4:04 PM EST [facility] Hgb 16.3 13.7 - 17.5 g/dL 12/24/2024 4:04 PM EST [facility] Hct 47.1 40.0 - 51.0 % 12/24/2024 4:04 PM EST [facility] MCV 95.0 80.0 - 100.0 fL 12/24/2024 4:04 PM EST [facility] MCH 32.9 26.0 - 34.0 pg 12/24/2024 4:04 PM EST [facility] MCHC 34.6 30.7 - 35.5 g/dL 12/24/2024 4:04 PM EST [facility] RDW 13.4 <=14.9 % 12/24/2024 4:04 PM EST [facility] [employer] [facility] Platelet 297 155 - 369 x10(3)/mcL 12/24/2024 4:04 PM EST [facility] MPV 10.3 8.8 - 12.5 fL 12/24/2024 4:04 PM EST [facility] Neut Percent 55.8 % 12/24/2024 4:04 PM EST [facility] [employer] [facility] Comment:Neutrophils equals s egs plus bands Imm Gran% 0.1 % 12/24/2024 4:04 PM EST [facility] Comment:Automated count of m etamyelocytes, myelocytes and promyelocytes. Lymph Percent 34.6 % 12/24/2024 4:04 PM EST [facility] [place] Percent 6.9 % 12/24/2024 4:04 PM EST [facility] Eos Percent 1.7 % 12/24/2024 4:04 PM EST [facility] Baso Percent 0.9 % 12/24/2024 4:04 PM EST [facility] Neut # 4.2 1.6 - 6.1 x10(3)/mcL 12/24/2024 4:04 PM EST [facility] Comment:Neutrophils equals s egs plus bands IMMGRAN# 0.0 0.0 - 0.1 x10(3)/mcL 12/24/2024 4:04 PM EST [facility] Comment:Automated count of m etamyelocytes, myelocytes and promyelocytes. An absolute IG <0.1 is reported as 0.0. Lymph # 2.6 1.2 - 3.9 x10(3)/mcL 12/24/2024 4:04 PM EST [facility] [place] # 0.5 0.3 - 0.9 x10(3)/mcL 12/24/2024 4:04 PM EST [facility] Eos# 0.1 0.0 - 0.5 x10(3)/mcL 12/24/2024 4:04 PM EST [facility] Baso # 0.1 0.0 - 0.1 x10(3)/mcL 12/24/2024 4:04 PM EST [facility] Blood VENOUS BLOOD / Unknown Venipuncture / Unknown 12/24/2024 3:59 PM EST 12/24/2024 4:02 PM EST us Maty John PA-C HEMATOLOGY ORDERABLES Final Re sult [facility] [address] [facility] [place] [address] * (ABNORMAL) D-DIMER (12/24/2024 3:59 PM EST) D-Dimer 552(H) <=500 ng/mL FEU 12/24/2024 4:13 PM EST [facility] Comment:D dimer may be eleva [...] ORDERABLES Final Re sult Performing Organization Address [facility] Co de Phone Number [facility] [address] [place] [phone] * TROPONIN-T HIGH SENSITIVITY BASELINE W/ REFLEX (12/24/2024 3:59 PM EST) [facility] lu-cUbhjgsax-H 9 <22 ng/L 12/24/2024 4:18 PM EST [facility] Blood VENOUS BLOOD / Unknown Venipuncture / Unknown 12/24/2024 3:59 PM EST 12/24/2024 4:01 PM EST Narrative [facility] - 12/24/2024 4:18 PM EST Ingestion of lin doses of biotin (>5 mg/day) taken within 8 hours of drawing blood sample can interfere with this immunoassay test. us Maty John PA-C CHEMISTRY ORDERABLES Final Res ult Performing Organization Address [facility] Co de Phone Number [facility] [address] [place] [address] * (ABNORMAL) BASIC METABOLIC PANEL (12/24/2024 3:59 PM EST) [facility] Sodium 140 136 - 145 mmol/L 12/24/2024 4:18 PM EST [facility] Potassium 4.1 3.5 - 5.0 mmol/L 12/24/2024 4:18 PM EST [facility] Chloride 102 98 - 107 mmol/L 12/24/2024 4:18 PM EST [facility] Total CO2 26 22 - 29 mmol/L 12/24/2024 4:18 PM EST [facility] Anion Gap 12 7 - 16 mmol/L 12/24/2024 4:18 PM EST [facility] Calcium 9.5 8.6 - 10.4 mg/dL 12/24/2024 4:18 PM EST [facility] Glucose Lvl 120(H) 70 - 99 mg/dL 12/24/2024 4:18 PM EST [facility] BUN 12 6 - 20 mg/dL 12/24/2024 4:18 PM [facility] Creatinine 0.88 0.67 - 1.30 mg/dL 12/24/2024 4:18 PM EST [facility] eGFR (CKD-EPIcr 2020) 106 >=60 mL/min/1.7 3 m2 12/24/2024 4:18 PM EST [facility] Comment:Estimated GFR was ca lculated using the CKD-EPIcr (2020) equation refit without race. The equation is recommended by the National Kidney Foundation - [place] [employer] of Nephrology Task Force. 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1975 Requested By: [facility] Order Number: [id number] Reading MD: Jack Neumann MD Measurements Intervals [place] Rate: 70 P: 12 MS: 150 QRS: 80 QRSD: 81 T: 39 QT: 370 QTc: 399 Interpretive Statements SINUS RHYTHM Electronically Signed On 12-25-2024 08:04:15 EST by Jack Neumann MD Narrative Procedure Note Jack Neumann MD - 12/25/2024 IMPRESSION [facility] Test Date: 2024-12-24 Pat Name: DEJUAN QUINTERO Department: DEPID Room: [facility] 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
--- OUTSIDE RECORDS SUMMARY | 2025-02-04 10:17 | XMS_ITS | Data Portability ---
Author Organization [facility] Address [address] [place] [address] Assessment No assessment recorded. Plan of Treatment Reminders Order Date Submit Date Provider Last Modified By Organization Details Last Modified Time Details Appointments None recorded. Lab vitamin D, 25-hydroxy, total, serum 2022 023 HILARY [facility], [address], [address], [place], [address], 3 16:36:56 thyroid panel, serum 2022 023 HILARY [facility], [address], [place] [address], [place], [address], 3 16:36:54 celiac disease comprehensi ve panel, serum 2022 023 HILARY [facility], [address], [address], [place], [address], 3 16:36:51 gastrointes tinal pathogens panel, culture, stool 2022 023 [email or web address] [facility], [address], [place] [address], [place], [address], 3 07:44:05 O&P (ova & parasites), stool 2022 023 [email or web address] [facility], [address], [address] [address], [place], [address], 3 07:44:05 C diff toxin A+B, qual IA, stool 2022 023 [email or web address] [facility], [address], [address], [place], [address], 3 07:44:05 salmonella sp + shigella sp, culture, stool 2022 023 [email or web address] [facility], [address], [address], [place], [address], 3 07:44:06 giardia + cryptospori dium Ag, stool 2022 023 [email or web address] [facility], [address], [address], [place], [address], 3 07:44:06 CBC w/ auto diff 2022 023 HILARY [facility], [address], [address] [address], [place], [address], 3 16:36:52 CMP, serum or plasma 2022 023 HILARY [facility], [address], [address] [address], [place], [address], 3 16:36:53 amylase + lipase, serum 2022 023 HILARY [facility], [address], [place] [address], [place], [address], 3 16:36:56 urinalysis, dipstick 2022 023 [facility], [address] [place], [address], 3 14:40:29 helicobacte r pylori Ab panel, serum 2022 023 HILARY [facility], [address], [address], [place], [address], 3 16:36:55 rapid strep group A, throat [address], [address] [place], [address], 3 15:48:02 rapid flu (A+B) [address], [address] [place], [address], 3 15:48:02 rapid SARS CoV + SARS CoV 2 Ag, QL IA, respiratory specimen [address], [address] [place], [address], 3 15:48:02 CMP, serum or plasma 2017 018 HILARY [facility], [address], [address], [place], [address], 8 08:47:38 CBC 2017 018 HILARY [facility], [address], [address], [place], [address], 8 08:47:39 vitamin B12 + folate, serum or blood 2017 018 HILARY [facility], [address], [address] [address], [place], [address], 8 08:47:40 TSH, ultra-sensi tive, serum 2017 018 HILARY [facility], [address], [address] [address], [place], [address], 8 08:47:40 magnesium, serum or plasma 2017 018 HILARY [facility], [address], [address], [place], [address], 8 08:47:42 vitamin D, 25-hydroxy, total, serum 2017 018 HILARY [facility], [address], [place] [address], [place], [address], 8 08:47:41 urinalysis, dipstick [address], [address] [facility] [address] [place], [address], 8 12:03:56 HbA1c (hemoglobin A1c), blood [address], [address] [facility] [address] [place], [address], 8 12:03:56 glucose, fingerstick , blood [address], [address] [facility] [address] [place], [address], 8 12:03:56 Referral gastroenter ologist referral - LQ pain constipatio n bowel changes has seen Dr. Antoine before 2022 023 HILARY Antoine MD, [address] [facility] , [place] [address], [place], [address], 3 07:54:16 neurologist referral 2017 018 [email or web address] [facility], [address] [place] [address], [place], [address], 9 11:40:39 Procedures None recorded. Surgeries None recorded. Imaging XR, kidney + ureter + bladder 2022 023 HILARY [facility] (Centralized Scheduling), [address], [place], [address], 3 13:10:26 XR, abdomen, complete 2022 023 [email or web address] [place] ([facility] Sched[facility]), [address], [place], [address], 3 07:44:53 US, kidney - LLQ pain 2022 023 [facility], [address] [place], [address], 3 15:47:49 US, thyroid 2022 023 HILARY Not available 3 11:07:46 XR, lumbosacral spine 2017 018 HILARY [facility] (Centralized Scheduling), [facility] [address], [place], [address], 8 12:16:28 Medication Orders Miralax 17 gram/dose [...] By Organization Details Last Modified Time 11/17/2017 [id number] gentle stretchin g exercises, RTC prn Not available 11/17/2017 11:34:43 02/24/2022 [id number] chronic sinusitis: care instructions Not available 02/24/2022 15:59:16 keep well hydrated, take medication as prescribed, medications discussed with pt and side effects and adverse effects were discussed, RTC in one week for follow up and fasting labs prn Not available 02/24/2022 16:05:24 07/05/2022 [id number] gas and bloating : care instructions Not available 07/05/2022 14:40:29 abdominal pain: care instructions Not available 07/05/2022 14:40:29 awaiting lab results for further diagnostic decision making keep well hydrated, get 6 to 8 hours of sleep a night; eat healthy ; exercise, RTC prn Not available 07/05/2022 14:40:52 07/07/2022 [id number] constipation: care instructions Not available 07/07/2022 10:14:02 learning about healthy weight Not available 07/07/2022 10:01:13 body mass index: care instructions Not available 07/07/2022 10:01:13 abdominal pain: care instructions Not available 07/07/2022 09:55:25 Reason for Referral Neurologist Referral for Par esthesia of lower extremity Referring Physician: Caty Gald[facility], Encounter Date: 11/17/2017 Director Of Rooms 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 Antoine before Referring Physician: Caty Gald[facility], Encounter Date: 07/07/2022 Results Created Date Observation Date Name Description Value Unit Range Abnormal Flag Note LastModifiedBy Organization Detail LastModifiedTime 11/18/19 18 11/18/2017 CMP, serum or plasm a glucose 65 mg/dL 65-99 Not Available [facility] ([facility]) [address] [facility], [place], [address], 11/18/2017 08:47:38 11/18/19 18 11/18/2017 CMP, serum or plasm a BUN 10 mg/dL 6-24 Not Available [facility] ([facility]) [address] [place], [address], 11/18/2017 08:47:38 11/18/19 18 11/18/2017 CMP, serum or plasm a creatinine 0.98 mg/dL 0.76-1 .27 Not Available [facility] ([facility]) [address] [facility] [place], [address], 11/18/2017 08:47:38 11/18/19 18 11/18/2017 CMP, serum or plasm a eGFR if nonafricn AM 95 mL/mi n/1.7 3 >59 Not Available [facility] ([facility]) [address] [facility] [place], [address], 11/18/2017 08:47:38 11/18/19 18 11/18/2017 CMP, serum or plasm a eGFR if africn AM 110 mL/mi n/1.7 3 >59 Not Available [facility] ([facility]) [address] [facility] [place], [address], 11/18/2017 08:47:38 11/18/19 18 11/18/2017 CMP, serum or plasm a BUN/creatini ne ratio 10 9-20 Not Available [facility] ([facility]) [address] [facility] [place], [address], 11/18/2017 08:47:38 11/18/19 18 11/18/2017 CMP, serum or plasm a sodium 145 mmol/ L 134-14 4 above high normal Not Available [facility] ([facility]) [address] [facility] [place], [address], 11/18/2017 08:47:38 11/18/19 18 11/18/2017 CMP, serum or plasm a potassium 4.5 mmol/ L 3.5-5. 2 Not Available [facility] ([facility]) [address] [facility] [place], [address], 11/18/2017 08:47:38 11/18/19 18 11/18/2017 CMP, serum or plasm a chloride 104 mmol/ L 96-106 Not Available [facility] ([facility]) [address] [facility] [place], [address], 11/18/2017 08:47:38 11/18/19 18 11/18/2017 CMP, serum or plasm a carbon dioxide, total 22 mmol/ L 20-29 Not Available [facility] ([facility]) [address] [facility] [place], [address], 11/18/2017 08:47:38 11/18/19 18 11/18/2017 CMP, serum or plasm a calcium 9.8 mg/dL 8.7-10 .2 Not Available [facility] ([facility]) [address] [place], [address], 11/18/2017 08:47:38 11/18/19 18 11/18/2017 CMP, serum or plasm a protein, total 7.5 g/dL 6.0-8. 5 Not Available [facility] ([facility]) [address] [place], [address], 11/18/2017 08:47:38 11/18/19 18 11/18/2017 CMP, serum or plasm a albumin 4.4 g/dL 3.5-5. 5 Not Available [facility] ([facility]) [address] [place], [address], 11/18/2017 08:47:38 11/18/19 18 11/18/2017 CMP, serum or plasm a globulin, total 3.1 g/dL 1.5-4. 5 Not Available [facility] ([facility]) [address] [place] [address], [address], 11/18/2017 08:47:38 11/18/19 18 11/18/2017 CMP, serum or plasm a A/G ratio 1.4 1.2-2. 2 Not Available [facility] ([facility]) [address] [place], [address], 11/18/2017 08:47:38 11/18/19 18 11/18/2017 CMP, serum or plasm a bilirubin, total <0.2 mg/dL 0.0-1. 2 Not Available [facility] ([facility]) [address] [place], [address], 11/18/2017 08:47:38 11/18/19 18 11/18/2017 CMP, serum or plasm a alkaline phosphatase 69 IU/L 39-117 Not Available [facility] ([facility]) [address] [place], [address], 11/18/2017 08:47:38 11/18/19 18 11/18/2017 CMP, serum or plasm a AST (SGOT) 34 IU/L 0-40 Not Available [facility] ([facility]) [address] [place], [address], 11/18/2017 08:47:38 11/18/1911/18/2017 CMP, serum or plasm a ALT (SGPT) 53 IU/L 0-44 above high normal Not Available [facility] ([facility]) [address] [place], [address], 11/18/2017 08:47:38 11/18/19 18 11/18/2017 CBC WBC 7.3 x10e3 /uL 3.4-10 .8 Not Available [facility] ([facility]) [address] [facility] [place], [address], 11/18/2017 08:47:39 11/18/1911/18/2017 CBC RBC 4.99 x10e6 /uL 4.14-5 .80 Not Available [facility] ([facility]) [address] [facility] [place], [address], 11/18/2017 08:47:39 11/18/19 11/18/2017 CBC hemoglobin 15.9 g/dL 13.0-1 7.7 Not Available [facility] ([facility]) [address] [facility], [place], [address], 11/18/2017 08:47:39 11/18/19 18 11/18/2017 CBC hematocrit 46.1 % 37.5-5 1.0 Not Available [facility] ([facility]) [address] [facility], [place], [address], 11/18/2017 08:47:39 11/18/19 18 11/18/2017 CBC MCV 92 fL 79-97 Not Available [facility] ([facility]) [address] [facility], [place], [address], 11/18/2017 08:47:39 11/18/19 18 11/18/2017 CBC MCH 31.9 pg 26.6-3 3.0 Not Available [facility] ([facility]) [address] [facility], [place], [address], 11/18/2017 08:47:39 11/18/19 18 11/18/2017 CBC MCHC 34.5 g/dL 31.5-3 5.7 Not Available [facility] ([facility]) [address] [facility], [place], [address], 11/18/2017 08:47:39 11/18/19 18 11/18/2017 CBC RDW 14.2 % 12.3-1 5.4 Not Available [facility] ([facility]) [address] [facility], [place], [address], 11/18/2017 08:47:39 11/18/19 18 11/18/2017 CBC platelets 289 x10e3 /uL 150-37 9 Not Available [facility] ([facility]) [address] [facility], [place], [address], 11/18/2017 08:47:39 11/18/19 18 11/18/2017 CBC NRBC POPULATION HEALTH MANAGER Not Available [facility] ([facility]) [address] [facility], [place], [address], 11/18/2017 08:47:39 11/18/19 18 11/18/2017 vitam in B12 + folat e, serum or blood vitamin B12 827 pg/mL 232-12 45 Not Available [facility] ([facility]) [address] [facility], [place], [address], 11/18/2017 08:47:40 11/18/19 18 11/18/2017 vitam in B12 + folat e, serum or blood folate (folic acid), serum 3.7 NG/mL >3.0 A serum folat e valarie ntrat ion of less than 3.1 ng/mL is consi dered to repre sent clini lisa defic iency . Not Available [facility] ([facility]) [address] [facility], [place], [address], 11/18/2017 08:47:40 11/18/19 18 11/18/2017 TSH, ultra -sens itive , serum TSH 1.850 uIU/m L 0.450- 4.500 Not Available [facility] ([facility]) [address] [facility], [place], [address], 11/18/2017 08:47:40 11/18/19 18 11/18/2017 vitam in [...] um and D. Washi [place]: The [facility] Press . 2. Roma naranjo MF, Althea moscoso [place], Adriana off-F errar i FISHMAN, et al. Evalu ation , treat ment, and preve ntion of vitam in D defic iency : an Endoc rine Socie ty clini lisa pract ice guide line. JCEM. 2010; 96(7) :1911 -30. Not Available [facility] ([facility]) [address] [facility], [place], [address], 11/18/2017 08:47:41 11/18/19 18 11/18/2017 magne sium, serum or plasm a magnesium 2.3 mg/dL 1.6-2. 3 Not Available [facility] ([facility]) [address] [facility], [place], [address], 11/18/2017 08:47:42 11/18/19 18 11/17/2017 gluco se, finge rstic k, blood Blood Glucose: mg/dl 88 Not Available [address] [place], [address], 11/17/2017 10:59:52 11/18/19 18 11/17/2017 HbA1c (hemo globi n A1c), blood HbA1c 5.5 Not Available [address] [place], [address], 11/17/2017 10:59:36 11/18/19 18 11/17/2017 urina lysis , dipst ick Leukocytes Negati ve Not Available [place] [address] [place], [address], 11/17/2017 10:58:08 11/18/19 18 11/17/2017 urina lysis , dipst ick Nitrite negati ve Not Available [address] [place], [address], 11/17/2017 10:58:08 11/18/19 18 11/17/2017 urina lysis , dipst ick Urobilinogen .2 Not Available [address] [place], [address], 11/17/2017 10:58:08 11/18/19 18 11/17/2017 urina lysis , dipst ick Protein Negati ve Not Available [address] [place], [address], 11/17/2017 10:58:08 11/18/19 18 11/17/2017 urina lysis , dipst ick pH 7.0 Not Available [address] [place], [address], 11/17/2017 10:58:08 11/18/19 18 11/17/2017 urina lysis , dipst ick Blood Negati ve Not Available [address] [place], [address], 11/17/2017 10:58:08 11/18/19 18 11/17/2017 urina lysis , dipst ick Specific Hazel 1.025 Not Available [address] [place], [address], 11/17/2017 10:58:08 11/18/19 18 11/17/2017 urina lysis , dipst ick Ketone Negati ve Not Available [address] [place], [address], 11/17/2017 10:58:08 11/18/19 18 11/17/2017 urina lysis , dipst ick Bilirubin Negati ve Not Available [address] [place], [address], 11/17/2017 10:58:08 11/18/19 18 11/17/2017 urina lysis , dipst ick Glucose Negati ve Not Available [address] [place], [address], 11/17/2017 10:58:08 02/24/19 23 02/24/2022 rapid flu (A+B) Flu negati ve Not Available [address] [place], [address], 02/24/2022 15:42:04 02/24/19 23 02/24/2022 rapid flu (A+B) Type B Not Available [address] [place], [address], 02/24/2022 15:42:04 02/24/19 23 02/24/2022 rapid strep group A, throa t Strep negati ve Not Available [address] [place], [address], 02/24/2022 15:37:31 02/24/19 23 02/24/2022 rapid SARS CoV + SARS CoV 2 Ag, QL IA, respi rator y speci men SARS CoV antigen Negati ve Not Available [address] [place], [address], 02/24/2022 15:42:15 07/06/19 23 07/06/2022 TANVIR C DISEA SE PANEL endomysial antibody IgA Negati ve negati ve Not Available [facility] ([facility]) [address] [facility], [place], [address], 07/06/2022 16:36:51 07/06/19 23 07/06/2022 TANVIR C [...] tive enter opath y. Not Available [facility] ([facility]) [address] [facility], [place], [address], 07/06/2022 16:36:51 07/06/1907/06/2022 TANVIR C DISEA SE PANEL immunoglobul in A, qn, serum 213 mg/dL 90-386 Not Available [facility] ([facility]) [address] [place], [address], 07/06/2022 16:36:51 07/06/19 23 07/06/2022 CBC WITH DIFFE RENTI AL/PL ATELE T WBC 8.0 x10e3 /uL 3.4-10 .8 Not Available [facility] ([facility]) [address] [place], [address], 07/06/2022 16:36:52 07/06/19 23 07/06/2022 CBC WITH DIFFE RENTI AL/PL ATELE T RBC 4.86 x10e6 /uL 4.14-5 .80 Not Available [facility] ([facility]) [address] [place], [address], 07/06/2022 16:36:52 07/06/1907/06/2022 CBC WITH DIFFE RENTI AL/PL ATELE T hemoglobin 15.3 g/dL 13.0-1 7.7 Not Available [facility] ([facility]) [address] [place], [address], 07/06/2022 16:36:52 07/06/19 23 07/06/2022 CBC WITH DIFFE RENTI AL/PL ATELE T hematocrit 44.8 % 37.5-5 1.0 Not Available [facility] ([facility]) [address] [facility], [place], [address], 07/06/2022 16:36:52 07/06/19 23 07/06/2022 CBC WITH DIFFE RENTI AL/PL ATELE T MCV 92 fL 79-97 Not Available [facility] ([facility]) [address] [facility], [place], [address], 07/06/2022 16:36:52 07/06/1907/06/2022 CBC WITH DIFFE RENTI AL/PL ATELE T MCH 31.5 pg 26.6-3 3.0 Not Available [facility] ([facility]) [address] [facility], [place], [address], 07/06/2022 16:36:52 07/06/19 23 07/06/2022 CBC WITH DIFFE RENTI AL/PL ATELE T MCHC 34.2 g/dL 31.5-3 5.7 Not Available [facility] ([facility]) [address] [facility], [place], [address], 07/06/2022 16:36:52 07/06/19 23 07/06/2022 CBC WITH DIFFE RENTI AL/PL ATELE T RDW 13.0 % 11.6-1 5.4 Not Available [facility] ([facility]) [address] [place], [address], 07/06/2022 16:36:52 07/06/19 23 07/06/2022 CBC WITH DIFFE RENTI AL/PL ATELE T platelets 263 x10e3 /uL 150-45 0 Not Available [facility] ([facility]) [address] [place], [address], 07/06/2022 16:36:52 07/06/19 23 07/06/2022 CBC WITH DIFFE RENTI AL/PL ATELE T neutrophils 53 % not estab. Not Available [facility] ([facility]) [address] [facility], [place], [address], 07/06/2022 16:36:52 07/06/19 23 07/06/2022 CBC WITH DIFFE RENTI AL/PL ATELE T lymphs 34 % not estab. Not Available [facility] ([facility]) [address] [facility], [place], [address], 07/06/2022 16:36:52 07/06/19 23 07/06/2022 CBC WITH DIFFE RENTI AL/PL ATELE T monocytes 10 % not estab. Not Available [facility] ([facility]) [address] [facility], [place], [address], 07/06/2022 16:36:52 07/06/19 23 07/06/2022 CBC WITH DIFFE RENTI AL/PL ATELE T eos 2 % not estab. Not Available [facility] ([facility]) [address] [facility], [place], [address], 07/06/2022 16:36:52 07/06/19 23 07/06/2022 CBC WITH DIFFE RENTI AL/PL ATELE T basos 1 % not estab. Not Available [facility] ([facility]) [address] [facility], [place], [address], 07/06/2022 16:36:52 07/06/19 23 07/06/2022 CBC WITH DIFFE RENTI AL/PL ATELE T immature cells POPULATION HEALTH MANAGER Not Available [facility] ([facility]) [address] [place], [address], 07/06/2022 16:36:52 07/06/19 23 07/06/2022 CBC WITH DIFFE RENTI AL/PL ATELE T neutrophils (absolute) 4.2 x10e3 /uL 1.4-7. 0 Not Available [facility] ([facility]) [address] [facility], [place], [address], 07/06/2022 16:36:52 07/06/19 23 07/06/2022 CBC WITH DIFFE RENTI AL/PL ATELE T lymphs (absolute) 2.7 x10e3 /uL 0.7-3. 1 Not Available [facility] ([facility]) [address] [facility], [place], [address], 07/06/2022 16:36:52 07/06/19 23 07/06/2022 CBC WITH DIFFE RENTI AL/PL ATELE T monocytes(ab solute) 0.8 x10e3 /uL 0.1-0. 9 Not Available [facility] ([facility]) [address] [facility], [place], [address], 07/06/2022 16:36:52 07/06/19 23 07/06/2022 CBC WITH DIFFE RENTI AL/PL ATELE T eos (absolute) 0.2 x10e3 /uL 0.0-0. 4 Not Available [facility] ([facility]) [address] [facility], [place], [address], 07/06/2022 16:36:52 07/06/19 23 07/06/2022 CBC WITH DIFFE RENTI AL/PL ATELE T baso (absolute) 0.1 x10e3 /uL 0.0-0. 2 Not Available [facility] ([facility]) [address] [facility], [place], [address], 07/06/2022 16:36:52 07/06/19 23 07/06/2022 CBC WITH DIFFE RENTI AL/PL ATELE T immature granulocytes 0 % not estab. Not Available [facility] ([facility]) [address] [facility], [place], [address], 07/06/2022 16:36:52 07/06/19 23 07/06/2022 CBC WITH DIFFE RENTI AL/PL ATELE T immature grans (abs) 0.0 x10e3 /uL 0.0-0. 1 Not Available [facility] ([facility]) [address], [place], [address], 07/06/2022 16:36:52 07/06/19 23 07/06/2022 CBC WITH DIFFE RENTI AL/PL ATELE T NRBC POPULATION HEALTH MANAGER Not Available [facility] ([facility]) [address], [place], [address], 07/06/2022 16:36:52 07/06/19 23 07/06/2022 CBC WITH DIFFE RENTI AL/PL ATELE T hematology comments: POPULATION HEALTH MANAGER Not Available [facility] ([facility]) [address], [place], [address], 07/06/2022 16:36:52 07/06/19 23 07/06/2022 COMP. METAB OLIC PANEL (14) glucose 77 mg/dL 70-99 Not Available [facility] ([facility]) [address] [place], [address], 07/06/2022 16:36:53 07/06/19 23 07/06/2022 COMP. METAB OLIC PANEL (14) BUN 15 mg/dL 6-24 Not Available [facility] ([facility]) [address] [facility] [place], [address], 07/06/2022 16:36:53 07/06/19 23 07/06/2022 COMP. METAB OLIC PANEL (14) creatinine 1.27 mg/dL 0.76-1 .27 Not Available [facility] ([facility]) [address] [place], [address], 07/06/2022 16:36:53 07/06/19 23 07/06/2022 COMP. METAB OLIC PANEL (14) eGFR 71 mL/mi n/1.7 3 >59 Not Available [facility] ([facility]) [address] [place], [address], 07/06/2022 16:36:53 07/06/19 23 07/06/2022 COMP. METAB OLIC PANEL (14) BUN/creatini ne ratio 12 9-20 Not Available [facility] ([facility]) [address] [facility], [place], [address], 07/06/2022 16:36:53 07/06/19 23 07/06/2022 COMP. METAB OLIC PANEL (14) sodium 140 mmol/ L 134-14 4 Not Available [facility] ([facility]) [address] [facility] [place], [address], 07/06/2022 16:36:53 07/06/19 23 07/06/2022 COMP. METAB OLIC PANEL (14) potassium 4.9 mmol/ L 3.5-5. 2 Not Available [facility] ([facility]) [address] [facility], [place], [address], 07/06/2022 16:36:53 07/06/19 23 07/06/2022 COMP. METAB OLIC PANEL (14) chloride 102 mmol/ L 96-106 Not Available [facility] ([facility]) [address] [place], [address], 07/06/2022 16:36:53 07/06/19 23 07/06/2022 COMP. METAB OLIC PANEL (14) carbon dioxide, total 26 mmol/ L 20-29 Not Available [facility] ([facility]) [address] [place], [address], 07/06/2022 16:36:53 07/06/19 23 07/06/2022 COMP. METAB OLIC PANEL (14) calcium 9.9 mg/dL 8.7-10 .2 Not Available [facility] ([facility]) [address] [place], [address], 07/06/2022 16:36:53 07/06/19 23 07/06/2022 COMP. METAB OLIC PANEL (14) protein, total 6.7 g/dL 6.0-8. 5 Not Available [facility] ([facility]) [address] [place], [address], 07/06/2022 16:36:53 07/06/19 23 07/06/2022 COMP. METAB OLIC PANEL (14) albumin 4.5 g/dL 4.0-5. 0 Not Available [facility] ([facility]) [address] [place], [address], 07/06/2022 16:36:53 07/06/19 23 07/06/2022 COMP. METAB OLIC PANEL (14) globulin, total 2.2 g/dL 1.5-4. 5 Not Available [facility] [facility]) [address] [place], [address], 07/06/2022 16:36:53 07/06/19 23 07/06/2022 COMP. METAB OLIC PANEL (14) A/G ratio 2.0 1.2-2. 2 Not Available [facility] ([facility]) [address] [place], [address], 07/06/2022 16:36:53 07/06/19 23 07/06/2022 COMP. METAB OLIC PANEL (14) bilirubin, total 0.3 mg/dL 0.0-1. 2 Not Available [facility] ([facility]) [address] [place], [address], 07/06/2022 16:36:53 07/06/19 23 07/06/2022 COMP. METAB OLIC PANEL (14) alkaline phosphatase 102 IU/L 44-121 Not Available [facility] ([facility]) [address] [place], [address], 07/06/2022 16:36:53 07/06/19 23 07/06/2022 COMP. METAB OLIC PANEL (14) AST (SGOT) 26 IU/L 0-40 Not Available [facility] ([facility]) [address] [facility] [place], [address], 07/06/2022 16:36:53 07/06/19 23 07/06/2022 COMP. METAB OLIC PANEL (14) ALT (SGPT) 33 IU/L 0-44 Not Available [facility] ([facility]) [address] [facility] [place], [address], 07/06/2022 16:36:53 07/06/19 23 07/06/2022 THYRO ID PANEL WITH TSH TSH 1.610 uIU/m L 0.450- 4.500 Not Available [facility] ([facility]) [address] [facility] [place], [address], 07/06/2022 16:36:54 07/06/19 23 07/06/2022 THYRO ID PANEL WITH TSH thyroxine (T4) 6.2 ug/dL 4.5-12 .0 Not Available [facility] ([facility]) [address] [place], [address], 07/06/2022 16:36:54 07/06/19 23 07/06/2022 THYRO ID PANEL WITH TSH T3 uptake 27 % 24-39 Not Available [facility] ([facility]) [address] [place], [address], 07/06/2022 16:36:54 07/06/19 23 07/06/2022 THYRO ID PANEL WITH TSH free thyroxine index 1.7 1.2-4. 9 Not Available [facility] ([facility]) [address] [place], [address], 07/06/2022 16:36:54 07/06/1907/06/2022 H PYLOR I, IGM, IGG, IGA AB H. pylori, IgG abs 0.08 index _valu e 0.00-0 .79 Negat zoe <0.80 Equiv ocal 0.80 - 0.89 Posit zoe >0.89 Not Available [facility] ([facility]) [address] [place], [address], 07/06/2022 16:36:55 07/06/19 23 07/06/2022 H PYLOR I, IGM, IGG, IGA AB H. pylori, IgA abs <9.0 units 0.0-8. 9 Negat zoe <9.0 Equiv ocal 9.0 - 11.0 Posit zoe >11.0 Not Available [facility] ([facility]) [address] [place], [address], 07/06/2022 16:36:55 07/06/19 23 07/06/2022 H PYLOR [...] Drug Admin istra tion. Not Available [facility] ([facility]) [address] [place], [address], 07/06/2022 16:36:55 07/06/19 23 07/06/2022 GABRIELLA+L IPASE amylase 67 U/L 31-110 Not Available [facility] ([facility]) [address] [place], [address], 07/06/2022 16:36:56 07/06/19 23 07/06/2022 GABRIELLA+L IPASE lipase 45 U/L 13-78 Not Available [facility] ([facility]) [address] [place], [address], 07/06/2022 16:36:56 07/06/19 23 07/06/2022 VITAM IN [...] um and D. Rola farias [place]: [facility] Press . 2. Roma naranjo MF, Althea moscoso [place], Adriana off-F arnold i FISHMAN, et al. Evalu ation , treat ment, and preve ntion of vitam in D defic iency : an Endoc rine Socie ty clini lisa pract ice guide line. JCEM. 2010; 96(7) :1911 -30. Not Available [facility] ([facility]) [address] [facility], [place], [address], 07/06/2022 16:36:56 07/06/19 23 07/05/2022 urina lysis , dipst ick Leukocytes Negati ve Not Available [facility] [address] [place], [address], 07/05/2022 14:10:29 07/06/19 23 07/05/2022 urina lysis , dipst ick Nitrite negati ve Not Available [facility] [address] [place], [address], 07/05/2022 14:10:29 07/06/19 23 07/05/2022 urina lysis , dipst ick Urobilinogen 1 Not Available [facility] [address] [place], [address], 07/05/2022 14:10:29 07/06/19 23 07/05/2022 urina lysis , dipst ick Protein Negati ve Not Available [address] [place], [address], 07/05/2022 14:10:29 07/06/19 23 07/05/2022 urina lysis , dipst ick pH 5.5 Not Available [address] [place], [address], 07/05/2022 14:10:29 07/06/19 23 07/05/2022 urina lysis , dipst ick Blood Negati ve Not Available [address] [place], [address], 07/05/2022 14:10:29 07/06/19 23 07/05/2022 urina lysis , dipst ick Specific Hazel 1.030 Not Available [address] [place], [address], 07/05/2022 14:10:29 07/06/19 23 07/05/2022 urina lysis , dipst ick Ketone Negati ve Not Available [address] [place], [address], 07/05/2022 14:10:29 07/06/19 23 07/05/2022 urina lysis , dipst ick Bilirubin Negati ve Not Available [address] [place], [address], 07/05/2022 14:10:29 07/06/19 23 07/05/2022 urina lysis , dipst ick Glucose Negati ve Not Available [address] [place], [address], 07/05/2022 14:10:29 07/06/19 23 07/05/2022 urina lysis , dipst ick Appearance Clear Not Available [facility] [address] [place], [address], 07/05/2022 14:10:29 07/06/19 23 07/05/2022 urina lysis , dipst ick Color Dark Yellow Not Available [facility] [address] [place], [address], 07/05/2022 14:10:29 07/07/19 23 07/08/2022 STOOL CULTU RE salmonella/s higella screen Final report Not Available [facility] ([facility]) [address] [place], [address], 07/13/2022 18:35:47 07/07/19 23 07/08/2022 STOOL CULTU RE result 1 COMMEN T No Salmo david or Shige lla recov ered. Not Available [facility] ([facility]) [address] [place], [address], 07/13/2022 18:35:47 07/07/19 23 07/08/2022 STOOL CULTU RE E coli shiga toxin EIA Negati ve negati ve Not Available [facility] ([facility]) [address] [place], [address], 07/13/2022 18:35:47 07/07/19 23 07/10/2022 STOOL CULTU RE campylobacte r culture Final report Not Available [facility] ([facility]) [address] [place], [address], 07/13/2022 18:35:47 07/07/19 23 07/10/2022 STOOL CULTU RE result 1 COMMEN T No Campy lobac ter speci es isola cuauhtemoc. Not Available [facility] ([facility]) [address] [place], [address], 07/13/2022 18:35:47 07/07/1907/07/2022 GIARD IA/CR YPTOS PORID IUM EIA giardia lamblia Ag, EIA Negati ve negati ve Not Available [facility] ([facility]) [address] [place], [address], 07/13/2022 18:35:48 07/07/19 23 07/07/2022 GIARD IA/CR YPTOS PORID IUM EIA cryptosporid ium EIA Negati ve negati ve Not Available [facility] ([facility]) [address] [place], [address], 07/13/2022 18:35:48 07/07/1907/07/2022 C DIFFI CILE TOXIN S A+B, EIA C difficile toxins A+B, EIA Negati ve negati ve Not Available [facility] ([facility]) [address] [place], [address], 07/13/2022 18:35:49 07/07/1907/13/2022 OVA + ELISABETH ITE EXAM ova + parasite exam Final report These resul ts were obtai fernando using wet prepa ratio n(s) and trich megan stain ed smear . This test does not inclu de testi ng for Crypt ospor idium parvu m, Cyclo spora , or Micro spori tamra. Not Available [facility] ([facility]) [address] [place], [address], 07/13/2022 18:35:50 07/07/1907/13/2022 OVA + ELISABETH ITE EXAM result 1 COMMEN T No ova, cysts , or elisabeth ites seen. One negat zoe speci men does not rule out the possi bilit y of a elisabeth itic infec tion. Not Available [facility] ([facility]) [address] [place], [address], 07/13/2022 18:35:50 11/18/19 18 11/17/2017 XR, lumbo sacra l spine No observ ation record ed. [place] (Centralized Scheduling) [address] [place] [address] , [place], [address], 11/17/2017 12:25:04 02/16/19 19 02/16/2018 XR, hip + pelvi s, unila teral , 2 or 3 view No observ ation record ed. [address] , [place], [address], 02/20/2018 14:28:45 02/22/19 19 02/22/2018 MRI, hip, w/ contr ast No observ ation record ed. [address] , [place], [address], 02/28/2018 09:20:19 04/29/19 21 04/28/2020 MRI, hip, w/o contr ast No observ ation record ed. Not Available 2020 16:09:12 02/25/19 23 US, thyro id No observ ation record ed. [email or web address] Not Available 2022 11:57:34 07/06/19 23 US, kidne y No observ ation record ed. [facility] [address] [place], [address], 07/05/2022 15:50:00 07/08/19 23 07/07/2022 XR, kidne y + urete r + bladd er No observ ation record ed. [email or web address] [facility] [address] [place] [address] [place], [address], 07/07/2022 15:28:24 Result Notes None recorded. Problems Name Problem SNOMED Code Status Onset Date Resolution Date Notes Provider Name and Address Organization Details Recorded Time Asthma 020626856 Active 2015 Nadege Fitzpatrick RN [address], [place], [address], [place] - [facility] 14:22:57 Depressive disorder 29069639 Active 2015 Nadege Fitzpatrick RN [address], [place], [address], [place] - [facility] 8 14:22:56 Hyperlipidemia 73726149 Active 2015 Nadege Fitzpatrick RN [address], [place], [address], [place] [facility] 8 14:22:56 Pain in limb 89997263 Active 2015 Nadege Fitzpatrick RN [address], [place], [address], [place] [facility] 8 14:22:57 Low back pain 369318163 Active 2015 Nadege Fitzpatrick RN [address], [place], [address], [place] [facility] 8 14:22:57 Narcolepsy 99095142 Active 2015 Nadege Fitzpatrick RN [address], [place], [address], [place] - [facility] 8 14:22:57 Osteoarthritis 094947897 Active 2015 Nadege Fitzpatrick RN [address], [place], [address], [place] - [facility] 8 14:22:56 Cellulitis 917587320 Active 2017 Crystal Tenzin [facility], [place] - [facility] 8 13:21:53 Thyroid nodule 069722404 Active 2022 Caty Galdamez [place], [place] - [facility] 3 11:53:11 Problem Notes None recorded. Medical Equipment None Reported. Allergies Allergen ID Allergen Name Allergen Category Reaction Reaction Severity Criticality Documentation Date Start Date Code Code System Note Provider Name and Address Organization Details Recorded Time 726228 Keflex medicatio n Not available Not available Not available 09/06/201715847 7 RxNorm Mavis Gallenste in [facility] [place] - [facility] 8 08:56:32 954511 Product containin g penicilli n (product) medicatio n hives mild low 07/07/2022 81333 8001 SNOMED Yana Mart null, [place] - [...] 01/20/20 14;Indic ation: Male Hypogona dism - (4726 ) Not Available Not Available Not Available [...] Completi on: 02/16/19 12;Indic ation: Cough - (162985 ) Not Available Not Available Not Available [...] Updated DateTime 3 187.96 cm 31.3 kg/m2 714811. 54 g 98.3 [degF] 78 /min 98 % 130/80 mm[Hg] [facility][Note 3] [place] - [facility] 3 15:38:12 Date Recorded Body height Body mass index (BMI) Body weight Heart rate Oxygen saturation Respiratory rate Pain severity - 0-10 verbal numeric rating [Score] - Reported Systolic And Diastolic Provider Name and Address Organization Details Last Updated DateTime 3 187.96 cm 30.4 kg/m2 126918. 39 g 90 /min 97 % 18 /min 3 138/80 mm[Hg] Nadege Amin [place] - [facility] 3 13:58:21 Date Recorded Body height Body mass index (BMI) Body weight Body temperature Heart rate Oxygen saturation Pain severity - 0-10 verbal numeric rating [Score] - Reported Systolic And Diastolic Provider Name and Address Organization Details Last Updated DateTime 3 187.96 cm 30.5 kg/m2 379637. 19 g 97.9 [degF] 76 /min 97 % 10 128/70 mm[Hg] Yana Mart [place] - [facility] 3 09:34:55 Date Recorded Body height Body mass index (BMI) Body weight Body temperature Respiratory rate Heart rate Oxygen saturation Systolic And Diastolic Provider Name and Address Organization Details Last Updated DateTime 8 187.96 cm 29.3 kg/m2 517893. 06 g 98.2 [degF] 18 /min 86 /min 98 % 130/82 mm[Hg] Grace Romero [place] - [facility] 8 10:41:00 Social History Question Answer Notes LastModified by [employer] ion Details LastModified Time Tobacco Smoking Status [...] Live Alone Or With Others? With Others [email or web address] Information not available 11/17/2017 What Was The Date Of Your Most Recent Tobacco Screening? 07/07/2022 [email or web address] Information not available 07/07/2022 What Is Your Current Pack Years? 10-packyears [email or web address] Information not available 02/24/2022 What Is Your Relationship Status? Information not available 02/02/2016 Seat Belts Used Routinely No Information not available 02/02/2016 Are You Sexually Active? Yes Information not available 02/02/2016 At What Age Did You Start Smoking Tobacco? 19 [email or web address] Information not available 02/24/2022 How Much Tobacco Do You Smoke? 1 PPD Information not available 11/17/2017 Do You Use Sunscreen Routinely? No Information not available 02/02/2016 Has Tobacco Cessation Counseling Been Provided? Yes [email or web address] Information not available 02/24/2022 On What Date Was Tobacco Cessation Counseling Provided? 07/07/2022 [email or web address] Information not available 07/07/2022 Do You Have [...] PF 2 completed Radha Mccarty APRN [address], [place], [address], [place] - [facility] 01/05/2022 23:08:41 COVID-19, mRNA, LNP-S, PF, 100 mcg/0.5mL dose or 50 mcg/0.25mL dose 1 completed Yana Mart null, [place] - [facility] 07/07/2022 09:35:28 COVID-19 vaccine, vector-nr, rS-Ad26, PF, 0.5 mL 1 completed Yana Mart [place], [place] - [facility] 07/07/2022 09:35:28 COVID-19, mRNA, LNP-S, bivalent, PF, 30 mcg/0.3 mL dose 2 completed Yana Mart [place], [place] [facility] 07/07/2022 09:35:28 Tdap 9 completed Yana Mart [place], [place] - [facility] 07/07/2022 09:35:28 Td (adult), 2 Lf tetanus toxoid, preservative free, adsorbed 7 completed Yana Mart [place], [place] - [facility] 07/07/2022 09:35:28 Hep A, adult 9 completed Yana Mart [place], [place] - [facility] 07/07/2022 09:35:28 Past Encounters Encounter ID Performer Location Encounter Start Date Encounter Closed Date Diagnosis/Indication Diagnosis SNOMED-CT Code Diagnosis ICD10 Code Diagnosis IMO Codes Diagnosis Note [id number] Caty Galdamez APRN [facility] [address] [place] [address] 02/02/2016 12:54:16 02/02/2016 13:55:43 Otitis media 39505456 H66.92 Depressive disorder 3548 9007 F33.1 pt denies SI or HI, wants to be back on meds Increased frequency of urination 140101421 R35.0 [id number] Lamin Blank MD [address] [place] [address] 03/16/2017 16:12:57 03/17/2017 12:43:29 Pain in right foot 3218655744 54461 M79.671 Ankle pain 373749583 M25 .571 Depressive disorder 3548 9007 F33.1 Body mass index 25-29 - overweight 287557362 Z68.25 [id number] Lamin Blank MD [address] [place] [address] 06/14/2017 14:08:58 06/14/2017 15:40:58 Fatigue 49136883 R53.83 Body mass index 30+ - obesity 549180184 Z68.39 Ankle pain 394969618 M25 .835 [id number] Lamin Blank MD [address] [place] [address] 06/20/2017 12:39:23 06/20/2017 15:26:59 Upper respiratory infection 44385865 J06.9 Cough 79559786 R05 Otitis media 74889934 H6 6.93 [id number] Lamin Blank MD [address] [place] [address] 08/31/2017 12:59:22 08/31/2017 16:20:12 Deep venous thrombosis of lower extremity 092905977 I82.409 Cellulitis 128004443 L03 .90 [id number] Lamin Blank MD [address] [address] 09/06/2017 07:54:34 09/06/2017 09:04:01 Cellulitis 639693977 L03.90 [id number] Lamin Blank MD [address] [place] [address] 09/13/2017 09:27:00 09/13/2017 11:26:54 Cellulitis 678063631 L03.90 Nicotine dependence 5629 4008 F17.156 [id number] Caty [place] [place] [address] 11/17/2017 10:07:11 11/17/2017 11:30:52 Diabetes mellitus screening 415345229 Z13.1 Paresthesi a of lower extremity 419823793 R20.2 [id number] Radha Mccarty[address] [place] [address] 12/30/2021 10:43:30 12/30/2021 10:51:53 Influenza vaccine needed 0417679455 106 Z23 [id number] Caty Galdamez[address] [place] [address] 02/24/2022 15:24:48 02/24/2022 16:01:26 Pharyngitis 467094290 J02.9 Disorder o f thyroid gland 30700060 E07.9 right lobe feels enlarged Sinusitis 87093801 J32.9 [id number] Caty Galdamez[address] [place] [address] 07/05/2022 13:45:05 07/05/2022 14:41:23 Left lower quadrant pain 828986234 R10.32 xray not available here todaypt didn't want to go to [facility] today Flatulence symptom 76169 8004 R14.3 Lower abdominal pain 545 92229 R10.30 Vitamin D deficiency 347 11441 E55.9 Altered noah wel function 77603850 R19.4 [id number] Caty Galdamez[address] [place] [address] 07/07/2022 09:24:31 07/07/2022 10:17:51 Body mass index 30+ - obesity 519070861 Z68.30 Obesity 898040762 E66.9 Left lower quadrant pain 823652640 R10.32 xray not available here todaypt didn't want to go to [facility] today Constipation 38156230 K5 9.00 Health Concerns Section Related Observation LastModified by Organization Detai ls LastModified Time None Recorded Concern Status LastModified by Organization Details LastModified Time None Recorded Advance Directives Directive None Recorded Payers Insurance Date Sequence Insurance Name Policy Number Policy Duncan Covered Member ID Duncan Member ID Guarantor Name 07/05/2022 [place]ID[place] Dejuan Ram [id number] Dejuan Ram 02/24/2022 1 [employer] [facility] (MEDICAID HMO) Dejuan Ram [id number] eDjuan Ram 02/24/2022 1 [facility] [id number] Dejuan Ram [id number] Dejuan Ram 07/08/2022 [facility] (MEDICARE REPLACEMENT/A DVANTAGE - HMO) [id number] Dejuan Ram [id number] Dejuan Ram 04/10/2016 1 UNSPECIFIED REMIT PAYOR Dejuan Ram 07/07/2022 1 [place] Dejuan Ram [id number] Dejuan Ram 02/24/2022 2 MEDICAID-[facility] CHO[facility] - FFS/TRADITION AL Dejuan Ram [id number] Dejuan Ram 07/05/2022 [employer] [place] [place] Dejuan Ram [id number] Dejuan Ram 07/05/2022 2 [place] [id number] Dejuan Ram [id number] Dejuan Ram 07/07/2022 1 [facility] - DUAL ELIGIBLE (MEDICARE REPLACEMENT/A DVANTAGE - HMO) [id number] Dejuan Ram [id number] Dejuan Ram Notes Date Note Type Note [...] nauseousand has excessive flatulence that smells like single end sewer he has not tried any fiber [...] odor. Patient denies using any OTC medications AGULIA Verdugo 07/07/2022 10:14:35
--- OUTSIDE RECORDS SUMMARY | 2025-02-04 10:17 | XMS_ITS | Clinical Summary ---
Author Organization [facility] Address [address] [place] [address] Phone Care Team Providers Care Aircraft Cabin Cleaner Name Role Phone Lamin Blank MD Primary Care Provider [phone] Allergies Active Allergy Reactions Criticality Noted Date [...] EST - 12/24/2024 5:59 PM EST Emergency [facility] Emergency [address] [place] [address] Karolina Castellon MD Atypical chest pain (Primary Dx) Discharge Disposition: Home or Self Care 12/24/2024 Travel from Last 3 Months Surgical History Surgery Date Site/Laterality Comments FRACTURE SURGERY 10/08/2014 Right ankle DENTAL SURGERY COLONOSCOPY UPPER GASTROINTESTINAL ENDOSCOPY HIP ARTHROSCOPY 04/28/2018 Right right hip arthroscopy labral debridement, pincer and cam resection; Surgeon: Keyon Bill MD; Location: [facility]; Service: Orthopedics ANKLE SURGERY Medical [...] [employer] Medical Devices Implanted Type Area Line Service Person Device Identifier Shelf Expiration Date Model / Serial / Lot Ankle Hardware R3 3 Hole Acet Shell 54mm - [id number] Implanted:Qty : 1 on 09/26/2019 by Nilo Spear MD at [facility] Right: Hip [employer] [id number] 04/25/2029 [id number] / / [id number] R3 0 Deg +4 Xlpe Acet Lnr 36mm X 54mm - [id number] Implanted:Qty : 1 on 09/26/2019 by Nilo Spear MD at [facility] Right: Hip [employer] [id number] 03/17/2029 [id number] / / [id number] Polarstem Collar Std. Ti/Ken 2 - [id number] Implanted:Qty : 1 on 09/26/2019 by Nilo Spear MD at [facility] Right: Hip [employer] [id number] 04/04/2026 [id number] / / [id number] Oxinium Fem Hd 01/27 36 Mm +0 - [id number] Implanted:Qty : 1 on 09/26/2019 by Nilo Spear MD at [facility] Right: Hip [employer] [id number] 07/10/2029 [id number] / / [id number] Procedures Procedure Name Priority Date/Time Associated Diagnosis [...] REFLEX (12/24/2024 3:59 PM EST) Pathologist [facility] cv-[id number]-K 9 <22 ng/L 12/24/2024 4:18 PM EST [facility] Blood VENOUS BLOOD / Unknown Venipuncture / Unknown 12/24/2024 3:59 PM EST 12/24/2024 4:01 PM EST Narrative [facility] - 12/24/2024 4:18 PM EST Ingestion of lin doses of biotin (>5 mg/day) taken within 8 hours of drawing blood sample can interfere with this immunoassay test. Maty John PA-C CHEMISTRY ORDERABLES Final Res ult [facility] [address] [place] [address] * (ABNORMAL) D-DIMER (12/24/2024 3:59 PM EST) Pathologist [facility] D-Dimer 552(H) <=500 ng/mL FEU 12/24/2024 4:13 PM EST [facility] Comment:D dimer may [...] John PA-C HEMATOLOGY ORDERABLES Final Re sult [facility] [address] [place] [address] * CBC WITH DIFF (12/24/2024 3:59 PM EST) WBC 7.5 3.7 - 10.3 x10(3)/mcL 12/24/2024 4:04 PM EST [facility] RBC 4.96 4.60 - 6.10 x10(6)/mcL 12/24/2024 4:04 PM EST [facility] Hgb 16.3 13.7 - 17.5 g/dL 12/24/2024 4:04 PM EST [facility] Hct 47.1 40.0 - 51.0 % 12/24/2024 4:04 PM EST [facility] MCV 95.0 80.0 - 100.0 fL 12/24/2024 4:04 PM EST [facility] MCH 32.9 26.0 - 34.0 pg 12/24/2024 4:04 PM EST [facility] MCHC 34.6 30.7 - 35.5 g/dL 12/24/2024 4:04 PM EST [facility] RDW 13.4 <=14.9 % 12/24/2024 4:04 PM EST [facility] Platelet 297 155 - 369 x10(3)/mcL 12/24/2024 4:04 PM EST [facility] MPV 10.3 8.8 - 12.5 fL 12/24/2024 4:04 PM EST [facility] Neut Percent 55.8 % 12/24/2024 4:04 PM EST [facility] Comment:Neutrophils equals s egs plus bands Imm Gran% 0.1 % 12/24/2024 4:04 PM EST [facility] Comment:Automated count of m etamyelocytes, myelocytes and promyelocytes. Lymph Percent 34.6 % 12/24/2024 4:04 PM EST [facility] Tyrrell Percent 6.9 % 12/24/2024 4:04 PM EST [facility] Eos Percent 1.7 % 12/24/2024 4:04 PM EST [facility] Baso Percent 0.9 % 12/24/2024 4:04 PM EST [facility] Neut # 4.2 1.6 - 6.1 x10(3)/mcL 12/24/2024 4:04 PM EST [facility] Comment:Neutrophils equals s egs plus bands IMMGRAN# 0.0 0.0 - 0.1 x10(3)/mcL 12/24/2024 4:04 PM EST [facility] Comment:Automated count of m etamyelocytes, myelocytes and promyelocytes. An absolute IG <0.1 is reported as 0.0. Lymph # 2.6 1.2 - 3.9 x10(3)/mcL 12/24/2024 4:04 PM EST [facility] Tyrrell # 0.5 0.3 - 0.9 x10(3)/mcL 12/24/2024 4:04 PM EST [facility] Eos# 0.1 0.0 - 0.5 x10(3)/mcL 12/24/2024 4:04 PM EST [facility] Baso # 0.1 0.0 - 0.1 x10(3)/mcL 12/24/2024 4:04 PM EST [facility] Blood VENOUS BLOOD / Unknown Venipuncture / Unknown 12/24/2024 3:59 PM EST 12/24/2024 4:02 PM EST us Maty John PA-C HEMATOLOGY ORDERABLES Final Re sult [facility] [address] [facility] [place] [address] * (ABNORMAL) BASIC METABOLIC PANEL (12/24/2024 3:59 PM EST) Sodium 140 136 - 145 mmol/L 12/24/2024 4:18 PM EST [facility] Potassium 4.1 3.5 - 5.0 mmol/L 12/24/2024 4:18 PM EST [facility] Chloride 102 98 - 107 mmol/L 12/24/2024 4:18 PM EST [facility] Total CO2 26 22 - 29 mmol/L 12/24/2024 4:18 PM EST [facility] Anion Gap 12 7 - 16 mmol/L 12/24/2024 4:18 PM EST [facility] Calcium 9.5 8.6 - 10.4 mg/dL 12/24/2024 4:18 PM EST [facility] Glucose Lvl 120(H) 70 - 99 mg/dL 12/24/2024 4:18 PM EST [facility] BUN 12 6 - 20 mg/dL 12/24/2024 4:18 PM EST [facility] Creatinine 0.88 0.67 - 1.30 mg/dL 12/24/2024 4:18 PM EST [facility] eGFR (CKD-EPIcr 2020) 106 >=60 mL/min/1.7 3 m2 12/24/2024 4:18 PM EST [facility] Comment:Estimated GFR was ca lculated using the CKD-EPIcr (2020) equation refit without race. The equation is recommended by the National Kid[employer] - [place] [employer]ph[employer] Task Force. Blood VENOUS BLOOD / Unknown Venipuncture / Unknown 12/24/2024 3:59 PM EST 12/24/2024 4:01 PM EST us Maty John PA-C CHEMISTRY ORDERABLES Final Res ult [facility] [address] [facility] [place] [address] * EK EKG 12 LEAD (12/24/2024 3:29 PM EST) Anatomical Region Laterality Modality Electrocardiogra phy 12/24/2024 3:34 PM EST Impressions 12/25/2024 8:[address] [facility] Test Date: 2024-12-24 Pat Name: DEJUAN QUINTERO Department: DEPID Room: [facility] Gender: Male Air Quality Chemist: [facility] : 1975 Requested By: [facility] Order Number: [id number] Reading MD: Jack Neumann MD Measurements Intervals [place] Rate: 70 P: 12 NH: 150 QRS: 80 QRSD: 81 T: 39 QT: 370 QTc: 399 Interpretive Statements SINUS RHYTHM Electronically Signed On 12-25-2024 08:04:15 EST by Jack Neumann MD Narrative Procedure Note Jack Neumann MD - 12/25/2024 IMPRESSION [place] [facility] Test Date: 2024-12-24 Pat Name: DEJUAN QUINTERO Department: DEPID Room: [facility] Gender: Male Air Quality Chemist: [facility] : 1975 Requested By: [facility] Order Number: [id number] Reading MD: Jack Neumann MD Measurements Intervals [place] Rate: 70 P: 12 NH: 150 QRS: 80 QRSD: 81 T: 39 [...] [address] [place] [address] [employer] MED[employer]ARE PPO REPLACE MR Advance Directives For more information, please contact: [phone] * Full Code (Latest Code Status on File) Date Activated Date Inactivated Comments 08/25/2017 11:18 PM 08/29/2017 4:29 PM Care Teams Aircraft Cabin Cleaner Relationship Specialty Start Date End Date Lamin Blank MD PCP - General 12/08/09
--- OUTSIDE RECORDS SUMMARY | 2025-02-04 10:17 | XMS_ITS | Encounter Summary ---
Author Organization [facility] [place] [address] Care Team Providers Care Gun Perforator Loader Name Role Phone Lamin Blank MD Primary Care Provider [phone] Encounter Details Date Type Department Care Team [...] on filedocumented in this encounter Care Teams Gun Perforator Loader Relationship Specialty Start Date End Date Lamin Blank MD PCP - General 12/08/09 documented as of this encounter
--- OUTSIDE RECORDS SUMMARY | 2025-02-04 10:17 | XMS_ITS | Clinical Summary ---
Author Organization Healthcare Address [address] [place] [address] Care Team Providers Care Account Classification Clerk Name Role Phone Lamin Blank MD [...] of Treatment Not on file Care Teams Account Classification Clerk Relationship Specialty Start Date End Date Lamin Blank MD PCP - General 06/27/20
[2025-02-04 11:18] LABS: Anion Gap 11.7 mEq/L (5-15); Blood Urea Nitrogen 20 mg/dl (9-20); Calcium 9.8 mg/dl (8.4-10.2); Carbon Dioxide 30 mmol/L (22.0-30.0); Chloride 98 mmol/L (98-107); Creatinine,Serum 1.10 mg/dl (0.66-1.25); Estimated Glomerular Filt Rate 71 ml/min (>60); GFR (African American) 86 ML/MIN (>60); Glucose 163 mg/dl (74-100); Potassium 3.7 mmoL/L (3.5-5.1); Sodium 136 mmol/L (136-145)
[2025-02-04 11:26] LABS: NT Pro Brain Natriuretic Pep. 46.8 pg/mL (0-125)
== END 2025-02-04 23:59 | disposition home or self-care (01) ==
LOC: LAB 10:13
PROVIDERS: PCP Family Medicine; Visit Provider Nurse Practitioner Family
DX: J90 Pleural effusion, not elsewhere classified (principal); I10 Essential (primary) hypertension
CPT/HCPCS: 36415; 80048; 83880